=== PATIENT | male | born 1985 | race African-American/Black ===

== ENCOUNTER 2016-10-08 23:40 | Inpatient (IN) | payer MEDICARE, MEDICAID ==
[~2016-10-08] VITALS: Ht 175.3 cm; Wt 96.7 kg
[~2016-10-08 23:40] MED LIST: CELE10TA PO; INVE156I IM; ZYPR20TA
[2016-10-09] MEDS ORDERED: NICO2LOZ MT (00:18)
[2016-10-09] MEDS ORDERED: BENA25CA4 PO (00:18)
[2016-10-09] MEDS ORDERED: [UNRECOGNIZED DRUG - CODE] PO (00:18)
[2016-10-09] MEDS ORDERED: MULT1TAB10 PO (00:18)
[2016-10-09] MEDS ORDERED: GUAN1TA PO (00:18)
[2016-10-09] MEDS ORDERED: INVE234I IM (00:18)
[2016-10-09] MEDS ORDERED: BUPR10TASR PO (00:18)
[2016-10-09 00:56] LABS: MEAN CORPUSCULAR HEMOGLOBIN 30.5 pg (27.0-33.0); MEAN CORPUSCULAR HGB CONC 33.3 g/dl (32.0-36.5); MEAN CORPUSCULAR VOLUME 91.5 fl (80.0-96.0); RED CELL DISTRIBUTION WIDTH 13.5 % (11.5-14.5); WHITE BLOOD COUNT 5.5 K/mm3 (4.0-10.0)
[2016-10-09 01:31] LABS: ALBUMIN 4.6 GM/DL (3.2-5.2); ALBUMIN/GLOBULIN RATIO 1.07 (1.00-1.93); ALKALINE PHOSPHATASE 65 U/L (45-117); ALT/SGPT 29 U/L (12-78); ANION GAP 7 MEQ/L (8-16); AST/SGOT 29 U/L (15-37); BILIRUBIN,DIRECT 0.2 MG/DL (0.0-0.2); BILIRUBIN,TOTAL 0.8 MG/DL (0.2-1.0); BLOOD UREA NITROGEN 13 MG/DL (7-18); CARBON DIOXIDE LEVEL 31 MEQ/L (21-32); CHLORIDE LEVEL 101 MEQ/L (98-107); CREATININE FOR GFR 1.24 MG/DL (0.70-1.30); GLOMERULAR FILTRATION RATE > 60.0 (>60); GLUCOSE, FASTING 112 MG/DL (70-105); POTASSIUM SERUM 3.5 MEQ/L (3.5-5.1); SODIUM LEVEL 139 MEQ/L (136-145); TOTAL PROTEIN 8.9 GM/DL (6.4-8.2)
[2016-10-09] MEDS ORDERED: MAALOX 30 ML SUSP *UDC PO PRN (01:45)
[2016-10-09] MEDS ORDERED: MOM 30ML SUSPENSION UDC PO PRN (01:45)
[2016-10-09] MEDS ORDERED: traZODone 50 MG TAB PO PRN (01:45)
[2016-10-09] MEDS ORDERED: ACETAMINOPHEN TAB 650MG DOSE (2X325MG) PO PRN (01:45)
[2016-10-09] MEDS ORDERED: NICO2GUM40 PO (02:02)
[2016-10-09] MEDS ORDERED: MELA1CAP PO (02:02)
[2016-10-09] MEDS ORDERED: VITMTA PO (02:02)
[2016-10-09] MEDS ORDERED: HALOPERIDOL 5 MG TAB PO ONE (03:00)
[2016-10-09 03:02] LABS: FREE T4 0.91 NG/DL (0.76-1.46)
[2016-10-09 03:48] VITALS: BP 154/96
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
[2016-10-09 15:32] VITALS: BP 137/83
--- NOTE | 2016-10-09 15:35 | ECGEPIP ---
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
[2016-10-09 15:36] VITALS: BP 132/72
[2016-10-09 15:37] VITALS: BP 135/74
[2016-10-09] MEDS ORDERED: CEPACOL LOZENGE PO PRN (15:45)
[2016-10-09] MEDS ORDERED: chlordiazePOXIDE 25 MG CAP PO ONE (16:45)
[2016-10-09] MEDS ORDERED: QUEtiapine FUMARATE 100 MG TAB PO PRN (16:45)
[2016-10-09 17:41] LABS: METHADONE URINE NEGATIVE (NEGATIVE)
[2016-10-09 18:00] VITALS: BP 131/79
[2016-10-09] MEDS ORDERED: chlordiazePOXIDE 25 MG CAP PO PRN (21:00)
[2016-10-10 08:01] LABS: ALBUMIN 4.1 GM/DL (3.2-5.2); ALBUMIN/GLOBULIN RATIO 1.17 (1.00-1.93); ALKALINE PHOSPHATASE 60 U/L (45-117); ALT/SGPT 25 U/L (12-78); ANION GAP 5 MEQ/L (8-16); AST/SGOT 23 U/L (15-37); BILIRUBIN,TOTAL 0.9 MG/DL (0.2-1.0); BLOOD UREA NITROGEN 18 MG/DL (7-18); CALCIUM LEVEL 8.4 MG/DL (8.5-10.1); CARBON DIOXIDE LEVEL 28 MEQ/L (21-32); CHLORIDE LEVEL 106 MEQ/L (98-107); CREATININE FOR GFR 1.15 MG/DL (0.70-1.30); GLOMERULAR FILTRATION RATE > 60.0 (>60); GLUCOSE, FASTING 72 MG/DL (70-105); POTASSIUM SERUM 4.2 MEQ/L (3.5-5.1); SODIUM LEVEL 139 MEQ/L (136-145); T UPTAKE 41 % (33-40); THYROXINE (T4) 4.6 UG/DL (4.5-12.0); TOTAL PROTEIN 7.6 GM/DL (6.4-8.2)
--- NOTE | 2016-10-10 08:56 | MHIPNPDOC ---
[facility] Progress Note Progress Note DATE OF SERVICE: 10/10/16 HISTORY OF THE PRESENT ILLNESS: Patient is a 31-year-old male, who was discharged from [facility] on 10/05/16 and was reportedly observed to be acting in a bizarre manner at a [employer] and was brought in by ambulance for evaluation. Patient has 2 prior admissions at [facility], last admission occurring in 2012 with diagnosis of schizoaffective disorder. Patient has also had multiple other psychiatric admissions, recently completed substance abuse rehabilitation treatment. Patient indicates he took "a couple handfuls" of unknown medication, states he thinks made than Benadryl. Patient has history of prior suicide attempts 3. [employer]ting Press Tender met with patient today to assess treatment progress on inpatient unit. Patient is observed lying in bed, does not sit up to engage in assessment, indicates he is feeling "a little better," denies experiencing sensation of bugs crawling on him. Patient took 1 time dose of Librium last night, has not utilized Librium since, denies need for PRN anxiolytic or antipsychotic at this time. Patient rates current anxiety level as 2/10, depression 5/10, denies suicidal or homicidal ideation, denies auditory, tactile, or visual hallucinations, and denies urge to engage in self-injurious behavior. Patient indicates he continues to feel "a little groggy from my overdose, I don't remember what I took but I think it was Benadryl, it might have been something else, I know it was a prescribed med." When asked what precipitated overdose patient states, "when I left rehabilitation the plan was for me to go stay with a friend near [place], but when I got there they were using so I left, I was sad and I had nowhere to go." Patient continues to deny other substance use/abuse prior to current hospitalization admission, denies symptoms or craving or withdrawal. Patient reports marginal improvement energy level, indicates he is experiencing concentration and focus challenges, reports some improvement to appetite. Patient notes he slept well last night. Patient denies symptoms of physical pain presents with no signs of acute distress at time of interaction. Patient indicates he was taking the following medications up until time of admission: Wellbutrin SR 100 mg q day Diphenhydramine 50 mg hs PRN insomnia, may repeat 1 if needed Guanfacine 1 mg BID Melatonin 10 mg hs, may repeat 1 Invega Sustenna 234 mg IM, last injection given 09/23/16, next due 10/23/16 VITALS: See below NEW TEST RESULTS: 10/10/16 labs indicated low anion gap and calcium and elevated T3 uptake PAST MEDICAL/SURGICAL HISTORY: Patient denies history of chronic health condition, denies history of seizure or head injury. Labs on admission indicated elevated glucose, total protein, and TSH and low anion gap, patient refused weight UDS apparently not completed in ER. On 10/10/16 UDS negative 10/09/[address] elevation, probably early repolarization similar to Nursing has been asked to ensure the patient is evaluated by PA. Nursing has also been asked to monitor vitals q 6 hours and to monitor for symptoms of withdrawal and psychosis CURRENT MEDICATIONS: See below MENTAL STATUS EXAMINATION: General appearance: Patient is a 31-year old male, who is generally cooperative and pleasant, engageable, makes intermittent eye contact with less darting eye movements at times, exhibits adequate personal hygiene, dressed in hospital clothing, ambulates steady gait, appears stated age. Speech: Of normal rate, rhythm, volume, possibly some delay. Thought processes: Linear, goal-directed, possibly some disorganization. Thought content: Rational at times, tangential at times, possibly paranoid, perseverative to homelessness. Abstract reasoning and computation: Appear improved today Description of associations: Generally intact but loose times Description of abnormal or psychotic thoughts: Patient denies current suicidal or homicidal ideation, today denies intermittent visual hallucinations of "seeing snakes," denies intermittent audio hallucinations of "people shouting at me," and also denies tactile hallucinations of feeling bugs crawling on him. Patient may be responding to internal stimuli, requires further evaluation, endorses reduced bizarre bizarre or paranoid ideation, denies being preoccupied with violence. Judgment: Poor. Insight: Poor. Orientation: A and O 3. Recent and remote memory: Appears intact other than patient states he continues to remember nothing of events which occurred just prior to hospitalization, states he is not sure what medication he attempted to overdose on, he thinks may been Benadryl. Attention span and concentration: Improved today. Fund of knowledge: Requires further evaluation. Mood: "Hopeful." Patient reports reduced symptoms of anxiety and depression, no mood lability noted Affect: Blunted but brightens at times DIAGNOSES: Schizoaffective disorder, polysubstance use disorder. Rule out schizophrenia, rule out substance-induced disorder, rule out mood disorder. Adult ADHD by report ASSESSMENT: Patient appears to be adjusting to unit slowly, has been isolative to room, sleeping, is cooperative and engageable when awake, has presented with no behavior management challenges, attended one group yesterday and is encouraged to be up out of bed and to participate in unit activities. Patient is denying symptoms psychosis, states he continues to feel "groggy" due to recent overdose on unknown substance, UDS negative. EEG has been ordered to rule out organic cause of what may be alteration in mental status. 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 Patient denies current suicidal or homicidal ideation and verbalizes awareness of how to access supportive services on the unit if needed. Will continue to monitor patient and evaluate medication restart, patient's response to medications, and will monitor for medication side effects. Will also evaluate for patient safety, resolution of suicidal ideation, and discharge readiness. marketing content coordinator is attempting to access background treatment information to ensure safe and effective discharge planning. Patient reiterates today when prepared for discharge he is agreeable to participating in outpatient psychotherapy, medication management, and case management, is requesting assistance with housing and states he would like to transition to [facility] supportive housing environment. MANAGEMENT PLAN: Discontinue Librium. Discontinue Librium. Initiate Ativan 1 mg po TID PRN anxiety/agitation. Continue Seroquel 100 mg po hs PRN mood/insomnia. Evaluate restart of medications patient was prescribed and discharged on from rehabilitation: Wellbutrin, Tenex EEG ordered Maintain safety precautions Patient to attend groups and participate in unit programming to develop coping strategies Engage patient in discharge planning process and arrange meeting with support system to ensure safe discharge planning when appropriate Patient to follow up with PCM upon discharge TIME SPENT: 35 minutes Vital Signs Vital Signs Date Time Temp Pulse Resp B/P (MAP) Pulse Ox O2 Delivery O2 Flow Rate FiO2 10/09/16 21:48 Room Air 10/09/16 18:00 97.9 86 16 131/79 (96) 10/09/16 15:32 98 Laboratory Data 24H Labs Laboratory Tests 2 10/09/16 17:10: Urine Amphetamines Screen NEGATIVE, Urine Benzodiazepines Screen NEGATIVE, Urine Opiates Screen NEGATIVE, Urine Methadone Screen NEGATIVE, Urine Barbiturates Screen NEGATIVE, Urine Phencyclidine Screen NEGATIVE, Urine Cocaine Metabolite Screen NEGATIVE, Urine Cannabinoids Screen NEGATIVE 10/10/16 07:08: Anion Gap 5L, Glomerular Filtration Rate > 60.0, Blood Urea Nitrogen 18, Creatinine 1.15, Sodium Level 139, Potassium Level 4.2, Chloride Level 106, Carbon Dioxide Level 28, Calcium Level 8.4L, Aspartate Amino Transf (AST/SGOT) 23, Alanine Aminotransferase (ALT/SGPT) 25, Alkaline Phosphatase 60, Total Bilirubin 0.9, Total Protein 7.6, Albumin 4.1, Albumin/Globulin Ratio 1.17, Thyroid Stimulating Hormone (TSH) 1.250, Free Thyroxine Index 1.9, Thyroxine (T4 ) 4.6, Triiodothyronine (T3) Uptake 41H CBC/BMP Laboratory Tests 10/10/16 07:08 Calcium Level 8.4 L, Aspartate Amino Transf (AST/SGOT) 23, Alanine Aminotransferase (ALT/SGPT) 25, Alkaline Phosphatase 60, Total Bilirubin 0.9, Total Protein 7.6, Albumin 4.1 Current Medications Current Medications Acetaminophen (Tylenol Tab) 650 mg Q6HP PRN PO HEADACHE or DISCOMFORT; Start at 01:45; Stop 11/08/16 at 01:44 Al Hydrox/Mg Hydrox/Simethicone (Mylanta) 30 ml Q4HP PRN PO HEARTBURN/ INDIGESTION; Start 10/09/16 at 01:45; Stop 11/08/16 at 01:44 Cetylpyridinium Chloride (Cepacol) 1 alissa Q6HP PRN PO SORE THROAT; Start at 15:45; Stop 11/08/16 at 15:44 Chlordiazepoxide (Librium) 25 mg TID PRN PO alcohol/benzo withdrawal; Start 10/09/16 at 21:00; Stop 10/16/16 at 20:59 Home Med (Med Rec Complete!) ASDIRECTED XX ; Start 10/09/16 at 02:15; Stop at 02:15; Status DC Magnesium Hydroxide (Milk Of Magnesia) 30 ml DAILYPRN PRN PO CONSTIPATION; Start 10/09/16 at 01:45; Stop 11/08/16 at 01:44 Quetiapine Fumarate (SEROquel) 100 mg QHS PRN PO psychosis/insomnia; Start 10/09 at 16:45; Stop 11/08/16 at 16:44 Trazodone HCl (Desyrel) 50 mg QHSP PRN PO INSOMNIA; Start 10/09/16 at 01:45; Stop 10/09/16 at 16:51; Status DC Allergies Coded Allergies: No Known Allergies (Unverified , 01/06/13) Daniela Beltre Oct 10, 2016 08:56
[2016-10-10] MEDS ORDERED: LORazepam 1 MG TAB PO PRN (14:45)
[2016-10-10 18:00] VITALS: BP 138/82
[2016-10-10] MEDS: AMOXICILLIN 500 MG CAP PO SCH (22:00)
--- NOTE | 2016-10-10 23:31 | HPE ---
DATE OF ADMISSION: 10/09/2016 HISTORY OF PRESENT ILLNESS: Please refer to psychiatric history and evaluate For further details on this admission. This examination and history is intended for medical issues, which may need treatment, followup, or consult on this 31-year-old male. This is being done today, as patient refused to get up yesterday. He is awake and cooperative today. ALLERGIES: No known allergies. SOCIAL HISTORY: He is single. He states he is currently homeless. EtOH (ethanol) occasionally. Smokes one pack of cigarettes per day. Recreational drug use: Marijuana and cocaine. He has not had either for 34 days. He has not smoked cigarettes for 34 days. PAST MEDICAL HISTORY: 1. Schizoaffective disorder. 2. Anxiety. 3. Depression. 4. Polysubstance abuse. PAST SURGICAL HISTORY: Negative. LABORATORY STUDIES: CBC was normal. Electrolytes were normal. TSH was 7.63. Rechecked TSH was normal at 1.250. Free T3 normal at 1.9. Thyroxine 4.6. EKG showed sinus rhythm of 85. Toxicology screen was negative. CBC was normal. Electrolytes were normal. HOME MEDICATIONS: - Wellbutrin SR 100 mg by mouth daily - guanfacine HCL 1 mg by mouth twice a day - multivitamin one by mouth daily - nicotine gum 2 mg by mouth every 2 hours as needed for smoking cessation - melatonin 1 mg by mouth at bedtime REVIEW OF SYSTEMS: A 10-systems review was done. Patient was complaining of a sore throat. No fevers, chills, or difficulty swallowing. No nausea or vomiting. OBJECTIVE: Height 69 inches, blood pressure 137/83, pulse 78, respirations 18, temperature 98.1. Patient is alert and oriented times three. Pupils equal and reactive to light. Extraocular movements (EOMs) intact. Corneae and sclerae clear. Conjunctivae are normal. No facial asymmetry. Pharynx is reddened. Tonsils reddened. Tongue and gums pink and moist. Tongue is midline. Neck is supple without lymphadenopathy. No thyromegaly. No goiter. Carotids 2+ without bruits. Chest clear to auscultation without wheezing or retraction. Heart is regular. Abdomen benign. Bowel sounds positive. Genitourinary/rectal not done. Extremities show equal strength, full range of motion. No cyanosis, clubbing, or edema. Gait steady. Peripheral pulses equal and palpable bilaterally. Skin is warm and dry. IMPRESSION AND PLAN: Psychiatric plan per psychiatry. Tonsillitis, pharyngitis. Throat culture and sensitivity (C and S) sent. Amoxicillin 500 mg by mouth three times a day for 10 days. Increase fluids by mouth.
[2016-10-11] MEDS: AMOXICILLIN 500 MG CAP PO SCH ×4 (06:00→21:06)
[2016-10-11 06:26] VITALS: BP 142/85
[2016-10-11 07:47] LABS: BASO % 0.8 % (0.0-1.0); EOS # 0.2 K/mm3 (0.0-0.50); EOS % 5.2 % (0.0-3.0); LARGE UNSTAINED CELL # 0.1 K/mm3 (0.0-0.4); LARGE UNSTAINED CELL % 1.4 % (0.0-4.0); LYMPH % 47.5 % (24.0-44.0); MEAN CORPUSCULAR HEMOGLOBIN 30.8 pg (27.0-33.0); MEAN CORPUSCULAR HGB CONC 34.2 g/dl (32.0-36.5); MEAN CORPUSCULAR VOLUME 89.9 fl (80.0-96.0); MONO # 0.3 K/mm3 (0.0-0.8); MONO % 6.1 % (0.0-5.0); NEUTROPHILS # 1.6 K/mm3 (1.8-7.7); PLATELET COUNT, AUTOMATED 164 k/mm3 (150-450); RED CELL DISTRIBUTION WIDTH 13.4 % (11.5-14.5); WHITE BLOOD COUNT 4.1 K/mm3 (4.0-10.0)
--- NOTE | 2016-10-11 09:17 | MHIPNPDOC ---
[facility] Progress Note Progress Note DATE OF SERVICE: 10/11/16 HISTORY OF THE PRESENT ILLNESS: Patient is a 31-year-old male, who was discharged from [facility] on 10/05/16 and was reportedly observed to be acting in a bizarre manner at a [employer] and was brought in by ambulance for evaluation. Patient has 2 prior admissions at [facility], last admission occurring in 2012 with diagnosis of schizoaffective disorder. Patient has also had multiple other psychiatric admissions, recently completed substance abuse rehabilitation treatment. Patient indicates he took "a couple handfuls" of unknown medication, states he thinks made than Benadryl. Patient has history of prior suicide attempts 3. Delivery Sales Worker met with patient today to assess treatment progress on inpatient unit. Patient is observed lying in bed, today sits up to engage with automatic typewriter inspector for assessment, indicates he did not sleep well last night due to a nightmare about which he provides the information, informs automatic typewriter inspector today that he is feeling "better, I checked my horoscope and things are looking better." Patient describes current anxiety level as 7/10, depression 7/10, denies suicidal and homicidal ideation, denies auditory visual hallucinations, denies urge to engage in self-injurious behavior. Patient states he last experienced tactile hallucinations yesterday which involved sensation of bugs crawling on his skin and visual hallucinations which involved "seeing air coming out of my pores," notes he last experienced suicidal ideation earlier this morning pertaining to "housing, I'm afraid I'm than have to live on the street." Patient expresses concerns regarding homelessness, states recent overdose was due to "I had nowhere else to go and I felt hopeless, I reached a -end." Patient to undergo EEG today. Patient makes request for Wellbutrin restart indicating medication "worked the best of any of the antidepressants have taken." Patient reports energy level remains low which she attributes to recent overdose, reiterates today he is not sure on what medication he overdosed, I indicates he overdosed due to homelessness. Patient continues to deny other substance use/ abuse prior to current hospitalization admission, denies symptoms or craving or withdrawal. Patient states he continues to experience concentration and focus challenges, reports some improvement to appetite. Patient denies symptoms of physical pain presents with no signs of acute distress at time of interaction. 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 Of note: Delivery Sales Worker attempted to reach Julia Colby at [facility] ([phone]) to discuss treatment history and to provide treatment update, spoke with nurse, Mckayla, who indicated patient's behavioral health case has been closed at clinic since 2013. Patient indicates he was taking the following medications up until time of admission: Wellbutrin SR 100 mg q day Diphenhydramine 50 mg hs PRN insomnia, may repeat 1 if needed Guanfacine 1 mg BID Melatonin 10 mg hs, may repeat 1 Invega Sustenna 234 mg IM, last injection given 09/23/16, next due 10/23/16 VITALS: See below NEW TEST RESULTS: 10/11/16 labs indicated low Hgb, HCT, neut %, and elevated lymph %, mono %, and eos %, PA is aware and treating tonsillitis, pharyngitis 10/10/16 labs indicated low anion gap and calcium and elevated T3 uptake PAST MEDICAL/SURGICAL HISTORY: Patient denies history of chronic health condition, denies history of seizure or head injury. Labs on admission indicated elevated glucose, total protein, and TSH and low anion gap, patient refused weight UDS apparently not completed in ER. On 10/10/16 UDS negative 10/09/[address] elevation, probably early repolarization similar to , clinical consultation completed with recommendation made for follow-up with outpatient provider. Throat culture pending CURRENT MEDICATIONS: See below MENTAL STATUS EXAMINATION: General appearance: Patient is a 31-year old male, who is generally cooperative and pleasant, engageable, makes intermittent eye contact with no darting eye movements today, exhibits adequate personal hygiene, dressed in hospital clothing, ambulates steady gait, appears stated age. Speech: Of normal rate, rhythm, volume, possibly some delay. Thought processes: Linear, goal-directed, possibly some disorganization. Thought content: Rational at times, less tangential but remains at times, possibly paranoid, perseverative to homelessness. Abstract reasoning and computation: Appear improved today Description of associations: Generally intact but loose times Description of abnormal or psychotic thoughts: Patient denies current suicidal or homicidal ideation, today denies auditory or visual hallucinations, indicates he last experienced yesterday involving sensation of bugs crawling on his skin. Patient does not appear to be responding to internal stimuli but requires further evaluation, continues to endorse bizarre in what may be paranoid ideation, denies being preoccupied with violence. Judgment: Poor. Insight: Poor. Orientation: A and O 3. Recent and remote memory: Appears intact other than patient states he continues to remember nothing of events which occurred just prior to hospitalization, states he is not sure what medication he attempted to overdose on, he thinks may been Benadryl. Attention span and concentration: Some improvement noted today. Fund of knowledge: Requires further evaluation. Mood: "I'm concerned about being homeless and having nowhere to go." Patient reports ongoing symptoms of anxiety and depression, no mood lability noted Affect: Blunted, congruent with mood DIAGNOSES: Schizoaffective disorder, polysubstance use disorder. Rule out bipolar disorder, rule out schizophrenia, rule out substance-induced disorder, rule out mood disorder. Adult ADHD by report ASSESSMENT: Patient appears to be adjusting to unit slowly, re,ains generally isolative to room and sleeping but is visible at times, has been attending some groups remains cooperative and engageable when awake, has presented with no behavior management challenges. Patient has been encouraged to be up out of bed and to participate in unit activities. Patient is denying symptoms of psychosis but indicates he last experienced yesterday, states he continues to experience low energy related to recent overdose on unknown substance, UDS negative. Patient has not needed to utilize PRN anxiolytic is aware medication is available to him if needed. EEG to be completed today in effort to rule out organic cause of what may be alteration in mental status. Patient indicates he is experiencing symptoms of depression and experienced poor sleep last night, is agreeable to taking Seroquel which will be changed to standing order in effort to improve sleep and mood and reduce unusual thinking. Patient denies current suicidal or homicidal ideation and verbalizes awareness of how to access supportive services on the unit if needed. Will continue to monitor patient and evaluate antidepressant medication restart, patient's response to medications, and will monitor for medication side effects. Will also evaluate for patient safety, resolution of suicidal ideation, and discharge readiness. market research coordinator is attempting to access background treatment information to ensure safe and effective discharge planning. Patient reiterates today when prepared for discharge he is agreeable to participating in outpatient psychotherapy, medication management, and case management, is requesting assistance with housing and states he would like to transition to [facility] supportive housing environment. MANAGEMENT PLAN: Continue Ativan 1 mg po TID PRN anxiety/agitation. Change Seroquel to 100 mg po hs. continue to evaluate restart of medications patient was prescribed and discharged on from rehabilitation: Wellbutrin, Tenex EEG ordered, results pending Maintain safety precautions Patient to attend groups and participate in unit programming to develop coping strategies Engage patient in discharge planning process and arrange meeting with support system to ensure safe discharge planning when appropriate Patient to follow up with PCM upon discharge TIME SPENT: 35 minutes Vital Signs Vital Signs Date Time Temp Pulse Resp B/P (MAP) Pulse Ox O2 Delivery O2 Flow Rate FiO2 10/11/16 06:26 97.6 93 18 142/85 (104) 10/09/16 21:48 Room Air 10/09/16 15:32 98 Laboratory Data 24H Labs Laboratory Tests 2 10/11/16 07:36: White Blood Count 4.1, Red Blood Count 4.53, Hemoglobin 13.9L, Hematocrit 40.7L , Mean Corpuscular Volume 89.9, Mean Corpuscular Hemoglobin 30.8, Mean Corpuscular Hemoglobin Concent 34.2, Red Cell Distribution Width 13.4, Platelet Count 164, Neutrophils (%) (Auto) 39.0, Lymphocytes (%) (Auto) 47.5H, Monocytes (%) (Auto) 6.1H, Eosinophils (%) (Auto) 5.2H, Basophils (%) (Auto) 0.8, Neutrophils # (Auto) 1.6L, Lymphocytes # (Auto) 2.0, Monocytes # (Auto) 0.3, Eosinophils # (Auto) 0.2, Basophils # (Auto) 0.0, Large Unclassified Cells % 1.4 , Large Unclassified Cells # 0.1 CBC/BMP Laboratory Tests 10/11/16 07:36 Red Blood Count 4.53, Mean Corpuscular Volume 89.9, Mean Corpuscular Hemoglobin 30.8, Mean Corpuscular Hemoglobin Concent 34.2, Red Cell Distribution Width 13.4 , Neutrophils (%) (Auto) 39.0, Lymphocytes (%) (Auto) 47.5 H, Monocytes (%) ( Auto) 6.1 H, Eosinophils (%) (Auto) 5.2 H, Basophils (%) (Auto) 0.8, Neutrophils # (Auto) 1.6 L, Lymphocytes # (Auto) 2.0, Monocytes # (Auto) 0.3, Eosinophils # (Auto) 0.2, Basophils # (Auto) 0.0 Current Medications Current Medications Acetaminophen (Tylenol Tab) 650 mg Q6HP PRN PO HEADACHE or DISCOMFORT; Start at 01:45; Stop 11/08/16 at 01:44 Al Hydrox/Mg Hydrox/Simethicone (Mylanta) 30 ml Q4HP PRN PO HEARTBURN/ INDIGESTION; Start 10/09/16 at 01:45; Stop 11/08/16 at 01:44 Amoxicillin (Amoxicillin) 500 mg Q8H PO Last administered on 10/11/16t 08:33; Start 10/10/16 at 22:00; Stop 10/17/16 at 21:59 Cetylpyridinium Chloride (Cepacol) 1 alissa Q6HP PRN PO SORE THROAT; Start at 15:45; Stop 11/08/16 at 15:44 Chlordiazepoxide (Librium) 25 mg TID PRN PO alcohol/benzo withdrawal; Start 10/09/16 at 21:00; Stop 10/10/16 at 14:24; Status DC Home Med (Med Rec Complete!) ASDIRECTED XX ; Start 10/09/16 at 02:15; Stop at 02:15; Status DC Lorazepam (Ativan) 1 mg TIDP PRN PO ANXIETY/AGITATION; Start 10/10/16 at 14:45; Stop 10/17/16 at 14:44 Magnesium Hydroxide (Milk Of Magnesia) 30 ml DAILYPRN PRN PO CONSTIPATION; Start 10/09/16 at 01:45; Stop 11/08/16 at 01:44 Quetiapine Fumarate (SEROquel) 100 mg QHS PRN PO psychosis/insomnia; Start 10/09 at 16:45; Stop 11/08/16 at 16:44 Trazodone HCl (Desyrel) 50 mg QHSP PRN PO INSOMNIA; Start 10/09/16 at 01:45; Stop 10/09/16 at 16:51; Status DC Allergies Coded Allergies: No Known Allergies (Unverified , 01/06/13) Daniela Beltre Oct 11, 2016 09:17
[2016-10-11 12:48] VITALS: BP 129/73
[2016-10-11 18:19] VITALS: BP 120/76
[2016-10-11] MEDS: QUEtiapine FUMARATE 100 MG TAB PO SCH (20:29)
[2016-10-12] MEDS: AMOXICILLIN 500 MG CAP PO SCH ×3 (05:56→20:56)
[2016-10-12 06:17] VITALS: BP 120/69
[2016-10-12 12:02] VITALS: BP 126/84
[2016-10-12 18:00] VITALS: BP 127/74
--- NOTE | 2016-10-12 18:50 | MHIPNPDOC ---
[facility] Progress Note Progress Note DATE OF SERVICE: 10/12/16 HISTORY OF THE PRESENT ILLNESS: Patient is a 31-year-old male, who was discharged from [facility] on 10/05/16 and was reportedly observed to be acting in a bizarre manner at a [employer] and was brought in by ambulance for evaluation. Patient has 2 prior admissions at [facility], last admission occurring in 2012 with diagnosis of schizoaffective disorder. Patient has also had multiple other psychiatric admissions, recently completed substance abuse rehabilitation treatment. Patient indicates he took "a couple handfuls" of unknown medication, states he thinks may have been Benadryl. Patient states he has history of prior suicide attempts 3. Child Psychologist met with patient today to assess treatment progress on inpatient unit. Patient was observed to be lying in bed, readily sat up to engage with news writer for assessment purposes. Patient was later observed to be in lounge, calmly reading magazine and watching television, is visible at times, at other times isolates to room. Patient reports current anxiety level of 3/10, depression 3/10 , denies current suicidal or homicidal ideation, however, indicates he experienced suicidal ideation last night and envisioned plan of consuming "antifreeze maybe, but I'm not sure," attributes symptoms to "feeling hopeless about my future and where I'm going to go." Patient denies auditory and visual hallucinations, notes last experienced tactile hallucinations the day before yesterday, denies urge to engage in self-injurious behavior. EEG has been completed, results not yet available in EMR. Patient today indicates he is does not believe Wellbutrin or Tenex need to be restarted, notes symptoms of depression and anxiety are noticeably reduced with utilization of Seroquel and states sleep is also improved, denies nightmare symptoms. Patient reports energy level remains low which she attributes to recent overdose, reiterates today he is not sure on what medication he overdosed, reiterates he overdosed due to hopelessness and homelessness. Patient continues to deny other substance use/abuse prior to current hospitalization admission, denies symptoms or craving or withdrawal, was recently discharged from rehabilitation. Patient reports some improvement to concentration and focus, notes appetite has improved. Patient denies symptoms of physical pain presents with no signs of acute distress at time of interaction. 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 Of note: Child Psychologist attempted to reach Julia Colby at [facility] ([phone]) on to discuss treatment history and to provide treatment update, spoke with nurse, Mckayla, who indicated patient's behavioral health case has been closed at clinic since 2013. Patient indicates he was taking the following medications up until time of admission: Wellbutrin SR 100 mg q day Diphenhydramine 50 mg hs PRN insomnia, may repeat 1 if needed Guanfacine 1 mg BID Melatonin 10 mg hs, may repeat 1 Invega Sustenna 234 mg IM, last injection given 09/23/16, next due 10/23/16 VITALS: See below NEW TEST RESULTS: 10/11/16 labs indicated low Hgb, HCT, neut %, and elevated lymph %, mono %, and eos %, PA is aware and treating tonsillitis, pharyngitis 10/10/16 labs indicated low anion gap and calcium and elevated T3 uptake PAST MEDICAL/SURGICAL HISTORY: Patient denies history of chronic health condition, denies history of seizure or head injury. Labs on admission indicated elevated glucose, total protein, and TSH and low anion gap, patient refused weight UDS apparently not completed in ER. On 10/10/16 UDS negative 10/09/[address] elevation, probably early repolarization similar to , clinical consultation completed with recommendation made for follow-up with outpatient provider. 10/11/16 Throat culture pending 10/11/16 EEG results pending CURRENT MEDICATIONS: See below MENTAL STATUS EXAMINATION: General appearance: Patient is a 31-year old male, who is generally cooperative and pleasant, engageable, makes intermittent eye contact with no darting eye movements today, exhibits adequate personal hygiene, dressed in hospital clothing, ambulates steady gait, appears stated age. Speech: Of normal rate, rhythm, volume, possibly some delay. Thought processes: Linear, goal-directed, possibly some disorganization. Thought content: Rational at times, less tangential but remains at times, possibly paranoid, perseverative to homelessness. Abstract reasoning and computation: Appear improved today Description of associations: Generally intact but loose times Description of abnormal or psychotic thoughts: Patient denies current suicidal or homicidal ideation, today denies auditory or visual hallucinations, indicates he last experienced day before yesterday involving sensation of bugs crawling on his skin. Patient does not appear to be responding to internal stimuli but requires further evaluation, continues to endorse bizarre in what may be paranoid ideation, denies being preoccupied with violence. Judgment: Poor. Insight: Poor. Orientation: A and O 3. Recent and remote memory: Appears intact other than patient states he continues to remember nothing of events which occurred just prior to hospitalization, states he is not sure what medication he attempted to overdose on, he thinks may been Benadryl. Attention span and concentration: Some improvement noted today. Fund of knowledge: Requires further evaluation. Mood: "I'm feeling a little better but I still feel hopeless about things and where I'm going to go." Patient reports some improvement to symptoms of anxiety and depression, no mood lability noted Affect: Blunted, brightens 1, congruent with mood DIAGNOSES: Schizoaffective disorder, polysubstance use disorder. Rule out bipolar disorder, rule out schizophrenia, rule out substance-induced disorder. Adult ADHD by report ASSESSMENT: Patient appears to be adjusting to unit slowly, remains isolative to room and sleeping at times but is visible at other times, has been attending some groups remains cooperative and engageable when awake, has presented with no behavior management challenges. Patient was again encouraged to be up out of bed and to participate in unit activities. Patient is denying symptoms of psychosis, notes he continues to experience low energy related to recent overdose on unknown substance, UDS negative, possible throat infection. Patient has not needed to utilize PRN anxiolytic is aware medication is available to him if needed. EEG has been completed in effort to rule out organic cause of what may be alteration in mental status. Patient presents with reduced unusual thinking and reports improvement to symptoms of depression and states he slept well last night, indicates Seroquel is effective and denies medication side effects. Patient today denies need for Wellbutrin restart, will continue to evaluate. Patient denies current suicidal or homicidal ideation and verbalizes awareness of how to access supportive services on the unit if needed. Will continue to monitor patient and evaluate need for antidepressant medication, patient's response to medications, and will monitor for medication side effects. Will also evaluate for patient safety, resolution of suicidal ideation , and discharge/transfer readiness. dental office coordinator is attempting to access background treatment information to ensure safe and effective discharge planning, has also made arrangements for patient to have [facility] intake next week and referral information for housing has been faxed to [place]. Patient reiterates today when prepared for discharge he is agreeable to participating in outpatient psychotherapy, medication management, and case management, is requesting assistance with housing and states he would like to transition to [facility] or some other supportive housing environment. MANAGEMENT PLAN: Continue Seroquel 100 mg po hs. Continue Ativan 1 mg po TID PRN anxiety/agitation. Patient will be due for next Invega Sustenna 234 mg IM q 30 days on 10/23/16. Continue to evaluate restart of medications patient was discharged on from rehabilitation: Wellbutrin, Tenex EEG ordered, results pending Maintain safety precautions Patient to attend groups and participate in unit programming to develop coping strategies Engage patient in discharge planning process and arrange meeting with support system to ensure safe discharge planning when appropriate Patient to follow up with PCM upon discharge TIME SPENT: 25 minutes Vital Signs Vital Signs Date Time Temp Pulse Resp B/P (MAP) Pulse Ox O2 Delivery O2 Flow Rate FiO2 10/12/16 12:02 64 16 126/84 (98) 10/12/16 06:17 98.5 Room Air 10/09/16 15:32 98 Current Medications Current Medications Acetaminophen (Tylenol Tab) 650 mg Q6HP PRN PO HEADACHE or DISCOMFORT; Start at 01:45; Stop 11/08/16 at 01:44 Al Hydrox/Mg Hydrox/Simethicone (Mylanta) 30 ml Q4HP PRN PO HEARTBURN/ INDIGESTION; Start 10/09/16 at 01:45; Stop 11/08/16 at 01:44 Amoxicillin (Amoxicillin) 500 mg Q8H PO Last administered on 10/12/16t 13:29; Start 10/10/16 at 22:00; Stop 10/17/16 at 21:59 Cetylpyridinium Chloride (Cepacol) 1 alissa Q6HP PRN PO SORE THROAT; Start at 15:45; Stop 11/08/16 at 15:44 Chlordiazepoxide (Librium) 25 mg TID PRN PO alcohol/benzo withdrawal; Start 10/09/16 at 21:00; Stop 10/10/16 at 14:24; Status DC Home Med (Med Rec Complete!) ASDIRECTED XX ; Start 10/09/16 at 02:15; Stop at 02:15; Status DC Lorazepam (Ativan) 1 mg TIDP PRN PO ANXIETY/AGITATION; Start 10/10/16 at 14:45; Stop 10/17/16 at 14:44 Magnesium Hydroxide (Milk Of Magnesia) 30 ml DAILYPRN PRN PO CONSTIPATION; Start 10/09/16 at 01:45; Stop 11/08/16 at 01:44 Quetiapine Fumarate (SEROquel) 100 mg QHS PO Last administered on 10/11/16t 20: 29; Start 10/11/16 at 21:00; Stop 11/08/16 at 16:44 Quetiapine Fumarate (SEROquel) 100 mg QHS PRN PO psychosis/insomnia; Start 10/09 at 16:45; Stop 10/11/16 at 16:51; Status DC Trazodone HCl (Desyrel) 50 mg QHSP PRN PO INSOMNIA; Start 10/09/16 at 01:45; Stop 10/09/16 at 16:51; Status DC Allergies Coded Allergies: No Known Allergies (Unverified , 01/06/13) Daniela Beltre Oct 12, 2016 18:50
--- NOTE | 2016-10-12 20:27 | EEG ---
DATE OF PROCEDURE: 10/11/2016 REFERRING PHYSICIAN: Dr. Roslyn Pinto DIAGNOSIS: Altered mental status. EEG #: [id number] HISTORY: Patient is a 31-year-old male with schizoaffective disorder, polysubstance abuse who is admitted at inpatient [facility]. The patient believes that he is partially an alien. He is currently on Ativan, chlordiazepoxide, quetiapine, amoxicillin, etc. TECHNICAL DESCRIPTION: This digital EEG was recorded by 21 scalp, ear and two EKG electrodes and was reviewed in bipolar and referential montages following reformatting in 10-20 international electrode placement system. INTERPRETATION: The patient was noted to be in awake and drowsy states during this EEG. Resting awake background rhythm consisted of well-formed posterior dominant rhythm with anterior/posterior gradient comprising of 11 Hz alpha activity measuring 15-40 microvolts in amplitude, which was symmetric and reactive to eye opening. Attenuation of posterior dominant was seen during transition into drowsiness. Stage I and II sleep were reviewed and were symmetric bilaterally. Hyperventilation elicited mild theta slowing of background rhythm. Photic stimulation at 330 Hz elicited symmetric photic driving, especially at mid frequencies. EKG revealed normal sinus rhythm. No focal, lateralizing or epileptiform abnormalities were seen. No clinical or electrographic seizures were recorded. CONCLUSION: This EEG in awake, drowsy states, stage I and II sleep is within normal limits.
[2016-10-12] MEDS: QUEtiapine FUMARATE 100 MG TAB PO SCH (20:56)
[2016-10-12 20:58] VITALS: BP 130/78
[2016-10-13] MEDS: AMOXICILLIN 500 MG CAP PO SCH ×3 (06:16→21:00)
[2016-10-13 06:34] VITALS: BP 132/80
[2016-10-13 12:00] VITALS: BP 144/85
[2016-10-13 18:00] VITALS: BP 137/72
[2016-10-13] MEDS: QUEtiapine FUMARATE 100 MG TAB PO SCH (20:17)
[2016-10-13 20:18] VITALS: BP 143/96
[2016-10-14] MEDS: AMOXICILLIN 500 MG CAP PO SCH ×3 (06:05→20:59)
[2016-10-14 06:36] VITALS: BP 127/57
[2016-10-14 10:26] VITALS: BP 142/76
--- NOTE | 2016-10-14 14:43 | IPN ---
DATE: 10/13/2016 The patient today states "I overdosed on sleeping pills." He is denying that he is suicidal now. He says that he slept good. He says he is not feeling as depressed. His mood is maybe about a 3/10 where the closer to 10 is the most depressed. He has no complaints. MENTAL STATUS EXAMINATION: He is alert and oriented times three. He is not verbally spontaneously but he answers with appropriate answers. Psychomotor activity is decreased. His mood is better. Affect constricted but appropriate to his mood. He is not psychotic, suicidal or homicidal. Concentration is fair. Memory is intact. Insight and judgment fair. DIAGNOSIS: Schizoaffective disorder. Polysubstance dependence. Adult attention deficit hyperactivity disorder. TREATMENT PLAN: The patient at this point will continue to be monitored for continued resolution of suicidal ideations and continued stabilization of his mood. ARIEL
[2016-10-14 18:00] VITALS: BP 143/74
[2016-10-14 20:25] VITALS: BP 145/95
[2016-10-14] MEDS: QUEtiapine FUMARATE 100 MG TAB PO SCH (20:25)
--- NOTE | 2016-10-15 03:22 | IPN ---
DATE OF SERVICE: 10/14/2016 The patient today was out of his room. He was more alert. He had no complaints. Said he was doing good. I was not eliciting any problems with his thinking. He was not suicidal or depressed. MENTAL STATUS EXAMINATION: This patient is alert and oriented times three. Eye contact is fair. Psychomotor activity is normal. He is verbally spontaneous. He says his mood is good. Affect is full range and appropriate. He is not psychotic, suicidal, homicidal. Concentration is fair. Memory is intact. Insight and judgment is fair. DIAGNOSES: 1. Schizoaffective disorder. 2. Polysubstance use disorder. TREATMENT PLAN: At this point, we will further observe and evaluate this patient for his depressive symptomatology and stabilization of his mood. We will monitor for continued resolution of suicidal ideations and titrate his medications as indicated.
[2016-10-15] MEDS: AMOXICILLIN 500 MG CAP PO SCH ×3 (06:15→21:04)
[2016-10-15 06:51] VITALS: BP 113/60
[2016-10-15 11:38] VITALS: BP 132/81
--- NOTE | 2016-10-15 15:41 | MHIPNPDOC ---
[facility] Progress Note Progress Note DATE OF SERVICE: 10/15/16 HISTORY: Day 7 of admission. Pt seen by this junior technical writer covering for Daniela Beltre APN. Patient is a 31-year-old male, who was discharged from [facility] on 10/05/16 and was reportedly observed to be acting in a bizarre manner at a [employer] and was brought in by ambulance for evaluation. Patient has 2 prior admissions at [facility], last admission occurring in 2012 with diagnosis of schizoaffective disorder. Patient has also had multiple other psychiatric admissions, recently completed substance abuse rehabilitation treatment. Patient indicates he took "a couple handfuls" of unknown medication, states he thinks may have been Benadryl. Patient states he has history of prior suicide attempts 3. VITAL SIGNS: See below. NEW TEST RESULTS: repeat TSH and T3 were WNL per note by SIDE FRAMER on hospitalist service. CURRENT MEDICATIONS: See below. MENTAL STATUS EXAMINATION: Patient is a 31-year old male, who is lying in bed in his room, wearing glasses , and hospital attire, somewhat guarded but pleasant. Speech: Is clear and spontaneous Language skills are grossly intact Thought processes including: linear Thought content: appropriate. Abstract reasoning, and computation: concrete. Description of associations: loose. Description of abnormal or psychotic thoughts: pt did not verbalize any abnormal or psychotic thoughts in 1:1 today, seen for only 15 minutes. Denies thoughts of SI currently. No HI. Pt denies internal stim, denies perceptual disturbances. Judgment: fair to poor given substance abuse Insight: poor Orientation: oriented to surroundings, person, place and easily reoriented to time. Recent and remote memory: appears intact but cannot recall events prior to admission Attention span and concentration: adequate Fund of knowledge: impaired. Mood: euthymic during this session. Affect: bright during conversation, smiling. DIAGNOSES: Schizoaffective disorder, polysubstance use disorder. Rule out bipolar disorder , rule out schizophrenia, rule out substance-induced disorder. Adult ADHD by report ASSESSMENT:Met with pt for 1:1. He agreed to talk to junior technical writer in the absence of the usual clinician. He denied any urgent needs. Denies side effects to medications. Reports difficulty falling asleep last night stating it took much longer than usual. It appears he has Seroquel ordered. Pt reported he attended 1 group today in the morning. Praise given and encouraged to attend as many groups as he can each day. Pt is not visible in the milieu. He is the only person on the unit right now and he may feel uncomfortable with this situation. Assurances given that our discharge planners are very good and that they will find him a suitable place to live. Reminded him that [facility] was coming to see him tomorrow. He was aware and did remember this. MANAGEMENT PLAN: pt appears to be improving, no behavior concerns demonstrated. He is quiet and keeps to self. Continue close observation. Monitor sleep and effectiveness of medications. Increased Seroquel at hs to 200 mg for mood improvement and difficulty initiating sleep. TIME SPENT: 15 minutes. Vital Signs Vital Signs Date Time Temp Pulse Resp B/P (MAP) Pulse Ox O2 Delivery O2 Flow Rate FiO2 10/15/16 11:38 98.3 100 18 132/81 (98) 10/12/16 06:17 Room Air 10/09/16 15:32 98 Current Medications Current Medications Acetaminophen (Tylenol Tab) 650 mg Q6HP PRN PO HEADACHE or DISCOMFORT; Start at 01:45; Stop 11/08/16 at 01:44 Al Hydrox/Mg Hydrox/Simethicone (Mylanta) 30 ml Q4HP PRN PO HEARTBURN/ INDIGESTION; Start 10/09/16 at 01:45; Stop 11/08/16 at 01:44 Amoxicillin (Amoxicillin) 500 mg Q8H PO Last administered on 10/15/16t 13:46; Start 10/10/16 at 22:00; Stop 10/17/16 at 21:59 Cetylpyridinium Chloride (Cepacol) 1 alissa Q6HP PRN PO SORE THROAT; Start at 15:45; Stop 11/08/16 at 15:44 Chlordiazepoxide (Librium) 25 mg TID PRN PO alcohol/benzo withdrawal; Start 10/09/16 at 21:00; Stop 10/10/16 at 14:24; Status DC Home Med (Med Rec Complete!) ASDIRECTED XX ; Start 10/09/16 at 02:15; Stop at 02:15; Status DC Lorazepam (Ativan) 1 mg TIDP PRN PO ANXIETY/AGITATION; Start 10/10/16 at 14:45; Stop 10/17/16 at 14:44 Magnesium Hydroxide (Milk Of Magnesia) 30 ml DAILYPRN PRN PO CONSTIPATION; Start 10/09/16 at 01:45; Stop 11/08/16 at 01:44 Quetiapine Fumarate (SEROquel) 100 mg QHS PO Last administered on 10/14/16t 20: 25; Start 10/11/16 at 21:00; Stop 11/08/16 at 16:44 Quetiapine Fumarate (SEROquel) 100 mg QHS PRN PO psychosis/insomnia; Start 10/09 at 16:45; Stop 10/11/16 at 16:51; Status DC Trazodone HCl (Desyrel) 50 mg QHSP PRN PO INSOMNIA; Start 10/09/16 at 01:45; Stop 10/09/16 at 16:51; Status DC Allergies Coded Allergies: No Known Allergies (Unverified , 01/06/13) Bridgette Maldonado Oct 15, 2016 15:41
[2016-10-15 18:00] VITALS: BP 121/72
[2016-10-15] MEDS: QUEtiapine FUMARATE 200 MG TAB PO SCH (21:03)
[2016-10-16] MEDS: AMOXICILLIN 500 MG CAP PO SCH ×3 (05:50→21:14)
[2016-10-16 06:25] VITALS: BP 110/56
[2016-10-16 11:26] VITALS: BP 138/74
--- NOTE | 2016-10-16 16:47 | MHIPNPDOC ---
[facility] Progress Note Progress Note DATE OF SERVICE: 10/16/16 HISTORY OF THE PRESENT ILLNESS: Patient is a 31-year-old male, who was discharged from [facility] on 10/05/16 and was reportedly observed to be acting in a bizarre manner at a [employer] and was brought in by ambulance for evaluation. Patient has 2 prior admissions at [facility], last admission occurring in 2012 with diagnosis of schizoaffective disorder. Patient has also had multiple other psychiatric admissions, recently completed substance abuse rehabilitation treatment. Patient indicates he took "a couple handfuls" of unknown medication, states he thinks may have been Benadryl. Patient states he has history of prior suicide attempts 3. Residential Roofer met with patient today to assess treatment progress on inpatient unit. Patient was observed to be lying in bed, readily sat up to engage with senior mortgage underwriter for assessment purposes. Patient reported 5/10 anxiety and 5/10 depression related to "situational, I mean housing" concerns, denies suicidal or homicidal ideation, denies auditory or visual hallucinations, denies urge to engage in self-injurious behavior. Patient indicates he has been sleeping well, denies noting change with recent Seroquel dose increase but denies medication side effects. Residential Roofer educated patient on sleep hygiene and encouraged patient to be up out of bed during the day and sleeping only at night, patient verbalizes understanding and agreed to participate in unit programming. Patient today indicates he is does not believe Wellbutrin or Tenex need to be restarted, notes symptoms of depression and anxiety are noticeably reduced with utilization of Seroquel and states sleep is also improved. Patient reports energy level remains low, denies symptoms or craving or withdrawal, was recently discharged from rehabilitation. Patient reports some improvement to concentration and focus, notes appetite has improved. Patient denies symptoms of physical pain presents with no signs of acute distress at time of interaction. 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 Of note: Patient will be due for next Invega Sustenna 234 mg IM q 30 days on . Addendum: Residential Roofer attempted to reach Julia Colby at [facility] ([phone]) on to discuss treatment history and to provide treatment update, spoke with nurse, Mckayla, who indicated patient's behavioral health case has been closed at clinic since 2013. Patient indicates he was taking the following medications up until time of admission: Wellbutrin SR 100 mg q day Diphenhydramine 50 mg hs PRN insomnia, may repeat 1 if needed Guanfacine 1 mg BID Melatonin 10 mg hs, may repeat 1 Invega Sustenna 234 mg IM, last injection given 09/23/16, next due 10/23/16 VITALS: See below NEW TEST RESULTS: 10/11/16 labs indicated low Hgb, HCT, neut %, and elevated lymph %, mono %, and eos %, PA is aware and treating tonsillitis, pharyngitis 10/10/16 labs indicated low anion gap and calcium and elevated T3 uptake PAST MEDICAL/SURGICAL HISTORY: Patient denies history of chronic health condition, denies history of seizure or head injury. Labs on admission indicated elevated glucose, total protein, and TSH and low anion gap, patient refused weight UDS apparently not completed in ER. On 10/10/16 UDS negative 10/09/[address] elevation, probably early repolarization similar to , clinical consultation completed with recommendation made for follow-up with outpatient provider. 10/11/16 EEG - This EEG in awake, drowsy states, stage I and II sleep is within normal limits CURRENT MEDICATIONS: See below MENTAL STATUS EXAMINATION: General appearance: Patient is a 31-year old male, who is generally cooperative and pleasant, engageable, makes improved eye contact with no darting eye movements today, exhibits adequate personal hygiene, dressed in hospital clothing, ambulates steady gait, appears stated age. Speech: Of normal rate, rhythm, volume, coherent, more spontaneous Thought processes: Linear, goal-directed, less disorganization. Thought content: Rational at times, less tangential, less paranoia, perseverative to homelessness. Abstract reasoning and computation: Appear improved today Description of associations: Generally intact but loose times Description of abnormal or psychotic thoughts: Patient denies current suicidal or homicidal ideation, denies auditory, visual, and tactile hallucinations, does not appear to be responding to internal stimuli, does not endorse bizarre or paranoid ideation, denies preoccupation with violence. Judgment: Limited. Insight: Limited. Orientation: A and O 3. Recent and remote memory: Appears intact other than patient states he continues to remember nothing of events which occurred just prior to hospitalization, states he is not sure what medication he attempted to overdose on, he thinks may been Benadryl. Attention span and concentration: Some improvement noted today. Fund of knowledge: Appears adequate Mood: "I'm feeling a little better but I'm still worried about where I'm going to go." Patient reports some improvement to symptoms of anxiety and depression, no mood lability noted Affect: Blunted, brightens 1, congruent with mood DIAGNOSES: Schizoaffective disorder, polysubstance use disorder. Rule out bipolar disorder, rule out schizophrenia, rule out substance-induced disorder. Adult ADHD by report ASSESSMENT: Patient appears to be adjusting to unit slowly, remains isolative to room and sleeping at times but is visible at other times, has been attending some groups remains cooperative and engageable when awake, has presented with no behavior management challenges. Patient was again encouraged to be up out of bed and to participate in unit activities. Patient is denying symptoms of psychosis, notes he continues to experience low energy related to recent overdose on unknown substance, UDS negative, possible throat infection. Patient denies noticing change to symptoms with recent Seroquel dose increase, will monitor patient's response to medication change made by other provider. Patient presents with reduced unusual thinking and reports improvement to symptoms of depression and states he slept well last night, indicates Seroquel is effective and denies medication side effects. Patient today denies need for Wellbutrin restart, will continue to evaluate. Patient denies current suicidal or homicidal ideation and verbalizes awareness of how to access supportive services on the unit if needed. Will continue to monitor patient and evaluate need for antidepressant medication, patient's response to medications, and will monitor for medication side effects. Will also evaluate for patient safety, resolution of suicidal ideation, and discharge/transfer readiness. clinical education academic coordinator has made arrangements for patient to have [facility] intake later today and referral information for housing has been faxed to [place]. Patient reiterates today when prepared for discharge he is agreeable to participating in outpatient psychotherapy, medication management, and case management, is requesting assistance with housing and states he would like to transition to [facility] or some other supportive housing environment. MANAGEMENT PLAN: Continue Seroquel XR 200 mg po hs. Discontinue Ativan 1 mg po TID PRN anxiety/agitation. Patient will be due for next Invega Sustenna 234 mg IM q 30 days on 10/23/16. Continue to evaluate restart of medications patient was discharged on from rehabilitation: Wellbutrin, Tenex Maintain safety precautions Patient to attend groups and participate in unit programming to develop coping strategies Engage patient in discharge planning process and arrange meeting with support system to ensure safe discharge planning when appropriate Patient to follow up with PCM upon discharge TIME SPENT: 35 minutes Vital Signs Vital Signs Date Time Temp Pulse Resp B/P (MAP) Pulse Ox O2 Delivery O2 Flow Rate FiO2 10/16/16 11:26 98.0 82 18 138/74 (95) 10/12/16 06:17 Room Air Current Medications Current Medications Acetaminophen (Tylenol Tab) 650 mg Q6HP PRN PO HEADACHE or DISCOMFORT; Start at 01:45; Stop 11/08/16 at 01:44 Al Hydrox/Mg Hydrox/Simethicone (Mylanta) 30 ml Q4HP PRN PO HEARTBURN/ INDIGESTION; Start 10/09/16 at 01:45; Stop 11/08/16 at 01:44 Amoxicillin (Amoxicillin) 500 mg Q8H PO Last administered on 10/16/16 13:38; Start 10/10/16 at 22:00; Stop 10/17/16 at 21:59 Cetylpyridinium Chloride (Cepacol) 1 alissa Q6HP PRN PO SORE THROAT; Start at 15:45; Stop 11/08/16 at 15:44 Chlordiazepoxide (Librium) 25 mg TID PRN PO alcohol/benzo withdrawal; Start 10/09/16 at 21:00; Stop 10/10/16 at 14:24; Status DC Home Med (Med Rec Complete!) ASDIRECTED XX ; Start 10/09/16 at 02:15; Stop at 02:15; Status DC Lorazepam (Ativan) 1 mg TIDP PRN PO ANXIETY/AGITATION Last administered on 10/15 21:03; Start 10/10/16 at 14:45; Stop 10/16/16 at 11:39; Status DC Magnesium Hydroxide (Milk Of Magnesia) 30 ml DAILYPRN PRN PO CONSTIPATION; Start 10/09/16 at 01:45; Stop 11/08/16 at 01:44 Quetiapine Fumarate (SEROquel) 100 mg QHS PO Last administered on 10/14/16 20: 25; Start 10/11/16 at 21:00; Stop 10/15/16 at 16:05; Status DC Quetiapine Fumarate (SEROquel) 100 mg QHS PRN PO psychosis/insomnia; Start 10/09 at 16:45; Stop 10/11/16 at 16:51; Status DC Quetiapine Fumarate (SEROquel) 200 mg QHS PO Last administered on 10/15/16 21: 03; Start 10/15/16 at 21:00; Stop 11/14/16 at 20:59 Trazodone HCl (Desyrel) 50 mg QHSP PRN PO INSOMNIA; Start 10/09/16 at 01:45; Stop 10/09/16 at 16:51; Status DC Allergies Coded Allergies: No Known Allergies (Unverified , 01/06/13) Daniela Beltre Oct 16, 2016 16:47
[2016-10-16 18:00] VITALS: BP 125/65
[2016-10-16] MEDS: QUEtiapine FUMARATE 200 MG TAB PO SCH (20:54)
[2016-10-17] MEDS: AMOXICILLIN 500 MG CAP PO SCH ×3 (06:02→21:03)
[2016-10-17 06:18] VITALS: BP 131/78
--- NOTE | 2016-10-17 09:36 | MHIPNPDOC ---
[facility] Progress Note Progress Note DATE OF SERVICE: 10/17/16 HISTORY OF THE PRESENT ILLNESS: Patient is a 31-year-old male, who was discharged from [facility] on 10/05/16 and was reportedly observed to be acting in a bizarre manner at a [employer] and was brought in by ambulance for evaluation. Patient has 2 prior admissions at [facility], last admission occurring in 2012 with diagnosis of schizoaffective disorder. Patient has also had multiple other psychiatric admissions, recently completed substance abuse rehabilitation treatment. Patient indicates he took "a couple handfuls" of unknown medication, states he thinks may have been Benadryl. Patient states he has history of prior suicide attempts 3. Outreach Coordinator met with patient today to assess treatment progress on inpatient unit. Patient was observed to be lying in bed, required direction to sit up to engage with contract technical writer for assessment purposes. Patient reports improvement to symptoms of anxiety and depression, indicates he remains anxious related to housing situation, denies suicidal or homicidal ideation, denies auditory or visual hallucinations, denies urge to engage in self-injurious behavior. Patient reports he feels fatigued in the morning due to recent dose increase to Seroquel , makes request for medication change back to Seroquel 100 mg po q hs. Outreach Coordinator again educated patient on sleep hygiene and encouraged patient to be up out of bed during the day and sleeping only at night, patient verbalizes understanding and agreed to participate in unit programming. Patient today indicates he is does not believe Wellbutrin or Tenex need to be restarted, feels symptoms of depression and anxiety are being adequately addressed by Seroquel. Patient states energy level remains low, denies symptoms or craving or withdrawal. Patient reports some improvement to concentration and focus, notes appetite has improved. Patient denies symptoms of physical pain and presents with no signs of acute distress at time of interaction. 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 Of note: Patient will be due for next Invega Sustenna 234 mg IM q 30 days on . Addendum: Outreach Coordinator attempted to reach Julia Colby at [facility] ([phone]) on to discuss treatment history and to provide treatment update, spoke with nurse, Mckayla, who indicated patient's behavioral health case has been closed at clinic since 2013. Patient indicates he was taking the following medications up until time of admission: Wellbutrin SR 100 mg q day Diphenhydramine 50 mg hs PRN insomnia, may repeat 1 if needed Guanfacine 1 mg BID Melatonin 10 mg hs, may repeat 1 Invega Sustenna 234 mg IM, last injection given 09/23/16, next due 10/23/16 VITALS: See below NEW TEST RESULTS: 10/11/16 labs indicated low Hgb, HCT, neut %, and elevated lymph %, mono %, and eos %, PA is aware and treating tonsillitis, pharyngitis 10/10/16 labs indicated low anion gap and calcium and elevated T3 uptake PAST MEDICAL/SURGICAL HISTORY: Patient denies history of chronic health condition, denies history of seizure or head injury. Labs on admission indicated elevated glucose, total protein, and TSH and low anion gap, patient refused weight UDS apparently not completed in ER. On 10/10/16 UDS negative 10/09/[address] elevation, probably early repolarization similar to , clinical consultation completed with recommendation made for follow-up with outpatient provider. 10/11/16 EEG - This EEG in awake, drowsy states, stage I and II sleep is within normal limits CURRENT MEDICATIONS: See below MENTAL STATUS EXAMINATION: General appearance: Patient is a 31-year old male, who is generally cooperative and pleasant, engageable, makes improved eye contact with no darting eye movements today, exhibits adequate personal hygiene, dressed in hospital clothing, ambulates steady gait, appears stated age. Speech: Of normal rate, rhythm, volume, coherent, more spontaneous Thought processes: Linear, goal-directed, less disorganization. Thought content: Rational, no tangentiality or paranoia, remains perseverative to homelessness. Abstract reasoning and computation: Appear improved today Description of associations: Generally intact but loose times Description of abnormal or psychotic thoughts: Patient denies current suicidal or homicidal ideation, denies auditory, visual, and tactile hallucinations, does not appear to be responding to internal stimuli, does not endorse bizarre or paranoid ideation, denies preoccupation with violence. Judgment: Limited. Insight: Limited. Orientation: A and O 3. Recent and remote memory: Appears intact other than patient states he continues to remember nothing of events which occurred just prior to hospitalization, states he is not sure what medication he attempted to overdose on, he thinks may been Benadryl. Attention span and concentration: Some improvement noted today. Fund of knowledge: Appears adequate Mood: "I'm a little better today." Patient reports improvement to symptoms of anxiety and depression, no mood lability noted Affect: Blunted, no brightening today, congruent with mood DIAGNOSES: Schizoaffective disorder, polysubstance use disorder. Rule out bipolar disorder, rule out schizophrenia, rule out substance-induced disorder. Adult ADHD by report ASSESSMENT: Patient continues to adjust to unit slowly, remains isolative to room sleeping at times but is visible at other times, did not attend groups yesterday, is otherwise cooperative and engageable, has presented with no behavior management challenges. Patient was again encouraged to be up out of bed and to participate in unit activities. Patient is denying symptoms of psychosis, notes he continues to experience low energy which he today attributes to recent dosing increase to Seroquel, makes request for Seroquel to be changed back to 100 mg at bedtime in effort to reduce symptoms of daytime fatigue. Patient presents with no unusual thinking and reports improvement to symptoms of depression and anxiety, denies medication side effects other than daytime fatigue which he attributes to Seroquel. Patient today denies need for Wellbutrin restart, will continue to evaluate. Patient denies current suicidal or homicidal ideation and verbalizes awareness of how to access supportive services on the unit if needed. Will continue to monitor patient and evaluate need for antidepressant medication, patient's response to medications, and will monitor for medication side effects. Will also evaluate for patient safety, resolution of suicidal ideation, and discharge/transfer readiness. program coordinator executive education is attempting to follow-up regarding patient's [facility] intake yesterday and referral information for housing has been faxed to [place]. Patient reiterates today when prepared for discharge he is agreeable to participating in outpatient psychotherapy, medication management, and case management, is requesting assistance with housing and states he would like to transition to [facility] , [place], or some other supportive housing environment. MANAGEMENT PLAN: Reduce Seroquel to 100 mg mg po hs. Patient will be due for next Invega Sustenna 234 mg IM q 30 days on 10/23/16. Continue to evaluate restart of medications patient was discharged on from rehabilitation: Wellbutrin , Tenex Maintain safety precautions Patient to attend groups and participate in unit programming to develop coping strategies Engage patient in discharge planning process and arrange meeting with support system to ensure safe discharge planning when appropriate Patient to follow up with PCM upon discharge TIME SPENT: 25 minutes Vital Signs Vital Signs Date Time Temp Pulse Resp B/P (MAP) Pulse Ox O2 Delivery O2 Flow Rate FiO2 10/17/16 06:18 96.2 97 20 131/78 (95) 10/12/16 06:17 Room Air Current Medications Current Medications Acetaminophen (Tylenol Tab) 650 mg Q6HP PRN PO HEADACHE or DISCOMFORT; Start at 01:45; Stop 11/08/16 at 01:44 Al Hydrox/Mg Hydrox/Simethicone (Mylanta) 30 ml Q4HP PRN PO HEARTBURN/ INDIGESTION; Start 10/09/16 at 01:45; Stop 11/08/16 at 01:44 Amoxicillin (Amoxicillin) 500 mg Q8H PO Last administered on 10/17/16 06:02; Start 10/10/16 at 22:00; Stop 10/20/16 at 21:59 Cetylpyridinium Chloride (Cepacol) 1 alissa Q6HP PRN PO SORE THROAT; Start at 15:45; Stop 11/08/16 at 15:44 Chlordiazepoxide (Librium) 25 mg TID PRN PO alcohol/benzo withdrawal; Start 10/09/16 at 21:00; Stop 10/10/16 at 14:24; Status DC Home Med (Med Rec Complete!) ASDIRECTED XX ; Start 10/09/16 at 02:15; Stop at 02:15; Status DC Lorazepam (Ativan) 1 mg TIDP PRN PO ANXIETY/AGITATION Last administered on 10/15 21:03; Start 10/10/16 at 14:45; Stop 10/16/16 at 11:39; Status DC Magnesium Hydroxide (Milk Of Magnesia) 30 ml DAILYPRN PRN PO CONSTIPATION; Start 10/09/16 at 01:45; Stop 11/08/16 at 01:44 Quetiapine Fumarate (SEROquel) 100 mg QHS PO Last administered on 10/14/16 20: 25; Start 10/11/16 at 21:00; Stop 10/15/16 at 16:05; Status DC Quetiapine Fumarate (SEROquel) 100 mg QHS PRN PO psychosis/insomnia; Start 10/09 at 16:45; Stop 10/11/16 at 16:51; Status DC Quetiapine Fumarate (SEROquel) 200 mg QHS PO Last administered on 10/16/16t 20: 54; Start 10/15/16 at 21:00; Stop 11/14/16 at 20:59 Trazodone HCl (Desyrel) 50 mg QHSP PRN PO INSOMNIA; Start 10/09/16 at 01:45; Stop 10/09/16 at 16:51; Status DC Allergies Coded Allergies: No Known Allergies (Unverified , 01/06/13) Daniela Beltre Oct 17, 2016 09:36
[2016-10-17 11:36] VITALS: BP 158/90
[2016-10-17 18:00] VITALS: BP 140/87
[2016-10-17] MEDS: QUEtiapine FUMARATE 100 MG TAB PO SCH (21:03)
[2016-10-18] MEDS: AMOXICILLIN 500 MG CAP PO SCH ×3 (06:16→21:02)
[2016-10-18 07:05] VITALS: BP 139/73
--- NOTE | 2016-10-18 09:06 | MHIPNPDOC ---
[facility] Progress Note Progress Note DATE OF SERVICE: 10/18/16 HISTORY: Patient is a 31-year-old male, who was discharged from [facility] on 10/05/16 and was reportedly observed to be acting in a bizarre manner at a [employer] and was brought in by ambulance for evaluation. Patient has 2 prior admissions at [facility], last admission occurring in 2012 with diagnosis of schizoaffective disorder. Patient has also had multiple other psychiatric admissions, recently completed substance abuse rehabilitation treatment. Patient indicates he took "a couple handfuls" of unknown medication, states he thinks may have been Benadryl. Patient states he has history of prior suicide attempts 3. Quality Management Coordinator met with patient today to assess treatment progress on inpatient unit. Patient was observed to be up, out of bed, readily met with parts data writer for assessment purposes. Patient reported improvement to symptoms of anxiety and depression and attributes improvement to "my horse go was good today, I read it every day and it said today was going to be a good day." Patient denied suicidal and homicidal ideation, denied audiovisual hallucinations, and denied urge to engage in self-injurious behavior. Patient reports improvement in energy level with Seroquel dose reduction, notes he is sleeping well and denies nightmare symptoms. Quality Management Coordinator and patient again discussed the importance of sleep hygiene and patient continues to be encouraged to be up out of bed during the day and sleeping only at night. Patient reiterates today he does not believe Wellbutrin needs to be restarted, makes request for Tenex restart, response well to recommendation that patient pursue Tenex for ADHD symptoms with outpatient provider. Patient continues to state that symptoms of depression and anxiety are being adequately addressed by Seroquel. Patient states energy level has improved, concentration and focus and appetite are stable remains low, denies symptoms or craving or withdrawal. Patient denies symptoms of physical pain and presents with no signs of acute distress at time of interaction. 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 Patient informs parts data writer that interview with [facility] yesterday went "well, I think him on the list." Of note: Patient will be due for next Invega Sustenna 234 mg IM q 30 days on . Addendum: Quality Management Coordinator attempted to reach Julia Colby at [facility] ([phone]) on to discuss treatment history and to provide treatment update, spoke with nurse, Mckayla, who indicated patient's behavioral health case has been closed at clinic since 2013. Patient indicates he was taking the following medications up until time of admission: Wellbutrin SR 100 mg q day Diphenhydramine 50 mg hs PRN insomnia, may repeat 1 if needed Guanfacine 1 mg BID Melatonin 10 mg hs, may repeat 1 Invega Sustenna 234 mg IM, last injection given 09/23/16, next due 10/23/16 VITALS: See below NEW TEST RESULTS: 10/11/16 labs indicated low Hgb, HCT, neut %, and elevated lymph %, mono %, and eos %, PA is aware and treating tonsillitis, pharyngitis 10/10/16 labs indicated low anion gap and calcium and elevated T3 uptake PAST MEDICAL/SURGICAL HISTORY: Patient denies history of chronic health condition, denies history of seizure or head injury. Labs on admission indicated elevated glucose, total protein, and TSH and low anion gap, patient refused weight UDS apparently not completed in ER. On 10/10/16 UDS negative 10/09/[address] elevation, probably early repolarization similar to , clinical consultation completed with recommendation made for follow-up with outpatient provider. 10/11/16 EEG - This EEG in awake, drowsy states, stage I and II sleep is within normal limits CURRENT MEDICATIONS: See below MENTAL STATUS EXAMINATION: General appearance: Patient is a 31-year old male, who is generally cooperative and pleasant, engageable, makes good eye contact with no darting eye movements today, exhibits adequate personal hygiene, dressed in hospital clothing, ambulates steady gait, appears stated age. Speech: Of normal rate, rhythm, volume, coherent, more spontaneous Thought processes: Linear, goal-directed, less disorganization. Thought content: Rational, no tangentiality or paranoia, no perseveration today Abstract reasoning and computation: Appear improved today Description of associations: Generally intact but loose times Description of abnormal or psychotic thoughts: Patient denies current suicidal or homicidal ideation, denies auditory, visual, and tactile hallucinations, does not appear to be responding to internal stimuli, exhibits at times what may be bizarre thinking, does not endorse bizarre or paranoid ideation, denies preoccupation with violence. Judgment: Limited. Insight: Limited. Orientation: A and O 3. Recent and remote memory: Appears intact other than patient states he continues to remember nothing of events which occurred just prior to hospitalization, states he is not sure what medication he attempted to overdose on, he thinks may been Benadryl. Attention span and concentration: Some improvement noted today. Fund of knowledge: Appears adequate Mood: "I'm a little better today and I'm hoping to be going to housing soon." Patient reports improvement to symptoms of anxiety and depression, no mood lability noted Affect: Blunted, brightens 2, congruent with mood DIAGNOSES: Schizoaffective disorder, polysubstance use disorder. Rule out bipolar disorder, rule out schizophrenia, rule out substance-induced disorder. Adult ADHD by report ASSESSMENT: Patient continues to adjust to unit slowly, remains isolative to room sleeping at times between groups but is more visible visible at other times , has been attending group activities, is cooperative and engageable, and has presented with no behavior management challenges. Patient was again encouraged to be up out of bed and to participate in unit activities. Patient is denying symptoms of psychosis, presents with no unusual thinking at time of assessment other than reliance on horoscope to define quality of day. Patient reports improvement to symptoms of depression and anxiety, denies medication side effects. Patient again today denies need for Wellbutrin restart, will continue to evaluate, makes request for Tenex but is agreeable to pursuing with outpatient provider to address ADHD symptoms. Patient denies current suicidal or homicidal ideation and verbalizes awareness of how to access supportive services on the unit if needed. Will continue to monitor patient and evaluate need for antidepressant medication, patient's response to medications, and will monitor for medication side effects. Will also evaluate for patient safety, resolution of suicidal ideation, and discharge/transfer readiness. watershed coordinator is attempting to follow-up regarding patient's [facility] intake yesterday and referral information for housing has been faxed to [place]. Patient reiterates today when prepared for discharge he is agreeable to participating in outpatient psychotherapy, medication management, and case management, is requesting assistance with housing and states he would like to transition to [facility] , [place], or some other supportive housing environment. MANAGEMENT PLAN: Continue Seroquel 100 mg mg po hs. Patient will be due for next Invega Sustenna 234 mg IM q 30 days on 10/23/16. Continue to evaluate restart of medications patient was discharged on from rehabilitation: Wellbutrin , Tenex Maintain safety precautions Patient to attend groups and participate in unit programming to develop coping strategies Engage patient in discharge planning process and arrange meeting with support system to ensure safe discharge planning when appropriate Patient to follow up with PCM upon discharge TIME SPENT: 25 minutes Vital Signs Vital Signs Date Time Temp Pulse Resp B/P (MAP) Pulse Ox O2 Delivery O2 Flow Rate FiO2 10/18/16 07:05 98.9 82 18 139/73 (95) 10/12/16 06:17 Room Air Current Medications Current Medications Acetaminophen (Tylenol Tab) 650 mg Q6HP PRN PO HEADACHE or DISCOMFORT; Start at 01:45; Stop 11/08/16 at 01:44 Al Hydrox/Mg Hydrox/Simethicone (Mylanta) 30 ml Q4HP PRN PO HEARTBURN/ INDIGESTION; Start 10/09/16 at 01:45; Stop 11/08/16 at 01:44 Amoxicillin (Amoxicillin) 500 mg Q8H PO Last administered on 10/18/16 06:16; Start 10/10/16 at 22:00; Stop 10/20/16 at 21:59 Cetylpyridinium Chloride (Cepacol) 1 alissa Q6HP PRN PO SORE THROAT; Start at 15:45; Stop 11/08/16 at 15:44 Chlordiazepoxide (Librium) 25 mg TID PRN PO alcohol/benzo withdrawal; Start 10/09/16 at 21:00; Stop 10/10/16 at 14:24; Status DC Home Med (Med Rec Complete!) ASDIRECTED XX ; Start 10/09/16 at 02:15; Stop at 02:15; Status DC Lorazepam (Ativan) 1 mg TIDP PRN PO ANXIETY/AGITATION Last administered on 10/15t 21:03; Start 10/10/16 at 14:45; Stop 10/16/16 at 11:39; Status DC Magnesium Hydroxide (Milk Of Magnesia) 30 ml DAILYPRN PRN PO CONSTIPATION; Start 10/09/16 at 01:45; Stop 11/08/16 at 01:44 Quetiapine Fumarate (SEROquel) 100 mg QHS PO Last administered on 10/17/16 21: 03; Start 10/17/16 at 21:00; Stop 11/16/16 at 20:59 Quetiapine Fumarate (SEROquel) 100 mg QHS PO Last administered on 10/14/16 20: 25; Start 10/11/16 at 21:00; Stop 10/15/16 at 16:05; Status DC Quetiapine Fumarate (SEROquel) 100 mg QHS PRN PO psychosis/insomnia; Start 10/09 at 16:45; Stop 10/11/16 at 16:51; Status DC Quetiapine Fumarate (SEROquel) 200 mg QHS PO Last administered on 10/16/16 20: 54; Start 10/15/16 at 21:00; Stop 10/17/16 at 11:13; Status DC Trazodone HCl (Desyrel) 50 mg QHSP PRN PO INSOMNIA; Start 10/09/16 at 01:45; Stop 10/09/16 at 16:51; Status DC Allergies Coded Allergies: No Known Allergies (Unverified , 01/06/13) Daniela Beltre Oct 18, 2016 09:06
[2016-10-18 12:37] VITALS: BP 138/89
[2016-10-18 18:00] VITALS: BP 146/85
[2016-10-18] MEDS: QUEtiapine FUMARATE 100 MG TAB PO SCH (21:02)
[2016-10-19] MEDS: AMOXICILLIN 500 MG CAP PO SCH ×3 (06:12→20:47)
[2016-10-19 07:15] VITALS: BP 139/81
--- NOTE | 2016-10-19 09:17 | MHIPNPDOC ---
[facility] Progress Note Progress Note DATE OF SERVICE: 10/19/16 HISTORY: Patient is a 31-year-old male, who was discharged from [facility] on 10/05/16 and was reportedly observed to be acting in a bizarre manner at a [employer] and was brought in by ambulance for evaluation. Patient has 2 prior admissions at [facility], last admission occurring in 2012 with diagnosis of schizoaffective disorder. Patient has also had multiple other psychiatric admissions, recently completed substance abuse rehabilitation treatment. Patient indicates he took "a couple handfuls" of unknown medication, states he thinks may have been Benadryl. Patient states he has history of prior suicide attempts 3. Roundhouse Worker met with patient today to assess treatment progress on inpatient unit. Patient was observed to be up, out of bed, readily met with television writer for assessment purposes. Patient reported improvement to symptoms of anxiety and depression, denied suicidal and homicidal ideation, denied audiovisual hallucinations, notes he last experienced tactile hallucinations 3 days ago, and denied urge to engage in self-injurious behavior. Patient reports continuing improvement in energy level with Seroquel dose reduction, notes he is sleeping well and denies nightmare symptoms. Roundhouse Worker and patient again discussed the importance of sleep hygiene and patient continues to be encouraged to be up out of bed during the day and sleeping only at night, with which he is compliant. Patient reiterates today he does not believe Wellbutrin needs to be restarted, makes no request for tenex re-start, and indicates concentration and focus challenges are manageable. Patient continues to state that symptoms of depression and anxiety are being adequately addressed by Seroquel. Patient states energy level has improved, denies symptoms or craving or withdrawal. Patient denies symptoms of physical pain and presents with no signs of acute distress at time of interaction. 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 Addendum: Call placed to [facility], spoke with nurse Angeles in [facility] who verified patient last received Invega Sustenna 234 mg IM on 09/23/16 and was discharged from [facility] on 10/05/16, discharge order read Invega Sustenna 234 mg IM q month. Spoke with Nursing Special Education Supervisor, Shanna Saunders, at [facility] to verify patient did not receive injection between [place] and current admission. Nicky indicated patient last received Invega Sustenna injection on 08/29/16, prior to [facility] admission. Patient denies receiving any other recent psychotropic medication injections, verifies he is due for follow-up injection on 10/23/16. Of note: Patient will be due for next Invega Sustenna 234 mg IM q 30 days on . Addendum: Roundhouse Worker attempted to reach Julia HarrisonQueen at [facility] ([phone]) on to discuss treatment history and to provide treatment update, spoke with nurse, Mckayla, who indicated patient's behavioral health case has been closed at clinic since 2013. Patient indicates he was taking the following medications up until time of admission: Wellbutrin SR 100 mg q day Diphenhydramine 50 mg hs PRN insomnia, may repeat 1 if needed Guanfacine 1 mg BID Melatonin 10 mg hs, may repeat 1 Invega Sustenna 234 mg IM, last injection given 09/23/16, next due 10/23/16 VITALS: See below NEW TEST RESULTS: 10/11/16 labs indicated low Hgb, HCT, neut %, and elevated lymph %, mono %, and eos %, PA is aware and treating tonsillitis, pharyngitis 10/10/16 labs indicated low anion gap and calcium and elevated T3 uptake PAST MEDICAL/SURGICAL HISTORY: Patient denies history of chronic health condition, denies history of seizure or head injury. Labs on admission indicated elevated glucose, total protein, and TSH and low anion gap, patient refused weight UDS apparently not completed in ER. On 10/10/16 UDS negative 10/09/[address] elevation, probably early repolarization similar to , clinical consultation completed with recommendation made for follow-up with outpatient provider. 10/11/16 EEG - This EEG in awake, drowsy states, stage I and II sleep is within normal limits CURRENT MEDICATIONS: See below MENTAL STATUS EXAMINATION: General appearance: Patient is a 31-year old male, who is cooperative and pleasant, engageable, makes good eye contact, exhibits good personal hygiene, dressed in hospital clothing, ambulates steady gait, appears stated age. Speech: Of normal rate, rhythm, volume, coherent, more spontaneous Thought processes: Linear, goal-directed, less disorganization. Thought content: Rational, no tangentiality or paranoia, no perseveration today Abstract reasoning and computation: Appear improved today Description of associations: Generally intact but loose times Description of abnormal or psychotic thoughts: Patient denies current suicidal or homicidal ideation, denies auditory, visual, and tactile hallucinations, does not appear to be responding to internal stimuli, exhibits at times what may be bizarre thinking, does not endorse bizarre or paranoid ideation, denies preoccupation with violence. Judgment: Limited. Insight: Limited. Orientation: A and O 3. Recent and remote memory: Appears intact other than patient states he continues to remember nothing of events which occurred just prior to hospitalization, states he is not sure what medication he attempted to overdose on, he thinks may been Benadryl. Attention span and concentration: Some improvement noted today. Fund of knowledge: Appears adequate Mood: "I'm a little better, I'm hoping to go to [place] or [facility] soon." Patient reports improvement to symptoms of anxiety and depression, no mood lability noted Affect: Blunted, brightens 2, congruent with mood DIAGNOSES: Schizoaffective disorder, polysubstance use disorder. Rule out bipolar disorder, rule out schizophrenia, rule out substance-induced disorder. Adult ADHD by report ASSESSMENT: Patient is adjusting to unit, has been more visible, attends unit activities, isolates to her room resting at times between groups, engages little with peers, is cooperative and engageable, and has presented with no behavior management challenges. Patient was again encouraged to be up out of bed and to participate in unit activities. Patient is denying symptoms of psychosis, presents with no unusual thinking at time of assessment. Patient reports improvement to symptoms of depression and anxiety, denies medication side effects. Patient again today denies need for Wellbutrin restart, will continue to evaluate, also denies need for tenex restart, remains agreeable to pursuing with outpatient provider to address ADHD symptoms if indicated. Patient denies current suicidal or homicidal ideation and verbalizes awareness of how to access supportive services on the unit if needed. Will continue to monitor patient and evaluate need for antidepressant medication, patient's response to medications, and will monitor for medication side effects. Will also evaluate for patient safety, resolution of suicidal ideation, and discharge /transfer readiness. web marketing coordinator is attempting to follow-up regarding patient's [facility] intake and referral to [place]. Patient reiterates today when prepared for discharge he is agreeable to participating in outpatient psychotherapy, medication management, and case management, is requesting assistance with housing and states he would like to transition to [facility], [place] , or some other supportive housing environment. MANAGEMENT PLAN: Continue Seroquel 100 mg mg po hs. Patient will be due for next Invega Sustenna 234 mg IM q 30 days on 10/23/16. Continue to evaluate restart of medications patient was discharged on from rehabilitation: Wellbutrin , Tenex Maintain safety precautions Patient to attend groups and participate in unit programming to develop coping strategies Engage patient in discharge planning process and arrange meeting with support system to ensure safe discharge planning when appropriate Patient to follow up with PCM upon discharge TIME SPENT: 35 minutes Vital Signs Vital Signs Date Time Temp Pulse Resp B/P (MAP) Pulse Ox O2 Delivery O2 Flow Rate FiO2 10/19/16 07:15 98.3 85 18 139/81 (100) Current Medications Current Medications Acetaminophen (Tylenol Tab) 650 mg Q6HP PRN PO HEADACHE or DISCOMFORT; Start at 01:45; Stop 11/08/16 at 01:44 Al Hydrox/Mg Hydrox/Simethicone (Mylanta) 30 ml Q4HP PRN PO HEARTBURN/ INDIGESTION; Start 10/09/16 at 01:45; Stop 11/08/16 at 01:44 Amoxicillin (Amoxicillin) 500 mg Q8H PO Last administered on 10/19/16 06:12; Start 10/10/16 at 22:00; Stop 10/20/16 at 21:59 Cetylpyridinium Chloride (Cepacol) 1 alissa Q6HP PRN PO SORE THROAT; Start at 15:45; Stop 11/08/16 at 15:44 Chlordiazepoxide (Librium) 25 mg TID PRN PO alcohol/benzo withdrawal; Start 10/09/16 at 21:00; Stop 10/10/16 at 14:24; Status DC Home Med (Med Rec Complete!) ASDIRECTED XX ; Start 10/09/16 at 02:15; Stop at 02:15; Status DC Lorazepam (Ativan) 1 mg TIDP PRN PO ANXIETY/AGITATION Last administered on 10/15 21:03; Start 10/10/16 at 14:45; Stop 10/16/16 at 11:39; Status DC Magnesium Hydroxide (Milk Of Magnesia) 30 ml DAILYPRN PRN PO CONSTIPATION; Start 10/09/16 at 01:45; Stop 11/08/16 at 01:44 Quetiapine Fumarate (SEROquel) 100 mg QHS PO Last administered on 10/18/16 21: 02; Start 10/17/16 at 21:00; Stop 11/16/16 at 20:59 Quetiapine Fumarate (SEROquel) 100 mg QHS PO Last administered on 10/14/16 20: 25; Start 10/11/16 at 21:00; Stop 10/15/16 at 16:05; Status DC Quetiapine Fumarate (SEROquel) 100 mg QHS PRN PO psychosis/insomnia; Start 10/09 at 16:45; Stop 10/11/16 at 16:51; Status DC Quetiapine Fumarate (SEROquel) 200 mg QHS PO Last administered on 10/16/16 20: 54; Start 10/15/16 at 21:00; Stop 10/17/16 at 11:13; Status DC Trazodone HCl (Desyrel) 50 mg QHSP PRN PO INSOMNIA; Start 10/09/16 at 01:45; Stop 10/09/16 at 16:51; Status DC Allergies Coded Allergies: No Known Allergies (Unverified , 01/06/13) Daniela Beltre Oct 19, 2016 09:17
[2016-10-19 12:00] VITALS: BP 137/87
[2016-10-19 18:00] VITALS: BP 143/90
[2016-10-19] MEDS: QUEtiapine FUMARATE 100 MG TAB PO SCH (20:47)
[2016-10-20] MEDS: AMOXICILLIN 500 MG CAP PO SCH ×2 (05:52→13:07)
[2016-10-20 06:37] VITALS: BP 128/80
[2016-10-20 12:49] VITALS: BP 141/91
[2016-10-20 18:00] VITALS: BP 146/86
[2016-10-20] MEDS: QUEtiapine FUMARATE 100 MG TAB PO SCH (20:51)
[2016-10-21 06:33] VITALS: BP 150/96
[2016-10-21 18:00] VITALS: BP 136/89
[2016-10-21] MEDS: QUEtiapine FUMARATE 100 MG TAB PO SCH (20:03)
[2016-10-22 06:00] VITALS: BP 146/85
--- NOTE | 2016-10-22 09:15 | MHIPNPDOC ---
[facility] Progress Note Progress Note DATE OF SERVICE: 10/22/16 HISTORY: Patient is a 31-year-old male, who was discharged from [facility] on 10/05/16 and was reportedly observed to be acting in a bizarre manner at a [employer] and was brought in by ambulance for evaluation. Patient has 2 prior admissions at [facility], last admission occurring in 2012 with diagnosis of schizoaffective disorder. Patient has also had multiple other psychiatric admissions, recently completed substance abuse rehabilitation treatment. Patient indicates he took "a couple handfuls" of unknown medication, states he thinks may have been Benadryl. Patient states he has history of prior suicide attempts 3. Distribution Center Administrator met with patient today to assess treatment progress on inpatient unit. Patient was observed to be up, out of bed, readily met with literary writer for assessment purposes. Patient reported improvement to symptoms of anxiety (1/10) , and depression (2/10), denied suicidal and homicidal ideation, denied audiovisual hallucinations, notes he last experienced tactile hallucinations last night, noting sensation of "something crawling around my ankles while I was lying in bed, denies urge to engage in self-injurious behavior. Patient states he experienced fleeting passive SI over weekend while thinking about turning 32 and worried about getting older," states symptoms were manageable and denies having plan/intent to harm self or others. Patient reports continuing improvement in energy level with Seroquel dose reduction, notes he is sleeping well and denies nightmare symptoms. Distribution Center Administrator and patient again discussed the importance of sleep hygiene and patient continues to be encouraged to be up out of bed during the day and sleeping only at night, with which he is compliant. Patient verbalizes awareness that he is due for invega sustenna injection tomorrow, reiterates today he does not believe Wellbutrin needs to be restarted, makes no request for tenex re-start, and indicates concentration and focus challenges are manageable. Will reevaluate wellbutrin restart after injection. Patient notes he has history of experiencing mild psychosis in the days leading up to next injection due date. Patient continues to state that symptoms of depression and anxiety are being adequately addressed by Seroquel. Patient states energy level has improved, denies symptoms or craving or withdrawal. Patient denies symptoms of physical pain and presents with no signs of acute distress at time of interaction. 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 Addendum: Call placed to [facility], spoke with nurse Angeles in [facility] who verified patient last received Invega Sustenna 234 mg IM on 09/23/16 and was discharged from [facility] on 10/05/16, discharge order read Invega Sustenna 234 mg IM q month. Spoke with Nursing Aviation Safety Officer, Shanna Saunders, at [facility] to verify patient did not receive injection between [place] and current admission. Nicky indicated patient last received Invega Sustenna injection on 08/29/16, prior to [facility] admission. Patient denies receiving any other recent psychotropic medication injections, verifies he is due for follow-up injection on 10/23/16. Of note: Patient will be due for next Invega Sustenna 234 mg IM q 30 days on . Addendum: Distribution Center Administrator attempted to reach Julia Colby at [facility] ([phone]) on to discuss treatment history and to provide treatment update, spoke with nurse, Mckayla, who indicated patient's behavioral health case has been closed at clinic since 2013. Patient indicates he was taking the following medications up until time of admission: Wellbutrin SR 100 mg q day Diphenhydramine 50 mg hs PRN insomnia, may repeat 1 if needed Guanfacine 1 mg BID Melatonin 10 mg hs, may repeat 1 Invega Sustenna 234 mg IM, last injection given 09/23/16, next due 10/23/16 VITALS: See below NEW TEST RESULTS: 10/11/16 labs indicated low Hgb, HCT, neut %, and elevated lymph %, mono %, and eos %, PA is aware and treating tonsillitis, pharyngitis 10/10/16 labs indicated low anion gap and calcium and elevated T3 uptake PAST MEDICAL/SURGICAL HISTORY: Patient denies history of chronic health condition, denies history of seizure or head injury. Labs on admission indicated elevated glucose, total protein, and TSH and low anion gap, patient refused weight UDS apparently not completed in ER. On 10/10/16 UDS negative 10/09/[address] elevation, probably early repolarization similar to , clinical consultation completed with recommendation made for follow-up with outpatient provider. 10/11/16 EEG - This EEG in awake, drowsy states, stage I and II sleep is within normal limits CURRENT MEDICATIONS: See below MENTAL STATUS EXAMINATION: General appearance: Patient is a 31-year old male, who is cooperative and pleasant, engageable, makes good eye contact, exhibits good personal hygiene, dressed in hospital clothing, ambulates steady gait, appears stated age. Speech: Of normal rate, rhythm, volume, coherent, more spontaneous Thought processes: Linear, goal-directed, less disorganization. Thought content: Rational, no tangentiality or paranoia, no perseveration today Abstract reasoning and computation: Appear improved today Description of associations: Generally intact but loose times Description of abnormal or psychotic thoughts: Patient denies current suicidal or homicidal ideation, denies auditory, visual, and tactile hallucinations, does not appear to be responding to internal stimuli, exhibits at times what may be bizarre thinking, does not endorse bizarre or paranoid ideation, denies preoccupation with violence. Judgment: Limited. Insight: Limited. Orientation: A and O 3. Recent and remote memory: Appears intact other than patient states he continues to remember nothing of events which occurred just prior to hospitalization, states he is not sure what medication he attempted to overdose on, he thinks may been Benadryl. Attention span and concentration: Some improvement noted today. Fund of knowledge: Appears adequate Mood: "I'm feeling better, like I'm ready to go to [place] or [facility] soon." Patient reports improvement to symptoms of anxiety and depression, no mood lability noted Affect: Blunted, brightens 2, congruent with mood DIAGNOSES: Schizoaffective disorder, polysubstance use disorder. Rule out bipolar disorder, rule out schizophrenia, rule out substance-induced disorder. Adult ADHD by report ASSESSMENT: Patient is adjusting to unit, has been more visible, attends unit activities, isolates to his room resting at times between groups, engages little with peers, is cooperative and engageable, and has presented with no behavior management challenges. Patient was again encouraged to be up out of bed and to participate in unit activities. Patient is denying symptoms of psychosis, presents with no unusual thinking at time of assessment. Patient reports improvement to symptoms of depression and anxiety, denies medication side effects. Patient again today denies need for Wellbutrin restart, will continue to evaluate, also denies need for tenex restart, remains agreeable to pursuing with outpatient provider to address ADHD symptoms if indicated. Patient denies current suicidal or homicidal ideation and verbalizes awareness of how to access supportive services on the unit if needed. Will continue to monitor patient and evaluate need for antidepressant medication, patient's response to medications, and will monitor for medication side effects. Will also evaluate for patient safety, resolution of suicidal ideation, and discharge /transfer readiness. radio communication coordinator is attempting to follow-up regarding patient's [facility] intake and referral to [place]. Patient reiterates today when prepared for discharge he is agreeable to participating in outpatient psychotherapy, medication management, and case management, is requesting assistance with housing and remains interested in transferring to [facility], [place] , or some other supportive housing environment. MANAGEMENT PLAN: Continue Seroquel 100 mg mg po hs. Patient will be due for next Invega Sustenna 234 mg IM q 30 days on 10/23/16. Continue to evaluate restart of medications patient was discharged on from rehabilitation: Wellbutrin , Tenex Maintain safety precautions Patient to attend groups and participate in unit programming to develop coping strategies Engage patient in discharge planning process and arrange meeting with support system to ensure safe discharge planning when appropriate Patient to follow up with PCM upon discharge TIME SPENT: 35 minutes Vital Signs Vital Signs Date Time Temp Pulse Resp B/P (MAP) Pulse Ox O2 Delivery O2 Flow Rate FiO2 10/22/16 06:00 98.9 99 18 146/85 (105) 10/19/16 18:00 Room Air Current Medications Current Medications Acetaminophen (Tylenol Tab) 650 mg Q6HP PRN PO HEADACHE or DISCOMFORT; Start at 01:45; Stop 11/08/16 at 01:44 Al Hydrox/Mg Hydrox/Simethicone (Mylanta) 30 ml Q4HP PRN PO HEARTBURN/ INDIGESTION; Start 10/09/16 at 01:45; Stop 11/08/16 at 01:44 Amoxicillin (Amoxicillin) 500 mg Q8H PO Last administered on 10/20/16t 13:07; Start 10/10/16 at 22:00; Stop 10/20/16 at 21:59; Status DC Cetylpyridinium Chloride (Cepacol) 1 alissa Q6HP PRN PO SORE THROAT; Start at 15:45; Stop 11/08/16 at 15:44 Chlordiazepoxide (Librium) 25 mg TID PRN PO alcohol/benzo withdrawal; Start 10/09/16 at 21:00; Stop 10/10/16 at 14:24; Status DC Home Med (Med Rec Complete!) ASDIRECTED XX ; Start 10/09/16 at 02:15; Stop at 02:15; Status DC Lorazepam (Ativan) 1 mg TIDP PRN PO ANXIETY/AGITATION Last administered on 10/15 21:03; Start 10/10/16 at 14:45; Stop 10/16/16 at 11:39; Status DC Magnesium Hydroxide (Milk Of Magnesia) 30 ml DAILYPRN PRN PO CONSTIPATION; Start 10/09/16 at 01:45; Stop 11/08/16 at 01:44 Quetiapine Fumarate (SEROquel) 100 mg QHS PO Last administered on 10/21/16 20: 03; Start 10/17/16 at 21:00; Stop 11/16/16 at 20:59 Quetiapine Fumarate (SEROquel) 100 mg QHS PO Last administered on 10/14/16 20: 25; Start 10/11/16 at 21:00; Stop 10/15/16 at 16:05; Status DC Quetiapine Fumarate (SEROquel) 100 mg QHS PRN PO psychosis/insomnia; Start 10/09 at 16:45; Stop 10/11/16 at 16:51; Status DC Quetiapine Fumarate (SEROquel) 200 mg QHS PO Last administered on 10/16/16 20: 54; Start 10/15/16 at 21:00; Stop 10/17/16 at 11:13; Status DC Trazodone HCl (Desyrel) 50 mg QHSP PRN PO INSOMNIA; Start 10/09/16 at 01:45; Stop 10/09/16 at 16:51; Status DC Allergies Coded Allergies: No Known Allergies (Unverified , 01/06/13) Daniela Beltre Oct 22, 2016 09:15
[2016-10-22 18:00] VITALS: BP 141/90
[2016-10-22] MEDS: QUEtiapine FUMARATE 100 MG TAB PO SCH (20:01)
[2016-10-23 06:44] VITALS: BP 150/77
[2016-10-23] MEDS ORDERED: PALIPERIDONE PALMITATE 234 MG/1.5 ML INJ (INVEGA SUSTENNA)(J2426) IM SCH (09:00)
--- NOTE | 2016-10-23 14:19 | MHIPNPDOC ---
[facility] Progress Note Progress Note DATE OF SERVICE: 10/23/16 HISTORY: Patient is a 31-year-old male, who was discharged from [facility] on 10/05/16 and was reportedly observed to be acting in a bizarre manner at a [employer] and was brought in by ambulance for evaluation. Patient has 2 prior admissions at [facility], last admission occurring in 2012 with diagnosis of schizoaffective disorder. Patient has also had multiple other psychiatric admissions, recently completed substance abuse rehabilitation treatment. Patient indicates he took "a couple handfuls" of unknown medication, states he thinks may have been Benadryl. Patient states he has history of prior suicide attempts 3. Editor Map met with patient today to assess treatment progress on inpatient unit. Patient was observed to be up, out of bed, readily met with scientific technical writer for assessment purposes. Patient reported improvement to symptoms of anxiety rating as 2/10, denied depression, denied suicidal and homicidal ideation, denied audiovisual hallucinations, and denies urge to engage in self-injurious behavior. Patient denies recurrence of fleeting passive SI since the weekend, is able to appropriately verbalize concerns related to turning 32 years old this year, adoptive father who is ill, and limited support system. Patient is able to verbalize that once in placement he intends to attempt to develop new support system. Patient denies need for antidepressant restart or Seroquel dosing adjustment, received follow up Invega Sustenna injection today, denies medication side effects. Patient reports continuing improvement in energy level , states he is sleeping well and denies nightmare symptoms. Editor Map and patient again discussed the importance of sleep hygiene and patient continues to be encouraged to be up out of bed during the day and sleeping only at night, with which he has been compliant. Patient reiterates today he does not believe Wellbutrin needs to be restarted, makes no request for tenex re-start, and indicates concentration and focus challenges are manageable. Patient agrees to continue to evaluate need for Wellbutrin restart, states he wants to wait to "adjust to the injection to see if needed." Patient continues to state that symptoms of depression and anxiety are being adequately addressed by Seroquel. Patient states energy level has improved, denies symptoms or craving or withdrawal. Patient denies symptoms of physical pain and presents with no signs of acute distress at time of interaction. 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 Addendum: Call placed to [facility], spoke with nurse Angeles in [facility] who verified patient last received Invega Sustenna 234 mg IM on 09/23/16 and was discharged from [facility] on 10/05/16, discharge order read Invega Sustenna 234 mg IM q month. Spoke with Nursing Geological E Logger, Shanna Saunders, at [facility] to verify patient did not receive injection between [place] and current admission. Nicky indicated patient last received Invega Sustenna injection on 08/29/16, prior to [facility] admission. Patient denies receiving any other recent psychotropic medication injections, verifies he is due for follow-up injection on 10/23/16. Of note: Patient will be due for next Invega Sustenna 234 mg IM q 30 days on . Addendum: Editor Map attempted to reach Julia Lasha at [facility] ([phone]) on to discuss treatment history and to provide treatment update, spoke with nurse, Mckayla, who indicated patient's behavioral health case has been closed at clinic since 2013. Patient indicates he was taking the following medications up until time of admission: Wellbutrin SR 100 mg q day Diphenhydramine 50 mg hs PRN insomnia, may repeat 1 if needed Guanfacine 1 mg BID Melatonin 10 mg hs, may repeat 1 Invega Sustenna 234 mg IM, last injection given 09/23/16, next due 10/23/16 VITALS: See below. Elevated this morning, on recheck B/P 133/88. NEW TEST RESULTS: 10/11/16 labs indicated low Hgb, HCT, neut %, and elevated lymph %, mono %, and eos %, PA is aware and treating tonsillitis, pharyngitis 10/10/16 labs indicated low anion gap and calcium and elevated T3 uptake PAST MEDICAL/SURGICAL HISTORY: Patient denies history of chronic health condition, denies history of seizure or head injury. Labs on admission indicated elevated glucose, total protein, and TSH and low anion gap, patient refused weight UDS apparently not completed in ER. On 10/10/16 UDS negative 10/09/[address] elevation, probably early repolarization similar to , clinical consultation completed with recommendation made for follow-up with outpatient provider. 10/11/16 EEG - This EEG in awake, drowsy states, stage I and II sleep is within normal limits CURRENT MEDICATIONS: See below MENTAL STATUS EXAMINATION: General appearance: Patient is a 31-year old male, who is cooperative and pleasant, engageable, makes good eye contact, exhibits good personal hygiene, dressed in hospital clothing, ambulates steady gait, appears stated age. Speech: Of normal rate, rhythm, volume, coherent, more spontaneous Thought processes: Linear, goal-directed, no disorganization noted. Thought content: Rational, no tangentiality or paranoia, no perseveration today Abstract reasoning and computation: Appear improved today Description of associations: Generally intact Description of abnormal or psychotic thoughts: Patient denies current suicidal or homicidal ideation, denies auditory, visual, and tactile hallucinations, does not appear to be responding to internal stimuli, does not exhibit bizarre thinking or paranoid ideation, denies preoccupation with violence. Judgment: Limited, some improvement noted Insight: Limited, some improvement noted Orientation: A and O 3. Recent and remote memory: Appears intact other than patient states he continues to remember nothing of events which occurred just prior to hospitalization, states he is not sure what medication he attempted to overdose on, he thinks may been Benadryl. Attention span and concentration: Some improvement noted today. Fund of knowledge: Appears adequate Mood: "I'm feeling pretty good, I just really want to go to [facility] or [facility]; I feel ready to go." Patient reports improvement to symptoms of anxiety and depression, no mood lability noted Affect: Blunted, brightens 1, congruent with mood DIAGNOSES: Schizoaffective disorder, polysubstance use disorder. Rule out bipolar disorder, rule out schizophrenia, rule out substance-induced disorder. Adult ADHD by report ASSESSMENT: Patient is adjusting to unit, has been more visible, attends most unit activities, isolates to his room resting at times between groups, engages little with peers, is cooperative and engageable, and has presented with no behavior management challenges. Patient was again encouraged to be up out of bed and to participate in unit activities. Patient is denying symptoms of psychosis, presents with no unusual thinking at time of assessment. Patient reports improvement to symptoms of depression and anxiety, denies medication side effects. Patient received Invega Sustenna injection this morning, denies medication side effects. Patient again today denies need for Wellbutrin restart , will continue to evaluate, also denies need for tenex restart, remains agreeable to pursuing with outpatient provider to address ADHD symptoms if indicated. Patient denies current suicidal or homicidal ideation and verbalizes awareness of how to access supportive services on the unit if needed. Will continue to monitor patient and evaluate need for antidepressant medication, patient's response to medications, and will monitor for medication side effects. Will also evaluate for patient safety, resolution of suicidal ideation , and discharge/transfer readiness. orthodontic treatment coordinator is attempting to follow-up regarding patient's [facility] intake and referral to [facility]. Patient reiterates today when prepared for discharge he is agreeable to participating in outpatient psychotherapy, medication management, and case management, is requesting assistance with housing and remains interested in transferring to [facility] , [facility], or some other supportive housing environment. Addendum: orthodontic treatment coordinator provided update, patient has been accepted to [facility] and bed is available tomorrow, patient will be prepared for discharge. MANAGEMENT PLAN: Continue Seroquel 100 mg mg po hs. Patient will be due for next Invega Sustenna 234 mg IM q 30 days on 11/22/16. Continue to evaluate restart of medications patient was discharged on from rehabilitation: Wellbutrin , Tenex Maintain safety precautions Patient to attend groups and participate in unit programming to develop coping strategies Engage patient in discharge planning process and arrange meeting with support system to ensure safe discharge planning when appropriate Patient to follow up with PCM upon discharge TIME SPENT: 25 minutes Vital Signs Vital Signs Date Time Temp Pulse Resp B/P (MAP) Pulse Ox O2 Delivery O2 Flow Rate FiO2 10/23/16 06:44 97.9 95 18 150/77 (101) 10/19/16 18:00 Room Air Current Medications Current Medications Acetaminophen (Tylenol Tab) 650 mg Q6HP PRN PO HEADACHE or DISCOMFORT; Start at 01:45; Stop 11/08/16 at 01:44 Al Hydrox/Mg Hydrox/Simethicone (Mylanta) 30 ml Q4HP PRN PO HEARTBURN/ INDIGESTION; Start 10/09/16 at 01:45; Stop 11/08/16 at 01:44 Amoxicillin (Amoxicillin) 500 mg Q8H PO Last administered on 10/20/16t 13:07; Start 10/10/16 at 22:00; Stop 10/20/16 at 21:59; Status DC Cetylpyridinium Chloride (Cepacol) 1 alissa Q6HP PRN PO SORE THROAT; Start at 15:45; Stop 11/08/16 at 15:44 Chlordiazepoxide (Librium) 25 mg TID PRN PO alcohol/benzo withdrawal; Start 10/09/16 at 21:00; Stop 10/10/16 at 14:24; Status DC Home Med (Med Rec Complete!) ASDIRECTED XX ; Start 10/09/16 at 02:15; Stop at 02:15; Status DC Lorazepam (Ativan) 1 mg TIDP PRN PO ANXIETY/AGITATION Last administered on 10/15 21:03; Start 10/10/16 at 14:45; Stop 10/16/16 at 11:39; Status DC Magnesium Hydroxide (Milk Of Magnesia) 30 ml DAILYPRN PRN PO CONSTIPATION; Start 10/09/16 at 01:45; Stop 11/08/16 at 01:44 Paliperidone Palmitate (Invega Sustenna) 234 mg Q30D IM Last administered on 09:18; Start 10/23/16 at 09:00; Stop 11/22/16 at 08:59 Quetiapine Fumarate (SEROquel) 100 mg QHS PO Last administered on 10/22/16 20: 01; Start 10/17/16 at 21:00; Stop 11/16/16 at 20:59 Quetiapine Fumarate (SEROquel) 100 mg QHS PO Last administered on 10/14/16 20: 25; Start 10/11/16 at 21:00; Stop 10/15/16 at 16:05; Status DC Quetiapine Fumarate (SEROquel) 100 mg QHS PRN PO psychosis/insomnia; Start 10/09 at 16:45; Stop 10/11/16 at 16:51; Status DC Quetiapine Fumarate (SEROquel) 200 mg QHS PO Last administered on 10/16/16 20: 54; Start 10/15/16 at 21:00; Stop 10/17/16 at 11:13; Status DC Trazodone HCl (Desyrel) 50 mg QHSP PRN PO INSOMNIA; Start 10/09/16 at 01:45; Stop 10/09/16 at 16:51; Status DC Allergies Coded Allergies: No Known Allergies (Unverified , 01/06/13) Daniela Beltre Oct 23, 2016 14:19
[2016-10-23 14:23] VITALS: BP 133/88
[2016-10-23 18:00] VITALS: BP 128/87
[2016-10-23] MEDS: QUEtiapine FUMARATE 100 MG TAB PO SCH (20:05)
[2016-10-24 06:41] VITALS: BP 131/81
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
[2016-10-24] MEDS ORDERED: INVE234I IM (11:02)
[2016-10-24] MEDS ORDERED: QUET1TAB8 PO (11:02)
== END 2016-10-24 11:45 | disposition home or self-care (01) | DRG 885 ==
LOC: M ED 23:40 → EDBD 23:40 → M ED INP 10-09 01:35 → M PSY 10-09 03:38
PROVIDERS: ADMIT Psychiatry & Neurology Psychiatry; ATTEND Psychiatry & Neurology Psychiatry
DX: F25.9 Schizoaffective disorder, unspecified (principal); Z91.5 Personal history of self-harm; F31.9 Bipolar disorder, unspecified; F19.90 Other psychoactive substance use, unspecified, uncomplicated; F90.8 Attention-deficit hyperactivity disorder, other type; Z79.899 Other long term (current) drug therapy; F17.210 Nicotine dependence, cigarettes, uncomplicated; J02.9 Acute pharyngitis, unspecified; J03.90 Acute tonsillitis, unspecified

== ENCOUNTER → 2016-11-13 | Outpatient (CLI) | payer MEDICARE, MEDICAID ==
[~2016-11-13] MED LIST changes: +BENA25CA4 PO; +BUPR10TASR PO; +GUAN1TA PO; +INVE234I IM; +MELA1CAP PO; +MULT1TAB10 PO; +NICO2GUM40 PO; +NICO2LOZ MT; +QUET1TAB8 PO; +VITMTA PO; +[UNRECOGNIZED DRUG - CODE] PO
== END ==
LOC: M OUTALCOH 09:18
PROVIDERS: ATTEND Psychiatry & Neurology Psychiatry
DX: Z13.9 Encounter for screening, unspecified (principal); F12.20 Cannabis dependence, uncomplicated

== ENCOUNTER → 2016-11-15 | Outpatient (CLI) | payer MEDICARE, MEDICAID ==
[2016-11-15 09:39] LABS: EOS # 0.2 K/mm3 (0.0-0.50); EOS % 4.4 % (0.0-3.0); LYMPH # 1.7 K/mm3 (1.5-6.5); MEAN CORPUSCULAR HEMOGLOBIN 30.9 pg (27.0-33.0); MEAN CORPUSCULAR HGB CONC 34.1 g/dl (32.0-36.5); MEAN CORPUSCULAR VOLUME 90.7 fl (80.0-96.0); MONO # 0.2 K/mm3 (0.0-0.8); MONO % 4.4 % (0.0-5.0); NEUTROPHILS # 1.8 K/mm3 (1.8-7.7); NEUTROPHILS % 45.4 % (36.0-66.0); RED CELL DISTRIBUTION WIDTH 13.6 % (11.5-14.5)
[2016-11-15 10:27] LABS: ALBUMIN 3.8 GM/DL (3.2-5.2); ALKALINE PHOSPHATASE 61 U/L (45-117); ALT/SGPT 49 U/L (12-78); ANION GAP 8 MEQ/L (8-16); AST/SGOT 40 U/L (15-37); BILIRUBIN,TOTAL 0.5 MG/DL (0.2-1.0); BLOOD UREA NITROGEN 11 MG/DL (7-18); CALCIUM LEVEL 8.6 MG/DL (8.5-10.1); CARBON DIOXIDE LEVEL 28 MEQ/L (21-32); CHLORIDE LEVEL 106 MEQ/L (98-107); CHOLESTEROL LEVEL 216 MG/DL (<200); CREATININE FOR GFR 0.86 MG/DL (0.70-1.30); GLOMERULAR FILTRATION RATE > 60.0 (>60); GLUCOSE, FASTING 81 MG/DL (70-105); POTASSIUM SERUM 4.2 MEQ/L (3.5-5.1); SODIUM LEVEL 142 MEQ/L (136-145); TOTAL PROTEIN 7.6 GM/DL (6.4-8.2); TRIGLYCERIDES LEVEL 162 MG/DL (<150)
[2016-11-17 00:06] LABS: Lyme Disease IgG/IgM Antibodie <0.91 ISR (0.00-0.90); Lyme Disease IgM Ab Quantitati <0.80 index (0.00-0.79)
[2016-11-19 14:53] LABS: ALBUMIN 4.53 GM/DL (3.29-5.55); ALBUMIN % 59.6 % (55.8-66.1); GAMMA GLOBULIN % 18.2 % (11.1-18.8)
== END ==
LOC: M LAB 08:48
PROVIDERS: ATTEND Physician Assistant Medical
DX: E78.2 Mixed hyperlipidemia (principal); M13.80 Other specified arthritis, unspecified site; E55.9 Vitamin D deficiency, unspecified; F25.0 Schizoaffective disorder, bipolar type

== ENCOUNTER 2016-11-28 09:00 | Outpatient (RCR) | payer MEDICARE, MEDICAID | END 2016-12-06 | LOC: M OUTALCOH 09:00 | PROVIDERS: ATTEND Psychiatry & Neurology Psychiatry | DX: F12.20 Cannabis dependence, uncomplicated (principal); F16.10 Hallucinogen abuse, uncomplicated ==

== ENCOUNTER → 2016-12-06 | Outpatient (CLI) | payer MEDICARE, MEDICAID | LOC: M LAB 10:55 | PROVIDERS: ATTEND Physician Assistant Medical | DX: M13.80 Other specified arthritis, unspecified site (principal) ==

== ENCOUNTER 2017-01-03 09:00 | Outpatient (RCR) | payer MEDICARE, MEDICAID | END 2017-01-05 | LOC: M OUTALCOH 09:00 | PROVIDERS: ATTEND Psychiatry & Neurology Psychiatry | DX: F12.20 Cannabis dependence, uncomplicated (principal); F16.10 Hallucinogen abuse, uncomplicated ==

== ENCOUNTER → 2017-02-14 | Outpatient (CLI) | payer MEDICARE, MEDICAID ==
--- NOTE | 2017-02-14 08:32 | REP ---
Abdominal right upper quadrant ultrasound: There is a negative Neal's sign to transducer pressure. There is no cholelithiasis, gallbladder wall thickening or pericholecystic fluid. There is no intrahepatic or extrahepatic biliary duct dilatation. The common duct measures 2.3 ml diameter. The pancreas is obscured by bowel gas. There is no right renal calculus, hydronephrosis or mass or cyst. The right kidney is normal size measuring 11.6 cm length. There is no right upper quadrant abdominal ascites. Impression: Essentially negative abdominal right upper quadrant ultrasound. The pancreas is obscured by bowel gas. Signed by Donnie Alonzo MD 02/14/2017 08:24 A
== END ==
LOC: M RAD 07:35
PROVIDERS: ATTEND Physician Assistant Medical
DX: R10.84 Generalized abdominal pain (principal)

== ENCOUNTER 2017-03-06 10:00 | Outpatient (RCR) | payer MEDICARE, MEDICAID | END 2017-03-07 | LOC: M OUTALCOH 10:00 | PROVIDERS: ATTEND Psychiatry & Neurology Psychiatry | DX: F12.20 Cannabis dependence, uncomplicated (principal); F16.10 Hallucinogen abuse, uncomplicated ==

== ENCOUNTER 2017-03-15 09:45 | Outpatient (RCR) | payer MEDICARE, MEDICAID | END 2017-04-07 | LOC: M OUTALCOH 09:45 | DX: F12.20 Cannabis dependence, uncomplicated (principal); F16.10 Hallucinogen abuse, uncomplicated | CPT/HCPCS: 90832 ==

== ENCOUNTER 2017-06-02 19:46 | Emergency (ER) | payer MEDICARE, MEDICAID | END 2017-06-02 21:26 | disposition home or self-care (01) | LOC: M ED 19:46 | DX: M26.602 Left temporomandibular joint disorder, unspecified (principal); R03.0 Elevated blood-pressure reading, without diagnosis of hypertension; R00.0 Tachycardia, unspecified; F25.9 Schizoaffective disorder, unspecified; Z79.899 Other long term (current) drug therapy | CPT/HCPCS: 99283 ==

== ENCOUNTER → 2017-06-05 | Outpatient (REF) ==
[2017-06-06 10:25] LABS: HERPES ZOSTER, VARICELLA IgG 940 index (Immune >165)
== END ==
LOC: M LAB 10:02
DX: Z02.9 Encounter for administrative examinations, unspecified (principal)

== ENCOUNTER 2017-06-16 16:03 | Inpatient (IN) | payer MEDICARE, MEDICAID ==
[2017-06-16 17:15] LABS: HEMATOCRIT 36.5 % (42.0-52.0); HEMOGLOBIN 12.4 g/dl (14.0-18.0); MEAN CORPUSCULAR HEMOGLOBIN 30.1 pg (27.0-33.0); MEAN CORPUSCULAR VOLUME 88.6 fl (80.0-96.0); PLATELET COUNT, AUTOMATED 239 10^3/uL (150-450); RED BLOOD COUNT 4.12 10^6/uL (4.30-6.10); RED CELL DISTRIBUTION WIDTH 13.7 % (11.5-14.5); WHITE BLOOD COUNT 6.5 10^3/uL (4.0-10.0)
[2017-06-16] MEDS: LORazepam 1 MG TAB PO (17:15)
[2017-06-16 17:29] LABS: AMPHETAMINES LEVEL URINE NEGATIVE (NEGATIVE); BARBITURATES URINE NEGATIVE (NEGATIVE); BENZODIAZEPINES URINE NEGATIVE (NEGATIVE); CANNABINOIDS URINE NEGATIVE (NEGATIVE); COCAINE METABOLITE URINE NEGATIVE (NEGATIVE); METHADONE URINE NEGATIVE (NEGATIVE); OPIATES URINE NEGATIVE (NEGATIVE); PHENCYCLIDINE URINE NEGATIVE (NEGATIVE)
[2017-06-16 17:38] LABS: ACETAMINOPHEN LEVEL < 2.0 UG/ML (10.0-30.0); ALBUMIN 3.7 GM/DL (3.2-5.2); ALKALINE PHOSPHATASE 70 U/L (45-117); ALT/SGPT 39 U/L (12-78); ANION GAP 8 MEQ/L (8-16); AST/SGOT 41 U/L (7-37); BILIRUBIN,DIRECT 0.1 MG/DL (0.0-0.2); BILIRUBIN,TOTAL 0.4 MG/DL (0.2-1.0); BLOOD UREA NITROGEN 11 MG/DL (7-18); CARBON DIOXIDE LEVEL 26 MEQ/L (21-32); CHLORIDE LEVEL 108 MEQ/L (98-107); CREATININE FOR GFR 0.92 MG/DL (0.70-1.30); GLOMERULAR FILTRATION RATE > 60.0 (>60); GLUCOSE, FASTING 126 MG/DL (70-100); POTASSIUM SERUM 3.4 MEQ/L (3.5-5.1); SALICYLATE LEVEL < 1.7 MG/DL (5.0-30.0); SODIUM LEVEL 142 MEQ/L (136-145); TOTAL PROTEIN 7.4 GM/DL (6.4-8.2)
[2017-06-16 17:48] LABS: ETHYL ALCOHOL (ETHANOL) < 0.003 % (0.000-0.010)
[2017-06-16] MEDS: POTASSIUM CHLORIDE 10 MEQ SR TABLET PO (18:28)
[2017-06-16] MEDS ORDERED: MOM 30ML SUSPENSION UDC PO (18:30)
[2017-06-16] MEDS ORDERED: MAALOX 30 ML SUSP *UDC PO (18:30)
[2017-06-16] MEDS ORDERED: ACETAMINOPHEN TAB 650MG DOSE (2X325MG) PO (18:30)
[2017-06-16] MEDS: traZODone 50 MG TAB PO (21:28)
[2017-06-16] MEDS: NICOTINE 7 MG/24 HR TRANSDERMAL TD (21:28)
[2017-06-16] MEDS: VALSARTAN 80 MG TAB (DIOVAN) PO (22:40)
[2017-06-17] MEDS: OMEPRAZOLE 20 MG CAP PO (08:20)
[2017-06-17] MEDS: MELOXICAM (MOBIC) 7.5 MG TAB PO (08:20)
[2017-06-17] MEDS: MULTIVITAMINS/MINERALS THERAP 1 TAB PO (08:21)
[2017-06-17] MEDS: NICOTINE 7 MG/24 HR TRANSDERMAL TD (08:21)
[2017-06-17] MEDS: VITAMIN D 1,000 INTERNATIONAL UNITS TABLET PO (08:21)
[2017-06-17] MEDS: VALSARTAN 80 MG TAB (DIOVAN) PO (08:24)
[2017-06-17] MEDS ORDERED: MELOXICAM (MOBIC) 7.5 MG TAB PO (09:00)
[2017-06-17] MEDS ORDERED: OLANZapine 5 MG TAB PO (19:00)
[2017-06-17] MEDS: MIRTAZAPINE 15 MG TAB PO (20:53)
[2017-06-18] MEDS: VALSARTAN 80 MG TAB (DIOVAN) PO (08:53)
[2017-06-18] MEDS: MULTIVITAMINS/MINERALS THERAP 1 TAB PO (08:53)
[2017-06-18] MEDS: SERTRALINE HCL 50 MG TAB PO (08:53)
[2017-06-18] MEDS: MELOXICAM (MOBIC) 7.5 MG TAB PO (08:54)
[2017-06-18] MEDS: OMEPRAZOLE 20 MG CAP PO (08:54)
[2017-06-18] MEDS: VITAMIN D 1,000 INTERNATIONAL UNITS TABLET PO (08:55)
[2017-06-18] MEDS: NICOTINE 7 MG/24 HR TRANSDERMAL TD (09:02)
[2017-06-18] MEDS: risperiDONE 1 MG TAB PO (11:44)
[2017-06-18] MEDS: MIRTAZAPINE 15 MG TAB PO (20:24)
[2017-06-18] MEDS: risperiDONE 0.5 MG TAB PO (20:24)
[2017-06-19] MEDS: risperiDONE 1 MG TAB PO (09:16)
[2017-06-19] MEDS: SERTRALINE HCL 25 MG TABLET PO (09:16)
[2017-06-19] MEDS: VALSARTAN 80 MG TAB (DIOVAN) PO (09:16)
[2017-06-19] MEDS: MULTIVITAMINS/MINERALS THERAP 1 TAB PO (09:16)
[2017-06-19] MEDS: OMEPRAZOLE 20 MG CAP PO (09:16)
[2017-06-19] MEDS: MELOXICAM (MOBIC) 7.5 MG TAB PO (09:16)
[2017-06-19] MEDS: VITAMIN D 1,000 INTERNATIONAL UNITS TABLET PO (09:16)
[2017-06-19] MEDS: NICOTINE 7 MG/24 HR TRANSDERMAL TD (09:16)
[2017-06-19] MEDS: MIRTAZAPINE 15 MG TAB PO (20:20)
[2017-06-19] MEDS: risperiDONE 0.5 MG TAB PO (20:21)
[2017-06-20] MEDS: MULTIVITAMINS/MINERALS THERAP 1 TAB PO (08:58)
[2017-06-20] MEDS: MELOXICAM (MOBIC) 7.5 MG TAB PO (08:58)
[2017-06-20] MEDS: VALSARTAN 80 MG TAB (DIOVAN) PO (08:58)
[2017-06-20] MEDS: risperiDONE 1 MG TAB PO (08:58)
[2017-06-20] MEDS: OMEPRAZOLE 20 MG CAP PO (08:59)
[2017-06-20] MEDS: SERTRALINE HCL 25 MG TABLET PO (08:59)
[2017-06-20] MEDS: NICOTINE 7 MG/24 HR TRANSDERMAL TD (09:00)
[2017-06-20] MEDS: risperiDONE 0.5 MG TAB PO (21:03)
[2017-06-20] MEDS: MIRTAZAPINE 15 MG TAB PO (21:03)
[2017-06-21] MEDS: OMEPRAZOLE 20 MG CAP PO (08:27)
[2017-06-21] MEDS: MELOXICAM (MOBIC) 7.5 MG TAB PO (08:27)
[2017-06-21] MEDS: SERTRALINE HCL 25 MG TABLET PO (08:27)
[2017-06-21] MEDS: MULTIVITAMINS/MINERALS THERAP 1 TAB PO (08:28)
[2017-06-21] MEDS: risperiDONE 1 MG TAB PO (08:28)
[2017-06-21] MEDS: VALSARTAN 80 MG TAB (DIOVAN) PO (08:28)
[2017-06-21] MEDS: NICOTINE 7 MG/24 HR TRANSDERMAL TD ×2 (08:29→10:23)
== END 2017-06-21 13:44 | disposition home or self-care (01) | DRG 885 ==
LOC: M ED 16:03 → M ED INP 18:19 → M PSY 20:14
DX: F25.9 Schizoaffective disorder, unspecified (principal); K21.9 Gastro-esophageal reflux disease without esophagitis; F17.210 Nicotine dependence, cigarettes, uncomplicated; E55.9 Vitamin D deficiency, unspecified; Z91.5 Personal history of self-harm; Z81.8 Family history of other mental and behavioral disorders; Z79.899 Other long term (current) drug therapy

== ENCOUNTER → 2017-12-02 | Outpatient (REF) | payer MEDICARE, MEDICAID ==
[2017-12-02 19:28] LABS: ALBUMIN 3.9 GM/DL (3.2-5.2); ALBUMIN/GLOBULIN RATIO 0.98 (1.00-1.93); ALKALINE PHOSPHATASE 87 U/L (45-117); ALT/SGPT 61 U/L (12-78); ANION GAP 12 MEQ/L (8-16); AST/SGOT 47 U/L (7-37); BILIRUBIN,TOTAL 0.5 MG/DL (0.2-1.0); BLOOD UREA NITROGEN 14 MG/DL (7-18); CALCIUM LEVEL 8.7 MG/DL (8.5-10.1); CARBON DIOXIDE LEVEL 23 MEQ/L (21-32); CHLORIDE LEVEL 107 MEQ/L (98-107); CREATININE FOR GFR 0.97 MG/DL (0.70-1.30); GLOMERULAR FILTRATION RATE > 60.0 (>60); GLUCOSE, FASTING 87 MG/DL (70-100); POTASSIUM SERUM 3.5 MEQ/L (3.5-5.1); SODIUM LEVEL 142 MEQ/L (136-145); TOTAL PROTEIN 7.9 GM/DL (6.4-8.2)
== END ==
LOC: M LAB REF 17:26
DX: R79.89 Other specified abnormal findings of blood chemistry (principal)
CPT/HCPCS: 80053

== ENCOUNTER → 2017-12-19 | Outpatient (CLI) | payer MEDICARE, MEDICAID | LOC: M EKG 09:06 | DX: R00.0 Tachycardia, unspecified (principal) | CPT/HCPCS: 93005 ==

== ENCOUNTER → 2018-01-08 | Outpatient (CLI) | payer MEDICARE, MEDICAID | LOC: M LAB 10:09 | DX: E66.01 Morbid (severe) obesity due to excess calories (principal) | CPT/HCPCS: 84443 ==

== ENCOUNTER → 2018-05-28 | Outpatient (REF) | payer MEDICARE, MEDICAID ==
[~2018-05-28] MED LIST changes: +DIOV80TA3 PO; +MELO15TA28 PO; +MIRT15TA3 PO; +MULTTAB6; +NICO7PA TD; +OMEP40CA2 PO; +RISP0.5T21 PO; +RISP1TAB42 PO; +SERT25TA PO; +VITA500046 PO
[2018-05-28 13:21] LABS: BASO % 0.6 % (0.0-1.0); EOS # 0.2 10^3/uL (0.0-0.50); EOS % 3.1 % (0.0-3.0); HEMATOCRIT 44.3 % (42.0-52.0); HEMOGLOBIN 14.7 g/dl (13.5-17.5); LYMPH # 1.9 10^3/uL (1.5-4.5); LYMPH % 39.8 % (24.0-44.0); MEAN CORPUSCULAR HEMOGLOBIN 29.6 pg (27.0-33.0); MEAN CORPUSCULAR HGB CONC 33.2 g/dl (32.0-36.5); MEAN CORPUSCULAR VOLUME 89.3 fl (80.0-96.0); MONO # 0.3 10^3/uL (0.0-0.8); MONO % 7.1 % (0.0-5.0); NEUTROPHILS # 2.3 10^3/uL (1.8-7.7); NEUTROPHILS % 49.2 % (36.0-66.0); PLATELET COUNT, AUTOMATED 246 10^3/uL (150-450); RED BLOOD COUNT 4.96 10^6/uL (4.30-6.10); WHITE BLOOD COUNT 4.8 10^3/uL (4.0-10.0)
[2018-05-28 13:27] LABS: ALBUMIN 4.3 GM/DL (3.2-5.2); ALT/SGPT 138 U/L (12-78); BILIRUBIN,TOTAL 0.9 MG/DL (0.2-1.0); BLOOD UREA NITROGEN 13 MG/DL (7-18); CALCIUM LEVEL 8.7 MG/DL (8.5-10.1); CARBON DIOXIDE LEVEL 25 MEQ/L (21-32); CHLORIDE LEVEL 104 MEQ/L (98-107); CHOLESTEROL LEVEL 194 MG/DL (<200); CHOLESTEROL RISK RATIO 4.731 (<5); CREATININE FOR GFR 1.11 MG/DL (0.70-1.30); GLOMERULAR FILTRATION RATE > 60.0 (>60); GLUCOSE, FASTING 81 MG/DL (70-100); HDL CHOLESTEROL 41 MG/DL (>40); LDL CHOLESTEROL 132 MG/DL (<100); NON-HDL-C 153 MG/DL; POTASSIUM SERUM 4.4 MEQ/L (3.5-5.1); SODIUM LEVEL 137 MEQ/L (136-145); TOTAL PROTEIN 7.5 GM/DL (6.4-8.2); TRIGLYCERIDES LEVEL 105 MG/DL (<150)
[2018-05-28 13:29] LABS: TOTAL 25(OH) VITAMIN D 63.2 NG/ML (30.0-100.0)
[2018-05-28 14:05] LABS: HEMOGLOBIN A1c 7.1 %
== END ==
LOC: M LAB REF 12:26
PROVIDERS: ATTEND Family Medicine
DX: R73.03 Prediabetes (principal); I10 Essential (primary) hypertension

== ENCOUNTER → 2018-05-28 | Outpatient (REF) | payer MEDICARE, MEDICAID ==
[2018-05-28 13:50] LABS: APPEARANCE, URINE TURBID (CLEAR); BACTERIA, URINE AUTO 1+ (NEGATIVE); BILIRUBIN, URINE AUTO NEGATIVE (NEGATIVE); BLOOD, URINE BLOOD NEGATIVE (NEGATIVE); COLOR, URINE AMBER (YELLOW); GLUCOSE, URINE (UA) AUTO NEGATIVE (NEGATIVE); KETONE, URINE AUTO 1+ mg/dL (NEGATIVE); LEUKOCYTE ESTERASE, URINE AUTO NEGATIVE (NEGATIVE); MUCUS, URINE MODERATE (NEGATIVE); NITRITE, URINE AUTO NEGATIVE (NEGATIVE); PROTEIN, URINE AUTO NEGATIVE (NEGATIVE); RBC, URINE AUTO 0 /HPF (0-3); SPECIFIC GRAVITY URINE AUTO 1.019 (1.002-1.035); SQUAMOUS EPITHELIAL CELL UR AU 0 /HPF (0-6); WBC, URINE AUTO 2 /HPF (0-3)
[2018-05-28 14:11] LABS: MALB URINE SIEMENS 15.4 MG/L; MAU/CREAT RATIO 4.4 MCG/MG (0.0-30.0)
== END ==
LOC: M LAB REF 12:52
PROVIDERS: ATTEND Family Medicine
DX: R73.03 Prediabetes (principal); I10 Essential (primary) hypertension

== ENCOUNTER 2018-08-14 10:46 | Inpatient (IN) | payer MEDICARE, MEDICAID ==
[~2018-08-14] VITALS: Ht 175.3 cm; Wt 95.0 kg
[~2018-08-14 10:46] MED LIST changes: +MELA10SU3 PO; -SERT25TA PO; +SERT25TA85 PO; -[UNRECOGNIZED DRUG - CODE] PO
[2018-08-14] MEDS ORDERED: ABIL1INJ2 INJ (10:54)
[2018-08-14 12:50] LABS: AMPHETAMINES LEVEL URINE NEGATIVE (NEGATIVE); BARBITURATES URINE NEGATIVE (NEGATIVE); BENZODIAZEPINES URINE NEGATIVE (NEGATIVE); CANNABINOIDS URINE NEGATIVE (NEGATIVE); COCAINE METABOLITE URINE NEGATIVE (NEGATIVE); METHADONE URINE NEGATIVE (NEGATIVE); OPIATES URINE NEGATIVE (NEGATIVE); PHENCYCLIDINE URINE NEGATIVE (NEGATIVE)
[2018-08-14 13:53] LABS: HEMATOCRIT 44.9 % (42.0-52.0); HEMOGLOBIN 14.3 g/dl (13.5-17.5); MEAN CORPUSCULAR HEMOGLOBIN 29.5 pg (27.0-33.0); MEAN CORPUSCULAR HGB CONC 31.8 g/dl (32.0-36.5); MEAN CORPUSCULAR VOLUME 92.6 fl (80.0-96.0); PLATELET COUNT, AUTOMATED 236 10^3/uL (150-450); RED BLOOD COUNT 4.85 10^6/uL (4.30-6.10); WHITE BLOOD COUNT 5.4 10^3/uL (4.0-10.0)
[2018-08-14 14:27] LABS: ACETAMINOPHEN LEVEL < 2.0 UG/ML (10.0-30.0); ALBUMIN 4.2 GM/DL (3.2-5.2); ALT/SGPT 29 U/L (12-78); BILIRUBIN,DIRECT 0.3 MG/DL (0.0-0.2); BILIRUBIN,TOTAL 1.4 MG/DL (0.2-1.0); BLOOD UREA NITROGEN 10 MG/DL (7-18); CALCIUM LEVEL 8.6 MG/DL (8.5-10.1); CARBON DIOXIDE LEVEL 25 MEQ/L (21-32); CHLORIDE LEVEL 108 MEQ/L (98-107); ETHYL ALCOHOL (ETHANOL) < 0.003 % (0.000-0.010); GLOMERULAR FILTRATION RATE > 60.0 (>60); GLUCOSE, FASTING 84 MG/DL (70-100); SALICYLATE LEVEL < 1.7 MG/DL (5.0-30.0); SODIUM LEVEL 142 MEQ/L (136-145); THYROID STIMULATING HORMONE 0.763 uIU/ML (0.358-3.740); TOTAL PROTEIN 6.9 GM/DL (6.4-8.2)
[2018-08-14] MEDS ORDERED: TAB-TAB PO (18:52)
[2018-08-14] MEDS ORDERED: VICT18IN2 SQ (18:52)
[2018-08-14] MEDS ORDERED: NICO2GUM43 MT (18:52)
[2018-08-14] MEDS ORDERED: MIRT1TAB15 PO (18:52)
[2018-08-14] MEDS ORDERED: METF500T4 PO (18:52)
[2018-08-14] MEDS ORDERED: AMAN100T PO (18:52)
[2018-08-14] MEDS ORDERED: VALS1TAB66 PO (18:52)
[2018-08-14] MEDS ORDERED: METO1TAB33 PO (18:52)
[2018-08-14] MEDS ORDERED: MOM 30ML SUSPENSION UDC PO PRN (19:15)
[2018-08-14] MEDS ORDERED: MAALOX 30 ML SUSP *UDC PO PRN (19:15)
[2018-08-14] MEDS ORDERED: traZODone 50 MG TAB PO PRN (19:15)
[2018-08-14] MEDS ORDERED: ACETAMINOPHEN TAB 650MG DOSE (2X325MG) PO PRN (19:15)
[2018-08-14] MEDS ORDERED: NICOTINE 21MG/24HR 1 EA TRANSDERMAL TD ONE (19:30)
[2018-08-14] MEDS: MIRTAZAPINE 15 MG TAB PO SCH (21:00)
[2018-08-14 23:26] VITALS: BP 145/86
[2018-08-15 06:47] VITALS: BP 129/63
[2018-08-15] MEDS: MULTIVITAMINS/MINERALS THERAP 1 TAB PO SCH (08:58)
[2018-08-15] MEDS: OMEPRAZOLE 20 MG CAP PO SCH (08:58)
[2018-08-15] MEDS: MELOXICAM (MOBIC) 7.5 MG TAB PO SCH (08:58)
[2018-08-15] MEDS: VALSARTAN 80 MG TAB (DIOVAN) PO SCH (11:43)
--- NOTE | 2018-08-15 13:56 | MHHPEPDOC ---
General Date Of Admission: August 15, 2018 Chief Complaint "I've been eating less and because I lost weight, I feel people treat me di fferently and it has affected my thoughts. I martinez ve heard some voices" History of Present Illness HISTORY OF THE PRESENT ILLNESS: Patient is a 33 -year-old , lisa luther, who according to ED report:"Pt. reports he has history of AH for many years but have been diana frequent and confusing recently. He states that he use to hear many voices years ago but now just three regularly. he reports one voice he has named 'Jan' has been telling him what to do and where to go. He reports that the voice of Jan has been telling him that he will be arrested and sent to senior care and he states this is why he answers yes to having homicidal thoughts because he is afraid he may snap one day and hurt someone and therefor will end up in senior care. He denies he has been in senior care before but states he has spent time in group home for a violation of an order of protection. Pt. states he is very suggestable to the voices and states he he doesn't do what the say he feels like his whole day will be ruined, giving example of he won't change the tv channel evn if it is something he does not want to watch. Pt. denies current active SI but states he feels he would be better off . He does have history of suicide attepts by overdose of rat poison and by attempting to electrocute self by placing toaster in bathtub. Pt. reports out -pt services through [facility] and states he is medication compliant. Pt. aslo reports voices say "JULEE' and "FBI"but not sure why." Psychiatric Review of Systems Depression (2 or more weeks): anhedonia, feelings of excess/guilt, difficulty concentrating, appetite changes (he is eating less, he gave up meat a couple of months ago), psychomotor changes, suicidal thoughts (fleeting SI), other (hopel essness) Tanika (4 or more days of): irritable/elevated mood (The last time he felt almost euphoric was yesterday and people started saying Are You OK?), expansive mood, grandiosity (He felt like that about an hour ago, because he feels he can hear somebody's eles' thoughts), decreased need for sleep, still with energy, flight of ideas (Last night, while at the ED was the last time he experienced this), distractibility, goal-directed activities Psychosis: auditory hallucination, visual hallucination (He has seen people that weren't there, the last time was about one hour ago), paranoia PTSD: denies Anxiety: situational anxiety, stressor related anxiety, panic attacks Anxiety/ 6 months or more of: difficulty concentrating, irritability, muscle tension Past Psychiatric History Previous Psychiatric Diagnosis: Schizoaffective disorder Previous Psychiatric Admissions: he was admitted to [facility] on 06/23/17. He had been admitted to different hospitals in different counties. He was also hospitalized in [place] and [place] Suicide Attempts: He has tried to OD with pills (3-4). He has used rat poison and tried to electrocute himself, mostly over financial stressors Psychiatric Follow-up: community clinic Psychiatric medications: Invega Sustenna, it was discontinued and he takes the Abilify Mantenna, Mirtazapine. Past Medical History Medical Problems GERD, vitamin D deficiency Head Injury: Yes (He was hit in the head while boxing, he lost consciousness and when he woke up he was sitting on a couch he didn't rember what had happened) Seizures: No Hospitalizations: Yes Surgeries: No Family Medical/Psychiatric HX Medical Problems Medical Problems Father has high blood pressure, mother takes metformin for diabetes Psychiatric Disorders: Yes (Yes (His youngest sister takes medications for psychiatric problems but he ignores which problem)) Addiction: No Suicide Attemps/Completions: No Addiction History nicotine (the last time he smoked was in May 2018), alcohol (the last time he drank was in 2016), cocaine (the last time he used was in 2017), other (ma rijuana, last use was in 2017) Social History Childhood: He reported during his 2018 admission that his childhood was all over the place, he was born in [place], when he was 6 they moved to [place] with some of his mom's relatives, it was a good experience. He went to foster care. His mother was only 18 when she had him, was overwhelmed. He says foster care was a good experience for him, he was in the system for 5 years. Then he was adopted and the foster parents were not nice to him. It was a man only who adopted him, there were other children that would come in the house occasionally. He punished him excessively, he was overworked doing house chores, he was very controlling. 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 [employer] Social Support: [employer] Legal: Yes, trespassing property Marital: Single, no children Mental Status Examination General Appearance: well groomed, appears stated age, hospital scubs/clothing Build: average Demeanor: average Eye Contact: average Activity: average Behavior: cooperative Speech: clear, spontaneous, reg/rate,rhythm,volume Mood: depressed, anxious Affect: constricted, appropriate, congruent, anxious Thought Process: logical/linear Thought Content (Delusions): grandiose, paranoia Thought Content (Other): preoccupied, guilty Thought Content (Aggressive): none reported Perception (Hallucinations): auditory, visual Perception (Other): none reported Cognition (Impairment of): none reported Cognition(Intelligence Est.): average Oriented: Awake, Alert, Oriented times three Insight: poor Judgment: Poor Psychosis: Psychotic Perceptions Diagnoses !. Schizoaffective disorder, bipolar type Assessment Patient is reporting symptoms of anxiety, depression and tanika at the same time. He thinks that he had his last Abilify Mantenna injection on the 29 of July but he is not sure. He says that him and his Physician Pharmacy Order Entry Technician thought of making those changes because he felt that Invega Sustenna was not working very well.Patient will be started on Rexulti 2 mgs po daily and will be on Zyprexa 5 mgs PO q6hp for anxiety/agitation or if the voices are disturbing him too much Initial Treatment Plan 1. Patient was admitted on a [9.39] status. 2. Complete history was obtained. 3. With patients permission, family will be contacted and database will be expanded. 4. Patients medication regimen will be reviewed and changed accordingly. 5. Patient will be provided with protected environment. 6. Patient will be treated with individual, group, and milieu therapies. 7. Patient will receive supportive psych-education. 8. Discharge planning will commence immediately. 9. Outpatient follow-up treatment will be strongly recommended. 10. The initial treatment plan will focus initially on: * Depression. * Anxiety * Tanika * Altered Thoughts * Altered perceptions * Risk for suicide. * ESTIMATED LENGTH OF STAY: 5-7 DAYS. TIME SPENT COUNSELING AND COORDINATING INITIAL CARE: 60 minutes. Vital Signs Vital Signs Date Time Temp Pulse Resp B/P (MAP) Pulse Ox O2 Delivery O2 Flow Rate FiO2 08/15/18 06:47 98.1 76 16 129/63 (85) 08/14/18 18:48 100 Room Air Laboratory Data 24H Labs Laboratory Tests 2 08/14/18 12:15: Urine Amphetamines Screen NEGATIVE, Urine Benzodiazepines Screen NEGATIVE, Urine Opiates Screen NEGATIVE, Urine Methadone Screen NEGATIVE, Urine Barbiturates Screen NEGATIVE, Urine Phencyclidine Screen NEGATIVE, Urine Cocaine Metabolite Screen NEGATIVE, Urine Cannabinoids Screen NEGATIVE 08/14/18 13:42: Nucleated Red Blood Cells % (auto) 0.0, Anion Gap 9, Glomerular Filtration Rate > 60.0, Calcium Level 8.6, Aspartate Amino Transf (AST/SGOT) 26, Alanine Aminotransferase (ALT/SGPT) 29, Alkaline Phosphatase 86, Total Bilirubin 1.4H, Direct Bilirubin 0.3H, Total Protein 6.9, Albumin 4.2, Albumin/Globulin Ratio 1.56, Thyroid Stimulating Hormone (TSH) 0.763, Salicylates Level < 1.7L, Acetaminophen Level < 2.0L, Ethyl Alcohol Level < 0.003 CBC/BMP Laboratory Tests 08/14/18 13:42 Red Blood Count 4.85, Mean Corpuscular Volume 92.6, Mean Corpuscular Hemoglobin 29.5, Mean Corpuscular Hemoglobin Concent 31.8 L, Red Cell Distribution Width 14.6 H Medications Scheduled Amantadine HCl (Amantadine) 100 Mg Tablet, 200 MG PO DAILY, (Reported) Aripiprazole (Abilify Maintena) 400 Mg Suser.syr, 400 MG INJ QMONTH, (Reported) Liraglutide (Victoza 3-Srinivas) 0.6 Mg/0.1 Ml Pen.injctr, 0.6 MG SQ QHS, (Reported) Meloxicam (Meloxicam) 15 Mg Tab, 15 MG PO DAILY, (Reported) Metformin HCl (Metformin HCl ER) 500 Mg Tab.er.24h, 500 MG PO BID, (Reported) Metoprolol Succinate (Metoprolol Succinate) 100 Mg Tab.er.24h, 100 MG PO DAILY, (Reported) Mirtazapine (Mirtazapine) 15 Mg Tab.rapdis, 15 MG PO QHS, (Reported) Multivitamin (Tab-A-Cat) 1 Each Tablet, 1 TAB PO DAILY, (Reported) Omeprazole (Omeprazole) 40 Mg Cap, 40 MG PO DAILY, (Reported) Valsartan (Valsartan) 80 Mg Tablet, 80 MG PO DAILY, (Reported) Scheduled PRN Nicotine Polacrilex (Nicotine Gum) 2 Mg Gum, 2 MG MT Q2H PRN for NICOTINE WITHDRAWAL, (Reported) Allergies Coded Allergies: Garnet's wort (Verified Allergy, Unknown, 08/14/18) MAY MATTHEW MD August 15, 2018 11:33
--- NOTE | 2018-08-15 14:51 | HPE ---
DATE OF ADMISSION: 08/15/2018 HISTORY OF PRESENT ILLNESS: 33-year-old gentleman who is a resident of [facility]), level II congregate home, presented himself to this facility for complaints of increased paranoia and auditory hallucinations. The hospitalist service was consulted for medical management. PAST MEDICAL HISTORY: The patient has a history of diabetes type 2 and hypertension. CURRENT MEDICATIONS: - metformin 500 mg by mouth twice a day - Victoza 0.6 mg subcutaneously daily - metoprolol succinate 100 mg by mouth daily - meloxicam 50 mg by mouth daily - Abilify 400 mg injected monthly - amantadine 200 mg daily - Remeron 15 mg by mouth at night - multivitamin one daily - nicotine gum as needed - omeprazole 40 mg daily - valsartan 80 mg by mouth daily PAST SURGICAL HISTORY: None. ALLERGIES: None. FAMILY HISTORY: Father is living at 52 years old with history of hypertension. Mother living at 47 years old with history of diabetes type 2. The patient has seven siblings; four sisters and three brothers, no known chronic medical problems. SOCIAL HISTORY: The patient is a resident of [facility] ([facility] He is a nonsmoker, he quit approximately 90 days ago and declined a patch or nicotine replacement. He denies any alcohol. He denies any current drug use. He has a history of substance abuse, including marijuana and crack cocaine and acid. His last use was 09/06/2016. PHYSICAL EXAMINATION: Today, blood pressure is stable at 129/63, respiratory rate of 16, heart rate 76, temperature 98.1. Laboratories were reviewed and include a CMP and a CBC. CBC is stable. CMP shows an elevated bilirubin of 0.4 with a direct bilirubin of 0.3. REVIEW OF SYSTEMS: The patient denies chest pain, headaches, blurred vision, dizziness, shortness of breath, abdominal pain or any bowel changes. Denies any swelling or dyspnea on exertion. Does admit to a mild cough upon quitting smoking. HEENT: Neck is supple without lymphadenopathy or jugular venous distention (JVD). CARDIOVASCULAR: Heart rate and rhythm are regular. PULMONARY: Lungs are clear to auscultation bilaterally. ABDOMEN: Soft and nontender. EXTREMITIES: Bilateral lower extremities are without any edema. ASSESSMENT: 1. Diabetes type 2. 2. Hypertension. 3. Gastroesophageal reflux disease (GERD). 4. Schizoaffective disorder. PLAN: Medications for schizoaffective disorder will be managed by psychiatry. The patient will continue with his inpatient mental health unit stay per their recommendations. Regarding the patient's diabetes, he will be placed on a carbohydrate consistent diet and may resume his metformin and Victoza upon discharge. Regarding the patient's hypertension, he will continue his valsartan currently. Metoprolol is currently on hold. His heart rate is stable, as well as his blood pressure. Regarding the patient's elevated bilirubin, we will perform a liver ultrasound to rule out any metabolic concerns. Any medications added will need to be considered for any sort of hepatotoxicity.
[2018-08-15] MEDS: BREXPIPRAZOLE 2MG TABLET (REXULTI) PO SCH (14:53)
[2018-08-15 18:00] VITALS: BP 130/70
[2018-08-15] MEDS: MIRTAZAPINE 15 MG TAB PO SCH (20:48)
[2018-08-16 06:37] VITALS: BP 129/60
--- NOTE | 2018-08-16 08:50 | REP ---
Right upper quadrant sonography: History: Elevated bilirubin. Comparison study: Comparison sonography February 14, 2017. Findings: Scanning through the right upper quadrant of the abdomen demonstrates a normal sized, thin-walled gallbladder without evidence of stone or polyp. Common bile duct is normal measuring 0.5 cm in greatest diameter. No focal liver lesion is seen. Liver size is borderline enlarged. 17.1 cm in vertical span in the midclavicular line . No pancreatic abnormality is observed. No right renal abnormality is seen. There is no evidence of ascites. The right kidney measures 11.6 x 5.6 x 4.0 cm. Impression: Mildly prominent liver size, otherwise negative right upper quadrant sonography. Electronically Signed by Shad Rodriguez MD 08/16/2018 08:41 A
[2018-08-16] MEDS: MELOXICAM (MOBIC) 7.5 MG TAB PO SCH (08:51)
[2018-08-16] MEDS: MULTIVITAMINS/MINERALS THERAP 1 TAB PO SCH (08:51)
[2018-08-16] MEDS: BREXPIPRAZOLE 2MG TABLET (REXULTI) PO SCH (08:51)
[2018-08-16] MEDS: OMEPRAZOLE 20 MG CAP PO SCH (08:52)
[2018-08-16] MEDS: VALSARTAN 80 MG TAB (DIOVAN) PO SCH (08:52)
--- NOTE | 2018-08-16 09:00 | MHIPNPDOC ---
[facility] Progress Note Progress Note DATE OF SERVICE: 08/16/18 HISTORY: Per Dr. Pinto: "Patient is a 33 -year-old , male, who according to ED report:"Pt. reports he has history of AH for many years but have been more frequent and confusing recently. He states that he use to hear many voices years ago but now just three regularly. he reports one voice he has named 'Jan' has been telling him what to do and where to go. He reports that the voice of Jan has been telling him that he will be arrested and sent to skilled nursing and he states this is why he answers yes to having homicidal thoughts because he is afraid he may snap one day and hurt someone and therefor will end up in skilled nursing. He denies he has been in skilled nursing before but states [facility] of protection. Pt. states he is very sugge stible to the voices and states he he doesn't do what the say he feels like his whole day will be ruined, giving example of he won't change the tv channel evn if it is something he does not want to watch. Pt. denies current active SI but states he feels he would be better off . He does have history of suicide attempts by overdose of rat poison and by attempting to electrocute self by placing toaster in bathtub. Pt. reports out -pt services through [facility] and states he is medication compliant. Pt. aslo reports voices say "JULEE' and "FBI"but not sure why."" VITAL SIGNS: See below. NEW TEST RESULTS: See below. CURRENT MEDICATIONS: See below. MENTAL STATUS EXAMINATION: General Appearance: well groomed, appears stated age, hospital scrubs/clothing Build: average Demeanor: average Eye Contact: average Activity: average Behavior: cooperative Speech: clear, spontaneous, reg/rate,rhythm,volume Mood: less depressed, less anxious Affect: less constricted, appropriate, congruent, less anxious Thought Process: logical/linear Thought Content (Delusions): improved grandiose, paranoia Thought Content (Other): improved preoccupied, guilty Thought Content (Aggressive): none reported Perception (Hallucinations): improved "less frequent" auditory, visual Perception (Other): none reported Cognition (Impairment of): none reported Cognition(Intelligence Est.): average Oriented: Awake, Alert, Oriented times three Insight: poor Judgment: Poor Psychosis: improving Psychotic Perceptions DIAGNOSES: Schizoaffective disorder, bipolar type ASSESSMENT:Pt seen and states that his mood is better. States he really finding the rexulti he started yesterday beneficial as his AH are "less frequent," his thoughts are more clear, he feels less paranoid. States he's exercising in his room in the morning which he likes as it improves his mood and makes him feel good. States he slept well last night. Feels he is tolerating his medications and they're beneficial. He is attending groups and finding them helpful. He denies SI/HI. Pt feels safe here. MANAGEMENT PLAN: continue Dr. Pinto's plan. TIME SPENT: 30 minutes. Vital Signs Vital Signs Date Time Temp Pulse Resp B/P (MAP) Pulse Ox O2 Delivery O2 Flow Rate FiO2 08/16/18 06:37 97.8 96 14 129/60 (83) 08/14/18 18:48 100 Room Air Current Medications Current Medications Acetaminophen (Tylenol Tab) 650 mg Q6HP PRN PO HEADACHE or DISCOMFORT; Start 08/14/18 at 19:15 Al Hydrox/Mg Hydrox/Simethicone (Mylanta) 30 ml Q4HP PRN PO HEARTBURN/INDIGESTION; Start 08/14/18 at 19:15 Brexpiprazole (Rexulti) 2 mg DAILY PO Last administered on 08/15/18at 14:53; Start 08/15/18 at 09:00 Home Med (Med Rec Complete!) ASDIRECTED XX ; Start 08/14/18 at 19:00; Stop 08/14/18 at 19:00; Status DC Magnesium Hydroxide (Milk Of Magnesia) 30 ml DAILYPRN PRN PO CONSTIPATION; Start 08/14/18 at 19:15 Meloxicam (Mobic) 15 mg DAILY PO Last administered on 08/15/18at 08:58; Start 08/15/18 at 09:00 Mirtazapine (Remeron) 15 mg QHS PO Last administered on 08/15/18at 20:48; Start 08/14/18 at 21:00 Multivitamins (Theragram-M) 1 tab DAILY PO Last administered on 08/15/18at 08:58; Start 08/15/18 at 09:00 Olanzapine (ZyPREXA ZYDIS) 5 mg Q6HP PRN PO ANXIETY/AGITATION; Start at 14:00 Omeprazole (PriLOSEC) 40 mg DAILY PO Last administered on 08/15/18at 08:58; Start 08/15/18 at 09:00 Trazodone HCl (Desyrel) 50 mg QHSP PRN PO INSOMNIA; Start 08/14/18 at 19:15; Status Cancel Valsartan (Diovan) 80 mg DAILY PO Last administered on 08/15/18at 11:43; Start 08/15/18 at 09:00 Allergies Coded Allergies: Booker's wort (Verified Allergy, Unknown, 08/14/18) A-FIB/CHADSVASC A-FIB History Current/History of A-Fib/PAF?: No Current Oral Anticoagulant The: No Treatment Treatment ordered: NONE Reason Anticoagulant not given: Not indicated/[id number] FRANK MATTHEW DO August 16, 2018 08:52
[2018-08-16 09:24] LABS: HEMOGLOBIN 14.6 g/dl (13.5-17.5); MEAN CORPUSCULAR HEMOGLOBIN 29.4 pg (27.0-33.0); MEAN CORPUSCULAR HGB CONC 31.7 g/dl (32.0-36.5); MEAN CORPUSCULAR VOLUME 92.7 fl (80.0-96.0); PLATELET COUNT, AUTOMATED 241 10^3/uL (150-450); RED BLOOD COUNT 4.96 10^6/uL (4.30-6.10); WHITE BLOOD COUNT 4.7 10^3/uL (4.0-10.0)
[2018-08-16 09:50] LABS: BLOOD UREA NITROGEN 9 MG/DL (7-18); CALCIUM LEVEL 8.4 MG/DL (8.5-10.1); CARBON DIOXIDE LEVEL 29 MEQ/L (21-32); CHLORIDE LEVEL 107 MEQ/L (98-107); CREATININE FOR GFR 1.08 MG/DL (0.70-1.30); GLOMERULAR FILTRATION RATE > 60.0 (>60); GLUCOSE, FASTING 101 MG/DL (70-100); MAGNESIUM LEVEL 2.2 MG/DL (1.8-2.4); POTASSIUM SERUM 4.5 MEQ/L (3.5-5.1); SODIUM LEVEL 141 MEQ/L (136-145)
[2018-08-16] MEDS: OLANZapine ORAL DISINTEGRATING TAB 5MG PO PRN ×2 (11:15→19:02)
[2018-08-16 13:51] LABS: HEMOGLOBIN A1c 5.5 %
--- NOTE | 2018-08-16 13:56 | IPN ---
DATE: 08/16/2018 SUBJECTIVE: The patient is seen and examined in the inpatient mental health unit ([facility]) today. The patient denied any acute complaint. Patient stated he is been diagnosed with diabetes within the last few months. Patient has been compliant with his blood pressure and diabetic medications. OBJECTIVE: VITAL SIGNS: Temperature 97.8, pulse 96, respiration 14, blood pressure 129/60. GENERAL: Alert, awake, comfortable. HEENT: Normocephalic atraumatic. Extraocular muscles grossly intact. CARDIOVASCULAR: S1, S2 regular rate. LUNGS: Clear to auscultation bilaterally. ABDOMEN: Soft, nontender, nondistended. Bowel sounds are present. EXTREMITIES: No edema. LABORATORY DATA: WBC 4.7, hemoglobin 14.6, hematocrit 46, platelet count 241. Sodium 141, potassium 4.5, chloride 107, carbon dioxide 29, BUN 9, creatinine 1.08, GFR greater than 60, fasting glucose 101, calcium 8.4, magnesium 2.2. ASSESSMENT/PLAN: 1. Schizoaffective disorder bipolar type. The patient is being managed in the [facility] by the psychiatrist. 2. Hypertension: Blood pressure is in the satisfactory range. Currently, the patient is on losartan. 3. History of diabetes: At home, patient is taking metformin 500 mg by mouth twice a day, Victoza. Follow with A1c. Patient was just diagnoses with diabetes within the last few months. Continue consistent carbohydrate diet. 4. Gastroesophageal reflux disease on omeprazole 40 mg by mouth daily 5. Deep venous thrombosis (DVT) prophylaxis: Encouraged ambulation.
[2018-08-16 18:12] VITALS: BP 137/77
[2018-08-16] MEDS: MIRTAZAPINE 15 MG TAB PO SCH (21:45)
[2018-08-17 06:52] VITALS: BP 129/60
--- NOTE | 2018-08-17 09:35 | MHIPNPDOC ---
[facility] Progress Note Progress Note DATE OF SERVICE: 08/17/18 HISTORY: Per Dr. Pinto: "Patient is a 33 -year-old , male, who according to ED report:"Pt. reports he has history of AH for many years but have been more frequent and confusing recently. He states that he use to hear many voices years ago but now just three regularly. he reports one voice he has named 'Jan' has been telling him what to do and where to go. He reports that the voice of Jan has been telling him that he will be arrested and sent to residential and he states this is why he answers yes to having homicidal thoughts because he is afraid he may snap one day and hurt someone and therefor will end up in residential. He denies he has been in residential before but states [facility] a violation of an order of protection. Pt. states he is very sugge stible to the voices and states he he doesn't do what the say he feels like his whole day will be ruined, giving example of he won't change the tv channel evn if it is something he does not want to watch. Pt. denies current active SI but states he feels he would be better off . He does have history of suicide attempts by overdose of rat poison and by attempting to electrocute self by placing toaster in bathtub. Pt. reports out -pt services through [facility] and states he is medication compliant. Pt. aslo reports voices say "JULEE' and "FBI"but not sure why."" VITAL SIGNS: See below. NEW TEST RESULTS: See below. CURRENT MEDICATIONS: See below. MENTAL STATUS EXAMINATION: General Appearance: well groomed, appears stated age, hospital scrubs/clothing Build: average Demeanor: average Eye Contact: average Activity: average Behavior: cooperative Speech: clear, spontaneous, reg/rate,rhythm,volume Mood: less depressed, less anxious Affect: less constricted, appropriate, congruent, less anxious Thought Process: logical/linear, concrete Thought Content (Delusions): improved grandiose, intermittent paranoia thru out the day Thought Content (Other): improved preoccupied, guilty Thought Content (Aggressive): none reported Perception (Hallucinations): improved "less frequent" auditory, visual Perception (Other): none reported Cognition (Impairment of): none reported Cognition(Intelligence Est.): average Oriented: Awake, Alert, Oriented times three Insight: poor Judgment: Poor Psychosis: improving Psychotic Perceptions DIAGNOSES: Schizoaffective disorder, bipolar type ASSESSMENT:Pt seen and states that his mood is "ok". States he really finding t he rexulti he started yesterday beneficial as his AH are "less frequent," his thoughts are more clear, he feels less paranoid. Still admites though to intermittent paranoid thoughts thru out the day. Possibly needs increase in rexulti in future for continued psychosis. Went to yoga this am for exercise as finds exercise beneficial for mood and thoughts. States he slept well last night. Feels he is tolerating his medications and they're beneficial. He is attending groups and finding them helpful. He denies SI/HI. Pt feels safe here. MANAGEMENT PLAN: continue Dr. Pinto's plan. TIME SPENT: 30 minutes. Vital Signs Vital Signs Date Time Temp Pulse Resp B/P (MAP) Pulse Ox O2 Delivery O2 Flow Rate FiO2 08/17/18 06:52 97.1 97 18 129/60 (83) 08/14/18 18:48 100 Room Air Current Medications Current Medications Acetaminophen (Tylenol Tab) 650 mg Q6HP PRN PO HEADACHE or DISCOMFORT; Start 08/14/18 at 19:15 Al Hydrox/Mg Hydrox/Simethicone (Mylanta) 30 ml Q4HP PRN PO HEARTBURN/INDIGESTION; Start 08/14/18 at 19:15 Brexpiprazole (Rexulti) 2 mg DAILY PO Last administered on 08/16/18at 08:51; Start 08/15/18 at 09:00 Home Med (Med Rec Complete!) ASDIRECTED XX ; Start 08/14/18 at 19:00; Stop 08/14/18 at 19:00; Status DC Magnesium Hydroxide (Milk Of Magnesia) 30 ml DAILYPRN PRN PO CONSTIPATION; Start 08/14/18 at 19:15 Meloxicam (Mobic) 15 mg DAILY PO Last administered on 08/16/18at 08:51; Start 08/15/18 at 09:00 Mirtazapine (Remeron) 15 mg QHS PO Last administered on 08/16/18at 21:45; Start 08/14/18 at 21:00 Multivitamins (Theragram-M) 1 tab DAILY PO Last administered on 08/16/18 08:51; Start 08/15/18 at 09:00 Olanzapine (ZyPREXA ZYDIS) 5 mg Q6HP PRN PO ANXIETY/AGITATION Last administered on 08/16/18 19:02; Start 08/15/18 at 14:00 Omeprazole (PriLOSEC) 40 mg DAILY PO Last administered on 08/16/18at 08:52; Start 08/15/18 at 09:00 Trazodone HCl (Desyrel) 50 mg QHSP PRN PO INSOMNIA; Start 08/14/18 at 19:15; Status Cancel Valsartan (Diovan) 80 mg DAILY PO Last administered on 08/16/18at 08:52; Start 08/15/18 at 09:00 Allergies Coded Allergies: [place]'s wort (Verified Allergy, Unknown, 08/14/18) A-FIB/CHADSVASC A-FIB History Current/History of A-Fib/PAF?: No Current Oral Anticoagulant The: No Treatment Treatment ordered: NONE Reason Anticoagulant not given: Not indicated/[id number] FRANK MATTHEW DO August 17, 2018 09:34
[2018-08-17] MEDS: MULTIVITAMINS/MINERALS THERAP 1 TAB PO SCH (09:36)
[2018-08-17] MEDS: BREXPIPRAZOLE 2MG TABLET (REXULTI) PO SCH (09:36)
[2018-08-17] MEDS: OMEPRAZOLE 20 MG CAP PO SCH (09:36)
[2018-08-17] MEDS: MELOXICAM (MOBIC) 7.5 MG TAB PO SCH (09:36)
[2018-08-17] MEDS: VALSARTAN 80 MG TAB (DIOVAN) PO SCH (09:38)
[2018-08-17] MEDS: OLANZapine ORAL DISINTEGRATING TAB 5MG PO PRN (16:58)
[2018-08-17 17:26] VITALS: BP 122/81
[2018-08-17] MEDS: MIRTAZAPINE 15 MG TAB PO SCH (20:13)
[2018-08-18 06:51] VITALS: BP 137/88
[2018-08-18] MEDS: BREXPIPRAZOLE 2MG TABLET (REXULTI) PO SCH (09:09)
[2018-08-18] MEDS: MULTIVITAMINS/MINERALS THERAP 1 TAB PO SCH (09:09)
[2018-08-18] MEDS: MELOXICAM (MOBIC) 7.5 MG TAB PO SCH (09:10)
[2018-08-18] MEDS: OMEPRAZOLE 20 MG CAP PO SCH (09:10)
[2018-08-18] MEDS: VALSARTAN 80 MG TAB (DIOVAN) PO SCH (10:14)
--- NOTE | 2018-08-18 13:12 | MHIPNPDOC ---
[facility] Progress Note Progress Note DATE OF SERVICE: 08/18/18 HISTORY: Patient is a 33 -year-old , male, who according to ED report:"Pt. reports he has history of AH for many years but have been diana frequent and confusing recently. He states that he use to hear many voices years ago but now just three regularly. he reports one voice he has named 'Jan' has been telling him what to do and where to go. He reports that the voice of Jan has been telling him that he will be arrested and sent to assisted and he states this is why he answers yes to having homicidal thoughts because he is afraid he may snap one day and hurt someone and therefor will end up in assisted. He denies he has been in assisted before but states he has spent time [facility] for a violation of an order of protection. Pt. states he is very suggestable to the vo ices and states he he doesn't do what the say he feels like his whole day will be ruined, giving example of he won't change the tv channel evn if it is something he does not want to watch. Pt. denies current active SI but states he feels he would be better off . He does have history of suicide attepts by overdose of rat poison and by attempting to electrocute self by placing toaster in bathtub. Pt. reports out -pt services through [facility] and states he is medication compliant. Pt. aslo reports voices say "JULEE' and "FBI"but not sure why." VITAL SIGNS: See below. NEW TEST RESULTS: See below CURRENT MEDICATIONS: See below. MENTAL STATUS EXAMINATION: General Appearance: well groomed, appears stated age, hospital scrubs/clothing Build: average Demeanor: average Eye Contact: average Activity: average Behavior: cooperative, pleasant Speech: clear, spontaneous, reg/rate,rhythm,volume Mood: less depressed, less anxious Affect: less constricted, appropriate, congruent, less anxious Thought Process: logical/linear, concrete Thought Content (Delusions): improved grandiose, intermittent paranoia thru out the day. He is not as grandiose as he was on his admission Thought Content (Other): improved preoccupied, guilty Thought Content (Aggressive): none reported Perception (Hallucinations): improved. He says he has not had Av hallucinations but he still has some paranoid thoughts Perception (Other): none reported Cognition (Impairment of): none reported Cognition(Intelligence Est.): average Oriented: Awake, Alert, Oriented times three Insight: poor Judgment: Poor Psychosis: improving DIAGNOSES: Schizoaffective disorder, bipolar type ASSESSMENT: patient is very pleasant and cooperative. He mentioned over the weekend that he wanted to leave this morning, that he was ready for it. when I saw him this morning, he still has paranoid thoughts although he says he has improved and his depression has impoved too. Quality Control Inspector spoke with staff at [facility] and she was told that his last Abiliffaith Arias was on 07/30/18 MANAGEMENT PLAN: Will continue with the same treatment plan, possible discharge in 24-48 hours, if his paranoid thoughts improve. TIME SPENT: 15 minutes. Vital Signs Vital Signs Date Time Temp Pulse Resp B/P (MAP) Pulse Ox O2 Delivery O2 Flow Rate FiO2 08/18/18 10:14 131/87 08/18/18 06:51 97.8 76 18 08/14/18 18:48 100 Room Air Current Medications Current Medications Acetaminophen (Tylenol Tab) 650 mg Q6HP PRN PO HEADACHE or DISCOMFORT; Start 08/14/18 at 19:15 Al Hydrox/Mg Hydrox/Simethicone (Mylanta) 30 ml Q4HP PRN PO HEARTBURN/INDIGESTION; Start 08/14/18 at 19:15 Brexpiprazole (Rexulti) 2 mg DAILY PO Last administered on 08/18/18at 09:09; Start 08/15/18 at 09:00 Home Med (Med Rec Complete!) ASDIRECTED XX ; Start 08/14/18 at 19:00; Stop 08/14/18 at 19:00; Status DC Magnesium Hydroxide (Milk Of Magnesia) 30 ml DAILYPRN PRN PO CONSTIPATION; Start 08/14/18 at 19:15 Meloxicam (Mobic) 15 mg DAILY PO Last administered on 08/18/18at 09:10; Start 08/15/18 at 09:00 Mirtazapine (Remeron) 15 mg QHS PO Last administered on 08/17/18at 20:13; Start 08/14/18 at 21:00 Multivitamins (Theragram-M) 1 tab DAILY PO Last administered on 08/18/18 09:09; Start 08/15/18 at 09:00 Olanzapine (ZyPREXA ZYDIS) 5 mg Q6HP PRN PO ANXIETY/AGITATION Last administered on 08/17/18at 16:58; Start 08/15/18 at 14:00 Omeprazole (PriLOSEC) 40 mg DAILY PO Last administered on 08/18/18 09:10; Start 08/15/18 at 09:00 Trazodone HCl (Desyrel) 50 mg QHSP PRN PO INSOMNIA; Start 08/14/18 at 19:15; Status Cancel Valsartan (Diovan) 80 mg DAILY PO Last administered on 08/18/18at 10:14; Start 08/15/18 at 09:00 Allergies Coded Allergies: [place]'s wort (Verified Allergy, Unknown, 08/14/18) MYA MATTHEW MD August 18, 2018 13:00
[2018-08-18] MEDS: OLANZapine ORAL DISINTEGRATING TAB 5MG PO PRN (15:26)
[2018-08-18 18:00] VITALS: BP 142/79
[2018-08-18] MEDS: MIRTAZAPINE 15 MG TAB PO SCH (21:50)
[2018-08-19 06:39] VITALS: BP 123/73
[2018-08-19 08:36] VITALS: BP 155/91
[2018-08-19] MEDS: OMEPRAZOLE 20 MG CAP PO SCH (08:36)
[2018-08-19] MEDS: MULTIVITAMINS/MINERALS THERAP 1 TAB PO SCH (08:36)
[2018-08-19] MEDS: MELOXICAM (MOBIC) 7.5 MG TAB PO SCH (08:36)
[2018-08-19] MEDS: BREXPIPRAZOLE 2MG TABLET (REXULTI) PO SCH (08:36)
[2018-08-19] MEDS: VALSARTAN 80 MG TAB (DIOVAN) PO SCH (08:36)
[2018-08-19] MEDS ORDERED: REXU1TAB4 PO (11:00)
[2018-08-19] MEDS ORDERED: ZYPR5TAB2 PO (12:41)
== END 2018-08-19 13:15 | disposition home or self-care (01) | DRG 885 ==
LOC: M ED 10:46 → M ED INP 19:01 → M PSY 22:48
PROVIDERS: ADMIT Psychiatry & Neurology Psychiatry; ATTEND Psychiatry & Neurology Psychiatry
DX: F25.0 Schizoaffective disorder, bipolar type (principal); Z79.899 Other long term (current) drug therapy; Z88.8 Allergy status to other drugs, medicaments and biological substances; E11.9 Type 2 diabetes mellitus without complications; I10 Essential (primary) hypertension; K21.9 Gastro-esophageal reflux disease without esophagitis

== ENCOUNTER → 2018-10-17 | Outpatient (REF) | payer MEDICARE, MEDICAID ==
[~2018-10-17] MED LIST changes: +ABIL1INJ2 INJ; +AMAN100T PO; +METF500T4 PO; +METO1TAB33 PO; +MIRT1TAB15 PO; +NICO2GUM43 MT; +REXU1TAB4 PO; +TAB-TAB PO; +VALS1TAB66 PO; +VICT18IN2 SQ; +ZYPR5TAB2 PO
[2018-10-17 13:58] LABS: APPEARANCE, URINE CLEAR (CLEAR); BACTERIA, URINE AUTO NEGATIVE (NEGATIVE); BILIRUBIN, URINE AUTO NEGATIVE (NEGATIVE); BLOOD, URINE BLOOD NEGATIVE (NEGATIVE); COLOR, URINE YELLOW (YELLOW); GLUCOSE, URINE (UA) AUTO NEGATIVE (NEGATIVE); KETONE, URINE AUTO NEGATIVE (NEGATIVE); LEUKOCYTE ESTERASE, URINE AUTO NEGATIVE (NEGATIVE); MUCUS, URINE LARGE (NEGATIVE); NITRITE, URINE AUTO NEGATIVE (NEGATIVE); PROTEIN, URINE AUTO NEGATIVE (NEGATIVE); RBC, URINE AUTO 1 /HPF (0-3); SPECIFIC GRAVITY URINE AUTO 1.026 (1.002-1.035); SQUAMOUS EPITHELIAL CELL UR AU 1 /HPF (0-6); UROBILINOGEN, URINE AUTO 0.2 mg/dL (0.0-2.0); WBC, URINE AUTO 1 /HPF (0-3)
[2018-10-17 13:59] LABS: BASO % 0.9 % (0.0-1.0); EOS # 0.1 10^3/uL (0.0-0.50); EOS % 2.3 % (0.0-3.0); HEMATOCRIT 44.7 % (42.0-52.0); HEMOGLOBIN 14.5 g/dl (13.5-17.5); LYMPH # 1.8 10^3/uL (1.5-4.5); LYMPH % 42.4 % (24.0-44.0); MEAN CORPUSCULAR HEMOGLOBIN 28.6 pg (27.0-33.0); MEAN CORPUSCULAR HGB CONC 32.4 g/dl (32.0-36.5); MEAN CORPUSCULAR VOLUME 88.2 fl (80.0-96.0); MONO # 0.3 10^3/uL (0.0-0.8); MONO % 7.2 % (0.0-5.0); PLATELET COUNT, AUTOMATED 242 10^3/uL (150-450); RED BLOOD COUNT 5.07 10^6/uL (4.30-6.10); WHITE BLOOD COUNT 4.3 10^3/uL (4.0-10.0)
[2018-10-17 14:15] LABS: ALBUMIN 3.9 GM/DL (3.2-5.2); ALT/SGPT 34 U/L (12-78); BILIRUBIN,TOTAL 0.9 MG/DL (0.2-1.0); BLOOD UREA NITROGEN 21 MG/DL (7-18); CALCIUM LEVEL 8.3 MG/DL (8.5-10.1); CARBON DIOXIDE LEVEL 30 MEQ/L (21-32); CHLORIDE LEVEL 106 MEQ/L (98-107); CHOLESTEROL LEVEL 133 MG/DL (<200); CHOLESTEROL RISK RATIO 2.891 (<5); FREE T4 0.69 NG/DL (0.76-1.46); GLOMERULAR FILTRATION RATE > 60.0 (>60); GLUCOSE, FASTING 86 MG/DL (70-100); HDL CHOLESTEROL 46 MG/DL (>40); LDL CHOLESTEROL 71 MG/DL (<100); NON-HDL-C 87 MG/DL; POTASSIUM SERUM 4.2 MEQ/L (3.5-5.1); SODIUM LEVEL 141 MEQ/L (136-145); TOTAL PROTEIN 7.5 GM/DL (6.4-8.2); TRIGLYCERIDES LEVEL 81 MG/DL (<150)
[2018-10-17 14:17] LABS: TOTAL 25(OH) VITAMIN D 40.9 NG/ML (30.0-100.0)
[2018-10-17 14:28] LABS: HEMOGLOBIN A1c 5.9 %
[2018-10-19 00:06] LABS: Lyme Disease IgG/IgM Antibodie <0.91 ISR (0.00-0.90); Lyme Disease IgM Ab Quantitati <0.80 index (0.00-0.79)
== END ==
LOC: M LAB REF 12:41
PROVIDERS: ATTEND Family Medicine
DX: E11.9 Type 2 diabetes mellitus without complications (principal); Z13.228 Encounter for screening for other metabolic disorders; F25.0 Schizoaffective disorder, bipolar type

== ENCOUNTER → 2019-01-13 | Outpatient (REF) | payer MEDICARE, MEDICAID ==
[~2019-01-13] MED LIST changes: +METF-791 PO; -METF500T4 PO
[2019-01-13 13:45] LABS: ALBUMIN 4.2 GM/DL (3.2-5.2); ALT/SGPT 34 U/L (12-78); BILIRUBIN,TOTAL 1.3 MG/DL (0.2-1.0); BLOOD UREA NITROGEN 19 MG/DL (7-18); CALCIUM LEVEL 8.8 MG/DL (8.5-10.1); CARBON DIOXIDE LEVEL 30 MEQ/L (21-32); CHLORIDE LEVEL 104 MEQ/L (98-107); CHOLESTEROL LEVEL 157 MG/DL (<200); CHOLESTEROL RISK RATIO 2.962 (<5); GLOMERULAR FILTRATION RATE > 60.0 (>60); GLUCOSE, FASTING 81 MG/DL (70-100); HDL CHOLESTEROL 53 MG/DL (>40); LDL CHOLESTEROL 78 MG/DL (<100); NON-HDL-C 104 MG/DL; SODIUM LEVEL 141 MEQ/L (136-145); TOTAL PROTEIN 7.9 GM/DL (6.4-8.2); TRIGLYCERIDES LEVEL 128 MG/DL (<150)
[2019-01-13 14:15] LABS: MALB URINE SIEMENS 13.3 MG/L; MAU/CREAT RATIO 5.5 MCG/MG (0.0-30.0)
[2019-01-13 14:41] LABS: HEMOGLOBIN A1c 5.3 %
== END ==
LOC: M LAB REF 12:21
PROVIDERS: ATTEND Family Medicine
DX: E11.9 Type 2 diabetes mellitus without complications (principal)

== ENCOUNTER → 2019-06-11 | Outpatient (REF) | payer MEDICARE, MEDICAID ==
[~2019-06-11] MED LIST changes: -OMEP40CA2 PO; +OMEP40CA97 PO; +QUET100T2 PO; -QUET1TAB8 PO
[2019-06-11 17:51] LABS: ALT/SGPT 46 U/L (12-78); BILIRUBIN,TOTAL 0.5 MG/DL (0.2-1.0); BLOOD UREA NITROGEN 20 MG/DL (7-18); CALCIUM LEVEL 8.8 MG/DL (8.5-10.1); CARBON DIOXIDE LEVEL 31 MEQ/L (21-32); CHLORIDE LEVEL 107 MEQ/L (98-107); CREATININE FOR GFR 0.89 MG/DL (0.70-1.30); GLOMERULAR FILTRATION RATE > 60.0 (>60); GLUCOSE, FASTING 82 MG/DL (70-100); POTASSIUM SERUM 4.9 MEQ/L (3.5-5.1); SODIUM LEVEL 141 MEQ/L (136-145); TOTAL PROTEIN 7.5 GM/DL (6.4-8.2)
[2019-06-11 18:13] LABS: HEMOGLOBIN A1c 5.7 %
== END ==
LOC: M LAB REF 16:36
PROVIDERS: ATTEND Physician Assistant
DX: E11.9 Type 2 diabetes mellitus without complications (principal)

== ENCOUNTER 2019-08-05 03:10 | Inpatient (IN) | payer MEDICARE, MEDICAID ==
[~2019-08-05] VITALS: Ht 177.8 cm; Wt 106.7 kg
[2019-08-05 04:10] LABS: HEMATOCRIT 45.6 % (42.0-52.0); HEMOGLOBIN 15.5 g/dl (13.5-17.5); MEAN CORPUSCULAR HEMOGLOBIN 30.6 pg (27.0-33.0); MEAN CORPUSCULAR VOLUME 90.1 fl (80.0-96.0); PLATELET COUNT, AUTOMATED 233 10^3/uL (150-450); RED BLOOD COUNT 5.06 10^6/uL (4.30-6.10); WHITE BLOOD COUNT 6.8 10^3/uL (4.0-10.0)
[2019-08-05 04:49] LABS: ACETAMINOPHEN LEVEL < 2.0 UG/ML (10.0-30.0); ALT/SGPT 43 U/L (12-78); BILIRUBIN,DIRECT 0.2 MG/DL (0.0-0.2); BILIRUBIN,TOTAL 0.9 MG/DL (0.2-1.0); BLOOD UREA NITROGEN 16 MG/DL (7-18); CARBON DIOXIDE LEVEL 29 MEQ/L (21-32); CHLORIDE LEVEL 106 MEQ/L (98-107); CREATININE FOR GFR 1.03 MG/DL (0.70-1.30); ETHYL ALCOHOL (ETHANOL) < 0.003 % (0.000-0.010); GLOMERULAR FILTRATION RATE > 60.0 (>60); GLUCOSE, FASTING 87 MG/DL (70-100); POTASSIUM SERUM 4.4 MEQ/L (3.5-5.1); SALICYLATE LEVEL < 1.7 MG/DL (5.0-30.0); SODIUM LEVEL 140 MEQ/L (136-145); TOTAL PROTEIN 7.6 GM/DL (6.4-8.2)
[2019-08-05 05:04] LABS: AMPHETAMINES LEVEL URINE NEGATIVE (NEGATIVE); BARBITURATES URINE NEGATIVE (NEGATIVE); BENZODIAZEPINES URINE NEGATIVE (NEGATIVE); CANNABINOIDS URINE NEGATIVE (NEGATIVE); COCAINE METABOLITE URINE NEGATIVE (NEGATIVE); METHADONE URINE NEGATIVE (NEGATIVE); OPIATES URINE NEGATIVE (NEGATIVE); PHENCYCLIDINE URINE NEGATIVE (NEGATIVE)
[2019-08-05] MEDS ORDERED: OLAN5TAB PO (05:19)
[2019-08-05] MEDS ORDERED: REXU1TAB5 PO (05:19)
[2019-08-05] MEDS ORDERED: ARIP1TAB PO (05:19)
[2019-08-05] MEDS ORDERED: MOM 30ML SUSPENSION UDC PO PRN (17:45)
[2019-08-05] MEDS ORDERED: OLANZapine ORAL DISINTEGRATING TAB 5MG PO PRN (17:45)
[2019-08-05] MEDS ORDERED: MAALOX 30 ML SUSP *UDC PO PRN (17:45)
[2019-08-05 21:30] VITALS: BP 148/96
[2019-08-05] MEDS: ARIPiprazole 10 MG TAB PO SCH (22:12)
[2019-08-05] MEDS: OLANZapine 5 MG TAB PO SCH (22:12)
[2019-08-06 06:01] VITALS: BP 151/73
[2019-08-06] MEDS: METOPROLOL SUCC (TopROL XL) 100MG *XL* TAB PO SCH (08:11)
[2019-08-06] MEDS: BREXPIPRAZOLE 2MG TABLET (REXULTI) PO SCH (08:11)
[2019-08-06] MEDS: AMANTADINE 100MG TABLET PO SCH (08:12)
[2019-08-06] MEDS: MELOXICAM (MOBIC) 7.5 MG TAB PO SCH (08:12)
[2019-08-06] MEDS: OLANZapine 5 MG TAB PO SCH ×3 (08:12→21:42)
[2019-08-06] MEDS: OMEPRAZOLE 20 MG CAP PO SCH (08:12)
[2019-08-06] MEDS: BREXPIPRAZOLE 0.5MG TABLET (REXULTI) PO SCH (08:12)
[2019-08-06] MEDS: MULTIVITAMINS/MINERALS THERAP 1 TAB PO SCH (08:12)
--- NOTE | 2019-08-06 09:45 | MHHPEPDOC ---
[facility] History & Physical History and Physical DATE OF ADMISSION: Aug 05, 2019 at 17:36 New Patient Darryl Marrufo MRN: N/A Date of : N/A Date of Service: 08/06/2019 Chief Complaint "I hear all these things." History of Present Illness The patient a 34-year-old man who lives in transitional living due to chronic schizoaffective disorder presents with auditory hallucinations that have become more difficult and he has become more paranoid. He is admitted out of abundance of caution. When the patient is met with, he is still somewhat paranoid and a bit distorted and unable to provide a full and complete history of what had happened. The information is extracted from previous chart review and updated as appropriate. Review Of Systems Unable to engage in full and comprehensive review. Past Psychiatric History Has a history of schizoaffective disorder, last admitted in August 2018, has been tried on multiple different medications including Abilify, mirtazapine, Invega. He has a history of suicide attempts with several pills and rat poison in the past. Allergies Please see below. Family Psychiatric History Unclear history of psychiatric problems in younger sister. Social History The patient grew up in the local [place] area after moving from [place], where he was born. He currently lives at [facility] in the . Completed high school diploma. 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 He's primarily supported by the [employer] crisis line with few current supports. Some small legal problems with trespassing. Single, unmarried with no children. Substance Abuse History Had a history of tobacco use problems, cocaine and marijuana as well as alcohol, however, has this controlled at this time. Medical History GERD and vitamin D deficiency. Mental Status Examination General: Well dressed with good hygiene Speech: Somewhat tangential Thought processes: Tangential MSK: Smooth and coordinated gait, no signs of tremors or involuntary orofacial movements Thought content: Paranoid Abstract reasoning, and computation: Intact Description of associations: Impaired Description of abnormal or psychotic thoughts: Significant paranoia. Judgment: Limited Insight: Limited Orientation: Alert and orientated 3 Cognition: Grossly normal Recent and remote memory: Intact Attention span and concentration: Impaired secondary to thought process Fund of knowledge: Adequate Mood: "okay" Affect: Flat with little reactivity Diagnoses Schizoaffective disorder, current episode of psychotic Cocaine use disorder, unspecified Alcohol use disorder, unspecified Nicotine/tobacco use disorder, mild Cannabis use disorder, mild Assessment and Plan Schizoaffective disorder: Resume patient's home medications from his [facility] residence and observe. Cocaine/alcohol/cannabis use: Recommend monitoring for any substance problems, appears not clinically relevant at this time. Nicotine use disorder: Offered nicotine replacement. Disposition Patient will be admitted and likely observed over the weekend due to his severely impairing psychosis. Problem List 1. Altered thoughts. Initial Treatment Plan 1. Patient was admitted on a 9.39 legal status. 2. Complete history was obtained. 3. With patients permission, family will be contacted and database will be expanded. 4. Patients medication regimen will be reviewed and changed accordingly. 5. Patient will be provided with protected environment. 6. Patient will be treated with individual, group, and milieu therapies. 7. Patient will receive supportive psych-education. 8. Discharge planning will commence immediately. 9. Outpatient follow-up treatment will be strongly recommended. 10. The initial treatment plan will focus initially on: Estimated Length Of Stay 4 days. Time Spent 70 minutes. Vital Signs Vital Signs Date Time Temp Pulse Resp B/P (MAP) Pulse Ox O2 Delivery O2 Flow Rate FiO2 08/06/19 08:11 84 151/73 08/06/19 06:01 97.7 18 99 Room Air Medications Scheduled Amantadine HCl (Amantadine) 100 Mg Tablet, 200 MG PO DAILY, (Reported) Aripiprazole (Aripiprazole) 10 Mg Tablet, 10 MG PO QHS, (Reported) Brexpiprazole (Rexulti) 3 Mg Tablet, 3 MG PO QHS, (Reported) Meloxicam (Meloxicam) 15 Mg Tab, 15 MG PO DAILY, (Reported) Metoprolol Succinate (Metoprolol Succinate) 100 Mg Tab.er.24h, 100 MG PO DAILY, (Reported) Multivitamin (Tab-A-Cat) 1 Each Tablet, 1 TAB PO DAILY, (Reported) Olanzapine (Olanzapine) 5 Mg Tablet, 5 MG PO TID, (Reported) Omeprazole (Omeprazole) 40 Mg Cap, 40 MG PO DAILY, (Reported) Scheduled PRN Nicotine Polacrilex (Nicotine Gum) 2 Mg Gum, 2 MG MT Q2H PRN for NICOTINE WITHDRAWAL, (Reported) Allergies Coded Allergies: [place]'s wort (Verified Allergy, Unknown, 08/05/19) A-FIB/CHADSVASC A-FIB History Current/History of A-Fib/PAF?: No XIOMARA PHAN DO Aug 06, 2019 09:45
[2019-08-06 16:00] VITALS: BP 150/85
--- NOTE | 2019-08-06 17:15 | HPEPDOC ---
General Date of Admission Aug 05, 2019 at 17:36 Date of Service: Aug 06, 2019 Attending Physician: REHANA LOFTON MD Chief Complaint The patient is a 34-year-old male admitted with a reason for visit of Schizoaffective Disorder. Source: Patient Exam Limitations: No limitations History of Present Illness 34 yo AA man with a history of diet controlled DM, HTN, GERD and schizoaffective disorder who presented to the ED reported increasing thought of wanting to harm self with SI and HI as well. He has a history of prior suicide attempts. He otherwise denied illicit substance use, visual hallucination but endorsed non specific auditory commands. In the ED, he wa hemodynamically stable and afebrile with no physical complaints and work up was grossly benign with normal CBC, BMP and tox screen. He was admitted to the [facility] where he is under evaluation and treatment. Home Medications Scheduled Amantadine HCl (Amantadine) 100 Mg Tablet, 200 MG PO DAILY, (Reported) Aripiprazole (Aripiprazole) 10 Mg Tablet, 10 MG PO QHS, (Reported) Brexpiprazole (Rexulti) 3 Mg Tablet, 3 MG PO QHS, (Reported) Meloxicam (Meloxicam) 15 Mg Tab, 15 MG PO DAILY, (Reported) Metoprolol Succinate (Metoprolol Succinate) 100 Mg Tab.er.24h, 100 MG PO DAILY, (Reported) Multivitamin (Tab-A-Cat) 1 Each Tablet, 1 TAB PO DAILY, (Reported) Olanzapine (Olanzapine) 5 Mg Tablet, 5 MG PO TID, (Reported) Omeprazole (Omeprazole) 40 Mg Cap, 40 MG PO DAILY, (Reported) Scheduled PRN Nicotine Polacrilex (Nicotine Gum) 2 Mg Gum, 2 MG MT Q2H PRN for NICOTINE WITHDRAWAL, (Reported) Allergies Coded Allergies: [place]'s wort (Verified Allergy, Unknown, 08/05/19) Past Medical History Medical History diet controlled DM, HTN, GERD and schizoaffective disorder Family History Significant Family History: No pertinent family hx Social History * Smoker: Denies Alcohol: Denies Drugs: denies Recent Travel/Sick Contacts: Denies: Recent travel, Recent sick contacts Psychosocial History: Other (Schizoaffective disorder) A-FIB/CHADSVASC A-FIB History Current/History of A-Fib/PAF?: No Current PO Anticoag Therapy: No Age/Risk Factor Scoring CHADSVASC: CHADSVASC Response (Comments) Value Age Risk Factor Age < 65 years old 0 Gender Risk Factor Male 0 Hx of CHF No 0 Hx of HTN Yes 1 Hx of Stroke/TIA/or VTE No 0 Hx of Diabetes Yes 1 Hx of Vascular Disease No 0 Total 2 Treatment Treatment ordered: NONE Reason Anticoagulant not given: Not indicated/[id number] Review of Systems Constitutional: Denies: Chills, Fever, Night Sweats Eyes: Denies: Pain, Vision change ENT: Denies: Head Aches, Ear Pain, Dysphagia Skin: Denies: Rash, Lesions, Breakdown Pulmonary: Denies: Dyspnea, Cough Cardiovascular: Denies: Chest Pain, Palpitations, Orthopnea, Paroxysmal Noc. Dyspnea, Lt Headedness Gastrointestinal: Denies: Nausea, Vomiting, Abdominal Pain, Diarrhea Genitourinary: Denies: Dysuria, Frequency, Incontinence, Retention Hematologic: Denies: Bruising, Bleeding Excessively Endocrine: Denies: Polydipsia, Polyphagia, Polyuria, Heat Intolerance, Cold Intolerance, Other Endocrine Sx Musculoskeletal: Denies: Neck Pain, Back Pain, Joint Pain, Muscle Pain, Spasms Neurological: Denies: Weakness, Numbness, Change in speech, Confusion Psych: Reports: Depression, Thoughts of Self Harm, Thoughts of Harming Other Physical Examination General Exam: Positive: Alert, No Acute Distress Eye Exam: Positive: PERRLA, Conjunctiva & lids normal, EOMI; Negative: Sclera icteric ENT Exam: Positive: Atraumatic, Mucous membr. moist/pink, Pharynx Normal Neck Exam: Positive: Supple; Negative: JVD, thyromegaly Chest Exam: Positive: Clear to auscultation, Normal air movement Heart Exam: Positive: Rate Normal, Regular Rhythm, Normal S1, Normal S2; Negative: Murmurs, Rubs Abdomen Exam: Positive: Normal bowel sounds, Soft; Negative: Tenderness, Hepatospenomegaly Extremity Exam: Positive: Normal pulses; Negative: Clubbing, Cyanosis, Edema Skin Exam: Positive: Nl turgor and temperature; Negative: Breakdown, Lesion Neuro Exam: Positive: Normal Gait, Normal Speech, Cranial Nerves 3-12 NL, Reflexes 2+ Psych Exam: Positive: Mental status NL, Mood NL, Oriented x 3 Vital Signs Vital Signs Date Time Temp Pulse Resp B/P (MAP) Pulse Ox O2 Delivery O2 Flow Rate FiO2 08/06/19 08:11 84 151/73 08/06/19 06:01 97.7 18 99 Room Air Assessment/Plan 34 yo AA man with a history of diet controlled DM, HTN, GERD and schizoaffective disorder who presented to the ED reported increasing thought of wanting to harm self with SI and HI as well. DM: -diet controlled -admission BMP with normoglycemia HTN: -continue home metoprol GERD: -Not on any medication and reports no symptoms at this time Schizoaffective disorder with SI and HI: -per primary psychiatry team Medicine will sign off at this time. Plan / VTE VTE Prophylaxis Ordered?: No VTE Exclusion Mechanical Proph: Low Risk for VTE VTE Exclusion Pharmacological: At Low Risk for VTE REHANA LOFTON MD Aug 06, 2019 17:15
[2019-08-06 18:36] VITALS: BP 150/85
[2019-08-06] MEDS: ARIPiprazole 10 MG TAB PO SCH (21:42)
[2019-08-07] MEDS: IBUPROFEN 400 MG TAB PO PRN (04:27)
[2019-08-07 06:27] VITALS: BP 137/58
[2019-08-07] MEDS: OMEPRAZOLE 20 MG CAP PO SCH (08:27)
[2019-08-07] MEDS: BREXPIPRAZOLE 0.5MG TABLET (REXULTI) PO SCH (08:27)
[2019-08-07] MEDS: OLANZapine 5 MG TAB PO SCH ×3 (08:27→20:56)
[2019-08-07] MEDS: AMANTADINE 100MG TABLET PO SCH (08:27)
[2019-08-07] MEDS: MELOXICAM (MOBIC) 7.5 MG TAB PO SCH (08:27)
[2019-08-07] MEDS: BREXPIPRAZOLE 2MG TABLET (REXULTI) PO SCH (08:27)
[2019-08-07] MEDS: MULTIVITAMINS/MINERALS THERAP 1 TAB PO SCH (08:28)
[2019-08-07] MEDS: METOPROLOL SUCC (TopROL XL) 100MG *XL* TAB PO SCH (08:28)
--- NOTE | 2019-08-07 09:24 | MHIPNPDOC ---
[facility] Progress Note Progress Note Inpatient Progress Note Darryl Marrufo MRN: N/A Date of : N/A Date of Service: 08/07/2019 History of Present Illness The patient a 34-year-old man who lives in transitional living due to chronic schizoaffective disorder presents with auditory hallucinations that have become more difficult and he has become more paranoid. He is admitted out of abundance of caution. When the patient is met with, he is still somewhat paranoid and a bit distorted and unable to provide a full and complete history of what had happened. The information is extracted from previous chart review and updated as appropriate. Interval History The patient is met with today. He reports he is doing better and his psychosis has resolved. He reports that during the wintertimes he does have an unusual experience of psychosis and generally gets disrupted. He reports that otherwise he is doing well and is interested in going home Saturday. No major problems overnight. Review Of Systems General: Denies fever or appetite changes Cardiovascular: Denies Chest pain or palpations GI: Denies Nausea, vomiting, or bowel changes Respiratory: Denies shortness of breath or cough Neuro: Denies dizziness, tremors Derm: Denies any rashes or pruritus : Denies any dysuria or urinary problems MSK: Denies any muscle tightness or stiffness HEENT: Denies any vision changes or headaches Psychotherapy None on this visit. Vital Signs Reviewed. Mental Status Examination General: Well dressed with good hygiene Speech: Spontaneous and fluid Thought processes: Linear and logical MSK: Smooth and coordinated gait, no signs of tremors or involuntary orofacial movements Thought content: Future orientated Abstract reasoning, and computation: Intact Description of associations: Intact Description of abnormal or psychotic thoughts: Denies any suicidal or homicidal ideation. Denies any auditory or visual hallucinations. Does not appear to be responding to internal stimuli. Does not appear to be endorsing any bizarre or paranoid ideation. Judgment: fair Insight: fair Orientation: Alert and orientated 3 Cognition: Grossly normal Recent and remote memory: Intact Attention span and concentration: Intact Fund of knowledge: Adequate Mood: "okay" Affect: Euthymic with a full range Diagnoses Schizoaffective disorder, current episode of psychotic Cocaine use disorder, unspecified Alcohol use disorder, unspecified Nicotine/tobacco use disorder, mild Cannabis use disorder, mild Assessment and Plan Schizoaffective disorder: Continue home medications. Cocaine/alcohol/cannabis use: Recommend monitoring for any substance problems, appears not clinically relevant at this time. Nicotine use disorder: Offered nicotine replacement. She has schizoaffective disorder Disposition Discharge on Saturday if continues to improve. Time Spent 15 minutes. Saturday Vital Signs Vital Signs Date Time Temp Pulse Resp B/P (MAP) Pulse Ox O2 Delivery O2 Flow Rate FiO2 08/07/19 08:28 90 132/90 08/07/19 06:27 98.0 16 97 Nasal Cannula Current Medications Current Medications Medications (Trade) Dose Ordered Sig/Yovanny Route PRN Reason Start Time Stop Time Status Last Admin Dose Admin Al Hydrox/Mg Hydrox/Simethicone (Mylanta) 30 ml Q4HP PRN PO HEARTBURN/INDIGESTION 08/05/19 17:45 Amantadine HCl (Symmetrel) 200 mg DAILY PO 08/06/19 09:00 08/07/19 08:27 Aripiprazole (AbiLIFY) 10 mg QHS PO 08/05/19 21:00 08/06/19 21:42 Brexpiprazole (Rexulti) 1 mg DAILY PO 08/06/19 09:00 08/07/19 08:27 Brexpiprazole (Rexulti) 2 mg DAILY PO 08/06/19 09:00 08/07/19 08:27 Home Med (Med Rec Complete!) ASDIRECTED XX 08/05/19 05:30 08/05/19 05:31 DC Ibuprofen (Advil) 400 mg Q6HP PRN PO PAIN 08/05/19 17:45 08/07/19 04:27 Magnesium Hydroxide (Milk Of Magnesia) 30 ml DAILYPRN PRN PO CONSTIPATION 08/05/19 17:45 Meloxicam (Mobic) 15 mg DAILY PO 08/06/19 09:00 08/07/19 08:27 Metoprolol Succinate (TopROL XL) 100 mg DAILY PO 08/06/19 09:00 08/07/19 08:28 Multivitamins (Theragram-M) 1 tab DAILY PO 08/06/19 09:00 08/07/19 08:28 Olanzapine (ZyPREXA ZYDIS) 5 mg Q6HP PRN PO AGITATION 08/05/19 17:45 Olanzapine (ZyPREXA) 5 mg TID PO 08/05/19 21:00 08/07/19 08:27 Omeprazole (PriLOSEC) 40 mg DAILY PO 08/06/19 09:00 08/07/19 08:27 Allergies Coded Allergies: [place]'s wort (Verified Allergy, Unknown, 08/05/19) XIOMARA PHAN DO August 07, 2019 09:24
[2019-08-07 16:38] VITALS: BP 126/75
[2019-08-07] MEDS: ARIPiprazole 10 MG TAB PO SCH (20:56)
[2019-08-08 06:28] VITALS: BP 139/83
[2019-08-08] MEDS: AMANTADINE 100MG TABLET PO SCH (08:52)
[2019-08-08] MEDS: MULTIVITAMINS/MINERALS THERAP 1 TAB PO SCH (08:52)
[2019-08-08] MEDS: OMEPRAZOLE 20 MG CAP PO SCH (08:52)
[2019-08-08] MEDS: BREXPIPRAZOLE 2MG TABLET (REXULTI) PO SCH (08:53)
[2019-08-08] MEDS: BREXPIPRAZOLE 0.5MG TABLET (REXULTI) PO SCH (08:53)
[2019-08-08] MEDS: METOPROLOL SUCC (TopROL XL) 100MG *XL* TAB PO SCH (08:53)
[2019-08-08] MEDS: MELOXICAM (MOBIC) 7.5 MG TAB PO SCH (08:53)
[2019-08-08] MEDS: OLANZapine 5 MG TAB PO SCH ×3 (08:53→20:52)
[2019-08-08 16:25] VITALS: BP 144/86
[2019-08-08] MEDS: ARIPiprazole 10 MG TAB PO SCH (20:52)
[2019-08-09] MEDS: IBUPROFEN 400 MG TAB PO PRN (04:35)
[2019-08-09 06:39] VITALS: BP 160/76
[2019-08-09] MEDS: BREXPIPRAZOLE 2MG TABLET (REXULTI) PO SCH (08:39)
[2019-08-09] MEDS: MULTIVITAMINS/MINERALS THERAP 1 TAB PO SCH (08:39)
[2019-08-09] MEDS: OLANZapine 5 MG TAB PO SCH ×3 (08:39→20:13)
[2019-08-09] MEDS: BREXPIPRAZOLE 0.5MG TABLET (REXULTI) PO SCH (08:39)
[2019-08-09] MEDS: MELOXICAM (MOBIC) 7.5 MG TAB PO SCH (08:39)
[2019-08-09] MEDS: METOPROLOL SUCC (TopROL XL) 100MG *XL* TAB PO SCH (08:39)
[2019-08-09] MEDS: AMANTADINE 100MG TABLET PO SCH (08:39)
[2019-08-09] MEDS: OMEPRAZOLE 20 MG CAP PO SCH (08:39)
--- NOTE | 2019-08-09 15:04 | MHIPN ---
DATE: 08/08/2019 VITAL SIGNS: Blood pressure 140/90, pulse 80, temperature 97. This is a telemedicine video followup appointment and evaluation. The patient is in the inpatient unit. CHIEF COMPLAINT: Says feels better. SUBJECTIVE: Seen for followup, in the presence of staff. Says feels better and that he is more at ease. Has a hard time elaborating on that, but suggests he is less anxious. Does say his sleep and appetite are good, does not report any difficulties prior to coming in regarding that. Also suggests voices are somewhat diminished. MENTAL STATUS EXAM: Neat, cooperative, but possibly a bit guarded. He is coherent, answers questions briefly, logically. Affect is restricted in range. Denies any suicidal thoughts or intent. No homicidal ideas or intent. At present, does not appear to be internally preoccupied. No overt delusions elicited. His cognition is grossly intact. Judgment and insight are compromised overall, though possibly a bit better. ASSESSMENT: Schizoaffective disorder. Clinically possibly somewhat improved. PLAN: Continue current care and observation. Continue the Rexulti, olanzapine, and Abilify for now, but I would suggest reassessing the requirement for three atypical antipsychotics. Would consider minimizing this as best as possible. He is to be encouraged to participate in activities on the unit. Further recommendations will be made depending on the clinical picture. The assessment took 15 minutes.
[2019-08-09 16:18] VITALS: BP 132/76
[2019-08-09] MEDS: ARIPiprazole 10 MG TAB PO SCH (20:13)
[2019-08-10] MEDS: IBUPROFEN 400 MG TAB PO PRN (02:39)
[2019-08-10 06:29] VITALS: BP 140/97
[2019-08-10] MEDS: OLANZapine 5 MG TAB PO SCH (08:10)
[2019-08-10] MEDS: MELOXICAM (MOBIC) 7.5 MG TAB PO SCH (08:10)
[2019-08-10] MEDS: MULTIVITAMINS/MINERALS THERAP 1 TAB PO SCH (08:10)
[2019-08-10] MEDS: BREXPIPRAZOLE 0.5MG TABLET (REXULTI) PO SCH (08:10)
[2019-08-10 08:11] VITALS: BP 169/95
[2019-08-10] MEDS: METOPROLOL SUCC (TopROL XL) 100MG *XL* TAB PO SCH (08:11)
[2019-08-10] MEDS: OMEPRAZOLE 20 MG CAP PO SCH (08:11)
[2019-08-10] MEDS: AMANTADINE 100MG TABLET PO SCH (08:11)
[2019-08-10] MEDS: BREXPIPRAZOLE 2MG TABLET (REXULTI) PO SCH (08:11)
--- NOTE | 2019-08-10 09:11 | MHDSPDOC ---
[facility] Discharge Summary Discharge Summary DATE OF ADMISSION: Aug 05, 2019 at 17:36 DATE OF DISCHARGE: 08/10/19 Discharge Darryl Marrufo MRN: N/[id number] Date of : N/A Date of Service: 08/10/2019 Diagnoses Schizoaffective disorder, current episode of psychotic Cocaine use disorder, unspecified Alcohol use disorder, unspecified Nicotine/tobacco use disorder, mild Cannabis use disorder, mild History of Present Illness The patient a 34-year-old man who lives in transitional living due to chronic schizoaffective disorder presents with auditory hallucinations that have become more difficult and he has become more paranoid. He is admitted out of abundance of caution. When the patient is met with, he is still somewhat paranoid and a bit distorted and unable to provide a full and complete history of what had happened. The information is extracted from previous chart review and updated as appropriate. Consultants Involved Hospitalist/PCP screening Treatment and Progress On The Unit The patient was admitted to the inpatient mental health unit and resumed on his home medications without any alterations. His psychosis rapidly resolved and he returned to a normal mental status exam. It is unclear whether there was adjustment versus malingering or even an unusual presentation of a brief psychotic break down, however, he returned to a normal mental status exam, had no behavioral problems, engaged well on treatment. He subsequently requested discharge. Discharge Assessment 34-year-old man with possible adjustment on top of schizophrenia and presents with some paranoia that rapidly resolves without any specific treatments, concerning for malingering of fabrication versus a brief unusual presentation of situational related paranoia. The patient at the time of discharge did not meet criteria for involuntary admission/extension due to having a normal mental status exam, fair insight into the situation, They are engaged in the discharge process, as well as being friendly and amenable in behavioral control and havent been engaging in any observed concerning behavior or ideation recently. They decline voluntary extension/admission at this time and must be discharged in good jacqueline, as Im unable to make a case for holding the patient against their will. They may have historical risk factors of admissions and other interactions with psychiatry however, those are not modifiable from a clinical perspective. The patient will need to be discharged in good jacqueline. Mental Status Examination General: Well dressed with good hygiene Speech: Spontaneous and fluid Thought processes: Linear and logical MSK: Smooth and coordinated gait, no signs of tremors or involuntary orofacial movements Thought content: Future orientated Abstract reasoning, and computation: Intact Description of associations: Intact Description of abnormal or psychotic thoughts: Denies any suicidal or homicidal ideation. Denies any auditory or visual hallucinations. Does not appear to be responding to internal stimuli. Does not appear to be endorsing any bizarre or paranoid ideation. Judgment: fair Insight: fair Orientation: Alert and orientated 3 Cognition: Grossly normal Recent and remote memory: Intact Attention span and concentration: Intact Fund of knowledge: Adequate Mood: "okay" Affect: Euthymic with a full range Follow Up The social work team worked during the predischarge meeting in order to evaluate for further issues of lethality address them fully before discharge. They worked on safety planning with the patient's family members in order to ensure that the patient will have a safe and effective discharge. Time Spent The amount of time spent in the coordination of care for this patient was approximately 45 minutes. Saturday Vital Signs/I&Os Vital Signs Date Time Temp Pulse Resp B/P (MAP) Pulse Ox O2 Delivery O2 Flow Rate FiO2 08/10/19 08:11 95 169/95 08/10/19 06:29 97.5 16 08/09/19 06:39 99 Room Air Medications Scheduled Amantadine HCl (Amantadine) 100 Mg Tablet, 200 MG PO DAILY, (Reported) Aripiprazole (Aripiprazole) 10 Mg Tablet, 10 MG PO QHS, (Reported) Brexpiprazole (Rexulti) 3 Mg Tablet, 3 MG PO QHS, (Reported) Meloxicam (Meloxicam) 15 Mg Tab, 15 MG PO DAILY, (Reported) Metoprolol Succinate (Metoprolol Succinate) 100 Mg Tab.er.24h, 100 MG PO DAILY, (Reported) Multivitamin (Tab-A-Cat) 1 Each Tablet, 1 TAB PO DAILY, (Reported) Olanzapine (Olanzapine) 5 Mg Tablet, 5 MG PO TID, (Reported) Omeprazole (Omeprazole) 40 Mg Cap, 40 MG PO DAILY, (Reported) Scheduled PRN Nicotine Polacrilex (Nicotine Gum) 2 Mg Gum, 2 MG MT Q2H PRN for NICOTINE WITHDR AWAL, (Reported) Allergies Coded Allergies: Donna's wort (Verified Allergy, Unknown, 08/05/19) XIOMARA PHAN DO August 10, 2019 09:11
--- NOTE | 2019-08-11 14:07 | MHIPN ---
DATE: 08/09/2019 This is a video followup telemedicine assessment. VITAL SIGNS: Blood pressure 131/75, pulse 82, temperature 98.9. CHIEF COMPLAINT: Says feels okay. SUBJECTIVE: Seen in the presence of staff. Says feels okay, that he had a fair night. Has been eating well. Says feels better since coming in, but is somewhat vague on this. Also suggested that his day yesterday was "uneventful." MENTAL STATUS EXAM: Neat, cooperative, though possibly a bit guarded. Displays no agitation. No psychomotor retardation. He is coherent. Affect is restricted in range. Denies any suicidal thoughts or intents. Does not at present appear to be internally preoccupied. Denies any thoughts of harming anyone else. Judgment and insight are compromised overall. ASSESSMENT: Schizoaffective disorder. PLAN: Continue current care, but I would suggest that his being on three atypical antipsychotics is reassessed. He says he thinks the olanzapine was started first, and then the others, the Abilify and Rexulti. Says sees a psychiatrist through telemedicine at the [facility], described this is based in [place], per the patient. I would suggest that if possible the number of antipsychotics is decreased, and that could possibly be done as an outpatient as well. He is to be encouraged to participate in activities on the unit. He will be seeing the assigned psychiatrist tomorrow, so that will be made.
== END 2019-08-10 13:35 | disposition home or self-care (01) | DRG 885 ==
LOC: M ED 03:10 → M ED INP 17:36 → M PSY 21:07
PROVIDERS: ADMIT Psychiatry & Neurology Addiction Medicine; ATTEND Psychiatry & Neurology Addiction Medicine
DX: F25.8 Other schizoaffective disorders (principal); R45.851 Suicidal ideations; F14.10 Cocaine abuse, uncomplicated; R45.850 Homicidal ideations; F10.10 Alcohol abuse, uncomplicated; K21.9 Gastro-esophageal reflux disease without esophagitis; I10 Essential (primary) hypertension; E11.9 Type 2 diabetes mellitus without complications; F17.200 Nicotine dependence, unspecified, uncomplicated; F12.10 Cannabis abuse, uncomplicated; Z79.1 Long term (current) use of non-steroidal anti-inflammatories (NSAID); Z79.899 Other long term (current) drug therapy; Z88.8 Allergy status to other drugs, medicaments and biological substances; Z91.5 Personal history of self-harm

== ENCOUNTER → 2020-01-18 | Outpatient (REF) | payer MEDICARE, MEDICAID ==
[~2020-01-18] MED LIST changes: +ARIP1TAB PO; -METF-791 PO; +METF-838 PO; +MULT1TAB55 PO; +OLAN10TA2 PO; +OLAN5TAB PO; +REXU1TAB5 PO; -TAB-TAB PO; +TAB-TAB2 PO
[2020-01-18 17:00] LABS: BASO # 0.1 10^3/uL (0.0-0.2); EOS # 0.2 10^3/uL (0.0-0.5); EOS % 3.5 % (0.0-3.0); HEMATOCRIT 45.7 % (42.0-52.0); HEMOGLOBIN 15.1 g/dl (13.5-17.5); LYMPH # 1.9 10^3/uL (1.5-5.0); LYMPH % 36.9 % (24.0-44.0); MEAN CORPUSCULAR HEMOGLOBIN 30.3 pg (27.0-33.0); MEAN CORPUSCULAR VOLUME 91.6 fl (80.0-96.0); MONO # 0.5 10^3/uL (0.0-0.8); MONO % 9.2 % (0.0-5.0); NEUTROPHILS # 2.5 10^3/uL (1.5-8.5); NEUTROPHILS % 48.4 % (36.0-66.0); PLATELET COUNT, AUTOMATED 236 10^3/uL (150-450); RED BLOOD COUNT 4.99 10^6/uL (4.30-6.10); WHITE BLOOD COUNT 5.2 10^3/uL (4.0-10.0)
[2020-01-18 17:29] LABS: ALBUMIN 3.8 GM/DL (3.2-5.2); ALT/SGPT 53 U/L (12-78); BILIRUBIN,TOTAL 0.6 MG/DL (0.2-1.0); BLOOD UREA NITROGEN 11 MG/DL (7-18); CALCIUM LEVEL 8.8 MG/DL (8.5-10.1); CARBON DIOXIDE LEVEL 28 MEQ/L (21-32); CHLORIDE LEVEL 105 MEQ/L (98-107); CHOLESTEROL LEVEL 212 MG/DL (<200); CHOLESTEROL RISK RATIO 4.711 (<5); CREATININE FOR GFR 0.94 MG/DL (0.70-1.30); FREE T4 0.67 NG/DL (0.76-1.46); GLOMERULAR FILTRATION RATE > 60.0 (>60); GLUCOSE, FASTING 88 MG/DL (70-100); HDL CHOLESTEROL 45 MG/DL (>40); LDL CHOLESTEROL 97 MG/DL (<100); NON-HDL-C 167 MG/DL; POTASSIUM SERUM 4.5 MEQ/L (3.5-5.1); SODIUM LEVEL 139 MEQ/L (136-145); TOTAL PROTEIN 7.5 GM/DL (6.4-8.2); TRIGLYCERIDES LEVEL 350 MG/DL (<150)
[2020-01-18 19:22] LABS: HEMOGLOBIN A1c 5.8 %
== END ==
LOC: M LAB REF 16:12
PROVIDERS: ATTEND Physician Assistant
DX: F17.210 Nicotine dependence, cigarettes, uncomplicated (principal); F25.0 Schizoaffective disorder, bipolar type; K21.9 Gastro-esophageal reflux disease without esophagitis; E66.09 Other obesity due to excess calories; Z68.35 Body mass index [BMI] 35.0-35.9, adult; E11.9 Type 2 diabetes mellitus without complications

== ENCOUNTER 2020-05-14 14:19 | Emergency (ER) | payer MEDICARE, MEDICAID ==
[~2020-05-14] VITALS: Ht 177.8 cm; Wt 104.5 kg
[2020-05-14] MEDS ORDERED: INVE156I IM (14:36)
[2020-05-14] MEDS ORDERED: NS 1,000 ML IV ONE ×2 (15:00→18:00)
--- NOTE | 2020-05-14 16:04 | REP ---
INDICATION: dm foot COMPARISON: None. TECHNIQUE: Two views right foot. FINDINGS: There is no evidence of acute fracture, dislocation, or intrinsic bone disease.There is no cortical destruction or periosteal reaction. IMPRESSION: Negative exam right foot. <Electronically signed by Donnie Elder > 05/14/20 1600
[2020-05-14 16:09] LABS: BASO % 0.3 % (0.0-1.0); EOS # 0.1 10^3/uL (0.0-0.5); EOS % 1.6 % (0.0-3.0); HEMATOCRIT 42.9 % (42.0-52.0); HEMOGLOBIN 14.2 g/dl (13.5-17.5); LYMPH # 1.9 10^3/uL (1.5-5.0); LYMPH % 21.5 % (24.0-44.0); MEAN CORPUSCULAR HEMOGLOBIN 30.3 pg (27.0-33.0); MEAN CORPUSCULAR HGB CONC 33.1 g/dl (32.0-36.5); MEAN CORPUSCULAR VOLUME 91.7 fl (80.0-96.0); MONO # 0.9 10^3/uL (0.0-0.8); MONO % 9.8 % (0.0-5.0); NEUTROPHILS # 5.9 10^3/uL (1.5-8.5); NEUTROPHILS % 66.4 % (36.0-66.0); PLATELET COUNT, AUTOMATED 272 10^3/uL (150-450); RED BLOOD COUNT 4.68 10^6/uL (4.30-6.10); WHITE BLOOD COUNT 8.9 10^3/uL (4.0-10.0)
[2020-05-14 16:41] LABS: AMPHETAMINES LEVEL URINE NEGATIVE (NEGATIVE); BARBITURATES URINE NEGATIVE (NEGATIVE); BENZODIAZEPINES URINE NEGATIVE (NEGATIVE); CANNABINOIDS URINE POSITIVE (NEGATIVE); COCAINE METABOLITE URINE NEGATIVE (NEGATIVE); METHADONE URINE NEGATIVE (NEGATIVE); OPIATES URINE NEGATIVE (NEGATIVE); PHENCYCLIDINE URINE NEGATIVE (NEGATIVE)
[2020-05-14 17:05] LABS: ACETAMINOPHEN LEVEL < 2.0 UG/ML (10.0-30.0); ALBUMIN 4.1 GM/DL (3.2-5.2); ALT/SGPT 110 U/L (12-78); BILIRUBIN,DIRECT 0.3 MG/DL (0.0-0.2); BILIRUBIN,TOTAL 0.9 MG/DL (0.2-1.0); C REACTIVE PROTEIN QUANTITATIV 1.27 MG/DL (0.00-0.30); CPK CREATINE PHOSPHOKINASE 4274 U/L (39-308); ETHYL ALCOHOL (ETHANOL) < 0.003 % (0.000-0.010); THYROID STIMULATING HORMONE 0.731 uIU/ML (0.358-3.740); TOTAL PROTEIN 7.5 GM/DL (6.4-8.2)
[2020-05-14 17:19] LABS: ERYTHROCYTE SEDIMENTATION RATE 4 mm/hr (0-15)
--- NOTE | 2020-05-14 17:30 | ECGEPIP ---
[facility] - ED Test Date: 2020-05-14 Pat Name: NAOMY DAMIAN Department: Room: - Gender: Male Sanitor: rene : 1985 Requested By: Danielle Hunt Order Number: [id number] Reading MD: Danielle Hunt Measurements Intervals [place] Rate: 71 P: 59 WV: 154 QRS: 41 QRSD: 94 T: -6 QT: 391 QTc: 428 Interpretive Statements SINUS RHYTHM WITH SINUS ARRHYTHMIA EARLY REPOLARIZATION NONSPECIFIC ST T WAVE CHANGES BASELINE ARTIFACT MAY AFFECT READING BASELINE WANDERING MAY AFFECT READING CW 12/19/[address] T WAVE CHANGES Electronically Signed on 05-14-2020 17:30:30 EST by Danielle Hunt
[2020-05-14 18:00] VITALS: BP 121/75
[2020-05-14] MEDS ORDERED: CEPH500C PO (18:15)
== END 2020-05-14 18:29 | disposition left against medical advice (07) ==
LOC: M ED 14:19 → EDBD 14:19 → M ED 18:29
DX: S90.821A Blister (nonthermal), right foot, initial encounter (principal); X58.XXXA Exposure to other specified factors, initial encounter; Y92.89 Other specified places as the place of occurrence of the external cause; R74.8 Abnormal levels of other serum enzymes; E11.9 Type 2 diabetes mellitus without complications; I10 Essential (primary) hypertension; K21.9 Gastro-esophageal reflux disease without esophagitis; F25.9 Schizoaffective disorder, unspecified; Z79.899 Other long term (current) drug therapy; Z88.8 Allergy status to other drugs, medicaments and biological substances; F17.210 Nicotine dependence, cigarettes, uncomplicated

== ENCOUNTER 2020-07-13 08:56 | Inpatient (IN) | payer MEDICARE, MEDICAID ==
[~2020-07-13] VITALS: Ht 177.8 cm; Wt 128.1 kg
[~2020-07-13 08:56] MED LIST changes: +CEPH500C PO
[2020-07-13] MEDS ORDERED: VITMTA PO (09:26)
[2020-07-13 10:17] LABS: AMPHETAMINES LEVEL URINE NEGATIVE (NEGATIVE); BARBITURATES URINE NEGATIVE (NEGATIVE); BENZODIAZEPINES URINE NEGATIVE (NEGATIVE); CANNABINOIDS URINE POSITIVE (NEGATIVE); COCAINE METABOLITE URINE NEGATIVE (NEGATIVE); METHADONE URINE NEGATIVE (NEGATIVE); OPIATES URINE NEGATIVE (NEGATIVE); PHENCYCLIDINE URINE NEGATIVE (NEGATIVE)
[2020-07-13 10:30] LABS: HEMATOCRIT 47.2 % (42.0-52.0); HEMOGLOBIN 15.8 g/dl (13.5-17.5); MEAN CORPUSCULAR HEMOGLOBIN 31.1 pg (27.0-33.0); MEAN CORPUSCULAR HGB CONC 33.5 g/dl (32.0-36.5); MEAN CORPUSCULAR VOLUME 92.9 fl (80.0-96.0); PLATELET COUNT, AUTOMATED 239 10^3/uL (150-450); RED BLOOD COUNT 5.08 10^6/uL (4.30-6.10); WHITE BLOOD COUNT 5.9 10^3/uL (4.0-10.0)
[2020-07-13 11:08] LABS: ACETAMINOPHEN LEVEL < 2.0 UG/ML (10.0-30.0); ALBUMIN 4.5 GM/DL (3.2-5.2); ALT/SGPT 52 U/L (12-78); BILIRUBIN,DIRECT 0.2 MG/DL (0.0-0.2); BILIRUBIN,TOTAL 0.5 MG/DL (0.2-1.0); BLOOD UREA NITROGEN 12 MG/DL (7-18); CALCIUM LEVEL 9.7 MG/DL (8.5-10.1); CARBON DIOXIDE LEVEL 29 MEQ/L (21-32); CHLORIDE LEVEL 104 MEQ/L (98-107); CREATININE FOR GFR 0.94 MG/DL (0.70-1.30); ETHYL ALCOHOL (ETHANOL) < 0.003 % (0.000-0.010); GLOMERULAR FILTRATION RATE > 60.0 (>60); GLUCOSE, FASTING 121 MG/DL (70-100); POTASSIUM SERUM 4.1 MEQ/L (3.5-5.1); SALICYLATE LEVEL 3.8 MG/DL (5.0-30.0); SODIUM LEVEL 139 MEQ/L (136-145); TOTAL PROTEIN 8.1 GM/DL (6.4-8.2)
[2020-07-13] MEDS ORDERED: METOPROLOL SUCC (TopROL XL) 100MG *XL* TAB PO ONE (13:20)
[2020-07-13] MEDS ORDERED: ACETAMINOPHEN TAB 650MG DOSE (2X325MG) PO PRN (17:45)
[2020-07-13] MEDS ORDERED: MAALOX 30 ML SUSP *UDC PO PRN (17:45)
[2020-07-13] MEDS ORDERED: MOM 30ML SUSPENSION UDC PO PRN (17:45)
[2020-07-13] MEDS ORDERED: PILL CUTTER 1 EACH XX PRN (18:00)
[2020-07-13 18:46] VITALS: BP 114/72
[2020-07-13] MEDS: OLANZapine 10 MG TAB PO SCH (21:12)
[2020-07-13] MEDS: BREXPIPRAZOLE 2MG TABLET (REXULTI) PO SCH (21:51)
[2020-07-14 06:37] VITALS: BP 154/96
[2020-07-14] MEDS: MULTIVITAMINS/MINERALS THERAP 1 TAB PO SCH (10:21)
[2020-07-14] MEDS: OMEPRAZOLE 20 MG CAP PO SCH (10:22)
[2020-07-14] MEDS: MELOXICAM (MOBIC) 7.5 MG TAB PO SCH (10:22)
[2020-07-14] MEDS: OLANZapine 10 MG TAB PO SCH ×2 (10:22→22:07)
[2020-07-14] MEDS: AMANTADINE 100MG TABLET PO SCH (10:23)
[2020-07-14] MEDS: METOPROLOL SUCC (TopROL XL) 100MG *XL* TAB PO SCH (10:23)
[2020-07-14 16:15] VITALS: BP 118/82
--- NOTE | 2020-07-14 17:30 | HPEPDOC ---
General Date of Admission Jul 13, 2020 at 17:42 Date of Service: Jul 14, 2020 Chief Complaint The patient is a 35-year-old male admitted with a reason for visit of Schizoaffective Disorder. Source: Patient Exam Limitations: No limitations History of Present Illness Patient is 35 years old male with past medical history of prediabetes, hypertension, GERD and schizoaffective disorder was admitted to the hospital with increased anxiety. Patient stated that he recently lost his family members and he developed depression with anxiety. Patient denied to give any further details Patient has lack of social support. During my interview patient denied fever, chills, chest pain, palpitations, abdominal pain, diarrhea or dysuria. Home Medications Scheduled Amantadine HCl (Amantadine) 100 Mg Tablet, 200 MG PO DAILY, (Reported) Brexpiprazole (Rexulti) 3 Mg Tablet, 3 MG PO QHS, (Reported) Meloxicam (Meloxicam) 15 Mg Tab, 15 MG PO DAILY, (Reported) Metoprolol Succinate (Metoprolol Succinate) 100 Mg Tab.er.24h, 100 MG PO DAILY, (Reported) Multivitamins (Thera M Plus Tablet) 1 Each Tablet, 1 TAB PO QAM, (Reported) Olanzapine (Olanzapine) 10 Mg Tablet, 10 MG PO TID, (Reported) Omeprazole (Omeprazole) 40 Mg Cap, 40 MG PO DAILY, (Reported) Paliperidone Palmitate (Invega Sustenna) 156 Mg/1 Ml Syringe, 156 MG IM QMONTH, (Reported) Allergies Coded Allergies: Donna's wort (Verified Allergy, Unknown, 08/05/19) Past Medical History Medical History Prediabetes, HTN, GERD and schizoaffective disorder Family History I personally reviewed family history and found not pertinent Social History * Smoker: current smoker Alcohol: Denies Drugs: marijuana A-FIB/CHADSVASC A-FIB History Current/History of A-Fib/PAF?: No Current PO Anticoag Therapy: No Review of Systems Constitutional: Denies: Chills Eyes: Denies: Pain ENT: Denies: Head Aches Skin: Denies: Rash, Lesions Pulmonary: Denies: Dyspnea, Cough Cardiovascular: Denies: Chest Pain Gastrointestinal: Denies: Nausea Genitourinary: Denies: Dysuria Hematologic: Denies: Bruising Endocrine: Denies: Polydipsia Musculoskeletal: Denies: Neck Pain Neurological: Denies: Weakness Psych: Reports: Anxiety Physical Examination General Exam: Positive: Alert, Cooperative Eye Exam: Positive: PERRLA Neck Exam: Positive: Supple; Negative: JVD Chest Exam: Positive: Clear to auscultation Heart Exam: Positive: Rate Normal Telemetry: Positive: No significant arrhythmia Abdomen Exam: Positive: Normal bowel sounds Extremity Exam: Negative: Clubbing, Cyanosis Skin Exam: Positive: Nl turgor and temperature Neuro Exam: Positive: Cranial Nerves 3-12 NL Psych Exam: Positive: Oriented x 3 Vital Signs Vital Signs Date Time Temp Pulse Resp B/P (MAP) Pulse Ox O2 Delivery O2 Flow Rate FiO2 07/14/20 16:15 98.4 88 16 118/82 (94) 07/14/20 11:30 Room Air 07/14/20 06:37 100 Assessment/Plan Patient is 35 years old male with past medical history of prediabetes, hypertension, GERD and schizoaffective disorder was admitted to the hospital with increased anxiety. Patient stated that he recently lost his family members and he developed depression with anxiety. Patient has lack of social support. During my interview patient denied fever, chills, chest pain, palpitations, abdominal pain, diarrhea or dysuria. Problems (1) Hypertension Problem Text: Patient takes metoprolol in the outpatient settings prescribed by PCP His blood pressure under control (2) Schizoaffective disorder Status: Acute Problem Text: Defer treatment to psych team (3) Prediabetes Problem Text: Will check HbA1c His glucose level with in normal limit (4) GERD (gastroesophageal reflux disease) Status: Chronic Problem Text: Continue PPI Plan / VTE VTE Prophylaxis Ordered?: No VTE Exclusion Mechanical Proph: Low Risk for VTE BRODY CANTRELL DO Jul 14, 2020 17:30
--- NOTE | 2020-07-14 17:48 | MHHPEPDOC ---
General Date Of Admission: Jul 13, 2020 Legal Status: 9.39 Chief Complaint "I have a fear of not knowing who I am." History of Present Illness HISTORY OF THE PRESENT ILLNESS: Patient is a 35 -year-old Single, Disabled, Domiciled, , male, who reports that he "has a fear for not knowing who he is and not knowing where he is going and this causes him overwhelming anxiety. He is feeling disappointment about his life and that he has not accomplished things that he has wanted to do, this causes him depression. States that he feels like he is going backwards and is lonely. Reports that he has recent deaths in his family (father last year and stepfather the year before) reports limited or poor supports, ruminates that people were making fun of him. When asked how long his depression has been going on he reports, "I can't even tell you." Patient states multiple admissions to this facility and [place] and [place], reports that he had stopped taking his medications. PER ED REPORT: Pt. reports he is feeling suicidal. He states he does not know what the plan would be to kill himself because it is out of his hands and in the hands of the universe. He states that he has not been taking his medications for one week, stating he sometimes forgets and also because he has been thinking he doesn't need them. He reports he has had AH for years on/off, states recently voices tell him what to do throughout the day, including to harm himself but he has not acted on that. He denies AH today. He states he has seen, in his mind, a schilling house with the #[id number] on it and he doesn't know if that means if he should go and try to find the house. He reports he is a [facility], lives by himself. He states he sometimes feels unsafe at home because he is scared of fire. He otherwise does not mind living alone. He is pleasant and soft spoken, cooperative, appears anxious, sitting and standing, pacing at times. He also reports that he feels he is having a hard time communicating because he does not know what all the answers are. Psychiatric Review of Systems Depression (2 or more weeks): depressed mood, insomnia/hypersomnia, feelings of excess/guilt (feels guilty about not getting the shot yet. ), decreased energy, difficulty concentrating, suicidal thoughts, other (poor motivation) Margaret (4 or more days of): irritable/elevated mood, expansive mood Psychosis: denies Anxiety: gen/non-specific anxiety Anxiety/ 6 months or more of: restlessness, keyed up, difficulty concentrating, irritability Past Psychiatric History Previous Psychiatric Diagnosis: Schizoaffective Disorder, Previous Psychiatric Admissions: multiple admissions, [facility], [facility] and has been admitted [place] and [place] Suicide Attempts: Overdosed on Rat Poison was admitted, Overdosed on Aspirin, Attempted to Electrocute self by trying to put toaster in water Psychiatric Follow-up: [facility] Psychiatric medications: Zyprexa, Invega that he remembers. Past Medical History Medical Problems Hypertension NO surgeries Donna's Wort - unsure of reaction Head Injury: Yes (concussion as a teen) Hospitalizations: Yes Surgeries: No Family Medical/Psychiatric HX Medical Problems Dad - HTN, unsure of cause of Psychiatric Disorders: No Addiction: No Suicide Attemps/Completions: No Addiction History nicotine (over 1 PPD), other (Cannabis - 1 gram a day, last time yesterday) Social History Childhood: [place], [place] describes childhood "short - we didn't get to enjoy much of it" no siblings. growing up lived with adoptive father Abuse/Trauma: no Current Living Situation: [facility] lives in own apartment Education: High School Graduate, has some college Employment: Not employed. received SSI. Social Support: None Legal: None Marital: Single, no children Mental Status Examination General Appearance: disheveled, appears stated age, hospital scubs/clothing Build: overweight, tall Demeanor: withdrawn, guarded Eye Contact: avoidant Activity: slowed, anxious Behavior: withdrawn Speech: low in volume, impoverished Mood: depressed, anxious Affect: flat Thought Process: depressed Thought Content (Delusions): paranoia, delusions (see ED report), other (fleeing suicidal thinking, no planning) Thought Content (Other): guarded Thought Content (Aggressive): none reported Perception (Hallucinations): none reported Perception (Other): none reported Cognition(Intelligence Est.): average Oriented: Awake, Alert, Oriented times three Insight: fair Judgment: Fair Diagnoses Schizoaffective Disorder Nicotine Use Disorder Cannabis Use Disorder A-FIB/CHADSVASC A-FIB History Current/History of A-Fib/PAF?: No Current PO Anticoag Therapy: No Assessment Patient is a 35 year old Single, Disabled, Domiciled (TLS) Male who reports feeling depressed and suicidal. He states that he had forgotten to take his medications and then felt that he didn't need then. He denies current suicidal thinking at initial interview but was observed to be quite sedated and drowsy. He was often speaking with his eye closed. He states that his goals are to find a way to be happy. We will restart patient's medications. Zyprexa was decreased due to his stupor in the interview. Will discharge when he is stable Initial Treatment Plan 1. Patient was admitted on a [9.39] status. 2. Complete history was obtained. 3. With patients permission, family will be contacted and database will be expanded. 4. Patients medication regimen will be reviewed and changed accordingly. 5. Patient will be provided with protected environment. 6. Patient will be treated with individual, group, and milieu therapies. 7. Patient will receive supportive psych-education. 8. Discharge planning will commence immediately. 9. Outpatient follow-up treatment will be strongly recommended. 10. The initial treatment plan will focus initially on: * Depression. * Risk for suicide * Grief ESTIMATED LENGTH OF STAY: 3-5 DAYS. TIME SPENT COUNSELING AND COORDINATING INITIAL CARE: 60 minutes. Tobacco Cessation Screen Tobacco Cessation Tx Ordered?: No r/t side effects Complete/Results docum. Vital Signs Vital Signs Date Time Temp Pulse Resp B/P (MAP) Pulse Ox O2 Delivery O2 Flow Rate FiO2 07/14/20 11:30 Room Air 07/14/20 10:23 98 154/96 07/14/20 06:37 97.6 16 100 Laboratory Data 24H Labs Laboratory Tests 2 07/13/20 15:47: Coronavirus (COVID-19)(PCR) NEGATIVE Medications Scheduled Amantadine HCl (Amantadine) 100 Mg Tablet, 200 MG PO DAILY, (Reported) Brexpiprazole (Rexulti) 3 Mg Tablet, 3 MG PO QHS, (Reported) Meloxicam (Meloxicam) 15 Mg Tab, 15 MG PO DAILY, (Reported) Metoprolol Succinate (Metoprolol Succinate) 100 Mg Tab.er.24h, 100 MG PO DAILY, (Reported) Multivitamins (Thera M Plus Tablet) 1 Each Tablet, 1 TAB PO QAM, (Reported) Olanzapine (Olanzapine) 10 Mg Tablet, 10 MG PO TID, (Reported) Omeprazole (Omeprazole) 40 Mg Cap, 40 MG PO DAILY, (Reported) Paliperidone Palmitate (Invega Sustenna) 156 Mg/1 Ml Syringe, 156 MG IM QMONTH, (Reported) Allergies Coded Allergies: Donna's wort (Verified Allergy, Unknown, 08/05/19) KYLE FREEMAN NP Jul 14, 2020 14:38
[2020-07-14] MEDS: BREXPIPRAZOLE 2MG TABLET (REXULTI) PO SCH (22:07)
[2020-07-14] MEDS: traZODone 50 MG TAB PO PRN (22:07)
[2020-07-15 06:43] VITALS: BP 109/63
[2020-07-15] MEDS: METOPROLOL SUCC (TopROL XL) 100MG *XL* TAB PO SCH (09:07)
[2020-07-15] MEDS: OLANZapine 10 MG TAB PO SCH ×2 (09:08→20:58)
[2020-07-15] MEDS: OMEPRAZOLE 20 MG CAP PO SCH (09:08)
[2020-07-15] MEDS: MULTIVITAMINS/MINERALS THERAP 1 TAB PO SCH (09:08)
[2020-07-15] MEDS: MELOXICAM (MOBIC) 7.5 MG TAB PO SCH (09:08)
[2020-07-15] MEDS: AMANTADINE 100MG TABLET PO SCH (09:08)
[2020-07-15 09:46] LABS: HEMOGLOBIN A1c 6.4 %
--- NOTE | 2020-07-15 12:08 | MHIPNPDOC ---
[facility] Progress Note Progress Note DATE OF SERVICE: 07/15/20 HISTORY: Patient is a 35 -year-old Single, Disabled, Domiciled, , male, who reports that he "has a fear for not knowing who he is and not knowing where he is going and this causes him overwhelming anxiety. He is feeling disappointment about his life and that he has not accomplished things that he has wanted to do, this causes him depression. States that he feels like he is going backwards and is lonely. Reports that he has recent deaths in his family (father last year and stepfather the year before) reports limited or poor supports, ruminates that people were making fun of him. When asked how long his depression has been going on he reports, "I can't even tell you." Patient states multiple admissions to this facility and [place] and PER ED REPORT: Pt. reports he is feeling suicidal. He states he does not know what the plan would be to kill himself because it is out of his hands and in the hands of the universe. He states that he has not been taking his medications for one week, stating he sometimes forgets and also because he has been thinking he doesn't need them. He reports he has had AH for years on/off, states recently voices tell him what to do throughout the day, including to harm himself but he has not acted on that. He denies AH today. He states he has seen, in his mind, a schilling house with the #827 on it and he doesn't know if that means if he should go and try to find the house. He reports he is a client of the [facility] apartment program, lives by himself. He states he sometimes feels unsafe at home because he is scared of fire. He otherwise does not mind living alone. He is pleasant and soft spoken, cooperative, appears anxious, sitting and standing, pacing at times. He also reports that he feels he is having a hard time communicating because he does not know what all the answers are. VITAL SIGNS: See below. NEW TEST RESULTS: Lipid Panel ordered for 07/16/20 at 0700 CURRENT MEDICATIONS: See below. MENTAL STATUS EXAMINATION: Patient is a 35 -year-old Single, Disabled, Domiciled, , male, who reports that he is depressed, suicidal and anxious. Patient had several days of not taking medications and decompensated. Speech: Is fluid, normal rate, tone and volume Language skills are intact Thought processes including: linear and goal oriented Thought content: reports depression and anxiety. Denies suicidal/homicidal ideation, planning or intent. Abstract reasoning, and computation: fair Description of associations: denies, none observed Description of abnormal or psychotic thoughts: denies, none observed. Judgment: fair Insight: fair Orientation: alert and oriented to person, place, time and situation Recent and remote memory: intact Attention span and concentration: good Language: expansive Fund of knowledge: average Mood: depressed mood Affect: reactive DIAGNOSES: Schizoaffective Disorder Nicotine Use Disorder Cannabis Use Disorder ASSESSMENT: Pt is having existential thoughts about his life, is very philosophical about not having his life in a better place. He states that his depressed started to decline a few weeks ago, in his conversation he reports t hat he had been non-compliant. "There are more one way to skin a cat." He states that he would like a way to have reminders or possible a medication dispenser. He states that he has [facility] staff come in an fill his pill boxes. He reports that although he is feeling better than yesterday he is still depressed, but no longer having strong ideations of self-harm. No reports of auditory of visual hallucinations. MANAGEMENT PLAN: Continue current mediation regiment, discharge when stable, encourage groups TIME SPENT: 25 minutes. Vital Signs Vital Signs Date Time Temp Pulse Resp B/P (MAP) Pulse Ox O2 Delivery O2 Flow Rate FiO2 07/15/20 10:00 Room Air 07/15/20 09:07 73 109/63 07/15/20 06:43 97.8 16 97 Laboratory Data 24H Labs Laboratory Tests 2 07/15/20 06:00: Estimated Mean Plasma Glucose 137H, Hemoglobin A1c 6.4 Current Medications Current Medications Medications (Trade) Dose Ordered Sig/Yovanny Route PRN Reason Start Time Stop Time Status Last Admin Dose Admin Acetaminophen (Tylenol Tab) 650 mg Q6HP PRN PO HEADACHE or DISCOMFORT 07/13/20 17:45 Al Hydrox/Mg Hydrox/Simethicone (Mylanta) 30 ml Q4HP PRN PO HEARTBURN/INDIGESTION 07/13/20 17:45 Amantadine HCl (Symmetrel) 200 mg DAILY PO 07/14/20 09:00 07/15/20 09:08 Brexpiprazole (Rexulti) 3 mg QHS PO 07/13/20 21:00 07/14/20 22:07 Magnesium Hydroxide (Milk Of Magnesia) 30 ml DAILYPRN PRN PO CONSTIPATION 07/13/20 17:45 Meloxicam (Mobic) 15 mg DAILY PO 07/14/20 09:00 07/15/20 09:08 Metoprolol Succinate (TopROL XL) 100 mg DAILY PO 07/14/20 09:00 07/15/20 09:07 Multivitamins (Theragram-M) 1 tab DAILY PO 07/14/20 09:00 07/15/20 09:08 Nicotine (Nicorette) 2 mg Q4HP PRN PO NICOTINE WITHDRAWAL 07/15/20 11:00 Olanzapine (ZyPREXA) 10 mg BID PO 07/14/20 21:00 07/15/20 09:08 Olanzapine (ZyPREXA) 10 mg TID PO 07/13/20 21:00 07/14/20 14:41 DC 07/14/20 10:22 Omeprazole (PriLOSEC) 40 mg DAILY PO 07/14/20 09:00 07/15/20 09:08 Trazodone HCl (Desyrel) 50 mg QHSP PRN PO INSOMNIA 07/13/20 17:45 07/14/20 22:07 Allergies Coded Allergies: [place]'s wort (Verified Allergy, Unknown, 08/05/19) KYLE FREEMAN NP Jul 15, 2020 11:54
[2020-07-15] MEDS: NICOTINE POLACRILEX 2 MG GUM PO PRN ×2 (15:35→19:50)
[2020-07-15 19:58] VITALS: BP 138/82
[2020-07-15] MEDS: BREXPIPRAZOLE 2MG TABLET (REXULTI) PO SCH (20:58)
[2020-07-16 07:18] LABS: CHOLESTEROL RISK RATIO 4.933 (<5)
[2020-07-16 07:52] VITALS: BP 142/99
[2020-07-16] MEDS: OMEPRAZOLE 20 MG CAP PO SCH (08:43)
[2020-07-16] MEDS: MULTIVITAMINS/MINERALS THERAP 1 TAB PO SCH (08:43)
[2020-07-16] MEDS: AMANTADINE 100MG TABLET PO SCH (08:44)
[2020-07-16] MEDS: MELOXICAM (MOBIC) 7.5 MG TAB PO SCH (08:44)
[2020-07-16] MEDS: OLANZapine 10 MG TAB PO SCH ×2 (08:44→20:58)
[2020-07-16] MEDS: METOPROLOL SUCC (TopROL XL) 100MG *XL* TAB PO SCH (08:44)
[2020-07-16] MEDS: NICOTINE POLACRILEX 2 MG GUM PO PRN ×2 (08:44→15:53)
--- NOTE | 2020-07-16 13:48 | MHIPN ---
[facility] PROGR[facility] DATE: 07/16/2020 SUBJECTIVE: He reports he is improving. He does not have any suicidal thoughts but still continues to have some anxiety. His sleep and appetite were good. OBJECTIVE: He is a 35-year-old single, disabled male who had suicidal thoughts. He reports that for a week he did not take his medications. Currently he is back on his medication. He is improving. Sleep and appetite are good. MENTAL STATUS EXAMINATION: Cooperative, casually dressed neatly. Made good eye contact. Psychomotor activity is normal. Speech rate, rhythm, volume are good. Thought process linear, goal directed. Mood is mildly depressed. Affect is constricted. Thought content: Denied any suicidal or homicidal ideas. Perception: Denies any auditory or visual hallucinations. Memory, immediate, remote, recent, is good. Insight and judgment are fair. VITAL SIGNS: Temperature 98.3, pulse is 98, blood pressure is 142/99, respirations 20, pulse oximetry 97. LABORATORY DATA: CBC and CMP within normal limits. Cholesterol was slightly increased. Toxicology was positive for cannabis. DIAGNOSES: 1. Schizoaffective disorder. 2. Bipolar disorder. 3. Cannabis use disorder. PLAN: Continue current medications, olanzapine 10 mg twice daily and Rexulti 3 mg at night. ESTIMATED LENGTH OF STAY: 5-6 days. TIME SPENT ON THE PATIENT: 25 minutes.
[2020-07-16 16:55] VITALS: BP 145/77
[2020-07-16] MEDS: BREXPIPRAZOLE 2MG TABLET (REXULTI) PO SCH (20:58)
[2020-07-16] MEDS: traZODone 50 MG TAB PO PRN (20:58)
[2020-07-17 06:00] VITALS: BP 153/94
[2020-07-17] MEDS: MELOXICAM (MOBIC) 7.5 MG TAB PO SCH (09:25)
[2020-07-17] MEDS: MULTIVITAMINS/MINERALS THERAP 1 TAB PO SCH (09:25)
[2020-07-17] MEDS: METOPROLOL SUCC (TopROL XL) 100MG *XL* TAB PO SCH (09:25)
[2020-07-17] MEDS: AMANTADINE 100MG TABLET PO SCH (09:25)
[2020-07-17] MEDS: OLANZapine 10 MG TAB PO SCH ×2 (09:25→21:09)
[2020-07-17] MEDS: OMEPRAZOLE 20 MG CAP PO SCH (09:25)
[2020-07-17] MEDS: NICOTINE POLACRILEX 2 MG GUM PO PRN ×3 (09:27→21:09)
--- NOTE | 2020-07-17 10:51 | MHIPNPDOC ---
[facility] Progress Note Progress Note DATE OF SERVICE: 07/17/20 SUBJECTIVE: He reports he is improving. He does not have any suicidal thoughts but still continues to have some anxiety. His sleep and appetite were good. OBJECTIVE: He is a 35-year-old single, disabled male who had suicidal thoughts. He reports that for a week he did not take his medications. Currently he is back on his medication. He is improving. Sleep and appetite are good. Denies any side effects of medications. MENTAL STATUS EXAMINATION: Cooperative, casually dressed neatly. Made good eye contact. Psychomotor activity is normal. Speech rate, rhythm, volume are good. Thought process linear, goal directed. Mood is mildly depressed. Affect is constricted. Thought content: Denied any suicidal or homicidal ideas. Perception: Denies any auditory or visual hallucinations. Memory, immediate, remote, recent, is good. Insight and judgment are fair. VITAL SIGNS: Temperature 98.3, pulse is 98, blood pressure is 142/99, respirations 20, pulse oximetry 97. LABORATORY DATA: CBC and CMP within normal limits. Cholesterol was slightly increased. Toxicology was positive for cannabis. DIAGNOSES: 1. Schizoaffective disorder. 2. Bipolar disorder. 3. Cannabis use disorder. PLAN: Continue current medications, olanzapine 10 mg twice daily and Rexulti 3 mg at night. ESTIMATED LENGTH OF STAY: 5-6 days. TIME SPENT ON THE PATIENT: 25 minutes. Vital Signs Vital Signs Date Time Temp Pulse Resp B/P (MAP) Pulse Ox O2 Delivery O2 Flow Rate FiO2 07/17/20 09:25 95 153/94 07/17/20 06:00 98.2 16 96 07/16/20 07:52 Room Air Current Medications Current Medications Medications (Trade) Dose Ordered Sig/Yovanny Route PRN Reason Start Time Stop Time Status Last Admin Dose Admin Acetaminophen (Tylenol Tab) 650 mg Q6HP PRN PO HEADACHE or DISCOMFORT 07/13/20 17:45 Al Hydrox/Mg Hydrox/Simethicone (Mylanta) 30 ml Q4HP PRN PO HEARTBURN/INDIGESTION 07/13/20 17:45 Amantadine HCl (Symmetrel) 200 mg DAILY PO 07/14/20 09:00 07/17/20 09:25 Brexpiprazole (Rexulti) 3 mg QHS PO 07/13/20 21:00 07/16/20 20:58 Magnesium Hydroxide (Milk Of Magnesia) 30 ml DAILYPRN PRN PO CONSTIPATION 07/13/20 17:45 Meloxicam (Mobic) 15 mg DAILY PO 07/14/20 09:00 07/17/20 09:25 Metoprolol Succinate (TopROL XL) 100 mg DAILY PO 07/14/20 09:00 07/17/20 09:25 Multivitamins (Theragram-M) 1 tab DAILY PO 07/14/20 09:00 07/17/20 09:25 Nicotine (Nicorette) 2 mg Q4HP PRN PO NICOTINE WITHDRAWAL 07/15/20 11:00 07/17/20 09:27 Olanzapine (ZyPREXA) 10 mg BID PO 07/14/20 21:00 07/17/20 09:25 Olanzapine (ZyPREXA) 10 mg TID PO 07/13/20 21:00 07/14/20 14:41 DC 07/14/20 10:22 Omeprazole (PriLOSEC) 40 mg DAILY PO 07/14/20 09:00 07/17/20 09:25 Trazodone HCl (Desyrel) 50 mg QHSP PRN PO INSOMNIA 07/13/20 17:45 07/16/20 20:58 Allergies Coded Allergies: [place]'s wort (Verified Allergy, Unknown, 08/05/19) ALTAGRACIA MELLO MD Jul 17, 2020 10:51
[2020-07-17] MEDS: BREXPIPRAZOLE 2MG TABLET (REXULTI) PO SCH (21:09)
[2020-07-18 06:40] VITALS: BP 145/83
[2020-07-18] MEDS: OLANZapine 10 MG TAB PO SCH ×2 (09:02→22:03)
[2020-07-18] MEDS: OMEPRAZOLE 20 MG CAP PO SCH (09:02)
[2020-07-18] MEDS: AMANTADINE 100MG TABLET PO SCH (09:02)
[2020-07-18] MEDS: MELOXICAM (MOBIC) 7.5 MG TAB PO SCH (09:02)
[2020-07-18] MEDS: MULTIVITAMINS/MINERALS THERAP 1 TAB PO SCH (09:02)
[2020-07-18] MEDS: METOPROLOL SUCC (TopROL XL) 100MG *XL* TAB PO SCH (09:03)
[2020-07-18] MEDS: NICOTINE POLACRILEX 2 MG GUM PO PRN ×2 (09:05→13:35)
--- NOTE | 2020-07-18 15:10 | MHIPNPDOC ---
[facility] Progress Note Progress Note DATE OF SERVICE: 07/18/20 HISTORY: Patient is a 35 -year-old Single, Disabled, Domiciled, , male, who reports that he "has a fear for not knowing who he is and not knowing where he is going and this causes him overwhelming anxiety. He is feeling disappointment about his life and that he has not accomplished things that he has wanted to do, this causes him depression. States that he feels like he is going backwards and is lonely. Reports that he has recent deaths in his family (father last year and stepfather the year before) reports limited or poor supports, ruminates that people were making fun of him. When asked how long his depression has been going on he reports, "I can't even tell you." Patient states multiple admissions to this facility and [place] and [place], reports that he had stopped taking his medications. PER ED REPORT: Pt. reports he is feeling suicidal. He states he does not know what the plan would be to kill himself because it is out of his hands and in the hands of the universe. He states that he has not been taking his medications for one week, stating he sometimes forgets and also because he has been thinking he doesn't need them. He reports he has had AH for years on/off, states recently voices tell him what to do throughout the day, including to harm himself but he has not acted on that. He denies AH today. He states he has seen, in his mind, a schilling house with the #827 on it and he doesn't know if that means if he should go and try to find the house. He reports he is a client of the [facility] apartment program, lives by himself. He states he sometimes feels unsafe at home because he is scared of fire. He otherwise does not mind living alone. He is pleasant and soft spoken, cooperative, appears anxious, sitting and standing, pacing at times. He also reports that he feels he is having a hard time communicating because he does not know what all the answers are. VITAL SIGNS: See below. CURRENT MEDICATIONS: See below. MENTAL STATUS EXAMINATION: Patient is a 35 -year-old Single, Disabled, Domiciled, , male, who reports that he "has a fear for not knowing who he is and not knowing where he is going." This was causing him depression and suicidal thoughts Speech: slow rate, tone and low volume Language skills are intact Thought processes including: linear and goal oriented Thought content: reports continued depression and anxiety. Denies suicidal/homicidal ideation, planning or intent. Abstract reasoning, and computation: fair Description of associations: denies, none observed Description of abnormal or psychotic thoughts: denies, vague but had reported auditory and visual hallucinations. Judgment: fair Insight: fair Orientation: alert and oriented to person, place, time and situation Recent and remote memory: intact Attention span and concentration: Fair Language: expansive Fund of knowledge: average Mood: Depressed Mood Affect: Flat DIAGNOSES: Schizoaffective Disorder Nicotine Use Disorder Cannabis Use Disorder ASSESSMENT: patient found in his bed and was reporting no complaints but appears to be depressed. He reports being "OK" but was minimal in his responses and had poor eye contact during assessment. Patient reports that he is improving reporting that he has not had any suicidal thinking since last week. 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 Worries that he cannot meet all the roles that he fulfills because he does not have the motivation to stay in one role. MANAGEMENT PLAN: Patient to continued his medications. TIME SPENT:25 minutes. Vital Signs Vital Signs Date Time Temp Pulse Resp B/P (MAP) Pulse Ox O2 Delivery O2 Flow Rate FiO2 07/18/20 09:03 100 133/79 07/18/20 06:40 97.5 14 95 Room Air Current Medications Current Medications Medications (Trade) Dose Ordered Sig/Yovanny Route PRN Reason Start Time Stop Time Status Last Admin Dose Admin Acetaminophen (Tylenol Tab) 650 mg Q6HP PRN PO HEADACHE or DISCOMFORT 07/13/20 17:45 Al Hydrox/Mg Hydrox/Simethicone (Mylanta) 30 ml Q4HP PRN PO HEARTBURN/INDIGESTION 07/13/20 17:45 Amantadine HCl (Symmetrel) 200 mg DAILY PO 07/14/20 09:00 07/18/20 09:02 Brexpiprazole (Rexulti) 3 mg QHS PO 07/13/20 21:00 07/17/20 21:09 Magnesium Hydroxide (Milk Of Magnesia) 30 ml DAILYPRN PRN PO CONSTIPATION 07/13/20 17:45 Meloxicam (Mobic) 15 mg DAILY PO 07/14/20 09:00 07/18/20 09:02 Metoprolol Succinate (TopROL XL) 100 mg DAILY PO 07/14/20 09:00 07/18/20 09:03 Multivitamins (Theragram-M) 1 tab DAILY PO 07/14/20 09:00 07/18/20 09:02 Nicotine (Nicorette) 2 mg Q4HP PRN PO NICOTINE WITHDRAWAL 07/15/20 11:00 07/18/20 13:35 Olanzapine (ZyPREXA) 10 mg BID PO 07/14/20 21:00 07/18/20 09:02 Olanzapine (ZyPREXA) 10 mg TID PO 07/13/20 21:00 07/14/20 14:41 DC 07/14/20 10:22 Omeprazole (PriLOSEC) 40 mg DAILY PO 07/14/20 09:00 07/18/20 09:02 Trazodone HCl (Desyrel) 50 mg QHSP PRN PO INSOMNIA 07/13/20 17:45 07/16/20 20:58 Allergies Coded Allergies: Donna's wort (Verified Allergy, Unknown, 08/05/19) KYLE FREEMAN NP Jul 18, 2020 15:05
[2020-07-18 16:00] VITALS: BP 122/75
[2020-07-18] MEDS: BREXPIPRAZOLE 2MG TABLET (REXULTI) PO SCH (22:03)
[2020-07-19 06:35] VITALS: BP 148/95
[2020-07-19] MEDS: MULTIVITAMINS/MINERALS THERAP 1 TAB PO SCH (08:17)
[2020-07-19] MEDS: OLANZapine 10 MG TAB PO SCH ×2 (08:17→19:53)
[2020-07-19] MEDS: AMANTADINE 100MG TABLET PO SCH (08:17)
[2020-07-19] MEDS: MELOXICAM (MOBIC) 7.5 MG TAB PO SCH (08:17)
[2020-07-19] MEDS: OMEPRAZOLE 20 MG CAP PO SCH (08:18)
[2020-07-19] MEDS: METOPROLOL SUCC (TopROL XL) 100MG *XL* TAB PO SCH (08:18)
[2020-07-19] MEDS: NICOTINE POLACRILEX 2 MG GUM PO PRN ×3 (08:21→17:57)
[2020-07-19 16:28] VITALS: BP 136/87
[2020-07-19] MEDS: BREXPIPRAZOLE 2MG TABLET (REXULTI) PO SCH (19:52)
[2020-07-19] MEDS: traZODone 50 MG TAB PO PRN (19:52)
--- NOTE | 2020-07-19 19:52 | MHIPNPDOC ---
[facility] Progress Note Progress Note DATE OF SERVICE: 07/19/20 HISTORY: Patient is a 35 -year-old Single, Disabled, Domiciled, , male, who reports that he "has a fear for not knowing who he is and not knowing where he is going and this causes him overwhelming anxiety. He is feeling disappointment about his life and that he has not accomplished things that he has wanted to do, this causes him depression. States that he feels like he is going backwards and is lonely. Reports that he has recent deaths in his family (father last year and stepfather the year before) reports limited or poor supports, ruminates that people were making fun of him. When asked how long his depression has been going on he reports, "I can't even tell you." Patient states multiple admissions to this facility and [place] and [place], reports that he had stopped taking his medications. PER ED REPORT: Pt. reports he is feeling suicidal. He states he does not know what the plan would be to kill himself because it is out of his hands and in the hands of the universe. He states that he has not been taking his medications for one week, stating he sometimes forgets and also because he has been thinking he doesn't need them. He reports he has had AH for years on/off, states recently voices tell him what to do throughout the day, including to harm himself but he has not acted on that. He denies AH today. He states he has seen, in his mind, a schilling house with the #827 on it and he doesn't know if that means if he should go and try to find the house. He reports he is a client of the [facility] apartment program, lives by himself. He states he sometimes feels unsafe at home because he is scared of fire. He otherwise does not mind living alone. He is pleasant and soft spoken, cooperative, appears anxious, sitting and standing, pacing at times. He also reports that he feels he is having a hard time communicating because he does not know what all the answers are. VITAL SIGNS: See below. CURRENT MEDICATIONS: See below. MENTAL STATUS EXAMINATION: Patient is a 35 -year-old Single, Disabled, Domiciled, , male, who reports that he "has a fear for not knowing who he is and not knowing where he is going." This was causing him depression and suicidal thoughts Speech: slow rate, tone and low volume Language skills are intact Thought processes including: linear and goal oriented Thought content: reports continued depression and anxiety. Denies suicidal/homicidal ideation, planning or intent. Abstract reasoning, and computation: fair Description of associations: denies, none observed Description of abnormal or psychotic thoughts: denies, vague but had reported auditory and visual hallucinations. Judgment: fair Insight: fair Orientation: alert and oriented to person, place, time and situation Recent and remote memory: intact Attention span and concentration: Fair Language: expansive Fund of knowledge: average Mood: Depressed Mood Affect: Flat DIAGNOSES: Schizoaffective Disorder Nicotine Use Disorder Cannabis Use Disorder ASSESSMENT: Patient reports that he is feeling better, states that he is no longer upset with having to stay in the hospital. Reports not being paranoid about having to stay. In his interview today, patient had improved mood and affect and states that he is doing much better, no longer questioning why he is in the hospital. Has been reading and reports actually enjoying the plot of the book. States that being on his medications has stabilized his mood. Denies suicidal ideations. MANAGEMENT PLAN: Patient to continued his medications. Discharge tomorrow. TIME SPENT:25 minutes. Vital Signs Vital Signs Date Time Temp Pulse Resp B/P (MAP) Pulse Ox O2 Delivery O2 Flow Rate FiO2 07/19/20 08:18 90 148/95 07/19/20 06:35 97.7 18 93 Room Air Current Medications Current Medications Medications (Trade) Dose Ordered Sig/Yovanny Route PRN Reason Start Time Stop Time Status Last Admin Dose Admin Acetaminophen (Tylenol Tab) 650 mg Q6HP PRN PO HEADACHE or DISCOMFORT 07/13/20 17:45 Al Hydrox/Mg Hydrox/Simethicone (Mylanta) 30 ml Q4HP PRN PO HEARTBURN/INDIGESTION 07/13/20 17:45 Amantadine HCl (Symmetrel) 200 mg DAILY PO 07/14/20 09:00 07/19/20 08:17 Brexpiprazole (Rexulti) 3 mg QHS PO 07/13/20 21:00 07/18/20 22:03 Magnesium Hydroxide (Milk Of Magnesia) 30 ml DAILYPRN PRN PO CONSTIPATION 07/13/20 17:45 Meloxicam (Mobic) 15 mg DAILY PO 07/14/20 09:00 07/19/20 08:17 Metoprolol Succinate (TopROL XL) 100 mg DAILY PO 07/14/20 09:00 07/19/20 08:18 Multivitamins (Theragram-M) 1 tab DAILY PO 07/14/20 09:00 07/19/20 08:17 Nicotine (Nicorette) 2 mg Q4HP PRN PO NICOTINE WITHDRAWAL 07/15/20 11:00 07/19/20 13:54 Olanzapine (ZyPREXA) 10 mg BID PO 07/14/20 21:00 07/19/20 08:17 Olanzapine (ZyPREXA) 10 mg TID PO 07/13/20 21:00 07/14/20 14:41 DC 07/14/20 10:22 Omeprazole (PriLOSEC) 40 mg DAILY PO 07/14/20 09:00 07/19/20 08:18 Trazodone HCl (Desyrel) 50 mg QHSP PRN PO INSOMNIA 07/13/20 17:45 07/16/20 20:58 Allergies Coded Allergies: [place]'s wort (Verified Allergy, Unknown, 08/05/19) KYLE FREEMAN [employer]ACHINE OPERATOR Jul 19, 2020 14:24
[2020-07-20 06:12] VITALS: BP 138/92
[2020-07-20] MEDS: AMANTADINE 100MG TABLET PO SCH (08:46)
[2020-07-20] MEDS: MELOXICAM (MOBIC) 7.5 MG TAB PO SCH (08:46)
[2020-07-20] MEDS: MULTIVITAMINS/MINERALS THERAP 1 TAB PO SCH (08:46)
[2020-07-20] MEDS: OLANZapine 10 MG TAB PO SCH (08:46)
[2020-07-20] MEDS: OMEPRAZOLE 20 MG CAP PO SCH (08:46)
[2020-07-20 08:47] VITALS: BP 137/87
[2020-07-20] MEDS ORDERED: OMEP40CA97 PO (08:47)
[2020-07-20] MEDS: METOPROLOL SUCC (TopROL XL) 100MG *XL* TAB PO SCH (08:47)
[2020-07-20] MEDS ORDERED: REXU1TAB5 PO (08:47)
[2020-07-20] MEDS ORDERED: METO1TAB33 PO (08:47)
[2020-07-20] MEDS ORDERED: INVE156I IM (08:47)
[2020-07-20] MEDS ORDERED: VITMTA PO (08:47)
[2020-07-20] MEDS ORDERED: OLAN10TA2 PO (08:47)
[2020-07-20] MEDS ORDERED: MELO15TA28 PO (08:47)
[2020-07-20] MEDS ORDERED: AMAN100T PO ×2 (08:47→08:50)
[2020-07-20] MEDS: NICOTINE POLACRILEX 2 MG GUM PO PRN (08:49)
--- NOTE | 2020-07-20 10:28 | MHDSPDOC ---
[facility] Discharge Summary Discharge Summary DATE OF ADMISSION: Jul 13, 2020 at 17:42 DATE OF DISCHARGE: July 20, 2020 at 1015 DISCHARGE DIAGNOSES: Schizoaffective Disorder Nicotine Use Disorder Cannabis Use Disorder REASON FOR ADMISSION: Patient is a 35 -year-old Single, Disabled, Domiciled, , male, who reports that he "has a fear for not knowing who he is and not knowing where he is going and this causes him overwhelming anxiety. He is feeling disappointment about his life and that he has not accomplished things that he has wanted to do, this causes him depression. States that he feels like he is going backwards and is lonely. Reports that he has recent deaths in his family (father last year and stepfather the year before) reports limited or poor supports, ruminates that people were making fun of him. When asked how long his depression has been going on he reports, "I can't even tell you." Patient states multiple admissions to this facility and in [place] and [place], reports that he had stopped taking his medications. PER ED REPORT: Pt. reports he is feeling suicidal. He states he does not know what the plan would be to kill himself because it is out of his hands and in the hands of the universe. He states that he has not been taking his medications for one week, stating he sometimes forgets and also because he has been thinking he doesn't need them. He reports he has had AH for years on/off, states recently voices tell him what to do throughout the day, including to harm himself but he has not acted on that. He denies AH today. He states he has seen, in his mind, a schilling house with the #[id number] on it and he doesn't know if that means if he should go and try to find the house. He reports he is a client of the [employer] apartment program, lives by himself. He states he sometimes feels unsafe at home because he is scared of fire. He otherwise does not mind living alone. He is pleasant and soft spoken, cooperative, appears anxious, sitting and standing, pacing at times. He also reports that he feels he is having a hard time communicating because he does not know what all the answers are. CONSULTANTS INVOLVED: See Medical H + P by Hospitalist TREATMENT AND PROGRESS ON THE UNIT: Patient was admitted to the [facility] on a 9.39 legal status he was afforded the following treatment modalities: 1) Individual Therapy 2) Group Therapy 3) Medication Management 4) Milieu Therapy 5) Safe Environment HOSPITAL COURSE: Patient was admitted to [facility] on a 39 legal status. On his initial admission he had divulged that he had stopped taking his medications and decompensated. He was restarted on his home medications and improved. Patient was initially mildly withdrawn and guarded, somewhat isolative. He later became more engaged in the milieu, often found reading a book in the milieu. He did not attend many groups. In today's session he reported that he was no longer having thoughts of self-harm reported that in the ER his depression was 8/10 and rates in 04/17 today. His suicidality was 5/10 and now 04/17. He admits to mild anxiety about returning home. Patient talked about self-esteem issues and wanting to be well enough to have a relationship. Patient is due to have his Invega Sustenna injection in 2 weeks. DISCHARGE ASSESSMENT: In today's interview, patient is alert and oriented, pts dress is appropriate. Hygiene and grooming is well-kempt. Smiles on approach and is pleasant and engaged in the interview. Denies depression and anxiety. Denies suicidal and homicidal ideation, planning or intent. Denies and is not observed with tanika, psychotic symptoms of delusions, bizarre thinking, obsessions, paranoia, ruminations illogical thoughts, flight of ideas or having poor insight and judgement. Patient has normal mentation, declines further hospitalization on a voluntary status and meets criteria for discharge today. Patient encouraged to return to hospital if his symptoms worsen or change and encouraged to call unit if he/she/they needs to speak to provider for questions regarding medications or care. MENTAL STATUS EXAMINATION ON DISCHARGE: michelle is a 35 -year-old Single, Disabled, Domiciled, , male, who reports that he "has a fear for not knowing who he is and not knowing where he is going and this causes him overwhelming depressed, anxiety with some suicidal ideations Speech: Is fluid, conversant, normal rate, tone and volume Language skills are intact Thought processes including: linear and goal oriented Thought content: denies depression and anxiety. Denies suicidal/homicidal ideation, planning or intent. Abstract reasoning, and computation: fair Description of associations: denies, none observed Description of abnormal or psychotic thoughts: denies, none observed. Judgment: fair Insight: fair Orientation: alert and oriented to person, place, time and situation Recent and remote memory: intact Attention span and concentration: good Language: expansive Fund of knowledge: average Mood: Euthymic Mood Affect: reactive MEDICATIONS ON DISCHARGE: See Medication Reconciliation PLAN/FOLLOWUP ARRANGEMENTS: Patient is being discharged to his [facility] housing and will be following up with [facility] for both medical and mental health services. The amount of time spent in the coordination of care for this patient was approximately 25 minutes. ETOH/Disorder Med Rx ETOH/DRUG DISORDER RX: N/A Vital Signs/I&Os Vital Signs Date Time Temp Pulse Resp B/P (MAP) Pulse Ox O2 Delivery O2 Flow Rate FiO2 07/20/20 08:47 102 137/87 07/20/20 06:12 98.3 18 98 Room Air Medications Scheduled Amantadine HCl (Amantadine) 100 Mg Tablet, 200 MG PO DAILY for side effects, #14 Brexpiprazole (Rexulti) 3 Mg Tablet, 3 MG PO QHS for psychosis, #7 Meloxicam (Meloxicam) 15 Mg Tab, 15 MG PO DAILY for pain, #7 Metoprolol Succinate (Metoprolol Succinate) 100 Mg Tab.er.24h, 100 MG PO DAILY for hypertension, #7 Multivitamins (Thera M Plus Tablet) 1 Each Tablet, 1 TAB PO QAM for supplement for 30 Days, #7 Olanzapine (Olanzapine) 10 Mg Tablet, 10 MG PO TID for psychosis, #21 Omeprazole (Omeprazole) 40 Mg Cap, 40 MG PO DAILY for gerd, #7 Paliperidone Palmitate (Invega Sustenna) 156 Mg/1 Ml Syringe, 156 MG IM QMONTH for psychosis, #1 Allergies Coded Allergies: Donna's wort (Verified Allergy, Unknown, 08/05/19) KYLE FREEMAN NP Jul 20, 2020 10:21
== END 2020-07-20 11:00 | disposition home or self-care (01) | DRG 885 ==
LOC: M ED 08:56 → M ED INP 17:42 → M PSY 18:44
PROVIDERS: ADMIT Psychiatry & Neurology Psychiatry; ATTEND Psychiatry & Neurology Psychiatry
DX: F25.9 Schizoaffective disorder, unspecified (principal); F12.10 Cannabis abuse, uncomplicated; R73.03 Prediabetes; I10 Essential (primary) hypertension; K21.9 Gastro-esophageal reflux disease without esophagitis; F17.210 Nicotine dependence, cigarettes, uncomplicated; Z63.4 Disappearance and death of family member; Z63.8 Other specified problems related to primary support group; Z79.899 Other long term (current) drug therapy; Z88.8 Allergy status to other drugs, medicaments and biological substances; Z91.14 Patient's other noncompliance with medication regimen; Z20.822 Contact with and (suspected) exposure to COVID-19

== ENCOUNTER 2020-09-28 06:49 | Inpatient (IN) | payer MEDICARE, MEDICAID ==
[~2020-09-28] VITALS: Ht 177.8 cm; Wt 123.3 kg
[~2020-09-28 06:49] MED LIST changes: +INFLUENZA QUADRIVALENT PF VACCINE 0.5ML SYRINGE IM ONE; +OMEP40CA4 PO; -OMEP40CA97 PO
[2020-09-28] MEDS ORDERED: [UNRECOGNIZED DRUG - OTHER] PO (07:00)
[2020-09-28] MEDS ORDERED: DIPH50CA PO (07:00)
[2020-09-28 09:02] LABS: HEMATOCRIT 43.6 % (42.0-52.0); HEMOGLOBIN 14.6 g/dl (13.5-17.5); MEAN CORPUSCULAR HEMOGLOBIN 31.1 pg (27.0-33.0); MEAN CORPUSCULAR HGB CONC 33.5 g/dl (32.0-36.5); MEAN CORPUSCULAR VOLUME 92.8 fl (80.0-96.0); PLATELET COUNT, AUTOMATED 229 10^3/uL (150-450); WHITE BLOOD COUNT 5.3 10^3/uL (4.0-10.0)
[2020-09-28 09:38] LABS: ACETAMINOPHEN LEVEL < 2.0 UG/ML (10.0-30.0); ALBUMIN 4.1 GM/DL (3.2-5.2); ALT/SGPT 63 U/L (12-78); BILIRUBIN,DIRECT 0.2 MG/DL (0.0-0.2); BILIRUBIN,TOTAL 0.7 MG/DL (0.2-1.0); BLOOD UREA NITROGEN 10 MG/DL (7-18); CALCIUM LEVEL 8.5 MG/DL (8.5-10.1); CARBON DIOXIDE LEVEL 29 MEQ/L (21-32); CHLORIDE LEVEL 110 MEQ/L (98-107); ETHYL ALCOHOL (ETHANOL) < 0.003 % (0.000-0.010); GLOMERULAR FILTRATION RATE > 60.0 (>60); GLUCOSE, FASTING 86 MG/DL (70-100); POTASSIUM SERUM 4.4 MEQ/L (3.5-5.1); SALICYLATE LEVEL 4.2 MG/DL (5.0-30.0); SODIUM LEVEL 142 MEQ/L (136-145); THYROID STIMULATING HORMONE 0.857 uIU/ML (0.358-3.740); TOTAL PROTEIN 7.4 GM/DL (6.4-8.2)
[2020-09-28 13:09] LABS: AMPHETAMINES LEVEL URINE NEGATIVE (NEGATIVE); BARBITURATES URINE NEGATIVE (NEGATIVE); BENZODIAZEPINES URINE NEGATIVE (NEGATIVE); CANNABINOIDS URINE POSITIVE (NEGATIVE); COCAINE METABOLITE URINE NEGATIVE (NEGATIVE); METHADONE URINE NEGATIVE (NEGATIVE); OPIATES URINE NEGATIVE (NEGATIVE); PHENCYCLIDINE URINE NEGATIVE (NEGATIVE)
[2020-09-28] MEDS ORDERED: IBUPROFEN 400MG TAB PO PRN (14:10)
[2020-09-28] MEDS ORDERED: MAALOX 30 ML SUSP *UDC PO PRN (14:10)
[2020-09-28] MEDS ORDERED: MOM 30ML SUSPENSION UDC PO PRN (14:10)
[2020-09-28 14:11] LABS: RSV AMPLIFICATION NEGATIVE (NEGATIVE)
[2020-09-28] MEDS ORDERED: INVE156I IM (14:55)
[2020-09-28 16:38] VITALS: BP 136/93
[2020-09-28] MEDS: NICOTINE 21MG/24HR 1 EA TRANSDERMAL TD SCH (17:03)
[2020-09-29 06:38] VITALS: BP 138/85
[2020-09-29] MEDS: NICOTINE 21MG/24HR 1 EA TRANSDERMAL TD SCH (08:43)
[2020-09-29] MEDS: haloperidoL 5 MG TAB PO PRN (08:44)
[2020-09-29] MEDS ORDERED: INFLUENZA QUADRIVALENT PF VACCINE 0.5ML SYRINGE IM ONE (09:00)
--- NOTE | 2020-09-29 10:34 | MHHPEPDOC ---
General Date Of Admission: Sep 28, 2020 Legal Status: 9.39 Chief Complaint I was getting scared of the snakes. I couldn't sleep, afraid that something bad is happening to ". History of Present Illness HISTORY OF THE PRESENT ILLNESS: Patient is a 35 -year-old , male, who has a long psychiatric history and has many previous admissions with the last discharge in July 2020. He has been attending outpatient clinic and receiving paliperidone injection but has not been taking any oral medications for the past 2 months. Patient stated that he has been getting increasingly preoccupied with some bizarre thoughts and delusions. He was watching TV yeste rday and saw a nature movie and witnessed a man with a snake wrapped around his neck. He stated that since then he has been getting increasing fear of snakes and felt something bad was going to happen to him. He was not getting proper sleep was getting anxious, fearful and preoccupied with the thoughts and finally came to emergency room seeking help. He denies any seriously depressed mood and he denies any command hallucination and denies any thoughts of suicide but feels that he needs proper medicine to ease his fear and feels better. . Psychiatric Review of Systems Depression (2 or more weeks): insomnia/hypersomnia, decreased energy, difficulty concentrating, other (anxious and fearful) Margaret (4 or more days of): denies Psychosis: delusions, paranoia, other (, fearful that something bad is going to happen) PTSD: denies Anxiety: stressor related anxiety Past Psychiatric History Previous Psychiatric Diagnosis: . Schizoaffective disorder Previous Psychiatric Admissions: . Numerous admissions since the age of 22. Last discharge was in July 2020 Suicide Attempts: . Reports history of about 5 suicidal attempts in the past, all by overdose, but none in the past 10 years Psychiatric Follow-up: . In active treatment with outpatient clinic Psychiatric medications: . Paliperidone injection Past Medical History Medical Problems No major medical history Head Injury: No Seizures: No Hospitalizations: No Surgeries: No Family Medical/Psychiatric HX Medical Problems Noncontributory. He was adopted at age 12 and has very little contact with his biological family and his adopted father . Psychiatric Disorders: No Addiction: No Addiction History denies Social History Childhood: . Born in [place], adopted at age 12 to [place] Abuse/Trauma:. Denies any Current Living Situation: Lives alone. Education: High school and some college majored in music. Employment: On [employer],. Social Support: . More support system Legal: . No legal history. No history of violence Marital: , Never . Mental Status Examination General Appearance: disheveled, appears stated age Build: average Demeanor: average, preoccupied, very figety Eye Contact: average Activity: average, anxious Behavior: cooperative Speech: pressured, normal volume, non-spontaneous Mood: anxious Mood Fearful ropes they can fearful of something bad happening Thought Process: logical/linear Thought Content (Delusions): paranoia, delusions Thought Content (Other): phobic, appears paranoid Thought Content (Aggressive): none reported Perception (Hallucinations): none reported Cognition(Intelligence Est.): average Oriented: Awake, Alert, Oriented times three Insight: fair Judgment: Poor Diagnoses Schizoaffective disorder A-FIB/CHADSVASC A-FIB History Current/History of A-Fib/PAF?: No Current PO Anticoag Therapy: No Age/Risk Factor Scoring CHADSVASC: CHADSVASC Response (Comments) Value Gender Risk Factor Male 0 Hx of CHF No 0 Hx of HTN No 0 Hx of Stroke/TIA/or VTE No 0 Hx of Diabetes No 0 Hx of Vascular Disease No 0 Total 0 Treatment Treatment ordered: NONE Assessment Was a receiving paliperidone injection but not been taking any other oral medications. He claims that Depakote has not helped him and doesn't want to take it and doesn't want lithium. He doesn't feel he needs antidepressant medicine, but he needs something to help with his anxiety and fear. Consider increasing his paliperidone injection and add Seroquel to help with his mood and paranoia. Initial Treatment Plan 1. Patient was admitted on a 939 status. 2. Complete history was obtained. 3. With patients permission, family will be contacted and database will be expanded. 4. Patients medication regimen will be reviewed and changed accordingly. 5. Patient will be provided with protected environment. 6. Patient will be treated with individual, group, and milieu therapies. 7. Patient will receive supportive psych-education. 8. Discharge planning will commence immediately. 9. Outpatient follow-up treatment will be strongly recommended. 10. The initial treatment plan will focus initially on: * Depression. * Risk for suicide. ESTIMATED LENGTH OF STAY: 5-7 DAYS. TIME SPENT COUNSELING AND COORDINATING INITIAL CARE: 45 minutes. Tobacco Cessation Screen If Patient is a Smoker Yes Tobacco Cessation Tx Ordered?: Yes Complete/Results docum. Vital Signs Vital Signs Date Time Temp Pulse Resp B/P (MAP) Pulse Ox O2 Delivery O2 Flow Rate FiO2 09/29/20 06:38 97.1 76 14 138/85 (102) 99 Room Air Laboratory Data 24H Labs Laboratory Tests 2 09/28/20 12:26: Urine Opiates Screen NEGATIVE, Urine Methadone Screen NEGATIVE, Urine Barbiturates Screen NEGATIVE, Urine Phencyclidine Screen NEGATIVE, Urine Amphetamines Screen NEGATIVE, Urine Benzodiazepines Screen NEGATIVE, Urine Cocaine Metabolite Screen NEGATIVE, Urine Cannabinoids Screen POSITIVEH Medications Scheduled Paliperidone Palmitate (Invega Sustenna) 156 Mg/1 Ml Syringe, 156 MG IM QMONTH, (Reported) PT STATES RECEIVED END OF AUGUST Allergies Coded Allergies: [place]'s wort (Verified Allergy, Unknown, 08/05/19) NILSON ALLEN M.D. Sep 29, 2020 10:34
[2020-09-29] MEDS: QUEtiapine FUMARATE 50MG TAB PO SCH ×2 (11:15→20:45)
--- NOTE | 2020-09-29 14:35 | HPEPDOC ---
General Date of Admission Sep 28, 2020 at 14:09 Date of Service: Sep 29, 2020 Attending Physician: REHANA LOFTON MD Chief Complaint The patient is a 35-year-old male admitted with a reason for visit of Psychotic Disorder Nos. Source: Patient, RN/MD Exam Limitations: No limitations History of Present Illness 35 yo M with a history of preDM, HTN, schizoaffective disorder who presented to the ED reporting increased anxiety and feeling of impending doom and was fearful and decided to present to the ED for psychiatric evaluation and treatment. He is on paliperidone in the outpatient setting, but otherwise does not take any other medications. He otherwise denies any F/C/N/V/D. ED workup was notable for tox screen positive for marijuana but the CBC and BMP were otherwise wnl. He was admitted to the [facility] and medicine is being consulted for medical evaluation. Home Medications Scheduled Paliperidone Palmitate (Invega Sustenna) 156 Mg/1 Ml Syringe, 156 MG IM QMONTH, (Reported) PT STATES RECEIVED END OF AUGUST Allergies Coded Allergies: [place]'s wort (Verified Allergy, Unknown, 08/05/19) Past Medical History Medical History history of preDM, HTN, schizoaffective disorder Surgical History None Family History Adopted. No knowledge of family history. Social History * Smoker: Denies Alcohol: occationally Drugs: marijuana Recent Travel/Sick Contacts: Denies: Recent travel, Recent sick contacts Psychosocial History: Anxiety, Garrett SI and HI, Prior suicide attempt A-FIB/CHADSVASC A-FIB History Current/History of A-Fib/PAF?: No Current PO Anticoag Therapy: No Age/Risk Factor Scoring CHADSVASC: CHADSVASC Response (Comments) Value Age Risk Factor Age < 65 years old 0 Gender Risk Factor Male 0 Hx of CHF No 0 Hx of HTN No 0 Hx of Stroke/TIA/or VTE No 0 Hx of Diabetes No 0 Hx of Vascular Disease No 0 Total 0 Treatment Treatment ordered: NONE Reason Anticoagulant not given: Not indicated/[id number] Review of Systems Constitutional: Denies: Chills, Fever, Night Sweats Eyes: Denies: Pain, Vision change ENT: Denies: Head Aches, Ear Pain, Dysphagia Skin: Denies: Rash, Lesions, Breakdown Pulmonary: Denies: Dyspnea, Cough Cardiovascular: Denies: Chest Pain, Palpitations, Orthopnea, Paroxysmal Noc. Dyspnea, Lt Headedness Gastrointestinal: Denies: Nausea, Vomiting, Abdominal Pain, Diarrhea Genitourinary: Denies: Dysuria, Frequency, Incontinence, Retention Hematologic: Denies: Bruising, Bleeding Excessively Endocrine: Denies: Polydipsia, Polyphagia, Polyuria, Heat Intolerance, Cold Intolerance, Other Endocrine Sx Musculoskeletal: Denies: Neck Pain, Back Pain, Joint Pain, Muscle Pain, Spasms Neurological: Denies: Weakness, Numbness, Change in speech, Confusion Psych: Reports: Anxiety, Depression; Denies: Thoughts of Self Harm, Thoughts of Harming Other Physical Examination General Exam: Positive: Alert, No Acute Distress Eye Exam: Positive: PERRLA, Conjunctiva & lids normal, EOMI; Negative: Sclera icteric ENT Exam: Positive: Atraumatic, Mucous membr. moist/pink, Pharynx Normal Neck Exam: Positive: Supple; Negative: JVD, thyromegaly Chest Exam: Positive: Clear to auscultation, Normal air movement Heart Exam: Positive: Rate Normal, Regular Rhythm, Normal S1, Normal S2; Negative: Murmurs, Rubs Abdomen Exam: Positive: Normal bowel sounds, Soft, Other (obese); Negative: Tenderness, Hepatospenomegaly Extremity Exam: Positive: Normal pulses; Negative: Clubbing, Cyanosis, Edema Skin Exam: Positive: Nl turgor and temperature; Negative: Breakdown, Lesion Neuro Exam: Positive: Normal Gait, Normal Speech, Cranial Nerves 3-12 NL, Reflexes 2+ Psych Exam: Positive: Anxiety, Oriented x 3 Vital Signs Vital Signs Date Time Temp Pulse Resp B/P (MAP) Pulse Ox O2 Delivery O2 Flow Rate FiO2 09/29/20 06:38 97.1 76 14 138/85 (102) 99 Room Air Assessment/Plan 35 yo M with a history of preDM, HTN, schizoaffective disorder who presented to the ED reporting increased anxiety and feeling of impending doom and was fearful and was admitted to the [facility] and medicine was consulted for evaluation and find that he is otherwise medically stable. Plan: Fearfulness, anxiety with a history of schizoaffective disorder: -Plan per primary psychiatry team He is otherwise medically stable at this time. Will sign off at this time. Plan / VTE VTE Prophylaxis Ordered?: No VTE Exclusion Mechanical Proph: Low Risk for VTE VTE Exclusion Pharmacological: At Low Risk for VTE REHANA LOFTON MD Sep 29, 2020 13:24
[2020-09-29 19:01] VITALS: BP 149/91
[2020-09-29] MEDS: traZODone 50 MG TAB PO PRN (20:45)
[2020-09-30 06:00] VITALS: BP 145/85
[2020-09-30] MEDS: QUEtiapine FUMARATE 50MG TAB PO SCH ×2 (08:19→21:14)
[2020-09-30] MEDS: NICOTINE 21MG/24HR 1 EA TRANSDERMAL TD SCH (08:19)
[2020-09-30] MEDS ORDERED: PALIPERIDONE PALMITATE 234MG/1.5ML INJ (INVEGA)(FREE PSY INPT ONLY) IM SCH (09:00)
--- NOTE | 2020-09-30 10:37 | MHIPNPDOC ---
[facility] Progress Note Progress Note DATE OF SERVICE: 09/30/20 The patient has cooperated with the Seroquel and reports that he is feeling better with the reduction in his anxiety and fear. He slept a good and he is not as preoccupied with the snake. His smiling, although at times somewhat inappropriately, but is pleasant on approach and is in no acute distress. His outpatient clinic. Reports that he has been complying with his paliperidone injection and is due for his monthly injection today. In view of his decompensation spite being compliant with his injectable medicine. I will increase his paliperidone to 234 mg every 30 days, and the patient is agreeable to this. HISTORY: . VITAL SIGNS: See below. NEW TEST RESULTS: . CURRENT MEDICATIONS: See below. MENTAL STATUS EXAMINATION: Patient is a 35-year old male, who is , cooperative. Speech: Is relevant. Language skills are [fair. Thought processes including: Fairly coherent . Thought content: , Not as preoccupied with the fear of the snake. Abstract reasoning, and computation: , Poor. Description of associations: Relevant response. Description of abnormal or psychotic thoughts: Denies any command hallucination and denies any suicidal thoughts. Judgment: Fair. Insight: fair. Orientation: , Oriented. Recent and remote memory: fair. Attention span and concentration: fair. Language: . Fund of knowledge: . Mood: Reports feeling not as anxious or fearful . Affect: , Somewhat inappropriately elevated. DIAGNOSES: 1. . Schizoaffective disorder 2. . 3. . ASSESSMENT: Cooperating with medicine and maintaining good control MANAGEMENT PLAN: , Increased paliperidone injection to 234 mg monthly. TIME SPENT: 20 minutes. Vital Signs Vital Signs Date Time Temp Pulse Resp B/P (MAP) Pulse Ox O2 Delivery O2 Flow Rate FiO2 09/30/20 06:00 97.8 77 18 145/85 (105) 98 09/29/20 06:38 Room Air Current Medications Current Medications Medications (Trade) Dose Ordered Sig/Yovanny Route PRN Reason Start Time Stop Time Status Last Admin Dose Admin Al Hydrox/Mg Hydrox/Simethicone (Mylanta) 30 ml Q4HP PRN PO HEARTBURN/INDIGESTION 09/28/20 14:10 Haloperidol (Haldol) 5 mg Q6HP PRN PO ANXIETY/AGITATION 09/28/20 14:10 09/29/20 08:44 Home Med (Med Rec Complete!) ASDIRECTED XX 09/28/20 14:55 09/28/20 15:07 DC Ibuprofen (Advil) 400 mg Q6HP PRN PO MODERATE PAIN (PS 5-7) 09/28/20 14:10 Lorazepam (Ativan) 1 mg Q6HP PRN PO ANXIETY/AGITATION 09/28/20 14:10 Magnesium Hydroxide (Milk Of Magnesia) 30 ml DAILYPRN PRN PO CONSTIPATION 09/28/20 14:10 Nicotine (Nicoderm Cq 21mg) 1 patch DAILY TD 09/28/20 09:00 09/30/20 08:19 Paliperidone Palmitate (Invega Sustenna) 234 mg Q30D IM 09/30/20 09:00 09/30/20 09:59 Quetiapine Fumarate (SEROquel) 50 mg BID PO 09/29/20 09:00 09/30/20 08:19 Trazodone HCl (Desyrel) 50 mg QHSP PRN PO INSOMNIA 09/28/20 14:10 09/29/20 20:45 Allergies Coded Allergies: Donna's wort (Verified Allergy, Unknown, 08/05/19) NILSON ALLEN M.D. Sep 30, 2020 10:37
[2020-09-30] MEDS: LORazepam 1 MG TAB PO PRN (14:54)
[2020-09-30 16:07] VITALS: BP 140/90
[2020-10-01 06:14] VITALS: BP 129/74
[2020-10-01] MEDS: QUEtiapine FUMARATE 50MG TAB PO SCH ×2 (08:53→21:08)
[2020-10-01] MEDS: NICOTINE 21MG/24HR 1 EA TRANSDERMAL TD SCH (08:54)
[2020-10-01] MEDS: haloperidoL 5 MG TAB PO PRN (11:56)
[2020-10-01] MEDS: LORazepam 1 MG TAB PO PRN (16:12)
[2020-10-01 16:31] VITALS: BP 140/78
[2020-10-01] MEDS: traZODone 50 MG TAB PO PRN (21:08)
[2020-10-02 06:17] VITALS: BP 136/82
[2020-10-02] MEDS: NICOTINE 21MG/24HR 1 EA TRANSDERMAL TD SCH (08:22)
[2020-10-02] MEDS: QUEtiapine FUMARATE 50MG TAB PO SCH ×2 (08:22→20:45)
[2020-10-02] MEDS: haloperidoL 5 MG TAB PO PRN ×2 (10:27→20:45)
[2020-10-02] MEDS: LORazepam 0.5 MG TAB PO PRN (15:11)
[2020-10-02 16:32] VITALS: BP 132/65
[2020-10-02] MEDS: traZODone 50 MG TAB PO PRN (20:44)
[2020-10-03 07:00] VITALS: BP 133/78
[2020-10-03] MEDS: QUEtiapine FUMARATE 50MG TAB PO SCH (07:58)
[2020-10-03] MEDS: NICOTINE 21MG/24HR 1 EA TRANSDERMAL TD SCH (07:59)
--- NOTE | 2020-10-03 09:01 | MHIPN ---
[facility] PROGRESS NOTE DATE: 10/01/2020 This is a video assessment, I am at home, he is in the inpatient psychiatry unit, he is seen in the presence of staff. VITAL SIGNS: Blood pressure 129/74, pulse 71, temperature 98.1. CHIEF COMPLAINT: Feels tired. SUBJECTIVE: Seen for followup. Indicates has been feeling somewhat tired, feels it is some of the medicine that he takes. Also alluded to some hearing voices but he is somewhat vague on that, moods possibly a bit better, but also spoke of anxiety and feeling depressed. MENTAL STATUS EXAMINATION: Neat, a bit guarded initially, coherent, no agitation, no psychomotor retardation, affect is restricted in range, no suicidal thoughts, denies any thoughts of harming anyone else, does not overtly appear to be internally preoccupied, cognition grossly intact, judgment and insight remain compromised. ASSESSMENT: Schizoaffective disorder. PLAN: Continue current care, and will look at decreasing the lorazepam, which he takes as needed, should the tiredness persist. He requested Benadryl, but I think it is preferable his using a lower dose of the lorazepam as needed, in the short-term. Further recommendations will be made depending on the clinical picture.
--- NOTE | 2020-10-03 10:46 | MHIPN ---
[facility] PROGRESS NOTE DATE: 10/02/2020 This is a video assessment, he is at the inpatient unit at the hospital, he is seen in the presence of staff, I am at home. VITAL SIGNS: Blood pressure 136/82, pulse 82, temperature 98.3. CHIEF COMPLAINT: Says feels okay. SUBJECTIVE: Seen for followup. Indicates has been feeling okay, but does not elaborate much. Says slept well. Says feels anxious, but possibly less so than he has, says took the Ativan, does not feel as tired. Has fears, as discussed yesterday, but less overtly so. MENTAL STATUS EXAMINATION: Neat, cooperative, though does not interact much, displays poverty of speech, answers questions briefly, logically, affect is restricted in range. Denies any thoughts of harming himself or anyone else at present, remains paranoid. Cognition grossly intact, judgment and insight are compromised. ASSESSMENT: Schizoaffective disorder. PLAN: Continue current care, but the lorazepam is decreased in terms of the daily dose, 0.5 mg every 6 hours as needed, to see if this addresses the anxiety, but without tiring him any further. May also need to reassess the requirement for the Haldol being prescribed as needed. Further recommendations to be made when he sees the assigned clinicians tomorrow.
--- NOTE | 2020-10-03 10:46 | MHIPNPDOC ---
[facility] Progress Note Progress Note DATE OF SERVICE: 10/03/20 The patient appears extremely blunted today and not very responsive. He superficially denies any problem, but appears very preoccupied and not volunteering information. He has been in control without any bizarre behavior and is in no acute physical distress and received increased paliperidone injection without incident. The patient did ask for increase in his Seroquel, claiming that he feels a little better with it. Will increase Seroquel 200 mg twice a day and continue the supportive therapy. HISTORY: . VITAL SIGNS: See below. NEW TEST RESULTS: . CURRENT MEDICATIONS: See below. MENTAL STATUS EXAMINATION: Patient is a 35-year old male, who is in no acute distress. Speech: Is , not productive and not volunteering any information. Language skills are poor. Thought processes including: Appears very preoccupied. Thought content: Denies any hallucination and not as preoccupied with the snake. Abstract reasoning, and computation: poor. Description of associations: No spontaneous]. Description of abnormal or psychotic thoughts: Appears guarded and preoccupied . Judgment: poor. Insight: poor]. Orientation: , Oriented. Recent and remote memory: fair. Attention span and concentration: . Language: . Fund of knowledge: . Mood: Appears moderately anxious, depressed . Affect: Blunted. DIAGNOSES: 1. . Schizoaffective disorder 2. . 3. . ASSESSMENT:No significant improvement MANAGEMENT PLAN: , Increase Seroquel and continue the supportive therapy. TIME SPENT: 20 minutes. Vital Signs Vital Signs Date Time Temp Pulse Resp B/P (MAP) Pulse Ox O2 Delivery O2 Flow Rate FiO2 10/03/20 07:00 97.9 100 20 133/78 (96) 95 Room Air Current Medications Current Medications Medications (Trade) Dose Ordered Sig/Yovanny Route PRN Reason Start Time Stop Time Status Last Admin Dose Admin Al Hydrox/Mg Hydrox/Simethicone (Mylanta) 30 ml Q4HP PRN PO HEARTBURN/INDIGESTION 09/28/20 14:10 09/30/20 21:14 Haloperidol (Haldol) 5 mg Q6HP PRN PO ANXIETY/AGITATION 09/28/20 14:10 10/02/20 20:45 Home Med (Med Rec Complete!) ASDIRECTED XX 09/28/20 14:55 09/28/20 15:07 DC Ibuprofen (Advil) 400 mg Q6HP PRN PO MODERATE PAIN (PS 5-7) 09/28/20 14:10 Lorazepam (Ativan) 0.5 mg Q6HP PRN PO ANXIETY 10/01/20 23:25 10/02/20 15:11 Lorazepam (Ativan) 1 mg Q6HP PRN PO ANXIETY/AGITATION 09/28/20 14:10 10/01/20 23:27 DC 10/01/20 16:12 Magnesium Hydroxide (Milk Of Magnesia) 30 ml DAILYPRN PRN PO CONSTIPATION 09/28/20 14:10 Nicotine (Nicoderm Cq 21mg) 1 patch DAILY TD 09/28/20 09:00 10/02/20 08:22 Paliperidone Palmitate (Invega Sustenna) 234 mg Q30D IM 09/30/20 09:00 09/30/20 09:59 Quetiapine Fumarate (SEROquel) 50 mg BID PO 09/29/20 09:00 10/03/20 07:58 Trazodone HCl (Desyrel) 50 mg QHSP PRN PO INSOMNIA 09/28/20 14:10 10/02/20 20:44 Allergies Coded Allergies: [place]'s wort (Verified Allergy, Unknown, 08/05/19) NILSON ALLEN M.D. Oct 03, 2020 10:46
[2020-10-03] MEDS: LORazepam 0.5 MG TAB PO PRN (11:38)
[2020-10-03 17:29] VITALS: BP 139/71
[2020-10-03] MEDS: haloperidoL 5 MG TAB PO PRN (17:48)
[2020-10-03] MEDS: traZODone 50 MG TAB PO PRN (20:19)
[2020-10-03] MEDS: QUEtiapine FUMARATE 100 MG TAB PO SCH (20:19)
[2020-10-04 07:26] VITALS: BP 137/80
[2020-10-04] MEDS: NICOTINE 21MG/24HR 1 EA TRANSDERMAL TD SCH (09:22)
[2020-10-04] MEDS: QUEtiapine FUMARATE 100 MG TAB PO SCH ×2 (09:22→20:44)
--- NOTE | 2020-10-04 10:31 | MHIPNPDOC ---
[facility] Progress Note Progress Note DATE OF SERVICE: 10/04/20 Patient has cooperated and tolerated the increase the Seroquel. He reports feeling much better and appears more responsive and verbally productive. He stated that he feels he received proper help and feels he is ready to go back home and no purse, no new complaints. Is more spontaneous and productive and doesn't appear as guarded and preoccupied. He denies any fear of the snake HISTORY: . VITAL SIGNS: See below. NEW TEST RESULTS: . CURRENT MEDICATIONS: See below. MENTAL STATUS EXAMINATION: Patient is a 35-year old male, who is in no acute distress. Speech: Is rational, coherent. Language skills are fair. Thought processes including: Relevant. Thought content: Denies any hallucination or paranoid fear . Abstract reasoning, and computation: fair. Description of associations: Organized . Description of abnormal or psychotic thoughts: Denies any command hallucination. Denies any suicidal thoughts. Judgment: fair. Insight: fair.. Orientation: Oriented . Recent and remote memory: fair. Attention span and concentration: fair. Language: . Fund of knowledge: . Mood: Euthymic. Affect: Slightly blunted. DIAGNOSES: 1. . Schizoaffective disorder 2. . 3. . ASSESSMENT:Showing improvement in good control MANAGEMENT PLAN: Continue the current medicine and possible discharge tomorrow. TIME SPENT: 20 minutes. Vital Signs Vital Signs Date Time Temp Pulse Resp B/P (MAP) Pulse Ox O2 Delivery O2 Flow Rate FiO2 10/04/20 07:26 97.6 99 20 137/80 (99) 96 Room Air Current Medications Current Medications Medications (Trade) Dose Ordered Sig/Yovanny Route PRN Reason Start Time Stop Time Status Last Admin Dose Admin Al Hydrox/Mg Hydrox/Simethicone (Mylanta) 30 ml Q4HP PRN PO HEARTBURN/INDIGESTION 09/28/20 14:10 09/30/20 21:14 Haloperidol (Haldol) 5 mg Q6HP PRN PO ANXIETY/AGITATION 09/28/20 14:10 10/03/20 17:48 Home Med (Med Rec Complete!) ASDIRECTED XX 09/28/20 14:55 09/28/20 15:07 DC Ibuprofen (Advil) 400 mg Q6HP PRN PO MODERATE PAIN (PS 5-7) 09/28/20 14:10 Lorazepam (Ativan) 0.5 mg Q6HP PRN PO ANXIETY 10/01/20 23:25 10/03/20 11:38 Lorazepam (Ativan) 1 mg Q6HP PRN PO ANXIETY/AGITATION 09/28/20 14:10 10/01/20 23:27 DC 10/01/20 16:12 Magnesium Hydroxide (Milk Of Magnesia) 30 ml DAILYPRN PRN PO CONSTIPATION 09/28/20 14:10 Nicotine (Nicoderm Cq 21mg) 1 patch DAILY TD 09/28/20 09:00 10/04/20 09:22 Paliperidone Palmitate (Invega Sustenna) 234 mg Q30D IM 09/30/20 09:00 09/30/20 09:59 Quetiapine Fumarate (SEROquel) 50 mg BID PO 09/29/20 09:00 10/03/20 10:42 DC 10/03/20 07:58 Quetiapine Fumarate (SEROquel) 100 mg BID PO 10/03/20 21:00 10/04/20 09:22 Trazodone HCl (Desyrel) 50 mg QHSP PRN PO INSOMNIA 09/28/20 14:10 10/03/20 20:19 Allergies Coded Allergies: [place]'s wort (Verified Allergy, Unknown, 08/05/19) NILSON ALLEN M.D. Oct 04, 2020 10:30
[2020-10-04] MEDS: LORazepam 0.5 MG TAB PO PRN ×2 (11:10→19:08)
[2020-10-04] MEDS: haloperidoL 5 MG TAB PO PRN (15:07)
[2020-10-04 18:43] VITALS: BP 134/78
[2020-10-04] MEDS: traZODone 50 MG TAB PO PRN (20:44)
[2020-10-05 06:31] VITALS: BP 168/100
[2020-10-05 06:57] VITALS: BP 136/83
[2020-10-05] MEDS: QUEtiapine FUMARATE 100 MG TAB PO SCH (08:06)
[2020-10-05] MEDS: NICOTINE 21MG/24HR 1 EA TRANSDERMAL TD SCH (08:06)
--- NOTE | 2020-10-05 09:56 | MHIPNPDOC ---
[facility] Progress Note Progress Note DATE OF SERVICE: 10/05/20 The patient reports that she is feeling Lillian uneasy and anxious today because he saw the bathroom door, opened yesterday night and also the images of snake ca me back and didn't really sleep good.. He stated that he was feeling somewhat comfortable until 2 days ago, but now is feeling more anxious and fearful for no good reason. He appears markedly preoccupied, blunted and reports feeling uneasy but denies any command hallucination or active suicidal thoughts. Based on the complaint and his presentation, we will cancel his scheduled discharge and tried to stabilize him further with the medication change and supportive therapy. HISTORY: . VITAL SIGNS: See below. NEW TEST RESULTS: . CURRENT MEDICATIONS: See below. MENTAL STATUS EXAMINATION: Patient is a 35 -year old male, who is somewhat anxious and uneasy. Speech: Is rational, coherent. Language skills are fair. Thought processes including: , Not spontaneous. Thought content: Significant paranoid thoughts and fear. Abstract reasoning, and computation: poor. Description of associations: , Relevant, but not productive. Description of abnormal or psychotic thoughts: Preoccupation with paranoid fear of snake and feeling anxious and fearful. Judgment: fair. Insight: fair.. Orientation: , Oriented. Recent and remote memory: No gross impairment. Attention span and concentration: poor. Language: . Fund of knowledge: . Mood: Moderately anxious and fearful. Affect: , Blunted and preoccupied. DIAGNOSES: 1. . Schizoaffective disorder 2. . 3. . ASSESSMENT: Showing increased her paranoia and fear MANAGEMENT PLAN: Continued the paliperidone injection ,changes Seroquel to 200mg at bedtime and tinnitus. Supportive therapy. TIME SPENT: 20 minutes. Vital Signs Vital Signs Date Time Temp Pulse Resp B/P (MAP) Pulse Ox O2 Delivery O2 Flow Rate FiO2 10/05/20 07:51 Room Air 10/05/20 06:57 136/83 (100) 10/05/20 06:31 97.8 100 16 98 Current Medications Current Medications Medications (Trade) Dose Ordered Sig/Yovanny Route PRN Reason Start Time Stop Time Status Last Admin Dose Admin Al Hydrox/Mg Hydrox/Simethicone (Mylanta) 30 ml Q4HP PRN PO HEARTBURN/INDIGESTION 09/28/20 14:10 09/30/20 21:14 Haloperidol (Haldol) 5 mg Q6HP PRN PO ANXIETY/AGITATION 09/28/20 14:10 10/04/20 15:07 Home Med (Med Rec Complete!) ASDIRECTED XX 09/28/20 14:55 09/28/20 15:07 DC Ibuprofen (Advil) 400 mg Q6HP PRN PO MODERATE PAIN (PS 5-7) 09/28/20 14:10 Lorazepam (Ativan) 0.5 mg Q6HP PRN PO ANXIETY 10/01/20 23:25 10/04/20 19:08 Lorazepam (Ativan) 1 mg Q6HP PRN PO ANXIETY/AGITATION 09/28/20 14:10 10/01/20 23:27 DC 10/01/20 16:12 Magnesium Hydroxide (Milk Of Magnesia) 30 ml DAILYPRN PRN PO CONSTIPATION 09/28/20 14:10 Nicotine (Nicoderm Cq 21mg) 1 patch DAILY TD 09/28/20 09:00 10/05/20 08:06 Paliperidone Palmitate (Invega Sustenna) 234 mg Q30D IM 09/30/20 09:00 09/30/20 09:59 Quetiapine Fumarate (SEROquel) 50 mg BID PO 09/29/20 09:00 10/03/20 10:42 DC 10/03/20 07:58 Quetiapine Fumarate (SEROquel) 100 mg BID PO 10/03/20 21:00 10/05/20 08:06 Trazodone HCl (Desyrel) 50 mg QHSP PRN PO INSOMNIA 09/28/20 14:10 10/04/20 20:44 Allergies Coded Allergies: [place]'s wort (Verified Allergy, Unknown, 08/05/19) NILSON ALLEN M.D. Oct 05, 2020 09:55
[2020-10-05] MEDS: haloperidoL 5 MG TAB PO PRN (11:45)
[2020-10-05] MEDS: LORazepam 0.5 MG TAB PO PRN (14:26)
[2020-10-05 18:41] VITALS: BP 121/79
[2020-10-05] MEDS: QUEtiapine FUMARATE 200 MG TAB PO SCH (20:16)
[2020-10-05] MEDS: traZODone 50 MG TAB PO PRN (20:16)
[2020-10-06 06:25] VITALS: BP 145/100
--- NOTE | 2020-10-06 09:23 | MHIPNPDOC ---
[facility] Progress Note Progress Note DATE OF SERVICE: 10/06/20 The patient reports today that the he didn't have anymore incident of seeing a snake and not as anxious or fearful. He appears more animated and more spontaneous in his speech. He stated that he is feeling better and feeling safe to go home anytime. He also stated that he might have overreacted to the little things and has no new issues and feeling more stable. HISTORY: . VITAL SIGNS: See below. NEW TEST RESULTS: . CURRENT MEDICATIONS: See below. MENTAL STATUS EXAMINATION: Patient is a 35-year old male, who is , cooperative and pleasant. Speech: Is rational, coherent. Language skills are fair. Thought processes including: More relevant. Thought content: Denies any more fear. Abstract reasoning, and computation: poor. Description of associations: Responding appropriately. Description of abnormal or psychotic thoughts: Denies any command hallucination and denies any suicidal thoughts. Judgment: fair. Insiight fair.r]. Orientation: , Oriented, unimpaired. Attention span and concentration: , Unimpaired. Language: . Fund of knowledge: . Mood: , Not as anxious. Affect: More animated]. DIAGNOSES: 1. . Schizoaffective disorder 2. . 3. . ASSESSMENT:Patient reports feeling better and appears more animated MANAGEMENT PLAN: Continued to cut on medicine and possible discharge tomorrow. TIME SPENT: 20 minutes. Vital Signs Vital Signs Date Time Temp Pulse Resp B/P (MAP) Pulse Ox O2 Delivery O2 Flow Rate FiO2 10/06/20 06:25 96.5 94 20 145/100 (115) 96 Room Air Current Medications Current Medications Medications (Trade) Dose Ordered Sig/Yovanny Route PRN Reason Start Time Stop Time Status Last Admin Dose Admin Al Hydrox/Mg Hydrox/Simethicone (Mylanta) 30 ml Q4HP PRN PO HEARTBURN/INDIGESTION 09/28/20 14:10 09/30/20 21:14 Haloperidol (Haldol) 5 mg Q6HP PRN PO ANXIETY/AGITATION 09/28/20 14:10 10/05/20 11:45 Home Med (Med Rec Complete!) ASDIRECTED XX 09/28/20 14:55 09/28/20 15:07 DC Ibuprofen (Advil) 400 mg Q6HP PRN PO MODERATE PAIN (PS 5-7) 09/28/20 14:10 Lorazepam (Ativan) 0.5 mg Q6HP PRN PO ANXIETY 10/01/20 23:25 10/05/20 14:26 Lorazepam (Ativan) 1 mg Q6HP PRN PO ANXIETY/AGITATION 09/28/20 14:10 10/01/20 23:27 DC 10/01/20 16:12 Magnesium Hydroxide (Milk Of Magnesia) 30 ml DAILYPRN PRN PO CONSTIPATION 09/28/20 14:10 Nicotine (Nicoderm Cq 21mg) 1 patch DAILY TD 09/28/20 09:00 10/05/20 08:06 Paliperidone Palmitate (Invega Sustenna) 234 mg Q30D IM 09/30/20 09:00 09/30/20 09:59 Quetiapine Fumarate (SEROquel) 50 mg BID PO 09/29/20 09:00 10/03/20 10:42 DC 10/03/20 07:58 Quetiapine Fumarate (SEROquel) 100 mg BID PO 10/03/20 21:00 10/05/20 09:31 DC 10/05/20 08:06 Quetiapine Fumarate (SEROquel) 200 mg QHS PO 10/05/20 21:00 10/05/20 20:16 Trazodone HCl (Desyrel) 50 mg QHSP PRN PO INSOMNIA 09/28/20 14:10 10/05/20 20:16 Allergies Coded Allergies: [place]'s wort (Verified Allergy, Unknown, 08/05/19) NILSON ALLEN M.D. Oct 06, 2020 09:23
[2020-10-06] MEDS: NICOTINE 21MG/24HR 1 EA TRANSDERMAL TD SCH (09:28)
[2020-10-06] MEDS: haloperidoL 5 MG TAB PO PRN (11:24)
[2020-10-06] MEDS: LORazepam 0.5 MG TAB PO PRN (16:04)
[2020-10-06 17:42] VITALS: BP 134/91
[2020-10-06] MEDS: QUEtiapine FUMARATE 200 MG TAB PO SCH (20:17)
[2020-10-06] MEDS: traZODone 50 MG TAB PO PRN (20:17)
[2020-10-07 06:30] VITALS: BP 135/22
[2020-10-07] MEDS ORDERED: QUET200T2 PO (09:00)
[2020-10-07] MEDS: NICOTINE 21MG/24HR 1 EA TRANSDERMAL TD SCH (09:00)
[2020-10-07] MEDS ORDERED: INVE234I IM (09:00)
--- NOTE | 2020-10-07 11:42 | MHDSPDOC ---
[facility] Discharge Summary Discharge Summary DATE OF ADMISSION: Sep 28, 2020 at 14:09 DATE OF DISCHARGE: Oct 07, 2020 at 10:59 DISCHARGE DIAGNOSES: 1. . Schizoaffective disorder 2. . REASON FOR ADMISSION: 35-year-old man with the long psychiatric history admitted due to increase in paranoid fear and preoccupation with fear of snakes. Patient is attending outpatient clinic and living in a supportive living and apparently has been stable but recently had the vision of a snake in his room and reports severe fear and preoccupation of the snake but also very anxious, fearful, disorganized. Patient denied any clear precipitant, but feels that his medication needs some adjustment and didn't feel safe and seeking help. CONSULTANTS INVOLVED: TREATMENT AND PROGRESS ON THE UNIT : The patient was seen for supportive therapy and paliperidone injection was increased from 156 mg to 234 mg to be repeated every 4 weeks and started on Seroquel 100 mg twice a day. Changes to 200 mg at bedtime. Patient is fully cooperated with this medicine and reported significant relief in his paranoid fear and denies anymore preoccupation or hallucination of snake. He is eating, sleeping well, maintaining good control and reports feeling much safer in stable. He denies any suicidal thoughts and is pleasant and cooperative and willing to continue his outpatient treatment. HOSPITAL COURSE: Patient is fully cooperated with treatment and showed gradual improvement. He didn't show any acting out behavior and denies any lethality issues and appears to be at his baseline mental status DISCHARGE ASSESSMENT: Improved, stabilized, no suicidal. MENTAL STATUS EXAMINATION ON DISCHARGE: Patient is a 35-year old male, who is in no acute distress. Speech is , not productive, but coherent. Language skills are fair. Thought processes including: Relevant and coherent]. Thought content: Denies any hallucination. Abstract reasoning, and computation: fair. Description of associations: Relevant. Description of abnormal or psychotic thoughts: No command hallucination and no suicidal thoughts. Judgment: fair. Insight: fair. Orientation to , oriented. Recent and remote memory: Unimpaired. Attention span and concentration: fair. Language: . Fund of knowledge: . Mood: , Mildly anxious. Affect: , Appropriate. MEDICATIONS ON DISCHARGE: - for . Paliperidone injection 234 mg every 4 weeks - for ., Seroquel 200 mg at bedtime for 1 week with 3 refills - for . PLAN/FOLLOWUP ARRANGEMENTS: Continue his current outpatient clinic. The amount of time spent in the coordination of care for this patient was approximately 30 minutes. ETOH/Disorder Med Rx ETOH/DRUG DISORDER RX: N/A Vital Signs/I&Os Vital Signs Date Time Temp Pulse Resp B/P (MAP) Pulse Ox O2 Delivery O2 Flow Rate FiO2 10/07/20 06:30 98.0 84 14 135/22 (59) 97 Room Air Medications Scheduled Paliperidone Palmitate (Invega Sustenna) 234 Mg/1.5 Ml Syringe, 234 MG IM Q30D for psychosis for 30 Days, #1 Quetiapine Fumarate (Quetiapine Fumarate) 200 Mg Tablet, 200 MG PO QHS for mood for 7 Days, #7 Allergies Coded Allergies: [place]'s wort (Verified Allergy, Unknown, 08/05/19) NILSON ALLEN M.D. Oct 07, 2020 11:42
== END 2020-10-07 10:59 | disposition home or self-care (01) | DRG 885 ==
LOC: M ED 06:49 → M ED INP 14:09 → M PSY 15:24
PROVIDERS: ADMIT Psychiatry & Neurology Psychiatry; ATTEND Psychiatry & Neurology Psychiatry
DX: F25.9 Schizoaffective disorder, unspecified (principal); F17.210 Nicotine dependence, cigarettes, uncomplicated; Z91.14 Patient's other noncompliance with medication regimen; Z91.5 Personal history of self-harm; Z88.8 Allergy status to other drugs, medicaments and biological substances; Z79.899 Other long term (current) drug therapy; Z20.822 Contact with and (suspected) exposure to COVID-19; R73.03 Prediabetes; I10 Essential (primary) hypertension; F12.10 Cannabis abuse, uncomplicated

== ENCOUNTER 2020-10-13 09:24 | Inpatient (IN) | payer MEDICARE, MEDICAID ==
[~2020-10-13] VITALS: Ht 177.8 cm; Wt 122.7 kg
[~2020-10-13 09:24] MED LIST changes: +DIPH50CA PO; -INFLUENZA QUADRIVALENT PF VACCINE 0.5ML SYRINGE IM ONE; -OLAN10TA2 PO; +OLAN1TAB16 PO; +OLAN1TAB20 PO; -OLAN5TAB PO; +QUET200T2 PO; +[UNRECOGNIZED DRUG - OTHER] PO
[2020-10-13 10:56] LABS: HEMATOCRIT 45.5 % (42.0-52.0); HEMOGLOBIN 15.4 g/dl (13.5-17.5); MEAN CORPUSCULAR HEMOGLOBIN 30.9 pg (27.0-33.0); MEAN CORPUSCULAR HGB CONC 33.8 g/dl (32.0-36.5); MEAN CORPUSCULAR VOLUME 91.2 fl (80.0-96.0); PLATELET COUNT, AUTOMATED 258 10^3/uL (150-450); RED BLOOD COUNT 4.99 10^6/uL (4.30-6.10); WHITE BLOOD COUNT 6.6 10^3/uL (4.0-10.0)
[2020-10-13 11:17] LABS: AMPHETAMINES LEVEL URINE NEGATIVE (NEGATIVE); BARBITURATES URINE NEGATIVE (NEGATIVE); BENZODIAZEPINES URINE NEGATIVE (NEGATIVE); CANNABINOIDS URINE POSITIVE (NEGATIVE); COCAINE METABOLITE URINE NEGATIVE (NEGATIVE); METHADONE URINE NEGATIVE (NEGATIVE); OPIATES URINE NEGATIVE (NEGATIVE); PHENCYCLIDINE URINE NEGATIVE (NEGATIVE)
[2020-10-13 11:33] LABS: ACETAMINOPHEN LEVEL < 2.0 UG/ML (10.0-30.0); ALBUMIN 4.6 GM/DL (3.2-5.2); ALT/SGPT 56 U/L (12-78); BILIRUBIN,DIRECT 0.2 MG/DL (0.0-0.2); BILIRUBIN,TOTAL 0.9 MG/DL (0.2-1.0); BLOOD UREA NITROGEN 14 MG/DL (7-18); CALCIUM LEVEL 9.2 MG/DL (8.5-10.1); CARBON DIOXIDE LEVEL 27 MEQ/L (21-32); CHLORIDE LEVEL 106 MEQ/L (98-107); CREATININE FOR GFR 1.07 MG/DL (0.70-1.30); ETHYL ALCOHOL (ETHANOL) 0.003 % (0.000-0.010); GLOMERULAR FILTRATION RATE > 60.0 (>60); GLUCOSE, FASTING 101 MG/DL (70-100); POTASSIUM SERUM 4.1 MEQ/L (3.5-5.1); SODIUM LEVEL 139 MEQ/L (136-145); THYROID STIMULATING HORMONE 0.767 uIU/ML (0.358-3.740); TOTAL PROTEIN 8.1 GM/DL (6.4-8.2)
[2020-10-13] MEDS ORDERED: SERO200T PO (19:55)
[2020-10-13] MEDS ORDERED: INVE234I IM (19:55)
[2020-10-13] MEDS ORDERED: PATIENT COMMENT (19:55)
[2020-10-14] MEDS ORDERED: QUEtiapine FUMARATE 200 MG TAB PO ONE (00:05)
[2020-10-14] MEDS ORDERED: LORazepam 2 MG/ML VIAL IM STA (00:40)
[2020-10-14] MEDS ORDERED: MOM 30ML SUSPENSION UDC PO PRN (12:45)
[2020-10-14] MEDS ORDERED: MAALOX 30 ML SUSP *UDC PO PRN (12:45)
[2020-10-14 13:10] LABS: RSV AMPLIFICATION NEGATIVE (NEGATIVE)
[2020-10-14 15:46] VITALS: BP 126/80
[2020-10-14] MEDS: QUEtiapine FUMARATE 200 MG TAB PO SCH (21:17)
[2020-10-15] MEDS ORDERED: UNRESOLVED CLARIFICATION ENTRY XX SCH (00:01)
[2020-10-15] MEDS: traZODone 50 MG TAB PO PRN ×2 (00:14→21:56)
[2020-10-15 06:11] VITALS: BP 150/88
--- NOTE | 2020-10-15 11:15 | HPEPDOC ---
[facility] Medical History & Physical Date of Admission Oct 14, 2020 Date of Service: Oct 15, [address] Jose Navarro, hospitalist consult Attending Physician: NILSON ALLEN M.D. History and Physical Hospitalist consult note CHIEF COMPLAINT: Schizophrenia HISTORY OF PRESENT ILLNESS: Patient is a 35-year-old male who presented to the hospital with confusion. Patient has a past history of schizophrenia. Patient was admitted into the inpatient mental health unit and hospitalist was called for consultation. Patient complains of being confused. Patient's only medical complaint is jaw popping and clicking on the right side. Patient states that his jaw does not currently hurt at this time. Patient is otherwise feeling well and does not have any other complaints. PAST MEDICAL HISTORY: 1. Prediabetes. 2. Hypertension. 3. Schizoaffective disorder/schizophrenia. PAST SURGICAL HISTORY: 1. Patient states he had a surgery on his jaw prior to the clicking but does not know what the surgery was. SOCIAL HISTORY: Patient lives in [place] housing. Patient does smoke cigarettes, very occasionally drinks alcohol, and states that he is trying to get a medical marijuana card and some has used marijuana as a treatment. Patient denies any other drug use. FAMILY HISTORY: Patient is adopted and does not know his biological family history ALLERGIES: Please see below. REVIEW OF SYSTEMS: General: Patient denies fevers HEENT: Patient complains of jaw popping as above. Patient denies headaches Cardiovascular: Patient denies chest pain Respiratory: Patient denies shortness of breath, cough GI: Patient denies abdominal pain, nausea, vomiting, diarrhea : Patient denies increased frequency or pain with urination Extremities: Patient denies swelling or pain in extremities Neurological: Patient denies numbness or tingling in legs Skin: Patient denies any new rashes or lesions. Hematologic: Patient denies any easy bruising. Lymphatic: Patient denies any lumps lumps or bumps in neck, axilla, or groin HOME MEDICATIONS: Please see below. PHYSICAL EXAMINATION: VITAL SIGNS: Temperature 98.5, pulse 104, respiratory rate 18, blood pressure 150/88, pulse oximetry 99% on room air. General: Alert and oriented male patient who was able to answer questions appropriately who was sitting comfortably in the chair. Patient was able to walk out of the group therapy session to the examination room. Patient did not appear to be in any acute distress. HEENT: Normocephalic, atraumatic, moist mucous membranes. Neck: No lymphadenopathy or thyromegaly Cardiac: Regular rate and rhythm, no murmurs, normal S1, normal S2 Pulm: Clear to auscultation bilaterally. No wheezes, rhonchi, rales Abd: Nondistended, nontender to palpation, normal bowel sounds, small reducible umbilical hernia present that is nontender Ext: No edema bilateral lower extremities Neuro: Patient is able to move all 4 extremities and reports equal sensation light touch of all 4 extremities Skin: Skin of the head, neck, arms, abdomen, and lower legs was examined did not show any rash or other lesions. LABORATORY DATA: See below. IMAGING: No imaging has been performed MICROBIOLOGY: Please see below. ASSESSMENT: Patient is a 35-year-old male with a history of schizophrenia who was admitted to the inpatient mental health unit. Hospitalist was consulted for medical consult.. . PLAN: 1. Schizophrenia/schizoaffective disorder. Management per psychiatric team. 2. TMJ D. Patient is not currently in any pain but does describe some popping in his jaw joint on the right side. If this continues to bother him. Patient can take some Tylenol. 3. Elevated blood pressure. Patient does appear to have a mildly elevated blood pressure and does carry a past medical history of hypertension although he is not on any treatment. If this persists, please call hospitalist back for medication recommendations. Disposition: Patient is medically doing well. Thank you for the consultation and please reconsult hospitalist if the need arises. Vital Signs Vital Signs Date Time Temp Pulse Resp B/P (MAP) Pulse Ox O2 Delivery O2 Flow Rate FiO2 10/15/20 06:11 98.5 104 18 150/88 (108) 99 Room Air Laboratory Data Labs 24H Laboratory Tests 2 10/14/20 12:14: Coronavirus (COVID-19)(PCR) NEGATIVE, Influenza Type A (RT-PCR) NEGATIVE, Influenza Type B (RT-PCR) NEGATIVE, Respiratory Syncytial Virus (PCR) NEGATIVE Home Medications Scheduled Paliperidone Palmitate (Invega Sustenna) 234 Mg/1.5 Ml Syringe, 234 MG IM QMONTH Quetiapine Fumarate (Seroquel) 200 Mg Tablet, 200 MG PO QHS Miscellaneous Medications [Patient Comment] MED LIST OBTAINED FROM PREVIOUS ADMISSION (10/07/20) Allergies Coded Allergies: [place]'s wort (Verified Allergy, Unknown, 08/05/19) A-FIB/CHADSVASC A-FIB History Current/History of A-Fib/PAF?: No JOSE NAVARRO DO Oct 15, 2020 11:15
[2020-10-15] MEDS: ACETAMINOPHEN TAB 650MG DOSE (2X325MG) PO PRN ×2 (11:21→18:58)
[2020-10-15 16:35] VITALS: BP 152/94
[2020-10-15] MEDS: QUEtiapine FUMARATE 200 MG TAB PO SCH (21:56)
[2020-10-16 06:02] VITALS: BP 153/92
--- NOTE | 2020-10-16 07:21 | MHHPEPDOC ---
General Date Of Admission: Oct 14, 2020 Legal Status: 9.39 Chief Complaint "[I was getting tactile and visual hallucinations I was getting slithering feeling like a snake crawling on your skin and seeing things]. History of Present Illness HISTORY OF THE PRESENT ILLNESS: Patient is a 35 -year-old , male, who [has a long psychiatric history with a recent discharge from inpatient unit 10 days ago. Patient came to emergency room Saturday morning reporting increasing visual and tactile hallucination but also was very disorganized agitated and was kept at the emergency room waiting for a bed on inpatient unit. Patient reports that she has experimented with some pills futures like a benzodiazepine but does not know exactly what it was. Patient stated that after he took a few pills he started to have strange sensations and seeing visions and was feeling very confused. He claims that he does not have much memory of how he came to the emergency room but was feeling out of control scared and confused and needed to help. He is smiling inappropriately while describing this and appears very preoccupied at times and grossly disorganized. He is denying any command hallucinations denies any suicidal thoughts and denies any aggressive or homicidal thoughts but reports feeling confused scared and does not feel right and does not feel safe]. Psychiatric Review of Systems Depression (2 or more weeks): denies Margaret (4 or more days of): talkativity, pressured, flight of ideas Psychosis: visual hallucination, disorganization, other (Feeling like a snake is crawling on his skin) PTSD: denies Anxiety: denies Past Psychiatric History Previous Psychiatric Diagnosis: . Schizoaffective disorder and chronic schizophrenia paranoid Previous Psychiatric Admissions: . Several admissions with a recent discharge 2 weeks ago Suicide Attempts: . Denies any history of suicidal attempt Psychiatric Follow-up: . Active in outpatient treatment Psychiatric medications: . Received paliperidone injection Past Medical History Head Injury: No Seizures: No Hospitalizations: No Surgeries: No Family Medical/Psychiatric HX Medical Problems Noncontributory Psychiatric Disorders: No Addiction: No Suicide Attemps/Completions: No Addiction History denies Social History Childhood: . Born in [place] adopted at age 12 Abuse/Trauma:. Denies any history of abuse Current Living Situation: . Lives alone Education: . Some college Employment: . On SSI Social Support: . Legal: . No legal history Marital: . Never with a single Mental Status Examination General Appearance: disheveled, appears stated age Build: average Demeanor: preoccupied, guarded Eye Contact: average Activity: average, anxious Behavior: cooperative Speech: pressured, slow, low in volume, non-spontaneous Mood: anxious Mood Reports feeling anxious and fearful but smiling inappropriately Thought Process: loose, flight of ideas, slow Thought Content (Delusions): bizarre, paranoia Thought Content (Other): preoccupied, guarded, unable to elaborate Thought Content (Aggressive): none reported Perception (Hallucinations): visual, tactile Perception (Other): none reported Cognition (Impairment of): none reported Cognition(Intelligence Est.): average Oriented: Awake, Alert, Oriented times three Insight: poor Judgment: Poor Diagnoses Chronic schizophrenia rule out schizoaffective disorder A-FIB/CHADSVASC A-FIB History Current/History of A-Fib/PAF?: No Current PO Anticoag Therapy: No Age/Risk Factor Scoring CHADSVASC: CHADSVASC Response (Comments) Value Gender Risk Factor Male 0 Hx of CHF No 0 Hx of HTN No 0 Hx of Stroke/TIA/or VTE No 0 Hx of Diabetes No 0 Hx of Vascular Disease No 0 Total 0 Assessment Patient reports poor memory about the whole event but claims that he took something that may have been benzodiazepine so it seems that he may have used some type of street drugs I will review the tox screen. Patient is currently quite preoccupied disorganized and experiencing tactile hallucination so we will continue with his medications for stabilization. Initial Treatment Plan 1. Patient was admitted on a 9.39 status. 2. Complete history was obtained. 3. With patients permission, family will be contacted and database will be expanded. 4. Patients medication regimen will be reviewed and changed accordingly. 5. Patient will be provided with protected environment. 6. Patient will be treated with individual, group, and milieu therapies. 7. Patient will receive supportive psych-education. 8. Discharge planning will commence immediately. 9. Outpatient follow-up treatment will be strongly recommended. 10. The initial treatment plan will focus initially on: * Depression. * Risk for suicide. ESTIMATED LENGTH OF STAY: 5-7 DAYS. TIME SPENT COUNSELING AND COORDINATING INITIAL CARE: 40 minutes. Tobacco Cessation Screen If Patient is a Smoker Patient is a non-smoker Complete/Results docum. Vital Signs Vital Signs Date Time Temp Pulse Resp B/P (MAP) Pulse Ox O2 Delivery O2 Flow Rate FiO2 10/15/20 06:11 98.5 104 18 150/88 (108) 99 Room Air Laboratory Data 24H Labs Laboratory Tests 2 10/14/20 12:14: Coronavirus (COVID-19)(PCR) NEGATIVE, Influenza Type A (RT-PCR) NEGATIVE, Influenza Type B (RT-PCR) NEGATIVE, Respiratory Syncytial Virus (PCR) NEGATIVE Medications Scheduled Paliperidone Palmitate (Invega Sustenna) 234 Mg/1.5 Ml Syringe, 234 MG IM QMONTH, (Reported) Quetiapine Fumarate (Seroquel) 200 Mg Tablet, 200 MG PO QHS, (Reported) Miscellaneous Medications [Patient Comment] , (Reported) MED LIST OBTAINED FROM PREVIOUS ADMISSION (10/07/20) Allergies Coded Allergies: [place]'s wort (Verified Allergy, Unknown, 08/05/19) NILSON ALLEN M.D. Oct 15, 2020 12:14
--- NOTE | 2020-10-16 08:00 | MHIPNPDOC ---
[facility] Progress Note Progress Note DATE OF SERVICE: 10/16/20 The patient reported that he did not sleep very good last night because of the nightmares and take a concern about something crawling on his skin. He is not h earing voices but still having tactile hallucinations anxious and fearful with some preoccupation with the fear of a snake. His speech is very slow not productive and not spontaneous and remains markedly guarded and blunted. HISTORY:. VITAL SIGNS: See below. NEW TEST RESULTS:. CURRENT MEDICATIONS: See below. MENTAL STATUS EXAMINATION: Patient is a 35-year old male, who is in no acute distress. Speech: Is slow and not productive not spontaneous. Language skills are fair. Thought processes including: Relevant but not productive. Thought content: Vague paranoid fear. Abstract reasoning, and computation: Poor. Description of associations: Not spontaneous. Description of abnormal or psychotic thoughts: Continue to have tactile hallucin ation and paranoid fear. Judgment: Poor. Insight: Poor. Orientation: Appears oriented. Recent and remote memory: No gross impairment. Attention span and concentration: Poor. Language:. Fund of knowledge:. Mood: Moderately anxious and fearful. Affect: Blunted. DIAGNOSES: 1.. Cooperating with the medicine and behavior is in control but no significant improvement diagnosis is schizoaffective disorder 2.. 3.. ASSESSMENT: MANAGEMENT PLAN: Increase Seroquel to 300 mg. TIME SPENT: 20 minutes. Vital Signs Vital Signs Date Time Temp Pulse Resp B/P (MAP) Pulse Ox O2 Delivery O2 Flow Rate FiO2 10/16/20 06:02 98.8 104 18 153/92 (112) 99 Room Air Current Medications Current Medications Medications (Trade) Dose Ordered Sig/Yovanny Route PRN Reason Start Time Stop Time Status Last Admin Dose Admin Acetaminophen (Tylenol Tab) 650 mg Q6HP PRN PO HEADACHE or MILD DISCOMFORT 10/14/20 12:45 10/15/20 18:58 Al Hydrox/Mg Hydrox/Simethicone (Mylanta) 30 ml Q4HP PRN PO HEARTBURN/INDIGESTION 10/14/20 12:45 Diphenhydramine HCl (Benadryl) 50 mg Q6HP PRN PO ANXIETY/AGITATION 10/14/20 12:45 Haloperidol (Haldol) 5 mg Q6HP PRN PO ANXIETY/AGITATION 10/14/20 12:45 Home Med (Med Rec Complete!) ASDIRECTED XX 10/13/20 20:00 10/13/20 19:57 DC Lorazepam (Ativan) 1 mg STAT STAT IM 10/14/20 00:40 10/14/20 00:41 DC 10/14/20 00:46 Lorazepam (Ativan) 2 mg Q6HP PRN PO ANXIETY/AGITATION 10/14/20 12:45 Magnesium Hydroxide (Milk Of Magnesia) 30 ml DAILYPRN PRN PO CONSTIPATION 10/14/20 12:45 Miscellaneous (Unresolved Clarification Entry) SEE LABEL COMMENTS UNRESOLVED XX 10/15/20 00:01 Cancel Paliperidone Palmitate (Invega Sustenna) 234 mg Q30D IM 11/13/20 09:00 10/14/20 13:31 DC Quetiapine Fumarate (SEROquel) 200 mg QHS PO 10/14/20 21:00 10/15/20 21:56 Trazodone HCl (Desyrel) 50 mg QHSP PRN PO INSOMNIA 10/14/20 12:45 10/15/20 21:56 Allergies Coded Allergies: [place]'s wort (Verified Allergy, Unknown, 08/05/19) NILSON ALLEN M.D. Oct 16, 2020 08:00
[2020-10-16] MEDS: ACETAMINOPHEN TAB 650MG DOSE (2X325MG) PO PRN ×2 (12:04→20:53)
[2020-10-16 18:43] VITALS: BP 160/95
[2020-10-16] MEDS: QUEtiapine FUMARATE 100 MG TAB PO SCH (20:51)
[2020-10-16] MEDS: LORazepam 1 MG TAB PO PRN (20:51)
[2020-10-17 06:00] VITALS: BP 142/67
[2020-10-17] MEDS: ACETAMINOPHEN TAB 650MG DOSE (2X325MG) PO PRN ×2 (08:28→14:31)
--- NOTE | 2020-10-17 09:52 | MHIPNPDOC ---
[facility] [place] Progress Note DATE OF SERVICE: 10/17/20 Patient is cooperating with the medicine and so far no new complaint. He has not shown any bizarre or agitated behavior and reports that he slept very well last night with the increased Seroquel. He appears still very preoccupied and not spontaneous but denies any command hallucination and denies any suicidal thoughts. He is not able to elaborate what he took before his admission but claimed that he took something he thought was benzodiazepine however his tox screen is positive for cannabis already and no benzodiazepine and no other s treet drugs. HISTORY:. VITAL SIGNS: See below. NEW TEST RESULTS:. CURRENT MEDICATIONS: See below. MENTAL STATUS EXAMINATION: Patient is a 35-year old male, who is in no acute distress. Speech: Is not spontaneous but is relevant but not able to elaborate. Language skills are only fair. Thought processes including: Relevant but not productive not spontaneous. Thought content: Preoccupied with the tactile hallucinations and fear of a snake. Abstract reasoning, and computation: Poor. Description of associations: No spontaneous. Description of abnormal or psychotic thoughts: Reports that he was seeing visual images and crawling sensation but denies any paranoid fear and no suicidal thoughts. Judgment: Poor. Insight: Poor. Orientation: Oriented. Recent and remote memory: No gross impairment. Attention span and concentration:. Language:. Fund of knowledge:. Mood: Moderately anxious and fearful. Affect: Blunted preoccupied. DIAGNOSES: 1.. Schizoaffective disorder 2.. 3.. ASSESSMENT: No significant manager of change PLAN: Stabilized with his medicines supportive therapy. TIME SPENT: 20 minutes. Vital Signs Vital Signs Date Time Temp Pulse Resp B/P (MAP) Pulse Ox O2 Delivery O2 Flow Rate FiO2 10/17/20 06:00 97.3 78 20 142/67 (92) 96 Room Air Current Medications Current Medications Medications (Trade) Dose Ordered Sig/Yovanny Route PRN Reason Start Time Stop Time Status Last Admin Dose Admin Acetaminophen (Tylenol Tab) 650 mg Q6HP PRN PO HEADACHE or MILD DISCOMFORT 10/14/20 12:45 10/17/20 08:28 Al Hydrox/Mg Hydrox/Simethicone (Mylanta) 30 ml Q4HP PRN PO HEARTBURN/INDIGESTION 10/14/20 12:45 Diphenhydramine HCl (Benadryl) 50 mg Q6HP PRN PO ANXIETY/AGITATION 10/14/20 12:45 Haloperidol (Haldol) 5 mg Q6HP PRN PO ANXIETY/AGITATION 10/14/20 12:45 Home Med (Med Rec Complete!) ASDIRECTED XX 10/13/20 20:00 10/13/20 19:57 DC Lorazepam (Ativan) 1 mg STAT STAT IM 10/14/20 00:40 10/14/20 00:41 DC 10/14/20 00:46 Lorazepam (Ativan) 2 mg Q6HP PRN PO ANXIETY/AGITATION 10/14/20 12:45 10/16/20 20:51 Magnesium Hydroxide (Milk Of Magnesia) 30 ml DAILYPRN PRN PO CONSTIPATION 10/14/20 12:45 Miscellaneous (Unresolved Clarification Entry) SEE LABEL COMMENTS UNRESOLVED XX 10/15/20 00:01 Cancel Nicotine (Nicoderm Cq 21mg) 1 patch DAILY TD 10/17/20 09:00 Paliperidone Palmitate (Invega Sustenna) 234 mg Q30D IM 11/13/20 09:00 10/14/20 13:31 DC Quetiapine Fumarate (SEROquel) 200 mg QHS PO 10/14/20 21:00 10/16/20 07:56 DC 10/15/20 21:56 Quetiapine Fumarate (SEROquel) 300 mg QHS PO 10/16/20 21:00 10/16/20 20:51 Trazodone HCl (Desyrel) 50 mg QHSP PRN PO INSOMNIA 10/14/20 12:45 10/15/20 21:56 Allergies Coded Allergies: [place]'s wort (Verified Allergy, Unknown, 08/05/19) NILSON ALLEN M.D. Oct 17, 2020 09:45
[2020-10-17] MEDS: NICOTINE 21MG/24HR 1 EA TRANSDERMAL TD SCH (09:55)
[2020-10-17] MEDS: haloperidoL 5 MG TAB PO PRN (17:16)
[2020-10-17 17:22] VITALS: BP 142/82
[2020-10-17] MEDS: QUEtiapine FUMARATE 100 MG TAB PO SCH (21:28)
[2020-10-17] MEDS: traZODone 50 MG TAB PO PRN (21:28)
[2020-10-17] MEDS: diphenhydrAMINE 25MG CAP PO PRN (21:33)
[2020-10-18] MEDS: NICOTINE 21MG/24HR 1 EA TRANSDERMAL TD SCH ×2 (09:00→09:37)
[2020-10-18] MEDS: ACETAMINOPHEN TAB 650MG DOSE (2X325MG) PO PRN (10:13)
[2020-10-18] MEDS: diphenhydrAMINE 25MG CAP PO PRN ×2 (10:13→20:34)
--- NOTE | 2020-10-18 11:21 | MHIPNPDOC ---
[facility] Progress Note Progress Note DATE OF SERVICE: 10/18/20 The patient reports that he had a good night sleep yesterday and cooperated with his bedtime dose of Seroquel. He denies any tactile hallucinations and denies seeing any visions but but still preoccupied with images and sensations of snakes. On his previous admission he was given increased dose of paliperidone injection 234 mg and is not due for his next injection until November 13. He is maintaining good control but his affect is very blunted and his speech seems to be not spontaneous and showing significant blocking and some poverty of thoughts. He remains quite perplexed and preoccupied and feeling unsafe although he denies any active suicidal thoughts. HISTORY:. VITAL SIGNS: See below. NEW TEST RESULTS:. CURRENT MEDICATIONS: See below. MENTAL STATUS EXAMINATION: Patient is a 35-year old male, who is in no acute distress. Speech: Is relevant but not productive and not spontaneous. Language skills are only fair. Thought processes including: Relevant. Thought content: Remains preoccupied. Abstract reasoning, and computation: Poor. Description of associations: Not spontaneous. Description of abnormal or psychotic thoughts: Preoccupation with the bizarre sensation and feeling unsafe. Judgment: Poor. Insight: Poor. Orientation: Oriented. Recent and remote memory: No gross impairment. Attention span and concentration:. Language:. Fund of knowledge:. Mood: Moderately anxious and fearful. Affect: Very blunted. DIAGNOSES: 1.. Chronic schizophrenia 2.. Rule out schizoaffective disorder 3.. ASSESSMENT: Remains anxious preoccupied withdrawn MANAGEMENT PLAN: Continue with the current medicine and supportive therapy. TIME SPENT: 20 minutes. Vital Signs Vital Signs Date Time Temp Pulse Resp B/P (MAP) Pulse Ox O2 Delivery O2 Flow Rate FiO2 10/17/20 17:22 98.1 112 18 142/82 (102) 96 10/17/20 06:00 Room Air Current Medications Current Medications Medications (Trade) Dose Ordered Sig/Yovanny Route PRN Reason Start Time Stop Time Status Last Admin Dose Admin Acetaminophen (Tylenol Tab) 650 mg Q6HP PRN PO HEADACHE or MILD DISCOMFORT 10/14/20 12:45 10/18/20 10:13 Al Hydrox/Mg Hydrox/Simethicone (Mylanta) 30 ml Q4HP PRN PO HEARTBURN/INDIGESTION 10/14/20 12:45 10/17/20 15:32 Diphenhydramine HCl (Benadryl) 50 mg Q6HP PRN PO ANXIETY/AGITATION 10/14/20 12:45 10/18/20 10:13 Haloperidol (Haldol) 5 mg Q6HP PRN PO ANXIETY/AGITATION 10/14/20 12:45 10/17/20 17:16 Home Med (Med Rec Complete!) ASDIRECTED XX 10/13/20 20:00 10/13/20 19:57 DC Lorazepam (Ativan) 1 mg STAT STAT IM 10/14/20 00:40 10/14/20 00:41 DC 10/14/20 00:46 Lorazepam (Ativan) 2 mg Q6HP PRN PO ANXIETY/AGITATION 10/14/20 12:45 10/16/20 20:51 Magnesium Hydroxide (Milk Of Magnesia) 30 ml DAILYPRN PRN PO CONSTIPATION 10/14/20 12:45 Miscellaneous (Unresolved Clarification Entry) SEE LABEL COMMENTS UNRESOLVED XX 10/15/20 00:01 Cancel Nicotine (Nicoderm Cq 21mg) 1 patch DAILY TD 10/17/20 09:00 10/17/20 09:55 Paliperidone Palmitate (Invega Sustenna) 234 mg Q30D IM 11/13/20 09:00 10/14/20 13:31 DC Quetiapine Fumarate (SEROquel) 200 mg QHS PO 10/14/20 21:00 10/16/20 07:56 DC 10/15/20 21:56 Quetiapine Fumarate (SEROquel) 300 mg QHS PO 10/16/20 21:00 10/17/20 21:28 Trazodone HCl (Desyrel) 50 mg QHSP PRN PO INSOMNIA 10/14/20 12:45 10/17/20 21:28 Allergies Coded Allergies: [place] wort (Verified Allergy, Unknown, 08/05/19) NILSON ALLEN M.D. Oct 18, 2020 11:21
[2020-10-18] MEDS: NICOTINE POLACRILEX 2 MG GUM PO PRN ×4 (12:52→22:16)
[2020-10-18] MEDS: LORazepam 1 MG TAB PO PRN (16:53)
[2020-10-18 17:10] VITALS: BP 152/87
[2020-10-18] MEDS: QUEtiapine FUMARATE 100 MG TAB PO SCH (20:33)
[2020-10-19] MEDS: NICOTINE POLACRILEX 2 MG GUM PO PRN ×4 (05:36→22:48)
[2020-10-19 06:36] VITALS: BP 142/76
[2020-10-19] MEDS: diphenhydrAMINE 25MG CAP PO PRN ×2 (07:47→21:22)
[2020-10-19] MEDS: haloperidoL 5 MG TAB PO PRN (07:47)
[2020-10-19] MEDS: ACETAMINOPHEN TAB 650MG DOSE (2X325MG) PO PRN (07:47)
--- NOTE | 2020-10-19 10:27 | MHIPNPDOC ---
[facility] Progress Note Progress Note DATE OF SERVICE: 10/19/20 The patient is cooperating with the medicine and maintaining control but remains very preoccupied with inappropriate smiles and appears to be actively hallucin ating. He is holding a Bible in his hand and superficially denies any more hallucination but keeps smiling and not able to elaborate about the concerns that he had. He claims he is feeling better but not able to express what is different than how it is different. He is cooperating and tolerating his medicine but showing no significant improvement. HISTORY:. VITAL SIGNS: See below. NEW TEST RESULTS:. CURRENT MEDICATIONS: See below. MENTAL STATUS EXAMINATION: Patient is a 35-year old male, who is in no acute distress. Speech: Is relevant but not spontaneous. Language skills are fair. Thought processes including: Some blocking and poverty of thoughts. Thought content: Appears religiously preoccupied. Abstract reasoning, and computation: Poor. Description of associations: Not spontaneous. Description of abnormal or psychotic thoughts: Markedly preoccupied and superficial. Judgment: Poor. Insight . poor]. Orientation: Appears oriented. Recent and remote memory:. Attention span and concentration: Poor. Language:. Fund of knowledge:. Mood: Reports feeling better. Affect: Blunted inappropriate. DIAGNOSES: 1.. Chronic schizophrenia paranoid 2.. 3.. ASSESSMENT: No significant improvement MANAGEMENT PLAN: Needs further stabilization. TIME SPENT: 50 minutes. Vital Signs Vital Signs Date Time Temp Pulse Resp B/P (MAP) Pulse Ox O2 Delivery O2 Flow Rate FiO2 10/19/20 06:36 97.4 112 18 142/76 (98) 96 Room Air Current Medications Current Medications Medications (Trade) Dose Ordered Sig/Yovanny Route PRN Reason Start Time Stop Time Status Last Admin Dose Admin Acetaminophen (Tylenol Tab) 650 mg Q6HP PRN PO HEADACHE or MILD DISCOMFORT 10/14/20 12:45 10/19/20 07:47 Al Hydrox/Mg Hydrox/Simethicone (Mylanta) 30 ml Q4HP PRN PO HEARTBURN/INDIGESTION 10/14/20 12:45 10/17/20 15:32 Diphenhydramine HCl (Benadryl) 50 mg Q6HP PRN PO ANXIETY/AGITATION 10/14/20 12:45 10/19/20 07:47 Haloperidol (Haldol) 5 mg Q6HP PRN PO ANXIETY/AGITATION 10/14/20 12:45 10/19/20 07:47 Home Med (Med Rec Complete!) ASDIRECTED XX 10/13/20 20:00 10/13/20 19:57 DC Lorazepam (Ativan) 1 mg STAT STAT IM 10/14/20 00:40 10/14/20 00:41 DC 10/14/20 00:46 Lorazepam (Ativan) 2 mg Q6HP PRN PO ANXIETY/AGITATION 10/14/20 12:45 10/18/20 16:53 Magnesium Hydroxide (Milk Of Magnesia) 30 ml DAILYPRN PRN PO CONSTIPATION 10/14/20 12:45 Miscellaneous (Unresolved Clarification Entry) SEE LABEL COMMENTS UNRESOLVED XX 10/15/20 00:01 Cancel Nicotine (Nicoderm Cq 21mg) 1 patch DAILY TD 10/17/20 09:00 10/18/20 11:50 DC 10/17/20 09:55 Nicotine (Nicorette) 2 mg Q4HP PRN PO NICOTINE WITHDRAWAL 10/18/20 11:50 10/19/20 05:36 Paliperidone Palmitate (Invega Sustenna) 234 mg Q30D IM 11/13/20 09:00 10/14/20 13:31 DC Quetiapine Fumarate (SEROquel) 200 mg QHS PO 10/14/20 21:00 10/16/20 07:56 DC 10/15/20 21:56 Quetiapine Fumarate (SEROquel) 300 mg QHS PO 10/16/20 21:00 10/18/20 20:33 Trazodone HCl (Desyrel) 50 mg QHSP PRN PO INSOMNIA 10/14/20 12:45 10/17/20 21:28 Allergies Coded Allergies: [place]'s wort (Verified Allergy, Unknown, 08/05/19) NILSON ALLEN M.D. Oct 19, 2020 10:27
[2020-10-19] MEDS: LORazepam 1 MG TAB PO PRN (12:40)
[2020-10-19 17:27] VITALS: BP 136/88
[2020-10-19] MEDS: QUEtiapine FUMARATE 100 MG TAB PO SCH (21:22)
[2020-10-19] MEDS: traZODone 50 MG TAB PO PRN (21:22)
[2020-10-20 05:35] VITALS: BP 125/80
[2020-10-20 06:00] VITALS: BP 125/80
[2020-10-20] MEDS: NICOTINE POLACRILEX 2 MG GUM PO PRN ×3 (06:47→17:50)
--- NOTE | 2020-10-20 11:09 | MHIPNPDOC ---
[facility] Progress Note Progress Note DATE OF SERVICE: 10/20/20 Patient has no new complaint and in good control. He is however very superficial guarded and preoccupied and unable to elaborate and unable to clarify and have any rational conversation. He claimed that he is feeling okay and slept good but then again reports that he wants his medication to sleep but does not want his trazodone. He is smiling inappropriately while holding a Bible and not able to elaborate how he is feeling better. He is showing marked blocking when not able to respond spontaneously and showing marked the difficulty in organizing his thoughts HISTORY:. VITAL SIGNS: See below. NEW TEST RESULTS:. CURRENT MEDICATIONS: See below. MENTAL STATUS EXAMINATION: Patient is a 35-year old male, who is guarded preoccupied. Speech: Is not spontaneous. Language skills are poor. Thought processes including: Marked blocking. Thought content: Superficially denies any problem. Abstract reasoning, and computation: Poor. Description of associations: Poorly organized. Description of abnormal or psychotic thoughts: Appears preoccupied and possibly hallucinating. Judgment: Poor. Insight poor]. Orientation: Oriented]. Recent and remote memory: No gross impairment. Attention span and concentration:. Language:. Fund of knowledge:. Mood: Superficially denying any problem. Affect: Inappropriately smiling. DIAGNOSES: 1.. Chronic schizophrenia 2.. 3.. ASSESSMENT: No significant improvement MANAGEMENT PLAN: Needs further stabilization. TIME SPENT: Minutes. Vital Signs Vital Signs Date Time Temp Pulse Resp B/P (MAP) Pulse Ox O2 Delivery O2 Flow Rate FiO2 10/20/20 06:00 98.3 89 20 125/80 (95) 95 10/20/20 05:35 Room Air Current Medications Current Medications Medications (Trade) Dose Ordered Sig/Yovanny Route PRN Reason Start Time Stop Time Status Last Admin Dose Admin Acetaminophen (Tylenol Tab) 650 mg Q6HP PRN PO HEADACHE or MILD DISCOMFORT 10/14/20 12:45 10/19/20 07:47 Al Hydrox/Mg Hydrox/Simethicone (Mylanta) 30 ml Q4HP PRN PO HEARTBURN/INDIGESTION 10/14/20 12:45 10/17/20 15:32 Diphenhydramine HCl (Benadryl) 50 mg Q6HP PRN PO ANXIETY/AGITATION 10/20/20 09:05 Diphenhydramine HCl (Benadryl) 50 mg Q6HP PRN PO ANXIETY/AGITATION 10/14/20 12:45 10/20/20 09:13 DC 10/19/20 21:22 Haloperidol (Haldol) 5 mg Q6HP PRN PO ANXIETY/AGITATION 10/14/20 12:45 10/19/20 07:47 Home Med (Med Rec Complete!) ASDIRECTED XX 10/13/20 20:00 10/13/20 19:57 DC Lorazepam (Ativan) 1 mg STAT STAT IM 10/14/20 00:40 10/14/20 00:41 DC 10/14/20 00:46 Lorazepam (Ativan) 2 mg Q6HP PRN PO ANXIETY/AGITATION 10/20/20 09:05 Lorazepam (Ativan) 2 mg Q6HP PRN PO ANXIETY/AGITATION 10/14/20 12:45 10/20/20 09:12 DC 10/19/20 12:40 Magnesium Hydroxide (Milk Of Magnesia) 30 ml DAILYPRN PRN PO CONSTIPATION 10/14/20 12:45 Miscellaneous (Unresolved Clarification Entry) SEE LABEL COMMENTS UNRESOLVED XX 10/15/20 00:01 Cancel Nicotine (Nicoderm Cq 21mg) 1 patch DAILY TD 10/17/20 09:00 10/18/20 11:50 DC 10/17/20 09:55 Nicotine (Nicorette) 2 mg Q4HP PRN PO NICOTINE WITHDRAWAL 10/18/20 11:50 10/20/20 06:47 Paliperidone Palmitate (Invega Sustenna) 234 mg Q30D IM 11/13/20 09:00 10/14/20 13:31 DC Quetiapine Fumarate (SEROquel) 200 mg QHS PO 10/14/20 21:00 10/16/20 07:56 DC 10/15/20 21:56 Quetiapine Fumarate (SEROquel) 300 mg QHS PO 10/16/20 21:00 10/19/20 21:22 Trazodone HCl (Desyrel) 50 mg QHSP PRN PO INSOMNIA 10/14/20 12:45 10/19/20 21:22 Allergies Coded Allergies: [place]'s wort (Verified Allergy, Unknown, 08/05/19) NILSON ALLEN M.D. Oct 20, 2020 11:09
[2020-10-20] MEDS: LORazepam 2 MG TAB PO PRN (15:03)
[2020-10-20] MEDS: diphenhydrAMINE 50MG CAP PO PRN (15:03)
[2020-10-20] MEDS: haloperidoL 5 MG TAB PO PRN (15:03)
[2020-10-20 18:44] VITALS: BP 142/80
[2020-10-20] MEDS: QUEtiapine FUMARATE 100 MG TAB PO SCH (20:31)
[2020-10-21 05:39] VITALS: BP 158/92
[2020-10-21] MEDS: NICOTINE POLACRILEX 2 MG GUM PO PRN ×3 (06:37→17:38)
[2020-10-21] MEDS: diphenhydrAMINE 50MG CAP PO PRN (10:12)
[2020-10-21] MEDS: LORazepam 2 MG TAB PO PRN (10:12)
[2020-10-21] MEDS: haloperidoL 5 MG TAB PO PRN (10:12)
--- NOTE | 2020-10-21 11:02 | MHIPNPDOC ---
[facility] Progress Note Progress Note DATE OF SERVICE: 10/21/20 Patient is cooperating with the medicine and today he is a little more verbally productive. He stated that he has been feeling very uneasy and nervous about h is neighbor claims that he keeps his windows shot and has no contact and feels that something is not quite right about him. He also reports that a wanted to move to level 3 supportive housing at [facility] and may be that is why he was not feeling right. He is denying any active hallucination but there is a significant paranoia with his discomfort about the neighbor and he is hoping eliseo t he might be able to move. Patient was told that we could relay his concern to [facility] but there is no guarantee that he could move and patient claims he understands. We will contact his [facility] director case to relay his concerns and clarify if there is any grounds for paranoia. HISTORY:. VITAL SIGNS: See below. NEW TEST RESULTS:. CURRENT MEDICATIONS: See below. MENTAL STATUS EXAMINATION: Patient is a 35-year old male, who is in no acute distress. Speech: Is relevant and a little more productive today. Language skills are fair. Thought processes including: Coherent. Thought content: Significant paranoid flavor. Abstract reasoning, and computation: Poor. Description of associations: More productive. Description of abnormal or psychotic thoughts: Some paranoid ideas about his neighbor. Judgment: Poor. Insight: Poor. Orientation: Appears oriented. Recent and remote memory: Unimpaired. Attention span and concentration: Fair. Language:. Fund of knowledge:. Mood: Moderately anxious. Affect: Blunted and preoccupied. DIAGNOSES: 1.. Chronic schizophrenia 2.. Rule out schizoaffective disorder 3.. ASSESSMENT: Cooperating with the medicine but limited improvement MANAGEMENT PLAN: Continue with the Seroquel and paliperidone injection contact his [facility] risk professional. TIME SPENT: 20 minutes. Vital Signs Vital Signs Date Time Temp Pulse Resp B/P (MAP) Pulse Ox O2 Delivery O2 Flow Rate FiO2 10/21/20 05:39 97.8 88 18 158/92 (114) 95 Room Air Current Medications Current Medications Medications (Trade) Dose Ordered Sig/Yovanny Route PRN Reason Start Time Stop Time Status Last Admin Dose Admin Acetaminophen (Tylenol Tab) 650 mg Q6HP PRN PO HEADACHE or MILD DISCOMFORT 10/14/20 12:45 10/19/20 07:47 Al Hydrox/Mg Hydrox/Simethicone (Mylanta) 30 ml Q4HP PRN PO HEARTBURN/INDIGESTION 10/14/20 12:45 10/17/20 15:32 Diphenhydramine HCl (Benadryl) 50 mg Q6HP PRN PO ANXIETY/AGITATION 10/20/20 09:05 10/21/20 10:12 Diphenhydramine HCl (Benadryl) 50 mg Q6HP PRN PO ANXIETY/AGITATION 10/14/20 12:45 10/20/20 09:13 DC 10/19/20 21:22 Haloperidol (Haldol) 5 mg Q6HP PRN PO ANXIETY/AGITATION 10/14/20 12:45 10/21/20 10:12 Home Med (Med Rec Complete!) ASDIRECTED XX 10/13/20 20:00 10/13/20 19:57 DC Lorazepam (Ativan) 1 mg STAT STAT IM 10/14/20 00:40 10/14/20 00:41 DC 10/14/20 00:46 Lorazepam (Ativan) 2 mg Q6HP PRN PO ANXIETY/AGITATION 10/20/20 09:05 10/21/20 10:12 Lorazepam (Ativan) 2 mg Q6HP PRN PO ANXIETY/AGITATION 10/14/20 12:45 10/20/20 09:12 DC 10/19/20 12:40 Magnesium Hydroxide (Milk Of Magnesia) 30 ml DAILYPRN PRN PO CONSTIPATION 10/14/20 12:45 Miscellaneous (Unresolved Clarification Entry) SEE LABEL COMMENTS UNRESOLVED XX 10/15/20 00:01 Cancel Nicotine (Nicoderm Cq 21mg) 1 patch DAILY TD 10/17/20 09:00 10/18/20 11:50 DC 10/17/20 09:55 Nicotine (Nicorette) 2 mg Q4HP PRN PO NICOTINE WITHDRAWAL 10/18/20 11:50 10/21/20 06:37 Paliperidone Palmitate (Invega Sustenna) 234 mg Q30D IM 11/13/20 09:00 10/14/20 13:31 DC Quetiapine Fumarate (SEROquel) 200 mg QHS PO 10/14/20 21:00 10/16/20 07:56 DC 10/15/20 21:56 Quetiapine Fumarate (SEROquel) 300 mg QHS PO 10/16/20 21:00 10/20/20 20:31 Trazodone HCl (Desyrel) 50 mg QHSP PRN PO INSOMNIA 10/14/20 12:45 10/20/20 11:10 DC 10/19/20 21:22 Allergies Coded Allergies: [place]'s wort (Verified Allergy, Unknown, 08/05/19) NILSON ALLEN M.D. Oct 21, 2020 11:02
[2020-10-21] MEDS: ACETAMINOPHEN TAB 650MG DOSE (2X325MG) PO PRN (14:58)
[2020-10-21] MEDS: QUEtiapine FUMARATE 100 MG TAB PO SCH (22:32)
[2020-10-22 07:07] VITALS: BP 138/87
[2020-10-22] MEDS: NICOTINE POLACRILEX 2 MG GUM PO PRN ×3 (07:44→17:57)
[2020-10-22] MEDS: diphenhydrAMINE 50MG CAP PO PRN (15:03)
[2020-10-22] MEDS: haloperidoL 5 MG TAB PO PRN (15:03)
[2020-10-22] MEDS: LORazepam 2 MG TAB PO PRN (15:03)
[2020-10-22 16:20] VITALS: BP 145/81
[2020-10-22] MEDS: QUEtiapine FUMARATE 100 MG TAB PO SCH (21:20)
[2020-10-23 05:46] VITALS: BP 168/97
[2020-10-23] MEDS: NICOTINE POLACRILEX 2 MG GUM PO PRN ×3 (10:06→22:21)
[2020-10-23] MEDS: haloperidoL 5 MG TAB PO PRN (10:21)
[2020-10-23] MEDS: LORazepam 2 MG TAB PO PRN (10:21)
[2020-10-23] MEDS: diphenhydrAMINE 50MG CAP PO PRN ×2 (10:21→22:21)
[2020-10-23] MEDS: ACETAMINOPHEN TAB 650MG DOSE (2X325MG) PO PRN (13:54)
[2020-10-23] MEDS: QUEtiapine FUMARATE 100 MG TAB PO SCH (22:22)
[2020-10-24] MEDS: NICOTINE POLACRILEX 2 MG GUM PO PRN ×2 (05:28→15:18)
[2020-10-24 06:04] VITALS: BP 144/92
[2020-10-24] MEDS: ACETAMINOPHEN TAB 650MG DOSE (2X325MG) PO PRN ×2 (09:24→18:22)
[2020-10-24] MEDS: haloperidoL 5 MG TAB PO PRN ×2 (09:24→18:22)
[2020-10-24] MEDS: diphenhydrAMINE 50MG CAP PO PRN ×2 (09:25→18:22)
[2020-10-24] MEDS: LORazepam 2 MG TAB PO PRN ×2 (09:25→18:22)
--- NOTE | 2020-10-24 09:36 | MHIPNPDOC ---
[facility] Progress Note Progress Note DATE OF SERVICE: 10/24/20 The patient continues to show somewhat disorganized thinking and very blunted and preoccupied affect. He was complaining about the neighbor and was asking to be moved to different level of TLS apartment but today he is not so sure. He stated that he just needs to paint the gardner and not able to elaborate what the problem is with his neighbor. He all of a sudden changed the subject to his medications and claims that he is feeling great. He is very evasive preoccupied disconnected and not able to elaborate and not able to rationally discuss his living situations and overall appears very disorganized and preoccupied. HISTORY:. VITAL SIGNS: See below. NEW TEST RESULTS:. CURRENT MEDICATIONS: See below. MENTAL STATUS EXAMINATION: Patient is a 34-year old male, who is in no acute distress. Speech: Is quite loose and disorganized. Language skills are poor. Thought processes including: Fragmented. Thought content: Not spontaneous and some blocking. Abstract reasoning, and computation: Poor. Description of associations: Disorganized. Description of abnormal or psychotic thoughts: Significant paranoia and disorganized thinking. Judgment: Poor. Insight poor]. Orientation: Oriented. Recent and remote memory: No gross impairment. Attention span and concentration:. Language:. Fund of knowledge:. Mood: Reports feeling fine. Affect: Blunted. DIAGNOSES: 1.. Schizophrenia paranoid 2.. 3.. ASSESSMENT: No significant improvement MANAGEMENT PLAN: There is further stabilization. TIME SPENT: 20 minutes. Vital Signs Vital Signs Date Time Temp Pulse Resp B/P (MAP) Pulse Ox O2 Delivery O2 Flow Rate FiO2 10/24/20 06:04 97.8 105 18 144/92 (109) 98 Room Air Current Medications Current Medications Medications (Trade) Dose Ordered Sig/Yovanny Route PRN Reason Start Time Stop Time Status Last Admin Dose Admin Acetaminophen (Tylenol Tab) 650 mg Q6HP PRN PO HEADACHE or MILD DISCOMFORT 10/14/20 12:45 10/24/20 09:24 Al Hydrox/Mg Hydrox/Simethicone (Mylanta) 30 ml Q4HP PRN PO HEARTBURN/INDIGESTION 10/14/20 12:45 10/17/20 15:32 Diphenhydramine HCl (Benadryl) 50 mg Q6HP PRN PO ANXIETY/AGITATION 10/20/20 09:05 10/24/20 09:25 Diphenhydramine HCl (Benadryl) 50 mg Q6HP PRN PO ANXIETY/AGITATION 10/14/20 12:45 10/20/20 09:13 DC 10/19/20 21:22 Haloperidol (Haldol) 5 mg Q6HP PRN PO ANXIETY/AGITATION 10/14/20 12:45 10/24/20 09:24 Home Med (Med Rec Complete!) ASDIRECTED XX 10/13/20 20:00 10/13/20 19:57 DC Lorazepam (Ativan) 1 mg STAT STAT IM 10/14/20 00:40 10/14/20 00:41 DC 10/14/20 00:46 Lorazepam (Ativan) 2 mg Q6HP PRN PO ANXIETY/AGITATION 10/20/20 09:05 10/24/20 09:25 Lorazepam (Ativan) 2 mg Q6HP PRN PO ANXIETY/AGITATION 10/14/20 12:45 10/20/20 09:12 DC 10/19/20 12:40 Magnesium Hydroxide (Milk Of Magnesia) 30 ml DAILYPRN PRN PO CONSTIPATION 10/14/20 12:45 Miscellaneous (Unresolved Clarification Entry) SEE LABEL COMMENTS UNRESOLVED XX 10/15/20 00:01 Cancel Nicotine (Nicoderm Cq 21mg) 1 patch DAILY TD 10/17/20 09:00 10/18/20 11:50 DC 10/17/20 09:55 Nicotine (Nicorette) 2 mg Q4HP PRN PO NICOTINE WITHDRAWAL 10/18/20 11:50 10/24/20 05:28 Paliperidone Palmitate (Invega Sustenna) 234 mg Q30D IM 11/13/20 09:00 10/14/20 13:31 DC Quetiapine Fumarate (SEROquel) 200 mg QHS PO 10/14/20 21:00 10/16/20 07:56 DC 10/15/20 21:56 Quetiapine Fumarate (SEROquel) 300 mg QHS PO 10/16/20 21:00 10/23/20 22:22 Trazodone HCl (Desyrel) 50 mg QHSP PRN PO INSOMNIA 10/14/20 12:45 10/20/20 11:10 DC 10/19/20 21:22 Allergies Coded Allergies: [place]'s wort (Verified Allergy, Unknown, 4/29/20) NILSON ALLEN M.D. Oct 24, 2020 09:36
[2020-10-24 18:58] VITALS: BP 154/86
[2020-10-24] MEDS: QUEtiapine FUMARATE 100 MG TAB PO SCH (22:48)
[2020-10-25] MEDS: NICOTINE POLACRILEX 2 MG GUM PO PRN ×2 (05:30→09:47)
[2020-10-25 06:24] VITALS: BP 147/95
--- NOTE | 2020-10-25 11:24 | MHIPNPDOC ---
[facility] [place] Progress Note DATE OF SERVICE: 10/25/20 Patient has no new complaint today and does not appear to be as preoccupied with his neighbors. The digital sales planner has contacted his case management social worker at [facility] parently normal concern or problem was received by the case management social worker from the patient and the apartment is safe for his return. Since the patient has no new issues and is maintaining good control with his medications we will try to have him go back to his current apartment HISTORY:. VITAL SIGNS: See below. NEW TEST RESULTS:. CURRENT MEDICATIONS: See below. MENTAL STATUS EXAMINATION: Patient is a 35-year old male, who is in no acute distress. Speech: Is not productive but rational. Language skills are fair. Thought processes including: Coherent. Thought content: Denies any new problems. Abstract reasoning, and computation: Fair. Description of associations: Organized. Description of abnormal or psychotic thoughts: We will denies any command hallucination and not appear as paranoid. Judgment: Fair. Insight: [Fair. Orientation: Oriented. Recent and remote memory: Unimpaired. Attention span and concentration: Fair. Language:. Fund of knowledge:. Mood: Reports feeling better. Affect: Blunted but appropriate. DIAGNOSES: 1.. Schizophrenia chronic paranoid 2.. 3.. ASSESSMENT: Maintaining good control and denies any new issues MANAGEMENT PLAN: We will plan to discharge him back to his apartment. TIME SPENT: 20 minutes. Vital Signs Vital Signs Date Time Temp Pulse Resp B/P (MAP) Pulse Ox O2 Delivery O2 Flow Rate FiO2 10/25/20 06:24 97.2 109 18 147/95 (112) 95 Room Air Current Medications Current Medications Medications (Trade) Dose Ordered Sig/Yovanny Route PRN Reason Start Time Stop Time Status Last Admin Dose Admin Acetaminophen (Tylenol Tab) 650 mg Q6HP PRN PO HEADACHE or MILD DISCOMFORT 10/14/20 12:45 10/24/20 18:22 Al Hydrox/Mg Hydrox/Simethicone (Mylanta) 30 ml Q4HP PRN PO HEARTBURN/INDIGESTION 10/14/20 12:45 10/17/20 15:32 Diphenhydramine HCl (Benadryl) 50 mg Q6HP PRN PO ANXIETY/AGITATION 10/20/20 09:05 10/24/20 18:22 Diphenhydramine HCl (Benadryl) 50 mg Q6HP PRN PO ANXIETY/AGITATION 10/14/20 12:45 10/20/20 09:13 DC 10/19/20 21:22 Haloperidol (Haldol) 5 mg Q6HP PRN PO ANXIETY/AGITATION 10/14/20 12:45 10/24/20 18:22 Home Med (Med Rec Complete!) ASDIRECTED XX 10/13/20 20:00 10/13/20 19:57 DC Lorazepam (Ativan) 1 mg STAT STAT IM 10/14/20 00:40 10/14/20 00:41 DC 10/14/20 00:46 Lorazepam (Ativan) 2 mg Q6HP PRN PO ANXIETY/AGITATION 10/20/20 09:05 10/24/20 18:22 Lorazepam (Ativan) 2 mg Q6HP PRN PO ANXIETY/AGITATION 10/14/20 12:45 10/20/20 09:12 DC 10/19/20 12:40 Magnesium Hydroxide (Milk Of Magnesia) 30 ml DAILYPRN PRN PO CONSTIPATION 10/14/20 12:45 Miscellaneous (Unresolved Clarification Entry) SEE LABEL COMMENTS UNRESOLVED XX 10/15/20 00:01 Cancel Nicotine (Nicoderm Cq 21mg) 1 patch DAILY TD 10/17/20 09:00 10/18/20 11:50 DC 10/17/20 09:55 Nicotine (Nicorette) 2 mg Q4HP PRN PO NICOTINE WITHDRAWAL 10/18/20 11:50 10/25/20 09:47 Paliperidone Palmitate (Invega Sustenna) 234 mg Q30D IM 11/13/20 09:00 10/14/20 13:31 DC Quetiapine Fumarate (SEROquel) 200 mg QHS PO 10/14/20 21:00 10/16/20 07:56 DC 10/15/20 21:56 Quetiapine Fumarate (SEROquel) 300 mg QHS PO 10/16/20 21:00 10/24/20 22:48 Trazodone HCl (Desyrel) 50 mg QHSP PRN PO INSOMNIA 10/14/20 12:45 10/20/20 11:10 DC 10/19/20 21:22 Allergies Coded Allergies: Donna's wort (Verified Allergy, Unknown, 08/05/19) NILSON ALLEN M.D. 20, 2021 11:24
[2020-10-25] MEDS: diphenhydrAMINE 50MG CAP PO PRN (15:14)
[2020-10-25] MEDS: ACETAMINOPHEN TAB 650MG DOSE (2X325MG) PO PRN (15:15)
[2020-10-25 17:49] VITALS: BP 142/88
[2020-10-25] MEDS: QUEtiapine FUMARATE 100 MG TAB PO SCH (20:59)
[2020-10-26 06:00] VITALS: BP 158/92
[2020-10-26] MEDS ORDERED: TUBERCULIN PPD 5 UNITS/0.1 ML ID ONE (09:50)
--- NOTE | 2020-10-26 10:15 | REP ---
[facility] COMPARISON: None. TECHNIQUE: Single portable AP view of the chest was performed. FINDINGS: There is no acute infiltrate or pulmonary edema. Lungs are clear. The heart is not significantly enlarged. The mediastinal silhouette is unremarkable. The visualized osseous structures are intact. IMPRESSION: No acute pulmonary disease. <Electronically signed by Donnie Elder > 10/26/20 1011
--- NOTE | 2020-10-26 12:07 | MHIPNPDOC ---
[facility] Progress Note Progress Note DATE OF SERVICE: 10/26/20 The patient appears to be even more disorganized and somewhat bizarre. He refused to take his Seroquel last night and this morning he is claiming that he does not believe that he is mentally ill and decided not to take any medicine. When asked about the reasons he started to ramble about his belief in God etc. and really not making any sense. He appears actively hallucinating with inappropriate smiles and extremely loose and circumstantial speech and overall showing more disorganized mental status. He clearly is in need of the further stabilization we will convert him to 2 physician certificate status. HISTORY:. VITAL SIGNS: See below. NEW TEST RESULTS:. CURRENT MEDICATIONS: See below. MENTAL STATUS EXAMINATION: Patient is a 35-year old male, who is in no acute distress. Speech: Is loose and circumstantial. Language skills are poor. Thought processes including: Fragmented and circumstantial. Thought content: Bizarre preoccupation about God and mental illness. Abstract reasoning, and computation: Poor. Description of associations: Disorganized. Description of abnormal or psychotic thoughts: Paranoid and disorganized. Judgment: Poor. Insight: poor]. Orientation: Oriented. Recent and remote memory: Unimpaired. Attention span and concentration: Poor. Language:. Fund of knowledge:. Mood: Superficially pleasant. Affect: Inappropriate smiles. DIAGNOSES: 1.. Schizophrenia paranoid 2.. 3.. ASSESSMENT: Showing worsening mental status MANAGEMENT PLAN: Continue with the supportive therapy and education and convert to 2 physician certificate. TIME SPENT: 12 minutes. Vital Signs Vital Signs Date Time Temp Pulse Resp B/P (MAP) Pulse Ox O2 Delivery O2 Flow Rate FiO2 10/26/20 06:00 98.0 90 18 158/92 (114) 99 Room Air Current Medications Current Medications Medications (Trade) Dose Ordered Sig/Yovanny Route PRN Reason Start Time Stop Time Status Last Admin Dose Admin Acetaminophen (Tylenol Tab) 650 mg Q6HP PRN PO HEADACHE or MILD DISCOMFORT 10/14/20 12:45 10/25/20 15:15 Al Hydrox/Mg Hydrox/Simethicone (Mylanta) 30 ml Q4HP PRN PO HEARTBURN/INDIGESTION 10/14/20 12:45 10/17/20 15:32 Diphenhydramine HCl (Benadryl) 50 mg Q6HP PRN PO ANXIETY/AGITATION 10/20/20 09:05 10/25/20 15:14 Diphenhydramine HCl (Benadryl) 50 mg Q6HP PRN PO ANXIETY/AGITATION 10/14/20 12:45 10/20/20 09:13 DC 10/19/20 21:22 Haloperidol (Haldol) 5 mg Q6HP PRN PO ANXIETY/AGITATION 10/14/20 12:45 10/24/20 18:22 Home Med (Med Rec Complete!) ASDIRECTED XX 10/13/20 20:00 10/13/20 19:57 DC Lorazepam (Ativan) 1 mg STAT STAT IM 10/14/20 00:40 10/14/20 00:41 DC 10/14/20 00:46 Lorazepam (Ativan) 2 mg Q6HP PRN PO ANXIETY/AGITATION 10/20/20 09:05 10/24/20 18:22 Lorazepam (Ativan) 2 mg Q6HP PRN PO ANXIETY/AGITATION 10/14/20 12:45 10/20/20 09:12 DC 10/19/20 12:40 Magnesium Hydroxide (Milk Of Magnesia) 30 ml DAILYPRN PRN PO CONSTIPATION 10/14/20 12:45 Miscellaneous (Unresolved Clarification Entry) SEE LABEL COMMENTS UNRESOLVED XX 10/15/20 00:01 Cancel Nicotine (Nicoderm Cq 21mg) 1 patch DAILY TD 10/17/20 09:00 10/18/20 11:50 DC 10/17/20 09:55 Nicotine (Nicorette) 2 mg Q4HP PRN PO NICOTINE WITHDRAWAL 10/18/20 11:50 10/25/20 09:47 Paliperidone Palmitate (Invega Sustenna) 234 mg Q30D IM 11/13/20 09:00 10/14/20 13:31 DC Quetiapine Fumarate (SEROquel) 200 mg QHS PO 10/14/20 21:00 10/16/20 07:56 DC 10/15/20 21:56 Quetiapine Fumarate (SEROquel) 300 mg QHS PO 10/16/20 21:00 10/24/20 22:48 Trazodone HCl (Desyrel) 50 mg QHSP PRN PO INSOMNIA 10/14/20 12:45 10/20/20 11:10 DC 10/19/20 21:22 Allergies Coded Allergies: [place]'s wort (Verified Allergy, Unknown, 08/05/19) NILSON ALLEN M.D. Oct 26, 2020 12:07
[2020-10-26] MEDS: NICOTINE POLACRILEX 2 MG GUM PO PRN (15:55)
[2020-10-26 17:09] VITALS: BP 158/97
[2020-10-26] MEDS: QUEtiapine FUMARATE 100 MG TAB PO SCH ×2 (20:32→21:53)
[2020-10-26] MEDS: diphenhydrAMINE 50MG CAP PO PRN (21:53)
[2020-10-27 06:54] VITALS: BP 143/87
[2020-10-27] MEDS: NICOTINE POLACRILEX 2 MG GUM PO PRN ×3 (09:09→21:02)
--- NOTE | 2020-10-27 09:17 | MHIPNPDOC ---
[facility] Progress Note Progress Note DATE OF SERVICE: 10/27/20 The patient claimed that he will not take medicine and does not believe his mental illness yesterday. He however cooperated with all his medications yesterday and this morning and stated that he slept good and he plans to comply with all the medication. He has no explanation for his sudden change of mind but appears very blunted preoccupied and not able to elaborate. HISTORY:. VITAL SIGNS: See below. NEW TEST RESULTS:. CURRENT MEDICATIONS: See below. MENTAL STATUS EXAMINATION: Patient is a 35-year old male, who is in no acute distress. Speech: Is relevant but not productive. Language skills are only fair. Thought processes including: Relevant and not spontaneous. Thought content: Patient is not offering any new complaint but appears markedly preoccupied. Abstract reasoning, and computation: Poor. Description of associations:. Description of abnormal or psychotic thoughts: Patient is denying any hallucinations but has been showing restorationist preoccupation and some paranoia. Judgment: Poor. Insight: poor]. Orientation: Appears oriented. Recent and remote memory: No gross impairment. Attention span and concentration: Poor. Language:. Fund of knowledge:. Mood: Appears moderately anxious. Affect: Very blunted. DIAGNOSES: 1.. Schizophrenia paranoid 2.. 3.. 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 TIME SPENT: 20 minutes. Vital Signs Vital Signs Date Time Temp Pulse Resp B/P (MAP) Pulse Ox O2 Delivery O2 Flow Rate FiO2 10/27/20 06:54 97.7 106 20 143/87 (105) 97 Room Air Current Medications Current Medications Medications (Trade) Dose Ordered Sig/Yovanny Route PRN Reason Start Time Stop Time Status Last Admin Dose Admin Acetaminophen (Tylenol Tab) 650 mg Q6HP PRN PO HEADACHE or MILD DISCOMFORT 10/14/20 12:45 10/25/20 15:15 Al Hydrox/Mg Hydrox/Simethicone (Mylanta) 30 ml Q4HP PRN PO HEARTBURN/INDIGESTION 10/14/20 12:45 10/17/20 15:32 Diphenhydramine HCl (Benadryl) 50 mg Q6HP PRN PO ANXIETY/AGITATION 10/20/20 09:05 10/26/20 21:53 Diphenhydramine HCl (Benadryl) 50 mg Q6HP PRN PO ANXIETY/AGITATION 10/14/20 12:45 10/20/20 09:13 DC 10/19/20 21:22 Haloperidol (Haldol) 5 mg Q6HP PRN PO ANXIETY/AGITATION 10/14/20 12:45 10/24/20 18:22 Home Med (Med Rec Complete!) ASDIRECTED XX 10/13/20 20:00 10/13/20 19:57 DC Lorazepam (Ativan) 1 mg STAT STAT IM 10/14/20 00:40 10/14/20 00:41 DC 10/14/20 00:46 Lorazepam (Ativan) 2 mg Q6HP PRN PO ANXIETY/AGITATION 10/20/20 09:05 10/24/20 18:22 Lorazepam (Ativan) 2 mg Q6HP PRN PO ANXIETY/AGITATION 10/14/20 12:45 10/20/20 09:12 DC 10/19/20 12:40 Magnesium Hydroxide (Milk Of Magnesia) 30 ml DAILYPRN PRN PO CONSTIPATION 10/14/20 12:45 Miscellaneous (Unresolved Clarification Entry) SEE LABEL COMMENTS UNRESOLVED XX 10/15/20 00:01 Cancel Nicotine (Nicoderm Cq 21mg) 1 patch DAILY TD 10/17/20 09:00 10/18/20 11:50 DC 10/17/20 09:55 Nicotine (Nicorette) 2 mg Q4HP PRN PO NICOTINE WITHDRAWAL 10/18/20 11:50 10/27/20 09:09 Paliperidone Palmitate (Invega Sustenna) 234 mg Q30D IM 11/13/20 09:00 10/14/20 13:31 DC Quetiapine Fumarate (SEROquel) 200 mg QHS PO 10/14/20 21:00 10/16/20 07:56 DC 10/15/20 21:56 Quetiapine Fumarate (SEROquel) 300 mg QHS PO 10/16/20 21:00 10/26/20 21:53 Trazodone HCl (Desyrel) 50 mg QHSP PRN PO INSOMNIA 10/14/20 12:45 10/20/20 11:10 DC 10/19/20 21:22 Allergies Coded Allergies: Donna's wort (Verified Allergy, Unknown, 08/05/19) NILSON ALLEN M.D. Oct 27, 2020 09:17
[2020-10-27 18:00] VITALS: BP 140/85
[2020-10-27] MEDS: QUEtiapine FUMARATE 100 MG TAB PO SCH (20:05)
[2020-10-27] MEDS: ACETAMINOPHEN TAB 650MG DOSE (2X325MG) PO PRN (20:06)
[2020-10-27] MEDS: diphenhydrAMINE 50MG CAP PO PRN (21:03)
[2020-10-28 06:19] VITALS: BP 117/80
[2020-10-28] MEDS: NICOTINE POLACRILEX 2 MG GUM PO PRN ×3 (08:59→18:18)
[2020-10-28] MEDS ORDERED: PALIPERIDONE PALMITATE 234MG/1.5ML INJ (INVEGA)(FREE PSY INPT ONLY) IM ONE (09:00)
--- NOTE | 2020-10-28 09:13 | MHIPNPDOC ---
[facility] Progress Note Progress Note DATE OF SERVICE: 10/28/20 The patient is due for his paliperidone injection today and he was given 234 mg IM and to be repeated in 4 weeks. This morning he is somewhat more withdrawn a nd preoccupied and staying in bed and not very verbally responsive. He is only responding with yes and no and is very guarded and speech is not productive. He indicated that he would want to go back to his apartment but doesn't want to discuss his previous concerns regarding neighbors and overall appears much more preoccupied and withdrawn. HISTORY:. VITAL SIGNS: See below. NEW TEST RESULTS:. CURRENT MEDICATIONS: See below. MENTAL STATUS EXAMINATION: Patient is a 35-year old male, who is in bed very preoccupied. Speech: Is not productive at all. Language skills are poor. Thought processes including: Not engaging in any conversation. Thought content: Difficult to evaluate but appears quite paranoid. Abstract reasoning, and computation: Poor. Description of associations: Not spontaneous. Description of abnormal or psychotic thoughts: Seclusive and guarded withdrawn and appears paranoid. Judgment: Poor. Insight: Poor. Orientation: Appears oriented. Recent and remote memory: Unimpaired. Attention span and concentration: Poor. Language:. Fund of knowledge:. Mood: Superficially denies any fear. Affect: Very blunted and preoccupied. DIAGNOSES: 1.. Chronic schizophrenia 2.. 3.. ASSESSMENT: No improvement and if any he appears more paranoid MANAGEMENT PLAN: Patient is given paliperidone injection 234 mg continue with the supportive therapy. TIME SPENT: 20 minutes. Vital Signs Vital Signs Date Time Temp Pulse Resp B/P (MAP) Pulse Ox O2 Delivery O2 Flow Rate FiO2 10/28/20 06:19 97.5 95 16 117/80 (92) 96 Room Air Current Medications Current Medications Medications (Trade) Dose Ordered Sig/Yovanny Route PRN Reason Start Time Stop Time Status Last Admin Dose Admin Acetaminophen (Tylenol Tab) 650 mg Q6HP PRN PO HEADACHE or MILD DISCOMFORT 10/14/20 12:45 10/27/20 20:06 Al Hydrox/Mg Hydrox/Simethicone (Mylanta) 30 ml Q4HP PRN PO HEARTBURN/INDIGESTION 10/14/20 12:45 10/17/20 15:32 Diphenhydramine HCl (Benadryl) 50 mg Q6HP PRN PO ANXIETY/AGITATION 10/20/20 09:05 10/27/20 21:03 Diphenhydramine HCl (Benadryl) 50 mg Q6HP PRN PO ANXIETY/AGITATION 10/14/20 12:45 10/20/20 09:13 DC 10/19/20 21:22 Haloperidol (Haldol) 5 mg Q6HP PRN PO ANXIETY/AGITATION 10/14/20 12:45 10/24/20 18:22 Home Med (Med Rec Complete!) ASDIRECTED XX 10/13/20 20:00 10/13/20 19:57 DC Lorazepam (Ativan) 1 mg STAT STAT IM 10/14/20 00:40 10/14/20 00:41 DC 10/14/20 00:46 Lorazepam (Ativan) 2 mg Q6HP PRN PO ANXIETY/AGITATION 10/20/20 09:05 10/24/20 18:22 Lorazepam (Ativan) 2 mg Q6HP PRN PO ANXIETY/AGITATION 10/14/20 12:45 10/20/20 09:12 DC 10/19/20 12:40 Magnesium Hydroxide (Milk Of Magnesia) 30 ml DAILYPRN PRN PO CONSTIPATION 10/14/20 12:45 Miscellaneous (Unresolved Clarification Entry) SEE LABEL COMMENTS UNRESOLVED XX 10/15/20 00:01 Cancel Nicotine (Nicoderm Cq 21mg) 1 patch DAILY TD 10/17/20 09:00 10/18/20 11:50 DC 10/17/20 09:55 Nicotine (Nicorette) 2 mg Q4HP PRN PO NICOTINE WITHDRAWAL 10/18/20 11:50 10/28/20 08:59 Paliperidone Palmitate (Invega Sustenna) 234 mg Q30D IM 11/25/20 09:00 10/27/20 11:38 DC Paliperidone Palmitate (Invega Sustenna) 234 mg Q30D IM 11/13/20 09:00 10/14/20 13:31 DC Quetiapine Fumarate (SEROquel) 200 mg QHS PO 10/14/20 21:00 10/16/20 07:56 DC 10/15/20 21:56 Quetiapine Fumarate (SEROquel) 300 mg QHS PO 10/16/20 21:00 10/27/20 20:05 Trazodone HCl (Desyrel) 50 mg QHSP PRN PO INSOMNIA 10/14/20 12:45 10/20/20 11:10 DC 10/19/20 21:22 Allergies Coded Allergies: [place]'s wort (Verified Allergy, Unknown, 08/05/19) NILSON ALLEN M.D. Oct 28, 2020 09:13
[2020-10-28] MEDS ORDERED: PPD DOCUMENTATION ENTRY MISC XX ONE (10:00)
[2020-10-28] MEDS: LORazepam 2 MG TAB PO PRN ×2 (11:00→18:18)
[2020-10-28] MEDS: diphenhydrAMINE 50MG CAP PO PRN ×2 (11:00→18:18)
[2020-10-28] MEDS: haloperidoL 5 MG TAB PO PRN ×2 (11:00→18:18)
[2020-10-28] MEDS: ACETAMINOPHEN TAB 650MG DOSE (2X325MG) PO PRN (14:17)
[2020-10-28 18:00] VITALS: BP 152/91
[2020-10-28] MEDS: QUEtiapine FUMARATE 100 MG TAB PO SCH (20:16)
[2020-10-29 05:31] VITALS: BP 148/84
[2020-10-29] MEDS: NICOTINE POLACRILEX 2 MG GUM PO PRN ×3 (09:11→18:09)
[2020-10-29] MEDS: diphenhydrAMINE 50MG CAP PO PRN (15:14)
[2020-10-29] MEDS: LORazepam 2 MG TAB PO PRN (15:14)
[2020-10-29] MEDS: haloperidoL 5 MG TAB PO PRN (15:14)
[2020-10-29 16:29] VITALS: BP 146/83
[2020-10-29] MEDS: QUEtiapine FUMARATE 100 MG TAB PO SCH (20:11)
[2020-10-29] MEDS: ACETAMINOPHEN TAB 650MG DOSE (2X325MG) PO PRN (20:11)
[2020-10-30] MEDS: NICOTINE POLACRILEX 2 MG GUM PO PRN ×3 (05:52→16:48)
[2020-10-30 06:26] VITALS: BP 139/90
[2020-10-30] MEDS: haloperidoL 5 MG TAB PO PRN ×2 (10:44→18:12)
[2020-10-30] MEDS: LORazepam 2 MG TAB PO PRN ×2 (10:44→18:12)
[2020-10-30] MEDS: diphenhydrAMINE 50MG CAP PO PRN ×2 (10:44→18:12)
[2020-10-30 15:37] VITALS: BP 164/82
[2020-10-30] MEDS ORDERED: PALIPERIDONE PALMITATE 234MG/1.5ML INJ (INVEGA)(FREE PSY INPT ONLY) IM ONE (17:00)
[2020-10-30] MEDS: QUEtiapine FUMARATE 100 MG TAB PO SCH (20:41)
[2020-10-31] MEDS: diphenhydrAMINE 50MG CAP PO PRN ×3 (00:27→18:19)
[2020-10-31] MEDS: LORazepam 2 MG TAB PO PRN ×3 (00:27→18:19)
[2020-10-31] MEDS: haloperidoL 5 MG TAB PO PRN ×3 (00:27→18:19)
[2020-10-31] MEDS: NICOTINE POLACRILEX 2 MG GUM PO PRN ×3 (05:34→18:15)
[2020-10-31 06:29] VITALS: BP 138/81
--- NOTE | 2020-10-31 09:08 | MHIPNPDOC ---
[facility] Progress Note Progress Note DATE OF SERVICE: 10/31/20 Patient is received his paliperidone injection without any problem and reports feeling good. He does not appear as preoccupied and responding appropriately bu t otherwise somewhat evasive and not very productive. Patient however is asking clearly that he would like to go back to his [facility] apartment and does not have any concern for safety or neighbor and does not appear as paranoid. He is in good control ,eating sleeping okay, is less preoccupied and not bizarre statement. We will continue with his current medicine and supportive therapy and consider returning him to to his [facility] apartment. HISTORY:. VITAL SIGNS: See below. NEW TEST RESULTS:. CURRENT MEDICATIONS: See below. MENTAL STATUS EXAMINATION: Patient is a 35-year old male, who is in no acute distress. Speech: Is relevant but not productive. Language skills are fair. Thought processes including: Not productive. Thought content: Not reporting any paranoid fear. Abstract reasoning, and computation: Fair. Description of associations: Relevant. Description of abnormal or psychotic thoughts: Is not reporting any more tactile hallucination and denies any suicidal thoughts. Judgment: Fair. Insight: Fair. Orientation: Oriented. Recent and remote memory: No impairment. Attention span and concentration: Fair. Language:. Fund of knowledge:. Mood: Denies any serious depression or anxiety. Affect: Blunted but appropriate. DIAGNOSES: 1.. Chronic schizophrenia 2.. 3.. ASSESSMENT: Cooperating with the medicine and in good control MANAGEMENT PLAN: Continue with the current treatment and consider discharge back to his [facility] apartment. TIME SPENT: 20 minutes. Vital Signs Vital Signs Date Time Temp Pulse Resp B/P (MAP) Pulse Ox O2 Delivery O2 Flow Rate FiO2 10/31/20 06:29 97.6 100 12 138/81 (100) 98 Room Air Current Medications Current Medications Medications (Trade) Dose Ordered Sig/Yovanny Route PRN Reason Start Time Stop Time Status Last Admin Dose Admin Acetaminophen (Tylenol Tab) 650 mg Q6HP PRN PO HEADACHE or MILD DISCOMFORT 10/14/20 12:45 10/29/20 20:11 Al Hydrox/Mg Hydrox/Simethicone (Mylanta) 30 ml Q4HP PRN PO HEARTBURN/INDIGESTION 10/14/20 12:45 10/17/20 15:32 Diphenhydramine HCl (Benadryl) 50 mg Q6HP PRN PO ANXIETY/AGITATION 10/20/20 09:05 10/31/20 08:03 Diphenhydramine HCl (Benadryl) 50 mg Q6HP PRN PO ANXIETY/AGITATION 10/14/20 12:45 10/20/20 09:13 DC 10/19/20 21:22 Haloperidol (Haldol) 5 mg Q6HP PRN PO ANXIETY/AGITATION 10/14/20 12:45 10/31/20 08:03 Home Med (Med Rec Complete!) ASDIRECTED XX 10/13/20 20:00 10/13/20 19:57 DC Lorazepam (Ativan) 1 mg STAT STAT IM 10/14/20 00:40 10/14/20 00:41 DC 10/14/20 00:46 Lorazepam (Ativan) 2 mg Q6HP PRN PO ANXIETY/AGITATION 10/20/20 09:05 10/31/20 08:03 Lorazepam (Ativan) 2 mg Q6HP PRN PO ANXIETY/AGITATION 10/14/20 12:45 10/20/20 09:12 DC 10/19/20 12:40 Magnesium Hydroxide (Milk Of Magnesia) 30 ml DAILYPRN PRN PO CONSTIPATION 10/14/20 12:45 Miscellaneous (Unresolved Clarification Entry) SEE LABEL COMMENTS UNRESOLVED XX 10/15/20 00:01 Cancel Nicotine (Nicoderm Cq 21mg) 1 patch DAILY TD 10/17/20 09:00 10/18/20 11:50 DC 10/17/20 09:55 Nicotine (Nicorette) 2 mg Q4HP PRN PO NICOTINE WITHDRAWAL 10/18/20 11:50 10/31/20 05:34 Paliperidone Palmitate (Invega Sustenna) 234 mg Q30D IM 11/25/20 09:00 10/27/20 11:38 DC Paliperidone Palmitate (Invega Sustenna) 234 mg Q30D IM 11/13/20 09:00 10/14/20 13:31 DC Quetiapine Fumarate (SEROquel) 200 mg QHS PO 10/14/20 21:00 10/16/20 07:56 DC 10/15/20 21:56 Quetiapine Fumarate (SEROquel) 300 mg QHS PO 10/16/20 21:00 10/30/20 20:41 Trazodone HCl (Desyrel) 50 mg QHSP PRN PO INSOMNIA 10/14/20 12:45 10/20/20 11:10 DC 10/19/20 21:22 Allergies Coded Allergies: [place]'s wort (Verified Allergy, Unknown, 08/05/19) NILSON ALLEN M.D. Oct 31, 2020 09:08
[2020-10-31 19:03] VITALS: BP 146/78
[2020-10-31] MEDS: QUEtiapine FUMARATE 100 MG TAB PO SCH (20:01)
[2020-11-01 07:17] VITALS: BP 138/92
[2020-11-01] MEDS: diphenhydrAMINE 50MG CAP PO PRN (09:39)
[2020-11-01] MEDS: LORazepam 2 MG TAB PO PRN (09:39)
[2020-11-01] MEDS: NICOTINE POLACRILEX 2 MG GUM PO PRN ×3 (09:39→20:12)
[2020-11-01] MEDS: haloperidoL 5 MG TAB PO PRN (09:39)
--- NOTE | 2020-11-01 11:06 | MHIPNPDOC ---
[facility] Progress Note Progress Note DATE OF SERVICE: 11/01/20 Patient is cooperated with paliperidone injection and has no new complaint and in no acute physical distress. He appears a little bit more withdrawn and spen ding more time in bed and apparently has been using frequent extra medications ordered for agitation as needed. I will discontinue his Ativan and continue with the supportive therapy. He is in good control and is now feeling safe and asking for possible return to his [facility] apartment. We will have contact with [facility] for possible return. HISTORY: . VITAL SIGNS: See below. NEW TEST RESULTS: . CURRENT MEDICATIONS: See below. MENTAL STATUS EXAMINATION: Patient is a [35]-year old male, who is [in no acute distress]. Speech: Is [relevant but not productive]. Language skills are fair. Thought processes including: Relevant. Thought content: Superficially denying any problem. Abstract reasoning, and computation:. Description of associations: Not very spontaneous. Description of abnormal or psychotic thoughts: Denies any hallucination or paranoid fear. Judgment: Fair. Insight: Fair. Orientation: Is oriented. Recent and remote memory: No gross impairment. Attention span and concentration:. Language:. Fund of knowledge:. Mood: Reports feeling safe. Affect: Blunted but appropriate. DIAGNOSES: 1. Chronic schizophrenia. 2.. 3.. ASSESSMENT: Maintaining good control and cooperating with treatment MANAGEMENT PLAN: Possible discharge back to [facility]. TIME SPENT: 15 minutes. Vital Signs Vital Signs Date Time Temp Pulse Resp B/P (MAP) Pulse Ox O2 Delivery O2 Flow Rate FiO2 11/01/20 07:17 97.7 112 20 138/92 (107) 98 Room Air Current Medications Current Medications Medications (Trade) Dose Ordered Sig/Yovanny Route PRN Reason Start Time Stop Time Status Last Admin Dose Admin Acetaminophen (Tylenol Tab) 650 mg Q6HP PRN PO HEADACHE or MILD DISCOMFORT 10/14/20 12:45 10/29/20 20:11 Al Hydrox/Mg Hydrox/Simethicone (Mylanta) 30 ml Q4HP PRN PO HEARTBURN/INDIGESTION 10/14/20 12:45 10/17/20 15:32 Diphenhydramine HCl (Benadryl) 50 mg Q6HP PRN PO ANXIETY/AGITATION 10/20/20 09:05 11/01/20 10:20 DC 11/01/20 09:39 Diphenhydramine HCl (Benadryl) 50 mg Q6HP PRN PO ANXIETY/AGITATION 10/14/20 12:45 10/20/20 09:13 DC 10/19/20 21:22 Haloperidol (Haldol) 5 mg Q6HP PRN PO ANXIETY/AGITATION 10/14/20 12:45 11/01/20 09:39 Home Med (Med Rec Complete!) ASDIRECTED XX 10/13/20 20:00 10/13/20 19:57 DC Lorazepam (Ativan) 1 mg STAT STAT IM 10/14/20 00:40 10/14/20 00:41 DC 10/14/20 00:46 Lorazepam (Ativan) 2 mg Q6HP PRN PO ANXIETY/AGITATION 10/20/20 09:05 11/01/20 10:20 DC 11/01/20 09:39 Lorazepam (Ativan) 2 mg Q6HP PRN PO ANXIETY/AGITATION 10/14/20 12:45 10/20/20 09:12 DC 10/19/20 12:40 Magnesium Hydroxide (Milk Of Magnesia) 30 ml DAILYPRN PRN PO CONSTIPATION 10/14/20 12:45 Miscellaneous (Unresolved Clarification Entry) SEE LABEL COMMENTS UNRESOLVED XX 10/15/20 00:01 Cancel Nicotine (Nicoderm Cq 21mg) 1 patch DAILY TD 10/17/20 09:00 10/18/20 11:50 DC 10/17/20 09:55 Nicotine (Nicorette) 2 mg Q4HP PRN PO NICOTINE WITHDRAWAL 10/18/20 11:50 11/01/20 09:39 Paliperidone Palmitate (Invega Sustenna) 234 mg Q30D IM 11/25/20 09:00 10/27/20 11:38 DC Paliperidone Palmitate (Invega Sustenna) 234 mg Q30D IM 11/13/20 09:00 10/14/20 13:31 DC Quetiapine Fumarate (SEROquel) 200 mg QHS PO 10/14/20 21:00 10/16/20 07:56 DC 10/15/20 21:56 Quetiapine Fumarate (SEROquel) 300 mg QHS PO 10/16/20 21:00 10/31/20 20:01 Trazodone HCl (Desyrel) 50 mg QHSP PRN PO INSOMNIA 10/14/20 12:45 10/20/20 11:10 DC 10/19/20 21:22 Allergies Coded Allergies: [place]'s wort (Verified Allergy, Unknown, 08/05/19) NILSON ALLEN M.D. Nov 01, 2020 11:06
[2020-11-01 18:01] VITALS: BP 146/83
[2020-11-01] MEDS: QUEtiapine FUMARATE 100 MG TAB PO SCH (20:12)
[2020-11-02] MEDS: haloperidoL 5 MG TAB PO PRN (00:42)
[2020-11-02] MEDS: NICOTINE POLACRILEX 2 MG GUM PO PRN (06:40)
[2020-11-02 06:47] VITALS: BP 135/60
[2020-11-02] MEDS ORDERED: QUET100T2 PO (10:56)
--- NOTE | 2020-11-02 11:04 | MHDSPDOC ---
[facility] Discharge Summary Discharge Summary DATE OF ADMISSION: Oct 14, 2020 at 12:44 DATE OF DISCHARGE: November 02, 2020 DISCHARGE DIAGNOSES: 1.. Chronic paranoid schizophrenia 2.. REASON FOR ADMISSION: 35-year-old single male with a long history of schizophrenia admitted due to complaint of increasing tactile hallucinations and bizarre paranoid preoccupation. Patient was recently discharged after he was admitted with the fear of snake and having visual and tactile hallucinations. Patient came back to the emergency room with basically same complaint of feeling something slithering on his skin and getting anxious and fearful. CONSULTANTS INVOLVED: TREATMENT AND PROGRESS ON THE UNIT : Patient was treated with supportive therapy and group activities on the unit. He was continued on his paliperidone injection and given 234 mg IM on October 28 with next dose due on November. Patient initially showed significantly disorganized thinking and appears very preoccupied and withdrawn. He was also complaining of feeling anxious and fearful about his housing and about his neighbor with a significant paranoid thoughts. He was given Haldol and Ativan as needed the basis and continued on Seroquel 300 mg at bedtime.. HOSPITAL COURSE: Patient is fully cooperated with the medications and showed a very slow but gradual improvement. He is denying any more hallucinations and is not concerned about paranoid fear and is feeling safe to return to his apartment. He denies any command hallucination and denies any suicidal thoughts and his behavior has been in good control. He is still somewhat guarded not very spontaneous and spends a lot of time in his room but denies any serious depression or suicidal thoughts and maintaining good control and asking for discharge. DISCHARGE ASSESSMENT: Improved stable and not a danger to himself or other people. MENTAL STATUS EXAMINATION ON DISCHARGE: Patient is a 35-year old male, who is in no acute distress. Speech is relevant but not productive. Language skills are fair. Thought processes including: Coherent and organized. Thought content: Denies any paranoid fear but appears preoccupied. Abstract reasoning, and computation: Fair. Description of associations: Relevant but not spontaneous or productive. Description of abnormal or psychotic thoughts: Denying any more hallucinations. Judgment: Fair . Insight:. Fair Orientation to well oriented. Recent and remote memory: No gross impairment. Attention span and concentration:. Language:. Fund of knowledge:. Mood: Mildly anxious but denies any serious depression. Affect: Blunted. MEDICATIONS ON DISCHARGE: -For. Seroquel 300 mg at bedtime for 7 days with 3 refills -For. Patient is to continue his paliperidone injection 234 mg monthly next do se due on December 03 -For. PLAN/FOLLOWUP ARRANGEMENTS: As arranged by the discharge plan. The amount of time spent in the coordination of care for this patient was approximately 35 minutes. ETOH/Disorder Med Rx ETOH/DRUG DISORDER RX: N/A Vital Signs/I&Os Vital Signs Date Time Temp Pulse Resp B/P (MAP) Pulse Ox O2 Delivery O2 Flow Rate FiO2 11/02/20 06:47 99.3 103 20 135/60 (85) 99 Room Air Medications Scheduled Paliperidone Palmitate (Invega Sustenna) 234 Mg/1.5 Ml Syringe, 234 MG IM QMONTH, (Reported) Quetiapine Fumarate (Quetiapine Fumarate) 100 Mg Tablet, 300 MG PO QHS for psychosis for 7 Days, #21 Allergies Coded Allergies: [place]'s wort (Verified Allergy, Unknown, 08/05/19) NILSON ALLEN M.D. Nov 02, 2020 11:04
[2020-11-13] MEDS ORDERED: PALIPERIDONE PALMITATE 234MG/1.5ML INJ (INVEGA)(FREE PSY INPT ONLY) IM SCH (09:00)
[2020-11-25] MEDS ORDERED: PALIPERIDONE PALMITATE 234MG/1.5ML INJ (INVEGA)(FREE PSY INPT ONLY) IM SCH (09:00)
== END 2020-11-02 11:29 | disposition home or self-care (01) | DRG 885 ==
LOC: M ED 09:24 → M ED INP 10-14 12:44 → M PSY 10-14 15:36
PROVIDERS: ADMIT Psychiatry & Neurology Psychiatry; ATTEND Psychiatry & Neurology Psychiatry
DX: F20.0 Paranoid schizophrenia (principal); F25.9 Schizoaffective disorder, unspecified; Z20.822 Contact with and (suspected) exposure to COVID-19; Z88.8 Allergy status to other drugs, medicaments and biological substances; Z79.899 Other long term (current) drug therapy

== ENCOUNTER 2021-01-14 15:23 | Emergency (ER) | payer MEDICARE, MEDICAID ==
[~2021-01-14] VITALS: Ht 177.8 cm; Wt 121.0 kg
[~2021-01-14 15:23] MED LIST changes: +PATIENT COMMENT; +SERO200T PO
[2021-01-14] MEDS ORDERED: NS 1,000 ML IV ONE (15:55)
[2021-01-14 17:17] LABS: ACETAMINOPHEN LEVEL < 2.0 UG/ML (10.0-30.0); ALBUMIN 4.5 GM/DL (3.2-5.2); ALT/SGPT 55 U/L (12-78); BILIRUBIN,DIRECT 0.1 MG/DL (0.0-0.2); BILIRUBIN,TOTAL 0.6 MG/DL (0.2-1.0); BLOOD UREA NITROGEN 10 MG/DL (7-18); CALCIUM LEVEL 8.7 MG/DL (8.5-10.1); CARBON DIOXIDE LEVEL 28 MEQ/L (21-32); CHLORIDE LEVEL 104 MEQ/L (98-107); CPK CREATINE PHOSPHOKINASE 434 U/L (39-308); CREATININE FOR GFR 1.06 MG/DL (0.70-1.30); ETHYL ALCOHOL (ETHANOL) < 0.003 % (0.000-0.010); GLOMERULAR FILTRATION RATE > 60.0 (>60); GLUCOSE, FASTING 65 MG/DL (70-100); POTASSIUM SERUM 4.4 MEQ/L (3.5-5.1); SALICYLATE LEVEL 3.4 MG/DL (5.0-30.0); SODIUM LEVEL 140 MEQ/L (136-145); TOTAL PROTEIN 8.4 GM/DL (6.4-8.2)
[2021-01-14 19:32] LABS: BASO # 0.1 10^3/uL (0.0-0.2); BASO % 0.9 % (0.0-1.0); EOS # 0.2 10^3/uL (0.0-0.5); EOS % 2.5 % (0.0-3.0); HEMATOCRIT 45.6 % (42.0-52.0); HEMOGLOBIN 15.3 g/dl (13.5-17.5); LYMPH % 38.3 % (24.0-44.0); MEAN CORPUSCULAR HEMOGLOBIN 30.7 pg (27.0-33.0); MEAN CORPUSCULAR HGB CONC 33.6 g/dl (32.0-36.5); MEAN CORPUSCULAR VOLUME 91.6 fl (80.0-96.0); MONO # 0.5 10^3/uL (0.0-0.8); MONO % 6.7 % (2.0-8.0); NEUTROPHILS # 4.1 10^3/uL (1.5-8.5); NEUTROPHILS % 51.2 % (36.0-66.0); PLATELET COUNT, AUTOMATED 287 10^3/uL (150-450); RED BLOOD COUNT 4.98 10^6/uL (4.30-6.10); WHITE BLOOD COUNT 7.9 10^3/uL (4.0-10.0)
--- NOTE | 2021-01-14 19:46 | ECGEPIP ---
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
[2021-01-14 19:51] LABS: AMPHETAMINES LEVEL URINE NEGATIVE (NEGATIVE); BARBITURATES URINE NEGATIVE (NEGATIVE); BENZODIAZEPINES URINE NEGATIVE (NEGATIVE); CANNABINOIDS URINE POSITIVE (NEGATIVE); COCAINE METABOLITE URINE NEGATIVE (NEGATIVE); METHADONE URINE NEGATIVE (NEGATIVE); OPIATES URINE NEGATIVE (NEGATIVE); PHENCYCLIDINE URINE NEGATIVE (NEGATIVE)
[2021-01-14 21:06] VITALS: BP 150/86
== END 2021-01-14 21:15 | disposition home or self-care (01) ==
LOC: M ED 15:23
DX: T45.0X2A Poisoning by antiallergic and antiemetic drugs, intentional self-harm, initial encounter (principal); Y92.89 Other specified places as the place of occurrence of the external cause; F33.9 Major depressive disorder, recurrent, unspecified; Z79.899 Other long term (current) drug therapy; Z88.8 Allergy status to other drugs, medicaments and biological substances; F17.210 Nicotine dependence, cigarettes, uncomplicated

== ENCOUNTER 2021-05-01 20:09 | Inpatient (IN) | payer OTHER, MEDICAID ==
[~2021-05-01] VITALS: Ht 177.8 cm; Wt 120.4 kg
[~2021-05-01 20:09] MED LIST changes: +AMLO1TAB24 PO; +COMMENTS; +[UNRECOGNIZED DRUG - CODE] PO
[2021-05-01] MEDS ORDERED: traZODone 50 MG TAB PO PRN (20:10)
[2021-05-01] MEDS ORDERED: MAALOX 30 ML SUSP *UDC PO PRN (20:10)
[2021-05-01] MEDS ORDERED: MOM 30ML SUSPENSION UDC PO PRN (20:10)
[2021-05-01] MEDS ORDERED: ACETAMINOPHEN TAB 650MG DOSE (2X325MG) PO PRN (20:10)
[2021-05-01 21:55] VITALS: BP 148/96
[2021-05-01] MEDS ORDERED: AMLO1TAB24 PO (23:02)
[2021-05-01] MEDS ORDERED: HOME MED LIST COMPLETE! XX SCH (23:05)
[2021-05-02 06:33] VITALS: BP 161/111
[2021-05-02] MEDS ORDERED: OLANZapine ORAL DISINTEGRATING TAB 5MG PO PRN (10:25)
[2021-05-02] MEDS: NICOTINE 21MG/24HR 1 EA TRANSDERMAL TD SCH (12:26)
[2021-05-02] MEDS: amLODIPine 5 MG TAB PO SCH (12:29)
[2021-05-02 19:08] VITALS: BP 138/79
[2021-05-02] MEDS ORDERED: QUEtiapine FUMARATE 200 MG TAB PO SCH (21:00)
[2021-05-02] MEDS: QUEtiapine FUMARATE 200 MG TAB PO SCH (21:10)
[2021-05-03 06:21] VITALS: BP 150/74
[2021-05-03] MEDS: amLODIPine 5 MG TAB PO SCH (09:45)
[2021-05-03] MEDS: NICOTINE 21MG/24HR 1 EA TRANSDERMAL TD SCH (09:47)
[2021-05-03 17:43] VITALS: BP 154/100
[2021-05-03] MEDS: QUEtiapine FUMARATE 200 MG TAB PO SCH (21:31)
[2021-05-04 06:42] VITALS: BP 153/75
[2021-05-04] MEDS ORDERED: MAALOX 30 ML SUSP *UDC PO PRN (14:45)
[2021-05-04] MEDS ORDERED: MOM 30ML SUSPENSION UDC PO PRN (14:45)
[2021-05-04] MEDS: NICOTINE 21MG/24HR 1 EA TRANSDERMAL TD PRN (17:04)
[2021-05-04] MEDS: traZODone 50 MG TAB PO PRN (20:21)
[2021-05-04] MEDS ORDERED: QUEtiapine FUMARATE 50MG TAB PO SCH (21:00)
[2021-05-05 06:28] VITALS: BP 138/88
[2021-05-05 08:06] VITALS: BP 138/88
[2021-05-05] MEDS ORDERED: NICOTINE 21MG/24HR 1 EA TRANSDERMAL TD SCH (09:00)
[2021-05-05] MEDS: amLODIPine 5 MG TAB PO SCH (11:28)
[2021-05-05] MEDS: OLANZapine 5 MG TAB PO SCH ×2 (11:29→21:07)
[2021-05-05 18:00] VITALS: BP 137/81
[2021-05-05] MEDS: traZODone 50 MG TAB PO PRN (21:07)
[2021-05-06 06:58] VITALS: BP 141/83
[2021-05-06] MEDS: OLANZapine 5 MG TAB PO SCH ×2 (09:02→20:37)
[2021-05-06] MEDS: amLODIPine 5 MG TAB PO SCH (09:02)
[2021-05-06] MEDS: NICOTINE 21MG/24HR 1 EA TRANSDERMAL TD PRN (09:02)
[2021-05-06] MEDS: traZODone 50 MG TAB PO PRN (20:37)
[2021-05-06] MEDS: ACETAMINOPHEN TAB 650MG DOSE (2X325MG) PO PRN (21:18)
[2021-05-07 06:26] VITALS: BP 148/83
[2021-05-07] MEDS: OLANZapine 5 MG TAB PO SCH ×2 (10:57→21:33)
[2021-05-07] MEDS: amLODIPine 5 MG TAB PO SCH (10:59)
[2021-05-07 18:11] VITALS: BP 124/67
[2021-05-07] MEDS: traZODone 50 MG TAB PO PRN (21:33)
[2021-05-08] MEDS: OLANZapine 5 MG TAB PO SCH ×2 (07:46→19:34)
[2021-05-08] MEDS: amLODIPine 5 MG TAB PO SCH (07:46)
[2021-05-08] MEDS ORDERED: LIDOCAINE 1% MDV 20ML VIAL As Ordered ONE (13:32)
[2021-05-08] MEDS: NICOTINE POLACRILEX 2 MG GUM PO PRN ×3 (14:38→19:30)
[2021-05-08 16:11] VITALS: BP 127/90
[2021-05-08] MEDS: ACETAMINOPHEN TAB 650MG DOSE (2X325MG) PO PRN (17:18)
[2021-05-09] MEDS: NICOTINE POLACRILEX 2 MG GUM PO PRN ×3 (05:28→19:45)
[2021-05-09 06:18] VITALS: BP 151/90
[2021-05-09] MEDS: amLODIPine 5 MG TAB PO SCH (09:00)
[2021-05-09] MEDS: OLANZapine 5 MG TAB PO SCH ×3 (09:00→22:09)
[2021-05-09] MEDS: DIVALPROEX 250MG *ER* TAB PO SCH ×2 (20:32→22:09)
[2021-05-09] MEDS: traZODone 50 MG TAB PO PRN (22:08)
[2021-05-10] MEDS: DIVALPROEX 250MG *ER* TAB PO SCH ×2 (08:49→21:00)
[2021-05-10] MEDS: OLANZapine 5 MG TAB PO SCH ×2 (08:49→21:00)
[2021-05-10] MEDS: NICOTINE POLACRILEX 2 MG GUM PO PRN ×3 (08:49→18:53)
[2021-05-10] MEDS: amLODIPine 5 MG TAB PO SCH (08:49)
[2021-05-10] MEDS: ACETAMINOPHEN TAB 650MG DOSE (2X325MG) PO PRN (21:30)
[2021-05-11] MEDS: NICOTINE POLACRILEX 2 MG GUM PO PRN ×3 (07:55→21:25)
[2021-05-11] MEDS: OLANZapine 5 MG TAB PO SCH ×2 (08:04→20:04)
[2021-05-11] MEDS: DIVALPROEX 250MG *ER* TAB PO SCH ×2 (08:04→20:04)
[2021-05-11] MEDS: amLODIPine 5 MG TAB PO SCH (08:05)
[2021-05-11 18:23] VITALS: BP 148/88
[2021-05-11] MEDS: traZODone 50 MG TAB PO PRN (20:04)
[2021-05-12] MEDS: OLANZapine 5 MG TAB PO SCH (08:58)
[2021-05-12] MEDS: DIVALPROEX 250MG *ER* TAB PO SCH ×2 (08:58→19:31)
[2021-05-12] MEDS: amLODIPine 5 MG TAB PO SCH (08:59)
[2021-05-12] MEDS: NICOTINE POLACRILEX 2 MG GUM PO PRN ×3 (09:00→19:31)
[2021-05-13 06:13] VITALS: BP 142/84
[2021-05-13] MEDS: DIVALPROEX 250MG *ER* TAB PO SCH ×2 (08:30→19:48)
[2021-05-13] MEDS: amLODIPine 5 MG TAB PO SCH (08:31)
[2021-05-13] MEDS: NICOTINE POLACRILEX 2 MG GUM PO PRN ×4 (10:36→23:56)
[2021-05-13] MEDS: ACETAMINOPHEN TAB 650MG DOSE (2X325MG) PO PRN (11:50)
[2021-05-13] MEDS: OLANZapine ORAL DISINTEGRATING TAB 5MG PO PRN (16:45)
[2021-05-14] MEDS: OLANZapine ORAL DISINTEGRATING TAB 5MG PO PRN ×3 (00:27→16:03)
[2021-05-14] MEDS: amLODIPine 5 MG TAB PO SCH (08:01)
[2021-05-14] MEDS: DIVALPROEX 250MG *ER* TAB PO SCH ×2 (08:01→21:27)
[2021-05-14] MEDS: NICOTINE POLACRILEX 2 MG GUM PO PRN ×3 (08:01→16:03)
[2021-05-15 07:03] VITALS: BP 137/72
[2021-05-15] MEDS: DIVALPROEX 250MG *ER* TAB PO SCH ×2 (08:01→20:27)
[2021-05-15] MEDS: amLODIPine 5 MG TAB PO SCH (08:02)
[2021-05-15] MEDS: NICOTINE POLACRILEX 2 MG GUM PO PRN ×3 (08:03→18:30)
[2021-05-15 18:24] VITALS: BP 142/90
[2021-05-15] MEDS: OLANZapine 10 MG TAB PO SCH (20:27)
[2021-05-16 06:41] VITALS: BP 144/82
[2021-05-16] MEDS: NICOTINE POLACRILEX 2 MG GUM PO PRN ×3 (09:25→17:59)
[2021-05-16] MEDS: DIVALPROEX 250MG *ER* TAB PO SCH ×2 (09:25→20:37)
[2021-05-16] MEDS: amLODIPine 5 MG TAB PO SCH (09:25)
[2021-05-16] MEDS: OLANZapine ORAL DISINTEGRATING TAB 5MG PO PRN (13:45)
[2021-05-16 17:58] VITALS: BP 145/84
[2021-05-16] MEDS: traZODone 50 MG TAB PO PRN (20:37)
[2021-05-16] MEDS: OLANZapine 10 MG TAB PO SCH (20:38)
[2021-05-17 06:49] VITALS: BP 135/88
[2021-05-17] MEDS: amLODIPine 5 MG TAB PO SCH (09:11)
[2021-05-17] MEDS: NICOTINE POLACRILEX 2 MG GUM PO PRN ×3 (09:11→17:56)
[2021-05-17] MEDS: DIVALPROEX 250MG *ER* TAB PO SCH ×2 (09:12→21:14)
[2021-05-17] MEDS: OLANZapine ORAL DISINTEGRATING TAB 5MG PO PRN (12:20)
[2021-05-17] MEDS: ACETAMINOPHEN TAB 650MG DOSE (2X325MG) PO PRN (13:37)
[2021-05-17 17:49] VITALS: BP 150/90
[2021-05-17] MEDS: traZODone 50 MG TAB PO PRN (21:14)
[2021-05-17] MEDS: OLANZapine 10 MG TAB PO SCH (21:14)
[2021-05-18 06:30] VITALS: BP 141/76
[2021-05-18] MEDS: NICOTINE POLACRILEX 2 MG GUM PO PRN ×5 (09:01→21:32)
[2021-05-18] MEDS: amLODIPine 5 MG TAB PO SCH (09:01)
[2021-05-18] MEDS: DIVALPROEX 250MG *ER* TAB PO SCH ×2 (09:01→20:41)
[2021-05-18] MEDS: OLANZapine 5 MG TAB PO SCH (09:52)
[2021-05-18] MEDS: ACETAMINOPHEN TAB 650MG DOSE (2X325MG) PO PRN (09:57)
[2021-05-18] MEDS: OLANZapine ORAL DISINTEGRATING TAB 5MG PO PRN (16:43)
[2021-05-18 18:17] VITALS: BP 152/90
[2021-05-18] MEDS: traZODone 50 MG TAB PO PRN (20:40)
[2021-05-18] MEDS: OLANZapine 10 MG TAB PO SCH (20:40)
[2021-05-19] MEDS: NICOTINE POLACRILEX 2 MG GUM PO PRN ×3 (01:23→12:37)
[2021-05-19 06:16] VITALS: BP 144/96
[2021-05-19 09:18] VITALS: BP 144/96
[2021-05-19] MEDS: DIVALPROEX 250MG *ER* TAB PO SCH (09:18)
[2021-05-19] MEDS: OLANZapine 5 MG TAB PO SCH (09:18)
[2021-05-19] MEDS: amLODIPine 5 MG TAB PO SCH (09:18)
[2021-05-19] MEDS ORDERED: OLAN1TAB16 PO (10:07)
[2021-05-19] MEDS ORDERED: OLAN1TAB20 PO (10:07)
[2021-05-19] MEDS ORDERED: DEPA250T2 PO (10:07)
[2021-05-19] MEDS: ACETAMINOPHEN TAB 650MG DOSE (2X325MG) PO PRN (13:01)
== END 2021-05-19 14:16 | disposition home or self-care (01) | DRG 885 ==
LOC: M PSY 21:50 → UNDODISIN 05-04 12:00
PROVIDERS: ADMIT Psychiatry & Neurology Psychiatry; ATTEND Psychiatry & Neurology Psychiatry
DX: F25.0 Schizoaffective disorder, bipolar type (principal); M62.82 Rhabdomyolysis; I10 Essential (primary) hypertension; R73.03 Prediabetes; F17.210 Nicotine dependence, cigarettes, uncomplicated; F12.10 Cannabis abuse, uncomplicated; Z88.8 Allergy status to other drugs, medicaments and biological substances; Z79.899 Other long term (current) drug therapy

== ENCOUNTER 2021-06-18 11:07 | Inpatient (IN) | payer OTHER, MEDICAID ==
[~2021-06-18] VITALS: Ht 177.8 cm; Wt 118.9 kg
[~2021-06-18 11:07] MED LIST changes: +DEPA250T2 PO; +DIVA250T7 PO
[2021-06-18 13:08] LABS: HEMATOCRIT 41.9 % (42.0-52.0); HEMOGLOBIN 14.3 g/dl (13.5-17.5); MEAN CORPUSCULAR HGB CONC 34.1 g/dl (32.0-36.5); PLATELET COUNT, AUTOMATED 262 10^3/uL (150-450); RED BLOOD COUNT 4.76 10^6/uL (4.30-6.10)
[2021-06-18 13:45] LABS: ACETAMINOPHEN LEVEL < 2.0 UG/ML (10.0-30.0); ALBUMIN 4.4 GM/DL (3.2-5.2); ALT/SGPT 51 U/L (12-78); BILIRUBIN,DIRECT 0.2 MG/DL (0.0-0.2); BILIRUBIN,TOTAL 0.7 MG/DL (0.2-1.0); BLOOD UREA NITROGEN 15 MG/DL (7-18); CALCIUM LEVEL 8.8 MG/DL (8.5-10.1); CARBON DIOXIDE LEVEL 30 MEQ/L (21-32); CHLORIDE LEVEL 106 MEQ/L (98-107); CREATININE FOR GFR 0.88 MG/DL (0.70-1.30); ETHYL ALCOHOL (ETHANOL) < 0.003 % (0.000-0.010); GLOMERULAR FILTRATION RATE > 60.0 (>60); GLUCOSE, FASTING 92 MG/DL (70-100); POTASSIUM SERUM 3.8 MEQ/L (3.5-5.1); SALICYLATE LEVEL 4.8 MG/DL (5.0-30.0); SODIUM LEVEL 140 MEQ/L (136-145); TOTAL PROTEIN 8.2 GM/DL (6.4-8.2)
[2021-06-18] MEDS ORDERED: LORazepam 2 MG TAB PO STA (15:27)
[2021-06-18 15:30] LABS: RSV AMPLIFICATION NEGATIVE (NEGATIVE)
[2021-06-18] MEDS ORDERED: HOME MED LIST COMPLETE! XX SCH (15:30)
[2021-06-18 15:43] LABS: AMPHETAMINES LEVEL URINE NEGATIVE (NEGATIVE); BARBITURATES URINE NEGATIVE (NEGATIVE); BENZODIAZEPINES URINE NEGATIVE (NEGATIVE); CANNABINOIDS URINE NEGATIVE (NEGATIVE); COCAINE METABOLITE URINE NEGATIVE (NEGATIVE); METHADONE URINE NEGATIVE (NEGATIVE); OPIATES URINE NEGATIVE (NEGATIVE); PHENCYCLIDINE URINE NEGATIVE (NEGATIVE)
[2021-06-19] MEDS ORDERED: amLODIPine 5 MG TAB PO SCH (09:00)
[2021-06-19] MEDS ORDERED: MAALOX 30 ML SUSP *UDC PO PRN (15:15)
[2021-06-19] MEDS ORDERED: MOM 30ML SUSPENSION UDC PO PRN (15:15)
[2021-06-19 16:41] VITALS: BP 147/85
[2021-06-20 06:32] VITALS: BP 134/77
[2021-06-20] MEDS ORDERED: OLANZapine 5 MG TAB PO SCH (09:00)
[2021-06-20] MEDS: PALIPERIDONE 3 MG ER TAB (INVEGA) PO SCH (22:03)
[2021-06-21 06:19] VITALS: BP 130/73
[2021-06-21] MEDS: PALIPERIDONE 3 MG ER TAB (INVEGA) PO SCH ×2 (09:39→21:55)
[2021-06-21 17:05] VITALS: BP 129/84
[2021-06-22 06:55] VITALS: BP 117/73
[2021-06-22] MEDS: PALIPERIDONE 3 MG ER TAB (INVEGA) PO SCH ×2 (10:22→21:16)
[2021-06-22 19:00] VITALS: BP 136/74
[2021-06-23 06:48] VITALS: BP 119/67
[2021-06-23] MEDS: PALIPERIDONE 3 MG ER TAB (INVEGA) PO SCH ×2 (09:40→21:42)
[2021-06-23 16:31] VITALS: BP 130/73
[2021-06-24 06:26] VITALS: BP 144/74
[2021-06-24] MEDS: PALIPERIDONE 3 MG ER TAB (INVEGA) PO SCH ×2 (09:21→21:23)
[2021-06-24] MEDS: traZODone 50 MG TAB PO PRN (21:24)
[2021-06-25 06:34] VITALS: BP 123/63
[2021-06-25] MEDS: PALIPERIDONE 3 MG ER TAB (INVEGA) PO SCH ×2 (09:46→21:27)
[2021-06-25 17:49] VITALS: BP 139/79
[2021-06-25] MEDS: traZODone 50 MG TAB PO PRN (21:27)
[2021-06-26 06:47] VITALS: BP 135/78
[2021-06-26] MEDS: PALIPERIDONE 3 MG ER TAB (INVEGA) PO SCH ×2 (09:33→21:53)
[2021-06-26 17:47] VITALS: BP 143/84
[2021-06-26] MEDS: traZODone 50 MG TAB PO PRN (21:53)
[2021-06-27 06:59] VITALS: BP 161/89
[2021-06-27] MEDS: PALIPERIDONE 3 MG ER TAB (INVEGA) PO SCH ×2 (08:24→20:58)
[2021-06-27 18:39] VITALS: BP 137/80
[2021-06-27] MEDS: traZODone 50 MG TAB PO PRN (20:58)
[2021-06-28] MEDS: PALIPERIDONE 3 MG ER TAB (INVEGA) PO SCH ×3 (09:00→22:00)
[2021-06-28] MEDS: IBUPROFEN 400MG TAB PO PRN (16:36)
[2021-06-28] MEDS: traZODone 50 MG TAB PO PRN (22:00)
[2021-06-29 06:29] VITALS: BP 156/82
[2021-06-29] MEDS: PALIPERIDONE 3 MG ER TAB (INVEGA) PO SCH ×2 (09:00→20:03)
[2021-06-30] MEDS: traZODone 50 MG TAB PO PRN ×2 (00:08→21:47)
[2021-06-30 06:25] VITALS: BP 132/90
[2021-06-30] MEDS: PALIPERIDONE 3 MG ER TAB (INVEGA) PO SCH ×2 (08:48→21:48)
[2021-06-30] MEDS: IBUPROFEN 400MG TAB PO PRN (12:05)
[2021-06-30 18:54] VITALS: BP 132/77
[2021-07-01 06:56] VITALS: BP 158/87
[2021-07-01] MEDS: PALIPERIDONE 3 MG ER TAB (INVEGA) PO SCH ×2 (09:45→22:57)
[2021-07-01] MEDS: IBUPROFEN 400MG TAB PO PRN (10:04)
[2021-07-01] MEDS: hydrOXYzine 25 MG TAB PO PRN (16:17)
[2021-07-01] MEDS: traZODone 50 MG TAB PO PRN (22:56)
[2021-07-02] MEDS: PALIPERIDONE 3 MG ER TAB (INVEGA) PO SCH ×2 (08:49→21:14)
[2021-07-02 20:18] VITALS: BP 147/92
[2021-07-02] MEDS: traZODone 50 MG TAB PO PRN (21:14)
[2021-07-03 06:41] VITALS: BP 127/66
[2021-07-03] MEDS: PALIPERIDONE 3 MG ER TAB (INVEGA) PO SCH ×2 (09:19→20:08)
[2021-07-03] MEDS: IBUPROFEN 400MG TAB PO PRN (13:19)
[2021-07-03 16:20] VITALS: BP 133/59
[2021-07-03] MEDS: traZODone 50 MG TAB PO PRN (20:08)
[2021-07-03] MEDS: OLANZapine 5 MG TAB PO SCH (20:08)
[2021-07-04 06:19] VITALS: BP 148/89
[2021-07-04] MEDS: IBUPROFEN 400MG TAB PO PRN (06:29)
[2021-07-04] MEDS: PALIPERIDONE 3 MG ER TAB (INVEGA) PO SCH ×2 (09:11→20:02)
[2021-07-04] MEDS: SERTRALINE HCL 50 MG TAB PO SCH (09:11)
[2021-07-04 16:13] VITALS: BP 144/87
[2021-07-04] MEDS: OLANZapine 5 MG TAB PO SCH (20:02)
[2021-07-05 06:25] VITALS: BP 122/76
[2021-07-05] MEDS: SERTRALINE HCL 50 MG TAB PO SCH (08:30)
[2021-07-05] MEDS: PALIPERIDONE 3 MG ER TAB (INVEGA) PO SCH ×2 (08:30→20:37)
[2021-07-05] MEDS: IBUPROFEN 400MG TAB PO PRN (15:16)
[2021-07-05 16:31] VITALS: BP 133/71
[2021-07-05] MEDS: traZODone 50 MG TAB PO PRN (20:37)
[2021-07-05] MEDS: OLANZapine 5 MG TAB PO SCH (20:37)
[2021-07-06] MEDS: SERTRALINE HCL 50 MG TAB PO SCH (09:25)
[2021-07-06] MEDS: PALIPERIDONE 3 MG ER TAB (INVEGA) PO SCH ×2 (09:25→21:08)
[2021-07-06] MEDS: NICOTINE POLACRILEX 2 MG GUM PO PRN ×4 (12:49→21:08)
[2021-07-06] MEDS: IBUPROFEN 400MG TAB PO PRN (16:42)
[2021-07-06 18:21] VITALS: BP 120/60
[2021-07-06] MEDS: traZODone 50 MG TAB PO PRN (21:08)
[2021-07-06] MEDS: OLANZapine 5 MG TAB PO SCH (21:08)
[2021-07-07 06:00] VITALS: BP 132/70
[2021-07-07] MEDS: NICOTINE POLACRILEX 2 MG GUM PO PRN ×6 (06:38→21:55)
[2021-07-07] MEDS: IBUPROFEN 400MG TAB PO PRN ×2 (06:41→23:28)
[2021-07-07] MEDS: SERTRALINE HCL 50 MG TAB PO SCH (08:53)
[2021-07-07] MEDS: PALIPERIDONE 3 MG ER TAB (INVEGA) PO SCH ×2 (08:53→21:54)
[2021-07-07 16:19] VITALS: BP 145/81
[2021-07-07] MEDS: OLANZapine 5 MG TAB PO SCH (21:54)
[2021-07-08] MEDS: NICOTINE POLACRILEX 2 MG GUM PO PRN ×5 (08:10→21:41)
[2021-07-08] MEDS: PALIPERIDONE 3 MG ER TAB (INVEGA) PO SCH ×3 (08:10→21:40)
[2021-07-08] MEDS: SERTRALINE HCL 50 MG TAB PO SCH (08:10)
[2021-07-08] MEDS: OLANZapine 5 MG TAB PO SCH ×2 (20:29→21:40)
[2021-07-08] MEDS: traZODone 50 MG TAB PO PRN (23:59)
[2021-07-09] MEDS: SERTRALINE HCL 50 MG TAB PO SCH (09:05)
[2021-07-09] MEDS: PALIPERIDONE 3 MG ER TAB (INVEGA) PO SCH ×2 (09:05→21:33)
[2021-07-09] MEDS: NICOTINE POLACRILEX 2 MG GUM PO PRN ×5 (09:07→21:33)
[2021-07-09] MEDS: IBUPROFEN 400MG TAB PO PRN (18:13)
[2021-07-09] MEDS: traZODone 50 MG TAB PO PRN (21:33)
[2021-07-09] MEDS: hydrOXYzine 25 MG TAB PO PRN (21:33)
[2021-07-09] MEDS: OLANZapine 5 MG TAB PO SCH (21:33)
[2021-07-10 06:41] VITALS: BP 135/75
[2021-07-10] MEDS: NICOTINE POLACRILEX 2 MG GUM PO PRN ×5 (09:40→21:40)
[2021-07-10] MEDS: SERTRALINE HCL 50 MG TAB PO SCH (09:40)
[2021-07-10] MEDS: PALIPERIDONE 3 MG ER TAB (INVEGA) PO SCH ×2 (09:40→21:30)
[2021-07-10 17:38] VITALS: BP 140/86
[2021-07-10] MEDS: traZODone 50 MG TAB PO PRN (21:30)
[2021-07-10] MEDS: OLANZapine 5 MG TAB PO SCH (21:30)
[2021-07-10] MEDS: hydrOXYzine 25 MG TAB PO PRN (21:40)
[2021-07-10] MEDS: IBUPROFEN 400MG TAB PO PRN (21:42)
[2021-07-11] MEDS: NICOTINE POLACRILEX 2 MG GUM PO PRN ×4 (05:38→20:22)
[2021-07-11] MEDS: IBUPROFEN 400MG TAB PO PRN ×3 (05:40→20:24)
[2021-07-11 06:00] VITALS: BP 142/96
[2021-07-11] MEDS: SERTRALINE HCL 50 MG TAB PO SCH (09:28)
[2021-07-11] MEDS: PALIPERIDONE 6 MG ER TAB (INVEGA) PO SCH (09:28)
[2021-07-11] MEDS: hydrOXYzine 25 MG TAB PO PRN ×2 (12:17→20:21)
[2021-07-11 18:43] VITALS: BP 138/88
[2021-07-11] MEDS: traZODone 50 MG TAB PO PRN (20:21)
[2021-07-11] MEDS: PALIPERIDONE 3 MG ER TAB (INVEGA) PO SCH (20:21)
[2021-07-12 06:34] VITALS: BP 135/67
[2021-07-12] MEDS: NICOTINE POLACRILEX 2 MG GUM PO PRN ×4 (07:31→21:03)
[2021-07-12] MEDS ORDERED: PALIPERIDONE PALMITATE 234MG/1.5ML INJ (INVEGA)(FREE PSY INPT ONLY) IM SCH (11:00)
[2021-07-12] MEDS: SERTRALINE HCL 25 MG TABLET PO SCH (11:26)
[2021-07-12] MEDS: PALIPERIDONE 6 MG ER TAB (INVEGA) PO SCH (11:26)
[2021-07-12] MEDS: hydrOXYzine 25 MG TAB PO PRN (13:06)
[2021-07-12 16:40] VITALS: BP 138/80
[2021-07-12] MEDS: PALIPERIDONE 3 MG ER TAB (INVEGA) PO SCH (20:00)
[2021-07-13] MEDS: traZODone 50 MG TAB PO PRN (00:55)
[2021-07-13] MEDS: NICOTINE POLACRILEX 2 MG GUM PO PRN ×7 (00:55→19:31)
[2021-07-13 06:38] VITALS: BP 141/84
[2021-07-13] MEDS: PALIPERIDONE 6 MG ER TAB (INVEGA) PO SCH (07:57)
[2021-07-13] MEDS: SERTRALINE HCL 25 MG TABLET PO SCH (07:57)
[2021-07-13] MEDS: hydrOXYzine 25 MG TAB PO PRN ×2 (12:31→20:17)
[2021-07-13] MEDS: IBUPROFEN 400MG TAB PO PRN ×2 (12:31→20:19)
[2021-07-13 18:00] VITALS: BP 148/88
[2021-07-13] MEDS: PALIPERIDONE 3 MG ER TAB (INVEGA) PO SCH (20:17)
[2021-07-14 06:32] VITALS: BP 135/76
[2021-07-14] MEDS: NICOTINE POLACRILEX 2 MG GUM PO PRN ×3 (07:11→14:28)
[2021-07-14] MEDS: SERTRALINE HCL 25 MG TABLET PO SCH (08:06)
[2021-07-14] MEDS: PALIPERIDONE 6 MG ER TAB (INVEGA) PO SCH (08:06)
[2021-07-14] MEDS ORDERED: OLANZapine ORAL DISINTEGRATING TAB 5MG PO PRN (12:30)
[2021-07-14 18:47] VITALS: BP 140/82
[2021-07-14] MEDS: PALIPERIDONE 3 MG ER TAB (INVEGA) PO SCH (21:44)
[2021-07-15 06:00] VITALS: BP 143/83
[2021-07-15] MEDS: SERTRALINE HCL 25 MG TABLET PO SCH (09:46)
[2021-07-15] MEDS: PALIPERIDONE 6 MG ER TAB (INVEGA) PO SCH (09:46)
[2021-07-15] MEDS: NICOTINE POLACRILEX 2 MG GUM PO PRN ×5 (09:47→20:29)
[2021-07-15] MEDS: IBUPROFEN 400MG TAB PO PRN (12:02)
[2021-07-15] MEDS: hydrOXYzine 25 MG TAB PO PRN (13:30)
[2021-07-15 18:35] VITALS: BP 138/78
[2021-07-15] MEDS: PALIPERIDONE 3 MG ER TAB (INVEGA) PO SCH (20:29)
[2021-07-15] MEDS: traZODone 50 MG TAB PO PRN (20:29)
[2021-07-16] MEDS: NICOTINE POLACRILEX 2 MG GUM PO PRN ×5 (06:53→21:45)
[2021-07-16] MEDS: SERTRALINE HCL 25 MG TABLET PO SCH (08:06)
[2021-07-16] MEDS: PALIPERIDONE 6 MG ER TAB (INVEGA) PO SCH (08:06)
[2021-07-16] MEDS: PALIPERIDONE 3 MG ER TAB (INVEGA) PO SCH (21:21)
[2021-07-16] MEDS: traZODone 50 MG TAB PO PRN (21:21)
[2021-07-17] MEDS: NICOTINE POLACRILEX 2 MG GUM PO PRN ×4 (06:21→21:56)
[2021-07-17 06:45] VITALS: BP 135/90
[2021-07-17] MEDS: SERTRALINE HCL 25 MG TABLET PO SCH (08:21)
[2021-07-17] MEDS: PALIPERIDONE 6 MG ER TAB (INVEGA) PO SCH (08:21)
[2021-07-17 16:24] VITALS: BP 140/70
[2021-07-17] MEDS: PALIPERIDONE 3 MG ER TAB (INVEGA) PO SCH (20:14)
[2021-07-17] MEDS: traZODone 50 MG TAB PO PRN (20:14)
[2021-07-18] MEDS: IBUPROFEN 400MG TAB PO PRN (03:16)
[2021-07-18 06:29] VITALS: BP 143/96
[2021-07-18] MEDS: NICOTINE POLACRILEX 2 MG GUM PO PRN ×2 (07:17→12:35)
[2021-07-18] MEDS: SERTRALINE HCL 25 MG TABLET PO SCH (09:08)
[2021-07-18] MEDS ORDERED: TRAZ-252 PO (11:23)
[2021-07-18] MEDS ORDERED: INVE234I IM (11:23)
[2021-07-18] MEDS ORDERED: SERT25TA21 PO (11:23)
[2021-07-19] MEDS ORDERED: SERT25TA21 PO (05:28)
[2021-07-19] MEDS ORDERED: INVE234I IM (05:28)
[2021-07-19] MEDS ORDERED: TRAZ-252 PO (05:28)
[2021-07-19] MEDS ORDERED: AMLO1TAB24 PO (05:28)
== END 2021-07-18 13:18 | disposition home or self-care (01) | DRG 885 ==
LOC: M ED 11:07 → M ED INP 06-19 15:52 → M PSY 06-19 16:15
PROVIDERS: ADMIT Psychiatry & Neurology Psychiatry; ATTEND Psychiatry & Neurology Psychiatry
DX: F25.1 Schizoaffective disorder, depressive type (principal); F60.89 Other specific personality disorders; I10 Essential (primary) hypertension; F17.210 Nicotine dependence, cigarettes, uncomplicated; R73.03 Prediabetes; F94.0 Selective mutism; E66.9 Obesity, unspecified; Z91.14 Patient's other noncompliance with medication regimen; Z91.19 Patient's noncompliance with other medical treatment and regimen; Z79.899 Other long term (current) drug therapy; Z88.8 Allergy status to other drugs, medicaments and biological substances; Z68.37 Body mass index [BMI] 37.0-37.9, adult

== ENCOUNTER 2021-07-20 01:02 | Emergency (ER) | payer OTHER, MEDICAID ==
[~2021-07-20] VITALS: Ht 180.3 cm; Wt 119.1 kg
[~2021-07-20 01:02] MED LIST changes: +SERT25TA21 PO; +TRAZ-252 PO
[2021-07-20 05:25] VITALS: BP 142/87
== END 2021-07-20 05:25 | disposition home or self-care (01) ==
LOC: M ED 01:02
DX: F43.20 Adjustment disorder, unspecified (principal); L85.3 Xerosis cutis; F43.10 Post-traumatic stress disorder, unspecified; F25.9 Schizoaffective disorder, unspecified; Z79.899 Other long term (current) drug therapy

== ENCOUNTER 2021-07-20 20:22 | Emergency (ER) | payer OTHER, MEDICAID ==
[~2021-07-20] VITALS: Ht 177.8 cm; Wt 118.2 kg
[2021-07-20 20:44] VITALS: BP 138/83
== END 2021-07-20 23:25 | disposition home or self-care (01) ==
LOC: M ED 20:22
DX: F43.20 Adjustment disorder, unspecified (principal); Z79.899 Other long term (current) drug therapy

== ENCOUNTER 2021-07-23 05:12 | Emergency (ER) | payer OTHER, MEDICAID ==
[~2021-07-23] VITALS: Ht 175.3 cm; Wt 122.3 kg
[2021-07-23 06:37] LABS: HEMATOCRIT 39.6 % (42.0-52.0); HEMOGLOBIN 13.1 g/dl (13.5-17.5); MEAN CORPUSCULAR HEMOGLOBIN 30.5 pg (27.0-33.0); MEAN CORPUSCULAR HGB CONC 33.1 g/dl (32.0-36.5); MEAN CORPUSCULAR VOLUME 92.3 fl (80.0-96.0); PLATELET COUNT, AUTOMATED 250 10^3/uL (150-450); RED BLOOD COUNT 4.29 10^6/uL (4.30-6.10); WHITE BLOOD COUNT 6.6 10^3/uL (4.0-10.0)
[2021-07-23 07:05] LABS: RSV AMPLIFICATION NEGATIVE (NEGATIVE)
[2021-07-23 07:06] LABS: ACETAMINOPHEN LEVEL < 2.0 UG/ML (10.0-30.0); ALBUMIN 3.8 GM/DL (3.2-5.2); ALT/SGPT 34 U/L (12-78); BILIRUBIN,DIRECT < 0.1 MG/DL (0.0-0.2); BILIRUBIN,TOTAL 0.4 MG/DL (0.2-1.0); BLOOD UREA NITROGEN 9 MG/DL (7-18); CALCIUM LEVEL 8.8 MG/DL (8.5-10.1); CARBON DIOXIDE LEVEL 21 MEQ/L (21-32); CHLORIDE LEVEL 111 MEQ/L (98-107); ETHYL ALCOHOL (ETHANOL) < 0.003 % (0.000-0.010); GLOMERULAR FILTRATION RATE > 60.0 (>60); GLUCOSE, FASTING 118 MG/DL (70-100); POTASSIUM SERUM 3.9 MEQ/L (3.5-5.1); SODIUM LEVEL 141 MEQ/L (136-145); TOTAL PROTEIN 7.2 GM/DL (6.4-8.2)
[2021-07-23 09:08] LABS: AMPHETAMINES LEVEL URINE NEGATIVE (NEGATIVE); BARBITURATES URINE NEGATIVE (NEGATIVE); BENZODIAZEPINES URINE NEGATIVE (NEGATIVE); CANNABINOIDS URINE NEGATIVE (NEGATIVE); COCAINE METABOLITE URINE NEGATIVE (NEGATIVE); METHADONE URINE NEGATIVE (NEGATIVE); OPIATES URINE NEGATIVE (NEGATIVE); PHENCYCLIDINE URINE NEGATIVE (NEGATIVE)
[2021-07-23 12:35] VITALS: BP 164/81
== END 2021-07-23 12:49 | disposition home or self-care (01) ==
LOC: M ED 05:12
DX: F43.20 Adjustment disorder, unspecified (principal); F25.9 Schizoaffective disorder, unspecified; J45.909 Unspecified asthma, uncomplicated; I10 Essential (primary) hypertension; F41.9 Anxiety disorder, unspecified; F43.10 Post-traumatic stress disorder, unspecified; K21.9 Gastro-esophageal reflux disease without esophagitis; Z88.8 Allergy status to other drugs, medicaments and biological substances; Z79.899 Other long term (current) drug therapy

== ENCOUNTER 2021-07-28 00:22 | Emergency (ER) | payer OTHER, MEDICAID ==
[~2021-07-28] VITALS: Ht 177.8 cm; Wt 120.5 kg
[2021-07-28 03:32] LABS: AMPHETAMINES LEVEL URINE NEGATIVE (NEGATIVE); BARBITURATES URINE NEGATIVE (NEGATIVE); BENZODIAZEPINES URINE NEGATIVE (NEGATIVE); CANNABINOIDS URINE NEGATIVE (NEGATIVE); COCAINE METABOLITE URINE NEGATIVE (NEGATIVE); METHADONE URINE NEGATIVE (NEGATIVE); OPIATES URINE NEGATIVE (NEGATIVE); PHENCYCLIDINE URINE NEGATIVE (NEGATIVE)
[2021-07-28 10:38] LABS: HEMATOCRIT 41.3 % (42.0-52.0); HEMOGLOBIN 13.8 g/dl (13.5-17.5); MEAN CORPUSCULAR HEMOGLOBIN 30.3 pg (27.0-33.0); MEAN CORPUSCULAR HGB CONC 33.4 g/dl (32.0-36.5); MEAN CORPUSCULAR VOLUME 90.6 fl (80.0-96.0); PLATELET COUNT, AUTOMATED 280 10^3/uL (150-450); RED BLOOD COUNT 4.56 10^6/uL (4.30-6.10)
[2021-07-28 11:11] LABS: ACETAMINOPHEN LEVEL < 2.0 UG/ML (10.0-30.0); ALT/SGPT 36 U/L (12-78); BILIRUBIN,DIRECT 0.2 MG/DL (0.0-0.2); BILIRUBIN,TOTAL 0.6 MG/DL (0.2-1.0); BLOOD UREA NITROGEN 12 MG/DL (7-18); CALCIUM LEVEL 9.1 MG/DL (8.5-10.1); CARBON DIOXIDE LEVEL 27 MEQ/L (21-32); CHLORIDE LEVEL 106 MEQ/L (98-107); CREATININE FOR GFR 0.96 MG/DL (0.70-1.30); ETHYL ALCOHOL (ETHANOL) < 0.003 % (0.000-0.010); GLOMERULAR FILTRATION RATE > 60.0 (>60); GLUCOSE, FASTING 120 MG/DL (70-100); POTASSIUM SERUM 4.1 MEQ/L (3.5-5.1); SALICYLATE LEVEL 2.4 MG/DL (5.0-30.0); SODIUM LEVEL 138 MEQ/L (136-145); TOTAL PROTEIN 7.5 GM/DL (6.4-8.2)
[2021-07-28 13:30] VITALS: BP 138/82
== END 2021-07-28 13:30 | disposition home or self-care (01) ==
LOC: M ED 00:22
DX: F43.20 Adjustment disorder, unspecified (principal); I10 Essential (primary) hypertension; F20.9 Schizophrenia, unspecified; G47.00 Insomnia, unspecified; Z88.8 Allergy status to other drugs, medicaments and biological substances; Z79.899 Other long term (current) drug therapy

== ENCOUNTER 2021-08-10 13:40 | Inpatient (IN) | payer OTHER, MEDICAID ==
[~2021-08-10] VITALS: Ht 182.9 cm; Wt 111.9 kg
[2021-08-10] MEDS ORDERED: INVE234I (13:56)
[2021-08-10] MEDS ORDERED: AMLO1TAB24 (13:56)
[2021-08-10] MEDS ORDERED: SERT25TA21 (13:56)
[2021-08-10 15:15] LABS: HEMATOCRIT 42.7 % (42.0-52.0); HEMOGLOBIN 14.1 g/dl (13.5-17.5); MEAN CORPUSCULAR HEMOGLOBIN 30.2 pg (27.0-33.0); MEAN CORPUSCULAR VOLUME 91.4 fl (80.0-96.0); PLATELET COUNT, AUTOMATED 267 10^3/uL (150-450); RED BLOOD COUNT 4.67 10^6/uL (4.30-6.10)
[2021-08-10 15:43] LABS: ACETAMINOPHEN LEVEL < 2.0 UG/ML (10.0-30.0); ALBUMIN 4.1 GM/DL (3.2-5.2); ALT/SGPT 34 U/L (12-78); BILIRUBIN,DIRECT < 0.1 MG/DL (0.0-0.2); BILIRUBIN,TOTAL 0.9 MG/DL (0.2-1.0); BLOOD UREA NITROGEN 15 MG/DL (7-18); CALCIUM LEVEL 9.3 MG/DL (8.5-10.1); CARBON DIOXIDE LEVEL 21 MEQ/L (21-32); CHLORIDE LEVEL 109 MEQ/L (98-107); CREATININE FOR GFR 0.86 MG/DL (0.70-1.30); ETHYL ALCOHOL (ETHANOL) < 0.003 % (0.000-0.010); GLOMERULAR FILTRATION RATE > 60.0 (>60); GLUCOSE, FASTING 101 MG/DL (70-100); POTASSIUM SERUM 4.6 MEQ/L (3.5-5.1); SALICYLATE LEVEL 2.7 MG/DL (5.0-30.0); SODIUM LEVEL 138 MEQ/L (136-145); THYROID STIMULATING HORMONE 0.912 uIU/ML (0.358-3.740); TOTAL PROTEIN 7.5 GM/DL (6.4-8.2)
[2021-08-10 15:45] LABS: RSV AMPLIFICATION NEGATIVE (NEGATIVE)
[2021-08-10] MEDS ORDERED: LORazepam 2 MG TAB PO STA (16:32)
[2021-08-10 17:12] LABS: AMPHETAMINES LEVEL URINE NEGATIVE (NEGATIVE); BARBITURATES URINE NEGATIVE (NEGATIVE); BENZODIAZEPINES URINE NEGATIVE (NEGATIVE); CANNABINOIDS URINE NEGATIVE (NEGATIVE); COCAINE METABOLITE URINE NEGATIVE (NEGATIVE); METHADONE URINE NEGATIVE (NEGATIVE); OPIATES URINE NEGATIVE (NEGATIVE); PHENCYCLIDINE URINE NEGATIVE (NEGATIVE)
[2021-08-11] MEDS ORDERED: PATIENT COMMENT (06:35)
[2021-08-11] MEDS ORDERED: INVE234I IM (06:35)
[2021-08-11] MEDS ORDERED: TRAZ-252 PO (06:35)
[2021-08-11] MEDS ORDERED: HOME MED LIST COMPLETE! XX SCH (06:35)
[2021-08-11] MEDS ORDERED: SERT25TA21 PO (06:35)
[2021-08-11] MEDS ORDERED: AMLO1TAB24 PO (06:35)
[2021-08-11] MEDS ORDERED: SERTRALINE HCL 25 MG TABLET PO SCH (09:00)
[2021-08-11] MEDS ORDERED: amLODIPine 5 MG TAB PO SCH (09:00)
[2021-08-11] MEDS ORDERED: MAALOX 30 ML SUSP *UDC PO PRN (20:00)
[2021-08-11] MEDS ORDERED: hydrOXYzine 25 MG TAB PO PRN (20:00)
[2021-08-11] MEDS ORDERED: ACETAMINOPHEN TAB 650MG DOSE (2X325MG) PO PRN (20:00)
[2021-08-11] MEDS ORDERED: OLANZapine ORAL DISINTEGRATING TAB 5MG PO PRN (20:00)
[2021-08-11] MEDS ORDERED: MOM 30ML SUSPENSION UDC PO PRN (20:00)
[2021-08-11] MEDS ORDERED: traZODone 50 MG TAB PO PRN (20:00)
[2021-08-11 22:26] VITALS: BP 121/80
[2021-08-12 07:10] VITALS: BP 140/86
[2021-08-12] MEDS ORDERED: PALIPERIDONE PALMITATE 234MG/1.5ML INJ (INVEGA)(FREE PSY INPT ONLY) IM SCH ×2 (09:00)
[2021-08-12] MEDS: SERTRALINE HCL 25 MG TABLET PO SCH (09:32)
[2021-08-12] MEDS: PALIPERIDONE 3 MG ER TAB (INVEGA) PO SCH (09:32)
[2021-08-12] MEDS: amLODIPine 5 MG TAB PO SCH (09:33)
[2021-08-12 18:16] VITALS: BP 132/77
[2021-08-13 06:30] VITALS: BP 130/82
[2021-08-13] MEDS: PALIPERIDONE 3 MG ER TAB (INVEGA) PO SCH (08:38)
[2021-08-13] MEDS: SERTRALINE HCL 25 MG TABLET PO SCH (08:38)
[2021-08-13] MEDS: amLODIPine 5 MG TAB PO SCH (08:39)
[2021-08-13 18:24] VITALS: BP 141/73
[2021-08-13] MEDS: OLANZapine 5 MG TAB PO SCH (21:00)
[2021-08-14] MEDS ORDERED: SERTRALINE HCL 50 MG TAB PO SCH (09:00)
[2021-08-14 09:05] VITALS: BP 140/70
[2021-08-14] MEDS: amLODIPine 5 MG TAB PO SCH (09:05)
[2021-08-14] MEDS: OLANZapine 5 MG TAB PO SCH (09:05)
[2021-08-14] MEDS ORDERED: SERT50TA29 PO (10:04)
[2021-08-14] MEDS ORDERED: OLAN1TAB16 PO (10:04)
[2021-08-14] MEDS ORDERED: INVE234I IM (10:04)
== END 2021-08-14 12:57 | disposition home or self-care (01) | DRG 885 ==
LOC: M ED 13:40 → M ED INP 08-11 19:59 → M PSY 08-11 21:14
PROVIDERS: ADMIT Student in an Organized Health Care Education/Training Program; ATTEND Student in an Organized Health Care Education/Training Program
DX: F25.9 Schizoaffective disorder, unspecified (principal); Z76.5 Malingerer [conscious simulation]; Z91.14 Patient's other noncompliance with medication regimen; Z91.51 Personal history of suicidal behavior; I10 Essential (primary) hypertension; Z79.899 Other long term (current) drug therapy; Z88.8 Allergy status to other drugs, medicaments and biological substances; Z91.19 Patient's noncompliance with other medical treatment and regimen; Z20.822 Contact with and (suspected) exposure to COVID-19

== ENCOUNTER 2021-09-18 14:01 | Emergency (ER) | payer OTHER, MEDICAID ==
[~2021-09-18] VITALS: Ht 177.8 cm; Wt 102.3 kg
[~2021-09-18 14:01] MED LIST changes: +AMLO1TAB24; +INVE234I; +SERT25TA21; +SERT50TA29 PO
[2021-09-18 14:02] VITALS: BP 129/83
== END 2021-09-18 14:49 | disposition left against medical advice (07) ==
LOC: M ED 14:01
DX: Z53.21 Procedure and treatment not carried out due to patient leaving prior to being seen by health care provider (principal)

== ENCOUNTER 2021-10-01 15:01 | Emergency (ER) | payer OTHER, MEDICAID ==
[~2021-10-01] VITALS: Ht 177.8 cm; Wt 105.1 kg
[2021-10-01 15:02] VITALS: BP 141/92
== END 2021-10-01 15:44 | disposition left against medical advice (07) ==
LOC: M ED 15:01
DX: Z53.29 Procedure and treatment not carried out because of patient's decision for other reasons (principal)

== ENCOUNTER 2021-10-09 05:58 | Inpatient (IN) | payer OTHER, MEDICAID ==
[2021-10-09] MEDS ORDERED: diphenhydrAMINE 50MG/ML VIAL (J1200) IM ONE (06:50)
[2021-10-09] MEDS ORDERED: LORazepam 2 MG/ML VIAL IM ONE ×2 (06:50→20:35)
[2021-10-09] MEDS ORDERED: HALOPERIDOL 5MG/ML VIAL (J1630 PER 1) IM ONE (06:50)
[2021-10-09 08:41] LABS: HEMATOCRIT 43.5 % (42.0-52.0); HEMOGLOBIN 14.5 g/dl (13.5-17.5); MEAN CORPUSCULAR HEMOGLOBIN 30.1 pg (27.0-33.0); MEAN CORPUSCULAR HGB CONC 33.3 g/dl (32.0-36.5); MEAN CORPUSCULAR VOLUME 90.2 fl (80.0-96.0); PLATELET COUNT, AUTOMATED 247 10^3/uL (150-450); RED BLOOD COUNT 4.82 10^6/uL (4.30-6.10)
[2021-10-09 09:06] LABS: RSV AMPLIFICATION NEGATIVE (NEGATIVE)
[2021-10-09 09:14] LABS: ALBUMIN 4.4 GM/DL (3.2-5.2); ALT/SGPT 36 U/L (12-78); BILIRUBIN,DIRECT 0.2 MG/DL (0.0-0.2); BLOOD UREA NITROGEN 10 MG/DL (7-18); CALCIUM LEVEL 9.2 MG/DL (8.5-10.1); CARBON DIOXIDE LEVEL 25 MEQ/L (21-32); CHLORIDE LEVEL 107 MEQ/L (98-107); CREATININE FOR GFR 1.03 MG/DL (0.70-1.30); ETHYL ALCOHOL (ETHANOL) < 0.003 % (0.000-0.010); GLOMERULAR FILTRATION RATE > 60.0 (>60); GLUCOSE, FASTING 113 MG/DL (70-100); POTASSIUM SERUM 3.4 MEQ/L (3.5-5.1); SALICYLATE LEVEL 3.8 MG/DL (5.0-30.0); SODIUM LEVEL 141 MEQ/L (136-145); TOTAL PROTEIN 7.7 GM/DL (6.4-8.2)
[2021-10-09 09:15] LABS: ACETAMINOPHEN LEVEL < 2.0 UG/ML (10.0-30.0)
[2021-10-09 09:54] LABS: AMPHETAMINES LEVEL URINE NEGATIVE (NEGATIVE); BARBITURATES URINE NEGATIVE (NEGATIVE); BENZODIAZEPINES URINE NEGATIVE (NEGATIVE); CANNABINOIDS URINE NEGATIVE (NEGATIVE); COCAINE METABOLITE URINE NEGATIVE (NEGATIVE); METHADONE URINE NEGATIVE (NEGATIVE); OPIATES URINE NEGATIVE (NEGATIVE); PHENCYCLIDINE URINE NEGATIVE (NEGATIVE)
[2021-10-09] MEDS ORDERED: OLANZapine ORAL DISINTEGRATING TAB 5MG PO ONE (20:15)
[2021-10-09] MEDS ORDERED: OLANZapine INTRAMUSCULAR 10MG VIAL IM ONE (20:35)
[2021-10-10] MEDS ORDERED: LORazepam 1 MG TAB PO PRN (11:35)
[2021-10-10] MEDS ORDERED: POTASSIUM CHLORIDE 10MEQ SR TABLET PO ONE (11:55)
[2021-10-10] MEDS ORDERED: HOME MED LIST COMPLETE! XX SCH (12:05)
[2021-10-10] MEDS: NICOTINE 21MG/24HR 1 EA TRANSDERMAL TD SCH (16:48)
[2021-10-11 06:41] VITALS: BP 138/64
[2021-10-11] MEDS: NICOTINE 21MG/24HR 1 EA TRANSDERMAL TD SCH (08:16)
[2021-10-11] MEDS ORDERED: PALIPERIDONE PALMITATE 234MG/1.5ML INJ (INVEGA)(FREE PSY INPT ONLY) IM ONE (12:00)
[2021-10-11 17:42] VITALS: BP 147/96
[2021-10-11] MEDS ORDERED: zolPIDEM TARTRATE 5 MG TAB PO ONE (22:55)
[2021-10-12 06:36] VITALS: BP 141/79
== END 2021-10-12 11:07 | disposition home or self-care (01) | DRG 885 ==
LOC: M ED 05:58 → M ED INP 10-10 11:34 → M PSY 10-10 16:16
PROVIDERS: ADMIT Student in an Organized Health Care Education/Training Program; ATTEND Psychiatry & Neurology Psychiatry
DX: F25.9 Schizoaffective disorder, unspecified (principal); F60.89 Other specific personality disorders; Z91.14 Patient's other noncompliance with medication regimen; Z20.822 Contact with and (suspected) exposure to COVID-19; Z91.51 Personal history of suicidal behavior; R73.03 Prediabetes; I10 Essential (primary) hypertension; E66.9 Obesity, unspecified; Z68.33 Body mass index [BMI] 33.0-33.9, adult

== ENCOUNTER 2021-10-18 02:32 | Emergency (ER) | payer OTHER, MEDICAID ==
[~2021-10-18] VITALS: Ht 175.3 cm; Wt 102.3 kg
[2021-10-18 02:44] VITALS: BP 141/91
== END 2021-10-18 03:39 | disposition left against medical advice (07) ==
LOC: M ED 02:32 → EDBD 02:32 → M ED 03:39
DX: Z53.29 Procedure and treatment not carried out because of patient's decision for other reasons (principal)

== ENCOUNTER 2021-11-26 01:41 | Emergency (ER) | payer OTHER, MEDICAID ==
[~2021-11-26] VITALS: Ht 175.3 cm; Wt 102.6 kg
[2021-11-26 01:42] VITALS: BP 147/82
== END 2021-11-26 04:41 | disposition left against medical advice (07) ==
LOC: M ED 01:41
DX: Z53.29 Procedure and treatment not carried out because of patient's decision for other reasons (principal)

== ENCOUNTER 2022-03-05 02:11 | Emergency (ER) | payer OTHER, MEDICAID ==
[~2022-03-05] VITALS: Ht 175.3 cm; Wt 112.9 kg
== END 2022-03-05 02:20 | disposition left against medical advice (07) ==
LOC: M ED 02:11
DX: Z53.21 Procedure and treatment not carried out due to patient leaving prior to being seen by health care provider (principal)

== ENCOUNTER 2022-03-09 09:15 | Inpatient (IN) | payer OTHER, MEDICAID ==
[~2022-03-09] VITALS: Ht 177.8 cm; Wt 107.2 kg
[2022-03-09] MEDS ORDERED: OLANZapine INTRAMUSCULAR 10MG VIAL IM ONE (09:25)
[2022-03-09] MEDS ORDERED: MIDAZOLAM INJ 2MG/2ML VIAL (J2250 PER 1MG) IM ONE (09:25)
[2022-03-09 10:16] LABS: HEMATOCRIT 42.7 % (42.0-52.0); HEMOGLOBIN 14.3 g/dl (13.5-17.5); MEAN CORPUSCULAR HEMOGLOBIN 30.4 pg (27.0-33.0); MEAN CORPUSCULAR HGB CONC 33.5 g/dl (32.0-36.5); MEAN CORPUSCULAR VOLUME 90.9 fl (80.0-96.0); PLATELET COUNT, AUTOMATED 250 10^3/uL (150-450); WHITE BLOOD COUNT 4.8 10^3/uL (4.0-10.0)
[2022-03-09 10:43] LABS: ETHYL ALCOHOL (ETHANOL) 0.003 % (0.000-0.010)
[2022-03-09 10:45] LABS: ACETAMINOPHEN LEVEL < 2.0 UG/ML (10.0-20.0); ALKALINE PHOSPHATASE 76 U/L (46-116); ALT/SGPT 36 U/L (7.0-40); AST/SGOT 42 U/L (<34); BILIRUBIN,DIRECT 0.2 MG/DL (<0.4); BILIRUBIN,TOTAL 0.7 MG/DL (0.3-1.2); BLOOD UREA NITROGEN 21 MG/DL (9-23); CALCIUM LEVEL 8.7 MG/DL (8.5-10.1); CARBON DIOXIDE LEVEL 27 MMOL/L (20-31); CHLORIDE LEVEL 106 MMOL/L (98-107); CREATININE FOR GFR 1.07 MG/DL (0.70-1.30); GLOMERULAR FILTRATION RATE > 60.0 (>60); GLUCOSE, FASTING 103 MG/DL (60-100); POTASSIUM SERUM 4.1 MMOL/L (3.5-5.1); SALICYLATE LEVEL < 3.0 MG/DL (<30); SODIUM LEVEL 141 MMOL/L (136-145)
[2022-03-09 10:47] LABS: RSV AMPLIFICATION NEGATIVE (NEGATIVE); THYROID STIMULATING HORMONE 0.699 uIU/ML (0.55-4.78)
[2022-03-09] MEDS ORDERED: MOM 30ML SUSPENSION UDC PO PRN (13:30)
[2022-03-09] MEDS ORDERED: MAALOX 30 ML SUSP *UDC PO PRN (13:30)
[2022-03-09] MEDS ORDERED: traZODone 50 MG TAB PO PRN (13:30)
[2022-03-09] MEDS ORDERED: LORazepam 1 MG TAB PO PRN (13:30)
[2022-03-10 18:03] VITALS: BP 131/78
[2022-03-11] MEDS: CEPACOL LOZENGE PO PRN ×4 (11:05→22:00)
[2022-03-11 18:00] VITALS: BP 155/95
[2022-03-11] MEDS: diphenhydrAMINE 25MG CAP PO PRN (23:36)
[2022-03-11] MEDS ORDERED: HALOPERIDOL 5MG/ML VIAL (J1630 PER 1) IM ONE (23:45)
[2022-03-11] MEDS ORDERED: LORazepam 2 MG/ML VIAL IM ONE (23:45)
[2022-03-12 01:00] VITALS: BP 135/70
[2022-03-12] MEDS: PALIPERIDONE 3MG ER TAB (INVEGA) PO SCH ×2 (09:00→21:00)
[2022-03-12] MEDS: CEPACOL LOZENGE PO PRN ×3 (11:27→20:47)
[2022-03-13] MEDS: PALIPERIDONE 3MG ER TAB (INVEGA) PO SCH ×2 (08:47→21:00)
[2022-03-13] MEDS: CEPACOL LOZENGE PO PRN ×3 (10:50→18:28)
[2022-03-13 16:15] VITALS: BP 150/77
[2022-03-14] MEDS: diphenhydrAMINE 25MG CAP PO PRN (00:27)
[2022-03-14] MEDS: CEPACOL LOZENGE PO PRN ×3 (00:29→18:07)
[2022-03-14 06:23] VITALS: BP 149/91
[2022-03-14] MEDS: ACETAMINOPHEN TAB 650MG DOSE (2X325MG) PO PRN (06:51)
[2022-03-14] MEDS: PALIPERIDONE 3MG ER TAB (INVEGA) PO SCH ×2 (09:00→21:00)
[2022-03-14 16:07] VITALS: BP 134/68
[2022-03-15] MEDS: CEPACOL LOZENGE PO PRN ×4 (01:12→21:12)
[2022-03-15] MEDS: ACETAMINOPHEN TAB 650MG DOSE (2X325MG) PO PRN (01:14)
[2022-03-15 06:18] VITALS: BP 128/83
[2022-03-15] MEDS: PALIPERIDONE 3MG ER TAB (INVEGA) PO SCH ×2 (09:00→21:00)
[2022-03-15 19:00] VITALS: BP 136/92
[2022-03-16 06:00] VITALS: BP 135/86
[2022-03-16] MEDS: PALIPERIDONE 3MG ER TAB (INVEGA) PO SCH ×2 (08:39→19:50)
[2022-03-16] MEDS: CEPACOL LOZENGE PO PRN ×3 (13:59→23:32)
[2022-03-16 16:20] VITALS: BP 144/81
[2022-03-17] MEDS: PALIPERIDONE 3MG ER TAB (INVEGA) PO SCH ×2 (08:57→19:58)
[2022-03-17 16:18] VITALS: BP 140/85
[2022-03-17] MEDS: CEPACOL LOZENGE PO PRN ×2 (17:45→19:58)
[2022-03-18] MEDS ORDERED: LORazepam 2 MG/ML VIAL IM STA (01:53)
[2022-03-18] MEDS ORDERED: diphenhydrAMINE 50MG/ML VIAL IM STA (01:53)
[2022-03-18] MEDS ORDERED: HALOPERIDOL 5MG/ML VIAL (J1630 PER 1) IM STA (01:53)
[2022-03-18] MEDS: PALIPERIDONE 3MG ER TAB (INVEGA) PO SCH ×2 (09:00→20:32)
[2022-03-18] MEDS: CEPACOL LOZENGE PO PRN ×3 (13:27→22:40)
[2022-03-18 16:23] VITALS: BP 142/92
[2022-03-19 06:39] VITALS: BP 162/78
[2022-03-19] MEDS: CEPACOL LOZENGE PO PRN (07:07)
[2022-03-19] MEDS: PALIPERIDONE 3MG ER TAB (INVEGA) PO SCH (08:18)
== END 2022-03-19 13:04 | disposition home or self-care (01) | DRG 885 ==
LOC: M ED 09:15 → M ED INP 13:30 → M PSY 15:28
PROVIDERS: ADMIT Student in an Organized Health Care Education/Training Program; ATTEND Psychiatry & Neurology Psychiatry
DX: F25.9 Schizoaffective disorder, unspecified (principal); Z91.14 Patient's other noncompliance with medication regimen; F60.89 Other specific personality disorders; R73.03 Prediabetes; I10 Essential (primary) hypertension; E66.9 Obesity, unspecified; Z88.8 Allergy status to other drugs, medicaments and biological substances; Z78.1 Physical restraint status

== ENCOUNTER 2022-03-28 10:16 | Inpatient (IN) | payer OTHER, MEDICAID ==
[~2022-03-28] VITALS: Ht 182.9 cm; Wt 101.5 kg
[2022-03-28] MEDS ORDERED: LORazepam 2 MG TAB PO ONE (15:05)
[2022-03-28] MEDS ORDERED: BENZTROPINE 1 MG TAB PO ONE (15:05)
[2022-03-28] MEDS ORDERED: HALOPERIDOL 5MG/ML 1ML VIAL IM ONE (18:15)
[2022-03-28] MEDS ORDERED: HOME MED LIST COMPLETE! XX SCH (18:35)
[2022-03-28 19:22] LABS: HEMATOCRIT 48.8 % (42.0-52.0); MEAN CORPUSCULAR HGB CONC 32.8 g/dl (32.0-36.5); MEAN CORPUSCULAR VOLUME 91.4 fl (80.0-96.0); PLATELET COUNT, AUTOMATED 313 10^3/uL (150-450); RED BLOOD COUNT 5.34 10^6/uL (4.30-6.10); WHITE BLOOD COUNT 7.6 10^3/uL (4.0-10.0)
[2022-03-28 19:49] LABS: ETHYL ALCOHOL (ETHANOL) 0.003 % (0.000-0.010)
[2022-03-28 19:50] LABS: ACETAMINOPHEN LEVEL < 2.0 UG/ML (10.0-20.0); BILIRUBIN,DIRECT 0.2 MG/DL (<0.4); SALICYLATE LEVEL < 3.0 MG/DL (<30)
[2022-03-28 19:51] LABS: ALBUMIN 4.7 G/DL (3.2-5.2); ALKALINE PHOSPHATASE 93 U/L (46-116); ALT/SGPT 43 U/L (7.0-40); AST/SGOT 53 U/L (<34); BILIRUBIN,TOTAL 0.9 MG/DL (0.3-1.2); BLOOD UREA NITROGEN 20 MG/DL (9-23); CALCIUM LEVEL 9.4 MG/DL (8.5-10.1); CARBON DIOXIDE LEVEL 26 MMOL/L (20-31); CHLORIDE LEVEL 102 MMOL/L (98-107); GLOMERULAR FILTRATION RATE > 60.0 (>60); GLUCOSE, FASTING 80 MG/DL (60-100); POTASSIUM SERUM 4.2 MMOL/L (3.5-5.1); SODIUM LEVEL 139 MMOL/L (136-145); TOTAL PROTEIN 8.1 G/DL (5.7-8.2)
[2022-03-28 19:53] LABS: THYROID STIMULATING HORMONE 1.989 uIU/ML (0.55-4.78)
[2022-03-28 20:13] LABS: RSV AMPLIFICATION NEGATIVE (NEGATIVE)
[2022-03-29] MEDS: NICOTINE 21MG/24HR 1 EA TRANSDERMAL TD SCH (09:00)
[2022-03-29] MEDS ORDERED: traZODone 50 MG TAB PO PRN (12:00)
[2022-03-29] MEDS ORDERED: MAALOX 30 ML SUSP *UDC PO PRN (12:00)
[2022-03-29] MEDS ORDERED: MOM 30ML SUSPENSION UDC PO PRN (12:00)
[2022-03-29] MEDS ORDERED: OLANZapine ORAL DISINTEGRATING TAB 5MG PO PRN (12:00)
[2022-03-29 14:48] VITALS: BP 142/87
[2022-03-29] MEDS ORDERED: LORazepam 2 MG TAB PO STA (23:42)
[2022-03-29] MEDS ORDERED: diphenhydrAMINE 50MG CAP PO STA (23:42)
[2022-03-30] MEDS: diphenhydrAMINE 25MG CAP PO PRN (00:08)
[2022-03-30 06:07] VITALS: BP 162/91
[2022-03-30] MEDS: NICOTINE 21MG/24HR 1 EA TRANSDERMAL TD SCH (08:45)
[2022-03-30] MEDS: PALIPERIDONE 3MG ER TAB (INVEGA) PO SCH ×2 (08:45→21:00)
[2022-03-30] MEDS: LORazepam 2 MG TAB PO PRN (10:10)
[2022-03-30] MEDS ORDERED: LORazepam 1 MG TAB PO STA (11:16)
[2022-03-30] MEDS ORDERED: LORazepam 2 MG/ML 1ML VIAL IM STA (11:22)
[2022-03-30] MEDS ORDERED: HALOPERIDOL 5MG/ML 1ML VIAL IM STA (11:22)
[2022-03-31 06:26] VITALS: BP 152/77
[2022-03-31] MEDS: amLODIPine 5 MG TAB PO SCH (09:00)
[2022-03-31] MEDS: PALIPERIDONE 3MG ER TAB (INVEGA) PO SCH ×2 (09:00→20:00)
[2022-03-31] MEDS: NICOTINE 21MG/24HR 1 EA TRANSDERMAL TD SCH (09:00)
[2022-03-31] MEDS: diphenhydrAMINE 25MG CAP PO PRN (19:58)
[2022-03-31] MEDS: LORazepam 2 MG TAB PO PRN (19:59)
[2022-04-01] MEDS: NICOTINE 21MG/24HR 1 EA TRANSDERMAL TD SCH (09:00)
[2022-04-01] MEDS: PALIPERIDONE 3MG ER TAB (INVEGA) PO SCH ×2 (09:00→20:06)
[2022-04-01] MEDS: amLODIPine 5 MG TAB PO SCH (09:00)
[2022-04-01 14:46] VITALS: BP 165/88
[2022-04-01] MEDS: diphenhydrAMINE 25MG CAP PO PRN (20:09)
[2022-04-02 07:06] VITALS: BP 150/72
[2022-04-02] MEDS: NICOTINE 21MG/24HR 1 EA TRANSDERMAL TD SCH (09:00)
[2022-04-02] MEDS: PALIPERIDONE 3MG ER TAB (INVEGA) PO SCH ×2 (09:33→21:00)
[2022-04-02 09:34] VITALS: BP 150/72
[2022-04-02] MEDS: amLODIPine 5 MG TAB PO SCH (09:34)
[2022-04-02] MEDS ORDERED: diphenhydrAMINE 50MG/ML VIAL IM ONE (11:45)
[2022-04-02] MEDS ORDERED: LORazepam 2 MG/ML 1ML VIAL IM ONE (11:45)
[2022-04-02] MEDS ORDERED: HALOPERIDOL 5MG/ML 1ML VIAL IM ONE (11:45)
[2022-04-03] MEDS: PALIPERIDONE 3MG ER TAB (INVEGA) PO SCH ×2 (09:00→21:00)
[2022-04-03] MEDS: amLODIPine 5 MG TAB PO SCH (09:00)
[2022-04-03] MEDS: NICOTINE 21MG/24HR 1 EA TRANSDERMAL TD SCH (09:00)
[2022-04-03] MEDS ORDERED: diphenhydrAMINE 50MG/ML VIAL IM ONE (13:25)
[2022-04-03] MEDS ORDERED: HALOPERIDOL 5MG/ML 1ML VIAL IM ONE (13:25)
[2022-04-03] MEDS ORDERED: LORazepam 2 MG/ML 1ML VIAL IM ONE (13:25)
[2022-04-03] MEDS ORDERED: diphenhydrAMINE 50MG/ML VIAL As Ordered ONE (13:26)
[2022-04-03] MEDS ORDERED: HALOPERIDOL 5MG/ML 1ML VIAL As Ordered ONE (13:27)
[2022-04-03] MEDS ORDERED: LORazepam 2 MG/ML 1ML VIAL As Ordered ONE (13:28)
[2022-04-04 06:45] VITALS: BP 134/85
[2022-04-04] MEDS: amLODIPine 5 MG TAB PO SCH (09:00)
[2022-04-04] MEDS: NICOTINE 21MG/24HR 1 EA TRANSDERMAL TD SCH (09:00)
[2022-04-04] MEDS: PALIPERIDONE 3MG ER TAB (INVEGA) PO SCH ×2 (09:00→21:00)
[2022-04-04] MEDS ORDERED: HALOPERIDOL 5MG/ML 1ML VIAL IM STA (12:35)
[2022-04-04] MEDS ORDERED: LORazepam 2 MG/ML 1ML VIAL IM STA (12:35)
[2022-04-04] MEDS ORDERED: diphenhydrAMINE 50MG/ML VIAL IM STA (12:35)
[2022-04-04] MEDS: LORazepam 2 MG TAB PO PRN (12:54)
[2022-04-05] MEDS ORDERED: HALOPERIDOL 5MG/ML 1ML VIAL IM STA (04:05)
[2022-04-05] MEDS ORDERED: LORazepam 2 MG/ML 1ML VIAL IM STA (04:05)
[2022-04-05] MEDS ORDERED: diphenhydrAMINE 50MG/ML VIAL IM STA (04:05)
[2022-04-05] MEDS: amLODIPine 5 MG TAB PO SCH (09:00)
[2022-04-05] MEDS: PALIPERIDONE 3MG ER TAB (INVEGA) PO SCH ×2 (09:00→20:56)
[2022-04-05] MEDS: NICOTINE 21MG/24HR 1 EA TRANSDERMAL TD SCH (09:00)
[2022-04-05] MEDS: LORazepam 2 MG TAB PO PRN (19:30)
[2022-04-05] MEDS: diphenhydrAMINE 50MG CAP PO PRN (20:54)
[2022-04-06 06:36] VITALS: BP 138/83
[2022-04-06] MEDS: NICOTINE 21MG/24HR 1 EA TRANSDERMAL TD SCH (09:00)
[2022-04-06] MEDS: amLODIPine 5 MG TAB PO SCH (09:00)
[2022-04-06] MEDS: PALIPERIDONE 3MG ER TAB (INVEGA) PO SCH ×2 (09:00→20:42)
[2022-04-07 07:02] VITALS: BP 129/87
[2022-04-07] MEDS: PALIPERIDONE 3MG ER TAB (INVEGA) PO SCH ×2 (08:48→21:00)
[2022-04-07] MEDS: NICOTINE 21MG/24HR 1 EA TRANSDERMAL TD SCH (08:48)
[2022-04-07] MEDS: amLODIPine 5 MG TAB PO SCH (08:48)
[2022-04-08 06:53] VITALS: BP 134/82
[2022-04-08] MEDS: NICOTINE 21MG/24HR 1 EA TRANSDERMAL TD SCH (08:38)
[2022-04-08] MEDS: PALIPERIDONE 3MG ER TAB (INVEGA) PO SCH ×2 (08:38→20:28)
[2022-04-08] MEDS: amLODIPine 5 MG TAB PO SCH (08:38)
[2022-04-08 18:00] VITALS: BP 169/98
[2022-04-09 06:31] VITALS: BP 118/86
[2022-04-09] MEDS: NICOTINE 21MG/24HR 1 EA TRANSDERMAL TD SCH (09:00)
[2022-04-09] MEDS: PALIPERIDONE 3MG ER TAB (INVEGA) PO SCH ×2 (09:00→21:00)
[2022-04-09] MEDS: amLODIPine 5 MG TAB PO SCH (09:00)
[2022-04-09] MEDS: diphenhydrAMINE 50MG CAP PO PRN (19:38)
[2022-04-09] MEDS: LORazepam 2 MG TAB PO PRN (19:39)
[2022-04-10] MEDS: amLODIPine 5 MG TAB PO SCH (09:00)
[2022-04-10] MEDS: NICOTINE 21MG/24HR 1 EA TRANSDERMAL TD SCH (09:00)
[2022-04-10] MEDS: PALIPERIDONE 3MG ER TAB (INVEGA) PO SCH ×2 (09:00→20:47)
[2022-04-10 16:22] VITALS: BP 114/71
[2022-04-11 06:31] VITALS: BP 139/59
[2022-04-11] MEDS: amLODIPine 5 MG TAB PO SCH (08:06)
[2022-04-11] MEDS: NICOTINE 21MG/24HR 1 EA TRANSDERMAL TD SCH (08:06)
[2022-04-11] MEDS: PALIPERIDONE 3MG ER TAB (INVEGA) PO SCH ×2 (08:06→20:16)
[2022-04-11] MEDS ORDERED: LORazepam 2 MG/ML 1ML VIAL IM STA (17:54)
[2022-04-11] MEDS ORDERED: diphenhydrAMINE 50MG/ML VIAL IM STA (17:54)
[2022-04-11] MEDS ORDERED: HALOPERIDOL 5MG/ML 1ML VIAL IM STA (17:54)
[2022-04-11 21:30] VITALS: BP 136/83
[2022-04-11 21:45] VITALS: BP 138/94
[2022-04-12 06:38] VITALS: BP 148/85
[2022-04-12] MEDS: amLODIPine 5 MG TAB PO SCH (08:36)
[2022-04-12] MEDS: PALIPERIDONE 3MG ER TAB (INVEGA) PO SCH ×2 (08:36→20:35)
[2022-04-12] MEDS: NICOTINE 21MG/24HR 1 EA TRANSDERMAL TD SCH (08:36)
[2022-04-13 06:14] VITALS: BP 133/84
[2022-04-13] MEDS: PALIPERIDONE 3MG ER TAB (INVEGA) PO SCH ×2 (09:00→21:00)
[2022-04-13] MEDS: NICOTINE 21MG/24HR 1 EA TRANSDERMAL TD SCH (09:00)
[2022-04-13] MEDS: amLODIPine 5 MG TAB PO SCH (09:00)
[2022-04-13] MEDS: IBUPROFEN 400MG TAB PO PRN (21:43)
[2022-04-14] MEDS: IBUPROFEN 400MG TAB PO PRN ×3 (03:52→17:10)
[2022-04-14] MEDS: amLODIPine 5 MG TAB PO SCH (08:59)
[2022-04-14] MEDS: PALIPERIDONE 3MG ER TAB (INVEGA) PO SCH ×2 (08:59→21:00)
[2022-04-14] MEDS: NICOTINE 21MG/24HR 1 EA TRANSDERMAL TD SCH (09:00)
[2022-04-15] MEDS: IBUPROFEN 400MG TAB PO PRN ×2 (02:25→11:17)
[2022-04-15] MEDS: PALIPERIDONE 3MG ER TAB (INVEGA) PO SCH ×2 (09:00→20:36)
[2022-04-15] MEDS: amLODIPine 5 MG TAB PO SCH (09:00)
[2022-04-15] MEDS: NICOTINE 21MG/24HR 1 EA TRANSDERMAL TD SCH (09:00)
[2022-04-15 16:42] VITALS: BP 119/56
[2022-04-16] MEDS: NICOTINE 21MG/24HR 1 EA TRANSDERMAL TD SCH (09:00)
[2022-04-16] MEDS: PALIPERIDONE 3MG ER TAB (INVEGA) PO SCH ×2 (09:00→20:34)
[2022-04-16] MEDS: amLODIPine 5 MG TAB PO SCH (09:00)
[2022-04-17] MEDS: amLODIPine 5 MG TAB PO SCH (09:00)
[2022-04-17] MEDS: PALIPERIDONE 3MG ER TAB (INVEGA) PO SCH ×2 (09:00→20:23)
[2022-04-17] MEDS: NICOTINE 21MG/24HR 1 EA TRANSDERMAL TD SCH (09:00)
[2022-04-18 06:10] VITALS: BP 117/71
[2022-04-18] MEDS: PALIPERIDONE 3MG ER TAB (INVEGA) PO SCH ×2 (08:47→21:00)
[2022-04-18] MEDS: NICOTINE 21MG/24HR 1 EA TRANSDERMAL TD SCH (08:47)
[2022-04-18] MEDS: amLODIPine 5 MG TAB PO SCH (08:47)
[2022-04-18] MEDS: diphenhydrAMINE 50MG CAP PO PRN (09:11)
[2022-04-18] MEDS: LORazepam 2 MG TAB PO PRN (09:13)
[2022-04-19 06:39] VITALS: BP 125/71
[2022-04-19] MEDS: amLODIPine 5 MG TAB PO SCH (08:55)
[2022-04-19] MEDS: PALIPERIDONE 3MG ER TAB (INVEGA) PO SCH ×2 (08:55→20:19)
[2022-04-19] MEDS: NICOTINE 21MG/24HR 1 EA TRANSDERMAL TD SCH (08:55)
[2022-04-20 06:27] VITALS: BP 123/74
[2022-04-20] MEDS: amLODIPine 5 MG TAB PO SCH (09:00)
[2022-04-20] MEDS: NICOTINE 21MG/24HR 1 EA TRANSDERMAL TD SCH (09:00)
[2022-04-20] MEDS: PALIPERIDONE 3MG ER TAB (INVEGA) PO SCH ×2 (09:00→20:11)
[2022-04-21 06:29] VITALS: BP 131/76
[2022-04-21] MEDS: PALIPERIDONE 3MG ER TAB (INVEGA) PO SCH ×2 (09:00→20:13)
[2022-04-21] MEDS: NICOTINE 21MG/24HR 1 EA TRANSDERMAL TD SCH (09:00)
[2022-04-21] MEDS: amLODIPine 5 MG TAB PO SCH (09:00)
[2022-04-21] MEDS: IBUPROFEN 400MG TAB PO PRN ×2 (11:37→18:06)
[2022-04-21 17:44] VITALS: BP 142/85
[2022-04-22 04:04] VITALS: BP 128/79
[2022-04-22] MEDS: IBUPROFEN 400MG TAB PO PRN (04:31)
[2022-04-22] MEDS: PALIPERIDONE 3MG ER TAB (INVEGA) PO SCH ×2 (09:00→21:00)
[2022-04-22] MEDS: amLODIPine 5 MG TAB PO SCH (09:00)
[2022-04-22] MEDS: NICOTINE 21MG/24HR 1 EA TRANSDERMAL TD SCH (09:00)
[2022-04-22] MEDS ORDERED: HALOPERIDOL 5MG/ML 1ML VIAL IM STA (09:34)
[2022-04-22] MEDS ORDERED: LORazepam 2 MG/ML 1ML VIAL IM STA (09:34)
[2022-04-22] MEDS ORDERED: diphenhydrAMINE 50MG/ML VIAL IM STA (09:34)
[2022-04-23 06:39] VITALS: BP 139/90
[2022-04-23] MEDS: IBUPROFEN 400MG TAB PO PRN (06:55)
[2022-04-23] MEDS: NICOTINE 21MG/24HR 1 EA TRANSDERMAL TD SCH (09:00)
[2022-04-23] MEDS: amLODIPine 5 MG TAB PO SCH (09:00)
[2022-04-23] MEDS: PALIPERIDONE 3MG ER TAB (INVEGA) PO SCH (09:00)
[2022-04-23] MEDS ORDERED: PALI1TAB2 PO (09:48)
== END 2022-04-23 11:15 | DRG 750 ==
LOC: M ED 10:16 → M ED INP 03-29 11:57 → M PSY 03-29 14:31
PROVIDERS: ADMIT Student in an Organized Health Care Education/Training Program; ATTEND Psychiatry & Neurology Psychiatry
DX: F25.0 Schizoaffective disorder, bipolar type (principal); F60.89 Other specific personality disorders; I10 Essential (primary) hypertension; R74.01 Elevation of levels of liver transaminase levels; F60.2 Antisocial personality disorder; F60.81 Narcissistic personality disorder; Z65.3 Problems related to other legal circumstances; Z78.1 Physical restraint status; Z91.199 Patient's noncompliance with other medical treatment and regimen due to unspecified reason; Z88.8 Allergy status to other drugs, medicaments and biological substances

== ENCOUNTER 2022-05-15 12:44 | Emergency (ER) | payer OTHER, MEDICAID ==
[~2022-05-15 12:44] MED LIST changes: +PALI1TAB2 PO
[2022-05-15] MEDS ORDERED: OLANZapine INTRAMUSCULAR 10MG VIAL IM ONE (13:15)
[2022-05-15 13:57] LABS: HEMATOCRIT 47.3 % (42.0-52.0); HEMOGLOBIN 15.5 g/dl (13.5-17.5); MEAN CORPUSCULAR HEMOGLOBIN 30.2 pg (27.0-33.0); MEAN CORPUSCULAR HGB CONC 32.8 g/dl (32.0-36.5); MEAN CORPUSCULAR VOLUME 92.2 fl (80.0-96.0); PLATELET COUNT, AUTOMATED 269 10^3/uL (150-450); RED BLOOD COUNT 5.13 10^6/uL (4.30-6.10)
[2022-05-15 14:23] LABS: ETHYL ALCOHOL (ETHANOL) 0.008 % (0.000-0.010)
[2022-05-15 14:24] LABS: SALICYLATE LEVEL < 3.0 MG/DL (<30)
[2022-05-15 14:25] LABS: ACETAMINOPHEN LEVEL < 2.0 UG/ML (10.0-20.0); ALBUMIN 4.6 G/DL (3.2-5.2); ALKALINE PHOSPHATASE 82 U/L (46-116); ALT/SGPT 35 U/L (7.0-40); AST/SGOT 73 U/L (<34); BILIRUBIN,DIRECT 0.4 MG/DL (<0.4); BILIRUBIN,TOTAL 1.4 MG/DL (0.3-1.2); BLOOD UREA NITROGEN 25 MG/DL (9-23); CALCIUM LEVEL 8.6 MG/DL (8.5-10.1); CARBON DIOXIDE LEVEL 24 MMOL/L (20-31); CHLORIDE LEVEL 102 MMOL/L (98-107); CREATININE FOR GFR 0.93 MG/DL (0.70-1.30); GLOMERULAR FILTRATION RATE > 60.0 (>60); GLUCOSE, FASTING 90 MG/DL (60-100); POTASSIUM SERUM 3.7 MMOL/L (3.5-5.1); SODIUM LEVEL 142 MMOL/L (136-145); TOTAL PROTEIN 8.2 G/DL (5.7-8.2)
[2022-05-15 14:27] LABS: THYROID STIMULATING HORMONE 1.515 uIU/ML (0.55-4.78)
[2022-05-15 14:35] LABS: AMPHETAMINES LEVEL URINE NEGATIVE (NEGATIVE); BARBITURATES URINE NEGATIVE (NEGATIVE); BENZODIAZEPINES URINE NEGATIVE (NEGATIVE); CANNABINOIDS URINE NEGATIVE (NEGATIVE); COCAINE METABOLITE URINE NEGATIVE (NEGATIVE); METHADONE URINE NEGATIVE (NEGATIVE); OPIATES URINE NEGATIVE (NEGATIVE); PHENCYCLIDINE URINE NEGATIVE (NEGATIVE)
[2022-05-15 15:05] LABS: VALPROIC ACID (DEPAKOTE) < 3.0 UG/ML (50.0-100.0)
[2022-05-16] MEDS ORDERED: OLANZapine INTRAMUSCULAR 10MG VIAL IM ONE ×2 (08:50→12:30)
[2022-05-16] MEDS ORDERED: LORazepam 2 MG/ML 1ML VIAL IM STA (12:27)
[2022-05-16] MEDS ORDERED: LORazepam 2 MG TAB PO ONE (23:00)
[2022-05-17] MEDS ORDERED: diphenhydrAMINE 50MG/ML VIAL IM ONE (02:10)
[2022-05-17] MEDS ORDERED: MIDAZOLAM INJ 2MG/2ML VIAL IM ONE (02:10)
[2022-05-17] MEDS ORDERED: HALOPERIDOL 5MG/ML 1ML VIAL As Ordered ONE (02:14)
[2022-05-17] MEDS ORDERED: HALOPERIDOL 5MG/ML 1ML VIAL IM ONE (03:00)
[2022-05-17] MEDS ORDERED: PALIPERIDONE 3MG ER TAB (INVEGA) PO ONE (07:30)
[2022-05-17] MEDS ORDERED: SERTRALINE HCL 50 MG TAB PO ONE (07:30)
[2022-05-17] MEDS ORDERED: OLANZapine 5 MG TAB PO ONE (07:30)
[2022-05-17] MEDS ORDERED: OLANZapine INTRAMUSCULAR 10MG VIAL IM ONE (12:10)
[2022-05-18] MEDS ORDERED: IBUPROFEN 600MG TAB PO ONE (05:45)
[2022-05-18] MEDS ORDERED: PALIPERIDONE 3MG ER TAB (INVEGA) PO SCH (13:45)
[2022-05-18 14:43] VITALS: BP 135/7
== END 2022-05-18 15:29 | disposition home or self-care (01) ==
LOC: M ED 12:44
DX: F20.9 Schizophrenia, unspecified (principal); F32.9 Major depressive disorder, single episode, unspecified; I10 Essential (primary) hypertension; Z79.899 Other long term (current) drug therapy; Z88.8 Allergy status to other drugs, medicaments and biological substances
CPT/HCPCS: 36415; 51701; 80048; 80076; 80143; 80164; 80307; 82077; 84443; 85027; 87635; 93005; 96372; 99285; J1200; J2060; J2250

== ENCOUNTER 2022-05-22 06:40 | Emergency (ER) | payer OTHER, MEDICAID ==
[~2022-05-22] VITALS: Ht 177.8 cm; Wt 98.2 kg
[2022-05-22] MEDS ORDERED: MIDAZOLAM INJ 2MG/2ML VIAL IM ONE (07:55)
[2022-05-22] MEDS ORDERED: OLANZapine INTRAMUSCULAR 10MG VIAL IM ONE (07:55)
[2022-05-22 10:00] LABS: HEMATOCRIT 48.7 % (42.0-52.0); HEMOGLOBIN 15.9 g/dl (13.5-17.5); MEAN CORPUSCULAR HEMOGLOBIN 29.6 pg (27.0-33.0); MEAN CORPUSCULAR HGB CONC 32.6 g/dl (32.0-36.5); MEAN CORPUSCULAR VOLUME 90.7 fl (80.0-96.0); PLATELET COUNT, AUTOMATED 274 10^3/uL (150-450); RED BLOOD COUNT 5.37 10^6/uL (4.30-6.10)
[2022-05-22 10:12] LABS: ETHYL ALCOHOL (ETHANOL) < 0.003 % (0.000-0.010)
[2022-05-22 10:14] LABS: ACETAMINOPHEN LEVEL < 2.0 UG/ML (10.0-20.0); ALBUMIN 4.3 G/DL (3.2-5.2); ALKALINE PHOSPHATASE 77 U/L (46-116); ALT/SGPT 43 U/L (7.0-40); AST/SGOT 36 U/L (<34); BILIRUBIN,DIRECT 0.3 MG/DL (<0.4); BILIRUBIN,TOTAL 0.9 MG/DL (0.3-1.2); BLOOD UREA NITROGEN 30 MG/DL (9-23); CALCIUM LEVEL 9.4 MG/DL (8.5-10.1); CARBON DIOXIDE LEVEL 28 MMOL/L (20-31); CHLORIDE LEVEL 104 MMOL/L (98-107); CREATININE FOR GFR 0.99 MG/DL (0.70-1.30); GLOMERULAR FILTRATION RATE > 60.0 (>60); GLUCOSE, FASTING 79 MG/DL (60-100); SALICYLATE LEVEL < 3.0 MG/DL (<30); SODIUM LEVEL 139 MMOL/L (136-145); TOTAL PROTEIN 7.6 G/DL (5.7-8.2)
[2022-05-22 11:06] LABS: AMPHETAMINES LEVEL URINE NEGATIVE (NEGATIVE)
[2022-05-22 11:07] LABS: BARBITURATES URINE NEGATIVE (NEGATIVE); CANNABINOIDS URINE NEGATIVE (NEGATIVE); COCAINE METABOLITE URINE NEGATIVE (NEGATIVE); METHADONE URINE NEGATIVE (NEGATIVE); OPIATES URINE NEGATIVE (NEGATIVE); PHENCYCLIDINE URINE NEGATIVE (NEGATIVE)
[2022-05-22 11:09] LABS: BENZODIAZEPINES URINE POSITIVE (NEGATIVE)
[2022-05-23] MEDS ORDERED: LORazepam 2 MG TAB PO STA (04:24)
[2022-05-23 06:54] VITALS: BP 108/58
[2022-05-23] MEDS ORDERED: diphenhydrAMINE 50MG CAP PO ONE (11:20)
== END 2022-05-23 12:59 | disposition home or self-care (01) ==
LOC: M ED 06:40
DX: F23 Brief psychotic disorder (principal); I10 Essential (primary) hypertension; F32.9 Major depressive disorder, single episode, unspecified; F20.9 Schizophrenia, unspecified; Z79.899 Other long term (current) drug therapy; Z88.8 Allergy status to other drugs, medicaments and biological substances
CPT/HCPCS: 80048; 80076; 80143; 80307; 82077; 84443; 85027; 87635; 96372; 99285; J2250

== ENCOUNTER 2022-06-17 10:54 | Emergency (ER) | payer OTHER, MEDICAID ==
[~2022-06-17] VITALS: Ht 180.3 cm; Wt 109.1 kg
[2022-06-17] MEDS ORDERED: IBUPROFEN 800 MG TAB PO ONE (11:25)
[2022-06-17] MEDS ORDERED: MORPHINE 4 MG/ML 1ML VIAL IM ONE (12:40)
[2022-06-17 13:54] VITALS: BP 120/83
[2022-06-17] MEDS ORDERED: PERCOCET 5MG/325MG TAB PO ONE (15:05)
[2022-06-17] MEDS ORDERED: IBUP80TA PO (15:05)
== END 2022-06-17 15:20 | disposition home or self-care (01) ==
LOC: M ED 10:54
DX: S42.401A Unspecified fracture of lower end of right humerus, initial encounter for closed fracture (principal); W50.2XXA Accidental twist by another person, initial encounter; Y92.248 Other public administrative building as the place of occurrence of the external cause; I10 Essential (primary) hypertension; R73.03 Prediabetes; F25.9 Schizoaffective disorder, unspecified; F43.10 Post-traumatic stress disorder, unspecified; Z88.8 Allergy status to other drugs, medicaments and biological substances; Z79.899 Other long term (current) drug therapy

== ENCOUNTER 2022-06-25 14:56 | Inpatient (IN) | payer MEDICARE, OTHER, MEDICAID ==
[~2022-06-25] VITALS: Ht 177.8 cm; Wt 98.6 kg
[~2022-06-25 14:56] MED LIST changes: +IBUP80TA PO
[2022-06-25] MEDS ORDERED: SERT50TA29 PO (15:30)
[2022-06-25] MEDS ORDERED: TRAZ-252 PO (15:30)
[2022-06-25] MEDS ORDERED: OLAN1TAB16 PO (15:30)
[2022-06-25] MEDS ORDERED: AMLO1TAB24 PO (15:30)
[2022-06-25] MEDS ORDERED: OLAN1TAB20 PO (15:30)
[2022-06-25] MEDS ORDERED: ACETAMINOPHEN TAB 650MG DOSE (2X325MG) PO PRN (18:35)
[2022-06-25] MEDS ORDERED: OLANZapine 5 MG TAB PO PRN (18:45)
[2022-06-25] MEDS ORDERED: LORazepam 2 MG TAB PO PRN (18:45)
[2022-06-25 18:47] LABS: BASO # 0.1 10^3/uL (0.0-0.2); BASO % 0.7 % (0.0-1.0); EOS # 0.2 10^3/uL (0.0-0.5); EOS % 2.3 % (0.0-3.0); HEMATOCRIT 35.2 % (42.0-52.0); HEMOGLOBIN 11.6 g/dl (13.5-17.5); LYMPH # 2.6 10^3/uL (1.5-5.0); LYMPH % 37.7 % (24.0-44.0); MEAN CORPUSCULAR HEMOGLOBIN 30.2 pg (27.0-33.0); MEAN CORPUSCULAR VOLUME 91.7 fl (80.0-96.0); MONO # 0.5 10^3/uL (0.0-0.8); MONO % 6.9 % (2.0-8.0); NEUTROPHILS # 3.5 10^3/uL (1.5-8.5); NEUTROPHILS % 52.1 % (36.0-66.0); PLATELET COUNT, AUTOMATED 364 10^3/uL (150-450); RED BLOOD COUNT 3.84 10^6/uL (4.30-6.10); WHITE BLOOD COUNT 6.8 10^3/uL (4.0-10.0)
[2022-06-25 18:49] LABS: BLOOD UREA NITROGEN 12 MG/DL (9-23); CALCIUM LEVEL 8.9 MG/DL (8.5-10.1); CARBON DIOXIDE LEVEL 28 MMOL/L (20-31); CHLORIDE LEVEL 105 MMOL/L (98-107); CREATININE FOR GFR 0.77 MG/DL (0.70-1.30); GLOMERULAR FILTRATION RATE > 60.0 (>60); GLUCOSE, FASTING 87 MG/DL (60-100); POTASSIUM SERUM 4.4 MMOL/L (3.5-5.1); SODIUM LEVEL 139 MMOL/L (136-145)
[2022-06-25] MEDS: NS 1,000 ML IV SCH (19:00)
[2022-06-25] MEDS ORDERED: ceFAZolin SOD 1 GM in D5W MINI-BAG PLUS 50 ML IV SCH (20:00)
[2022-06-25 20:22] VITALS: BP 149/94
[2022-06-25] MEDS: PERCOCET 5MG/325MG TAB PO PRN (23:33)
[2022-06-26] MEDS: NS 1,000 ML IV SCH (04:26)
[2022-06-26] MEDS: MORPHINE 2 MG/ML 1ML VIAL IV PRN ×2 (04:27→09:03)
[2022-06-26 06:35] VITALS: BP 149/90
[2022-06-26 08:44] LABS: BASO % 0.4 % (0.0-1.0); EOS # 0.1 10^3/uL (0.0-0.5); EOS % 2.4 % (0.0-3.0); HEMATOCRIT 33.3 % (42.0-52.0); LYMPH # 2.3 10^3/uL (1.5-5.0); LYMPH % 41.9 % (24.0-44.0); MEAN CORPUSCULAR HEMOGLOBIN 30.5 pg (27.0-33.0); MEAN CORPUSCULAR VOLUME 92.2 fl (80.0-96.0); MONO # 0.4 10^3/uL (0.0-0.8); NEUTROPHILS # 2.6 10^3/uL (1.5-8.5); NEUTROPHILS % 47.9 % (36.0-66.0); PLATELET COUNT, AUTOMATED 351 10^3/uL (150-450); RED BLOOD COUNT 3.61 10^6/uL (4.30-6.10); WHITE BLOOD COUNT 5.4 10^3/uL (4.0-10.0)
[2022-06-26 09:10] LABS: BLOOD UREA NITROGEN 12 MG/DL (9-23); CALCIUM LEVEL 8.2 MG/DL (8.5-10.1); CARBON DIOXIDE LEVEL 27 MMOL/L (20-31); CHLORIDE LEVEL 109 MMOL/L (98-107); CREATININE FOR GFR 0.82 MG/DL (0.70-1.30); GLOMERULAR FILTRATION RATE > 60.0 (>60); GLUCOSE, FASTING 82 MG/DL (60-100); POTASSIUM SERUM 4.2 MMOL/L (3.5-5.1); SODIUM LEVEL 141 MMOL/L (136-145)
[2022-06-26 09:32] LABS: INR 1.05; PROTHROMBIN TIME 13.9 SECONDS (12.5-14.5)
[2022-06-26] MEDS ORDERED: HOME MED LIST COMPLETE! XX SCH (09:45)
[2022-06-26 14:00] VITALS: BP 153/59
[2022-06-26] MEDS ORDERED: MIDAZOLAM INJ 2MG/2ML VIAL As Ordered ONE (17:53)
[2022-06-26] MEDS ORDERED: ONDANSETRON 4MG 2ML VIAL As Ordered ONE (17:53)
[2022-06-26] MEDS ORDERED: LIDOCAINE 2% 100MG/5ML SDV (FOR ANES.) As Ordered ONE (17:53)
[2022-06-26] MEDS ORDERED: propofoL 200 MG/20 ML VIAL As Ordered ONE ×2 (17:53→19:26)
[2022-06-26] MEDS ORDERED: fentaNYL 100 MCG/2 ML INJECTION As Ordered ONE (17:53)
[2022-06-26] MEDS ORDERED: ceFAZolin 2 GM/D5W 50 ML IV BAG As Ordered ONE (18:01)
[2022-06-26] MEDS ORDERED: ACETAMINOPHEN 1000MG 100ML IV BAG As Ordered ONE (18:11)
[2022-06-26] MEDS ORDERED: SUCCINYLCHOLINE 100MG/5ML SYRINGE As Ordered ONE (19:26)
[2022-06-26] MEDS ORDERED: HYDROmorphone HCL 2MG/ML 1ML VIAL As Ordered ONE (19:31)
[2022-06-26] MEDS ORDERED: LR 1,000 ML IV SCH (20:30)
[2022-06-26] MEDS ORDERED: HYDROMORPHONE HCL 0.5 MG/ 0.5 ML SYRINGE IV PRN (20:30)
[2022-06-26] MEDS ORDERED: ONDANSETRON 4MG 2ML VIAL IV PRN (20:30)
[2022-06-26] MEDS ORDERED: oxyCODONE 5MG TAB PO PRN (20:30)
[2022-06-26] MEDS ORDERED: fentaNYL 100 MCG/2 ML INJECTION IV PRN (20:30)
[2022-06-26 21:45] VITALS: BP 147/83
[2022-06-26 22:26] VITALS: BP 144/82
[2022-06-26 23:10] VITALS: BP 140/83
[2022-06-27 00:14] VITALS: BP 137/82
[2022-06-27 01:02] VITALS: BP 133/81
[2022-06-27 02:01] VITALS: BP 131/80
[2022-06-27] MEDS: ceFAZolin SOD 2 GM in IV 1 EA IV SCH ×2 (02:05→09:34)
[2022-06-27 05:30] VITALS: BP 139/82
[2022-06-27] MEDS: PERCOCET 5MG/325MG TAB PO PRN (08:17)
[2022-06-27 08:18] VITALS: BP 142/83
[2022-06-27] MEDS ORDERED: AMLO1TAB25 PO (09:24)
[2022-06-27] MEDS ORDERED: HALO5TAB33 PO (09:24)
[2022-06-27] MEDS ORDERED: ZYPR5TAB2 PO (11:05)
== END 2022-06-27 11:35 | disposition other institution (70) | DRG 494 ==
LOC: M ED 14:56 → M ED INP 19:03 → M MS5PR 20:45
PROVIDERS: ADMIT Internal Medicine; ATTEND Internal Medicine
PROC: 0PSF04Z Reposition Right Humeral Shaft with Internal Fixation Device, Open Approach (ICD-10-PCS; 2022-06-26)
PROC: BP1AZZZ Fluoroscopy of Right Humerus (ICD-10-PCS; principal; 2022-06-26 15:30)
DX: S42.351A Displaced comminuted fracture of shaft of humerus, right arm, initial encounter for closed fracture (principal); I10 Essential (primary) hypertension; R73.03 Prediabetes; F20.9 Schizophrenia, unspecified; F41.8 Other specified anxiety disorders; F60.2 Antisocial personality disorder; Z87.891 Personal history of nicotine dependence; Z88.8 Allergy status to other drugs, medicaments and biological substances; X58.XXXA Exposure to other specified factors, initial encounter; Y92.149 Unspecified place in prison as the place of occurrence of the external cause

== ENCOUNTER → 2022-08-30 | Outpatient (CLI) | payer OTHER, MEDICAID ==
[~2022-08-30] MED LIST changes: +AMLO1TAB25 PO; +HALO5TAB33 PO
== END ==
LOC: M SOG 08:49
PROVIDERS: ATTEND Orthopaedic Surgery
DX: S42.351A Displaced comminuted fracture of shaft of humerus, right arm, initial encounter for closed fracture (principal); Z98.890 Other specified postprocedural states; X58.XXXA Exposure to other specified factors, initial encounter; Y92.9 Unspecified place or not applicable; Y93.9 Activity, unspecified; Y99.9 Unspecified external cause status

== ENCOUNTER 2022-11-27 21:33 | Emergency (ER) | payer OTHER, MEDICAID ==
[~2022-11-27] VITALS: Ht 177.8 cm; Wt 113.7 kg
[2022-11-27] MEDS ORDERED: SERT50TA29 (21:44)
[2022-11-27] MEDS ORDERED: PALI1TAB2 (21:44)
[2022-11-27 22:48] LABS: AMPHETAMINES LEVEL URINE NEGATIVE (NEGATIVE); BARBITURATES URINE NEGATIVE (NEGATIVE); BENZODIAZEPINES URINE NEGATIVE (NEGATIVE); COCAINE METABOLITE URINE NEGATIVE (NEGATIVE); METHADONE URINE NEGATIVE (NEGATIVE); OPIATES URINE NEGATIVE (NEGATIVE); PHENCYCLIDINE URINE NEGATIVE (NEGATIVE)
[2022-11-27 22:51] LABS: CANNABINOIDS URINE POSITIVE (NEGATIVE)
[2022-11-28] MEDS ORDERED: HALOPERIDOL 5MG/ML 1ML VIAL IM ONE
[2022-11-28] MEDS ORDERED: MIDAZOLAM INJ 2MG/2ML VIAL IM ONE
[2022-11-28 01:25] LABS: HEMATOCRIT 45.9 % (42.0-52.0); MEAN CORPUSCULAR HEMOGLOBIN 29.6 pg (27.0-33.0); MEAN CORPUSCULAR HGB CONC 32.7 g/dl (32.0-36.5); MEAN CORPUSCULAR VOLUME 90.5 fl (80.0-96.0); PLATELET COUNT, AUTOMATED 269 10^3/uL (150-450); RED BLOOD COUNT 5.07 10^6/uL (4.30-6.10); WHITE BLOOD COUNT 8.7 10^3/uL (4.0-10.0)
[2022-11-28 01:40] LABS: ETHYL ALCOHOL (ETHANOL) < 0.003 % (0.000-0.010)
[2022-11-28 01:42] LABS: ACETAMINOPHEN LEVEL < 2.0 UG/ML (10.0-20.0); ALBUMIN 4.7 G/DL (3.2-5.2); ALKALINE PHOSPHATASE 99 U/L (46-116); ALT/SGPT 34 U/L (7.0-40); AST/SGOT 53 U/L (<34); BILIRUBIN,DIRECT 0.3 MG/DL (<0.4); BILIRUBIN,TOTAL 1.3 MG/DL (0.3-1.2); BLOOD UREA NITROGEN 22 MG/DL (9-23); CALCIUM LEVEL 8.9 MG/DL (8.5-10.1); CARBON DIOXIDE LEVEL 26 MMOL/L (20-31); CHLORIDE LEVEL 102 MMOL/L (98-107); CREATININE FOR GFR 0.96 MG/DL (0.70-1.30); GLOMERULAR FILTRATION RATE > 60.0 (>60); GLUCOSE, FASTING 101 MG/DL (60-100); POTASSIUM SERUM 3.8 MMOL/L (3.5-5.1); SALICYLATE LEVEL < 3.0 MG/DL (<30); SODIUM LEVEL 138 MMOL/L (136-145); TOTAL PROTEIN 8.5 G/DL (5.7-8.2)
[2022-11-28 01:44] LABS: THYROID STIMULATING HORMONE 2.639 uIU/ML (0.55-4.78)
[2022-11-28] MEDS ORDERED: MED REC CURRENTLY UNOBTAINABLE XX SCH (03:50)
[2022-11-28 13:15] VITALS: BP 128/84; TEMP 98.4; O2SAT 99
== END 2022-11-28 13:26 | disposition home or self-care (01) ==
LOC: M ED 21:33
DX: F20.9 Schizophrenia, unspecified (principal); R45.851 Suicidal ideations; R00.0 Tachycardia, unspecified; I10 Essential (primary) hypertension; F32.A Depression, unspecified; F41.9 Anxiety disorder, unspecified; Z87.891 Personal history of nicotine dependence; Z91.048 Other nonmedicinal substance allergy status; Z79.899 Other long term (current) drug therapy
CPT/HCPCS: 80048; 80076; 80143; 80307; 82077; 84443; 85027; 87635; 93005; 96372; 99285; J1630; J2250

== ENCOUNTER 2023-11-11 10:04 | Inpatient (IN) | payer OTHER, MEDICAID ==
[~2023-11-11] VITALS: Ht 177.8 cm; Wt 102.6 kg
[~2023-11-11 10:04] MED LIST changes: +PALI1TAB2; +SERT50TA29
[2023-11-11] MEDS ORDERED: RISP-105 PO (10:32)
[2023-11-11 10:53] LABS: HEMATOCRIT 40.8 % (42.0-52.0); HEMOGLOBIN 13.7 g/dl (13.5-17.5); MEAN CORPUSCULAR HGB CONC 33.6 g/dl (32.0-36.5); MEAN CORPUSCULAR VOLUME 89.5 fl (80.0-96.0); PLATELET COUNT, AUTOMATED 206 10^3/uL (150-450); RED BLOOD COUNT 4.56 10^6/uL (4.30-6.10); WHITE BLOOD COUNT 3.7 10^3/uL (4.0-10.0)
[2023-11-11 10:56] LABS: ETHYL ALCOHOL (ETHANOL) < 0.003 % (0.000-0.010)
[2023-11-11 10:59] LABS: ALBUMIN 4.3 G/DL (3.2-5.2); ALKALINE PHOSPHATASE 79 U/L (46-116); ALT/SGPT 34 U/L (7.0-40); AST/SGOT 37 U/L (<34); BILIRUBIN,DIRECT 0.3 MG/DL (<0.4); BILIRUBIN,TOTAL 0.8 MG/DL (0.3-1.2); BLOOD UREA NITROGEN 10 MG/DL (9-23); CALCIUM LEVEL 8.3 MG/DL (8.5-10.1); CARBON DIOXIDE LEVEL 29 MMOL/L (20-31); CHLORIDE LEVEL 105 MMOL/L (98-107); CREATININE FOR GFR 1.01 MG/DL (0.70-1.30); GLOMERULAR FILTRATION RATE > 60.0 (>60); GLUCOSE, FASTING 93 MG/DL (60-100); POTASSIUM SERUM 3.9 MMOL/L (3.5-5.1); SALICYLATE LEVEL < 3.0 MG/DL (<30); SODIUM LEVEL 139 MMOL/L (136-145); TOTAL PROTEIN 7.3 G/DL (5.7-8.2)
[2023-11-11 11:01] LABS: THYROID STIMULATING HORMONE 2.354 uIU/ML (0.55-4.78)
[2023-11-11] MEDS: OLANZapine ORAL DISINTEGRATING TAB 5MG PO ONE (11:51)
[2023-11-11 12:01] LABS: AMPHETAMINES LEVEL URINE NEGATIVE (NEGATIVE); BARBITURATES URINE NEGATIVE (NEGATIVE); BENZODIAZEPINES URINE NEGATIVE (NEGATIVE); CANNABINOIDS URINE NEGATIVE (NEGATIVE); COCAINE METABOLITE URINE NEGATIVE (NEGATIVE); METHADONE URINE NEGATIVE (NEGATIVE); OPIATES URINE NEGATIVE (NEGATIVE); PHENCYCLIDINE URINE NEGATIVE (NEGATIVE)
[2023-11-11] MEDS ORDERED: IRON1TAB2 PO (12:19)
[2023-11-11] MEDS ORDERED: ODOR100T3 PO (12:19)
[2023-11-11] MEDS ORDERED: B6/F1TAB PO (12:19)
[2023-11-11] MEDS ORDERED: BIOT10009 PO (12:19)
[2023-11-11] MEDS ORDERED: HOME MED LIST COMPLETE! XX SCH (12:20)
[2023-11-11] MEDS ORDERED: RISPERIDONE 1 MG TAB PO SCH ×2 (13:00→16:07)
[2023-11-11] MEDS: RISPERIDONE 1 MG TAB PO SCH (16:55)
[2023-11-12] MEDS ORDERED: IBUPROFEN 400MG TAB PO PRN (20:05)
[2023-11-12] MEDS ORDERED: diphenhydrAMINE 25MG CAP PO PRN (20:05)
[2023-11-12] MEDS ORDERED: traZODone 50 MG TAB PO PRN (20:05)
[2023-11-12] MEDS ORDERED: MAALOX 30 ML SUSP *UDC PO PRN (20:05)
[2023-11-12] MEDS ORDERED: MOM 30ML SUSPENSION UDC PO PRN (20:05)
[2023-11-12 21:30] VITALS: BP 132/92; TEMP 97.1; O2SAT 98
[2023-11-12] MEDS: ACETAMINOPHEN TAB 650MG DOSE (2X325MG) PO PRN (23:49)
[2023-11-13 06:26] VITALS: BP 140/90; TEMP 97.3; O2SAT 99
[2023-11-13] MEDS: lisinopriL 5 MG TAB PO SCH (11:46)
[2023-11-13] MEDS: FERROUS SULFATE 325MG TAB PO SCH (15:18)
[2023-11-13] MEDS: RISPERIDONE 1 MG TAB PO SCH (15:18)
[2023-11-13 17:17] VITALS: BP 128/83; TEMP 99.1; O2SAT 99
[2023-11-13] MEDS ORDERED: RISPERIDONE 1 MG TAB PO SCH (21:00)
[2023-11-14 06:20] VITALS: BP 120/80; TEMP 97.5; O2SAT 98
[2023-11-14 17:26] VITALS: BP 160/90; TEMP 97; O2SAT 100
[2023-11-15 06:24] VITALS: BP 136/76; TEMP 97.4; O2SAT 100
[2023-11-15 16:55] VITALS: BP 117/64; TEMP 97.5; O2SAT 98
[2023-11-16 06:33] VITALS: BP 132/74; TEMP 97.1; O2SAT 98
[2023-11-17 06:31] VITALS: BP 136/80; TEMP 96.9; O2SAT 97
[2023-11-17 17:48] VITALS: BP 124/65; TEMP 97.1; O2SAT 99
[2023-11-18 06:05] VITALS: BP 122/72; TEMP 97.3; O2SAT 98
[2023-11-19 06:45] VITALS: BP 117/74; TEMP 98; O2SAT 97
[2023-11-19 16:11] VITALS: BP 114/61; TEMP 97.5; O2SAT 97
[2023-11-20 06:19] VITALS: BP 150/79; TEMP 97.1; O2SAT 98
[2023-11-20] MEDS ORDERED: LISI5TAB11 PO (08:08)
[2023-11-20 08:10] VITALS: BP 133/62
== END 2023-11-20 10:13 | disposition home or self-care (01) | DRG 885 ==
LOC: M ED 10:04 → M ED INP 11-12 20:04 → M PSY 11-12 20:54
PROVIDERS: ADMIT Psychiatry & Neurology Psychiatry; ATTEND Psychiatry & Neurology Child & Adolescent Psychiatry
DX: F20.0 Paranoid schizophrenia (principal); R73.03 Prediabetes; I10 Essential (primary) hypertension; Z87.891 Personal history of nicotine dependence; Z79.899 Other long term (current) drug therapy; Z88.8 Allergy status to other drugs, medicaments and biological substances

== ENCOUNTER 2024-01-29 07:24 | Emergency (ER) | payer OTHER, MEDICAID ==
[~2024-01-29] VITALS: Ht 180.3 cm; Wt 104.0 kg
[~2024-01-29 07:24] MED LIST changes: +B6/F1TAB PO; +BIOT10009 PO; +IRON1TAB2 PO; +LISI5TAB11 PO; +ODOR100T3 PO; +RISP-105 PO; +[UNRECOGNIZED DRUG - CODE] PO; -[UNRECOGNIZED DRUG - CODE] PO
[2024-01-29] MEDS ORDERED: CLAR10CA3 PO (09:47)
[2024-01-29 10:05] VITALS: BP 132/66; TEMP 97.9; O2SAT 99
== END 2024-01-29 10:08 | disposition home or self-care (01) ==
LOC: M ED 07:24
DX: R05.9 Cough, unspecified (principal); J02.8 Acute pharyngitis due to other specified organisms; I10 Essential (primary) hypertension; F43.10 Post-traumatic stress disorder, unspecified; F25.9 Schizoaffective disorder, unspecified; Z87.820 Personal history of traumatic brain injury; Z79.899 Other long term (current) drug therapy; Z88.8 Allergy status to other drugs, medicaments and biological substances

== ENCOUNTER 2024-06-26 02:51 | Emergency (ER) | payer OTHER, MEDICAID ==
[~2024-06-26 02:51] MED LIST changes: +CLAR10CA3 PO
[2024-06-26 06:12] VITALS: BP 146/90; TEMP 97.2; O2SAT 100
== END 2024-06-26 06:30 | disposition home or self-care (01) ==
LOC: M ED 02:51
DX: S40.021A Contusion of right upper arm, initial encounter (principal); W19.XXXA Unspecified fall, initial encounter; I10 Essential (primary) hypertension; F43.10 Post-traumatic stress disorder, unspecified; F32.A Depression, unspecified; F41.9 Anxiety disorder, unspecified; F20.9 Schizophrenia, unspecified; Z91.09 Other allergy status, other than to drugs and biological substances; Z79.899 Other long term (current) drug therapy; Y92.9 Unspecified place or not applicable; Y93.89 Activity, other specified; Y99.9 Unspecified external cause status

== ENCOUNTER 2024-07-11 07:15 | Emergency (ER) | payer OTHER, MEDICAID ==
[~2024-07-11] VITALS: Ht 180.3 cm; Wt 91.5 kg
[2024-07-11] MEDS: IBUPROFEN 600MG TAB PO ONE (09:30)
[2024-07-11 09:39] VITALS: BP 148/94; TEMP 97.2; O2SAT 98
== END 2024-07-11 09:40 | disposition home or self-care (01) ==
LOC: M ED 07:15
DX: G89.29 Other chronic pain (principal); M25.571 Pain in right ankle and joints of right foot; F25.9 Schizoaffective disorder, unspecified

== ENCOUNTER 2024-07-17 03:16 | Emergency (ER) | payer OTHER, MEDICAID ==
[~2024-07-17] VITALS: Ht 180.3 cm; Wt 95.0 kg
[2024-07-17 03:18] VITALS: BP 164/83; TEMP 98.6; O2SAT 100
[2024-07-17] MEDS: IBUPROFEN 600MG TAB PO ONE (04:44)
== END 2024-07-17 07:02 | disposition home or self-care (01) ==
LOC: M ED 03:16
DX: M25.571 Pain in right ankle and joints of right foot (principal); F25.9 Schizoaffective disorder, unspecified; Z79.899 Other long term (current) drug therapy

== ENCOUNTER 2024-07-25 10:54 | Emergency (ER) | payer OTHER, MEDICAID ==
[~2024-07-25] VITALS: Ht 180.3 cm; Wt 93.4 kg
[2024-07-25 10:56] VITALS: BP 143/83; TEMP 98.2; O2SAT 99
== END 2024-07-25 11:41 | disposition left against medical advice (07) ==
LOC: M ED 10:54
DX: Z53.21 Procedure and treatment not carried out due to patient leaving prior to being seen by health care provider (principal)